=== PATIENT | male | born 1975 | race Caucasian/White ===

== ENCOUNTER 2017-05-06 10:45 | Inpatient (IN) | payer MEDICAID ==
[2017-05-06 10:46] VITALS: BMI 38.2
--- NOTE | 2017-05-06 11:30 | C.PDOC ---
History Of Present Illness 41-year-old male, PMHx includes Diabetes, presents to the emergency department with complaints of right first toe wound that has been presentand worsening over the past two weeks. Patient was prescribed two weeks of Augmentin and Doxycycline, and has had several debridements by his sequins spooler without improvement of wound. He denies trauma, fever. Time Seen by Provider: 05/06/17 11:09 Chief Complaint (Nursing): Abnormal Skin Integrity History Per: Patient History/Exam Limitations: no limitations Current Symptoms Are (Timing): Still Present Location Of Injury: Left: Foot Quality Of Symptoms: Painful Severity: Moderate Past Medical History Reviewed: Historical Data, Nursing Documentation, Vital Signs Vital Signs: Last Vital Signs Temp 98.0 F 05/09/17 08:50 Pulse 91 H 05/09/17 08:50 Resp 20 05/09/17 08:50 BP 127/82 05/09/17 08:50 Pulse Ox 96 05/09/17 08:50 - Medical History PMH: Asthma (last attack 8 years ago), Diabetes, HTN, Hypercholesterolemia Surgical History: Tonsillectomy (during childhood) - [facility] Procedures DRAINAGE OF LEFT FOOT SKIN, EXTERNAL APPROACH (11/25/16) Family History: States: No Known Family Hx - Social History Hx Tobacco Use: No Hx Alcohol Use: Yes (socially) Hx Substance Use: Yes - Immunization History Hx Tetanus Toxoid Vaccination: No Hx Influenza Vaccination: Yes Hx Pneumococcal Vaccination: Yes Review Of Systems Except As Marked, All Systems Reviewed And Found Negative. Constitutional: Negative for: Fever Cardiovascular: Negative for: Chest Pain Gastrointestinal: Negative for: Nausea, Vomiting Musculoskeletal: Positive for: Foot Pain Skin: Negative for: Rash Neurological: Negative for: Weakness, Numbness, Headache, Dizziness Physical Exam - Physical Exam Appears: Well, Non-toxic, No Acute Distress Skin: Warm, Dry, No Rash Head: Normacephalic Oral Mucosa: Moist Cardiovascular: Rhythm Regular Respiratory: Normal Breath Sounds, No Rales, No Rhonchi, No Wheezing Extremity: Tenderness, No Calf Tenderness, Capillary Refill (< 2 sec all digits ), No Deformity, Swelling, Other (right first toe: lateral aspect with 2cm healing wound. Medial aspect w/ 3cm necrotic appearing wound/eschar with surrounding erythema. no discharge. area swollen and tender to palpation) Pulses: Left Dorsalis Pedis: Normal, Right Dorsalis Pedis: Normal Neurological/Psych: Oriented x3, Normal Sensation (decreased sensation right foot (diabetic neuropathy)) ED Course And Treatment - Laboratory Results Result Diagrams: 05/06/17 11:51 05/06/17 11:51 O2 Sat by Pulse Oximetry: 98 (RA) Pulse Ox Interpretation: Normal - Other Rad foor xray X-Ray: Interpreted by Me, Viewed By Me (no fx/dislocation, no gas, no obvious periosteal elevation) Progress Note: Blood work, Xrays of foot ordered and reviewed. Patient given dose of IV Vancomycin + Cefepime. - Physician Consult Information Physician Contacted: Sherie Billings Outcome Of Conversation: Discussed patient with Dr. Mao Billings, who agrees with asdmission to his service. Podiatry consulted. Medical Decision Making Medical Decision Making: differential diagnoses considered: diabetic foot wound, osteomyelitis, gas gangrene, arterial insufficiency/PAD, fracture Disposition - Disposition Disposition: HOSPITALIZED Disposition Time: 14:08 Condition: STABLE - Clinical Impression Clinical Impression: Infected wound, Diabetic foot infection, Failure of outpatient treatment - Scribe Statement The provider has reviewed the documentation as recorded by the Scribe (Navin Carlisle) All medical record entries made by the Scribe were at my direction and personally dictated by me. I have reviewed the chart and agree that the record accurately reflects my personal performance of the history, physical exam, medical decision making, and the department course for this patient. I have also personally directed, reviewed, and agree with the discharge instructions and disposition. Decision To Admit - Pt Status Changed To: Hospital Disposition Of: Inpatient - Admit Certification Admit to Inpatient:: After my assessment, the patient will require hospitalization for at least two midnights. This is because of the severity of symptoms shown, intensity of services needed, and/or the medical risk in this patient being treated as an outpatient. - InPatient: Physician Admission Certification: I certify that this patient requires 2 or more midnights of care for the following reason:: see notes - . Bed Request Type: Regular Admitting Physician: Sherie Billings Patient Diagnosis: Infected wound, Diabetic foot infection, Failure of outpatient treatment
[2017-05-06] MEDS ORDERED: Cefepime 1 GM in Sodium Chloride 0.9% 50 ML IVPB STA (11:36)
[2017-05-06] MEDS ORDERED: Vancomycin 1 GM 1 GM/250 ML BAG IV STA (11:36)
[2017-05-06 11:55] LABS: BASO # 0.1 K/uL (0.0-0.2); EOS # 0.2 K/uL (0.0-0.7); EOS % 1.9 % (0.0-4.0); HEMOGLOBIN 15.2 g/dL (12.0-18.0); LYMPH % 30.5 % (20.0-40.0); MEAN CORPUSCULAR HEMOGLOBIN 27.5 pg (27.0-31.0); MEAN CORPUSCULAR HGB CONC 34.4 g/dL (33.0-37.0); MEAN PLATELET VOLUME 8.2 fL (7.2-11.7); MONO # 0.4 K/uL (0.0-0.8); MONO % 4.6 % (0.0-10.0); RBC 5.52 Mil/uL (4.40-5.90); RED CELL DISTRIBUTION WIDTH 13.6 % (11.5-14.5); WHITE BLOOD COUNT 9.7 K/uL (4.8-10.8)
[2017-05-06 12:02] LABS: ALBUMIN 3.4 g/dL (3.5-5.0)
[2017-05-06 12:05] LABS: ALB/GLOB RATIO 1.1 (1.0-2.1); AST/SGOT 19 U/L (17-59); BLOOD UREA NITROGEN 15 mg/dL (9-20); GFR AFRICAN-AMERICAN > 60; GFR NON-AFRICAN AMERICAN > 60
[2017-05-06 12:05] LABS: VENOUS BLOOD GAS BASE EXCESS 2.9 mmol/L (0.0-2.0); VENOUS BLOOD GAS PCO2 43 mmHg (40-60); VENOUS BLOOD GAS PO2 42 mm/Hg (30-55); VENOUS BLOOD PH 7.42 (7.32-7.43)
[2017-05-06 12:06] LABS: ALT/SGPT 32 U/L (21-72); CALCIUM 8.6 mg/dl (8.6-10.4)
--- NOTE | 2017-05-06 12:20 | RAD ---
PROCEDURE: Radiographs of the right great toe. TECHNIQUE:: AP radiograph of the right foot, with oblique and lateral view of the right great toe. COMPARISON: 11/25/2016. FINDINGS: BONES: Bone alignment is normal. No acute displaced fracture. JOINTS: Normal. SOFT TISSUES: Normal. OTHER FINDINGS: None. IMPRESSION: No acute fracture or dislocation.
[2017-05-06] MEDS: Cefepime 1 GM in Sodium Chloride 0.9% 100 ML IVPB STA ×2 (12:22→12:29)
[2017-05-06] MEDS ORDERED: Vancomycin 1 GM 1 GM/250 ML BAG IVPB ONE (12:23)
[2017-05-06] MEDS ORDERED: Oxycodone/Acetaminophen 5/325 mg Tab PO STA (14:17)
[2017-05-06] MEDS ORDERED: Oxycodone/Acetaminophen 5/325 mg Tab ONE (14:34)
--- NOTE | 2017-05-06 14:57 | CP.PCM.HP ---
Past Patient History - Past Medical History & Family History Past Medical History?: Yes - Past Social History Smoking Status: Former Smoker - CARDIAC Hx Hypercholesterolemia: Yes Hx Hypertension: Yes - PULMONARY Hx Asthma: Yes (last attack 8 years ago) - NEUROLOGICAL Hx Neurological Disorder: No - HEENT Hx HEENT Problems: No - RENAL Hx Chronic Kidney Disease: No - ENDOCRINE/METABOLIC Hx Diabetes Mellitus Type 2: Yes - HEMATOLOGICAL/ONCOLOGICAL Hx Blood Disorders: No - INTEGUMENTARY Hx Dermatological Problems: No - MUSCULOSKELETAL/RHEUMATOLOGICAL Hx Falls: No Hx Herniated Disk: Yes - GASTROINTESTINAL Other/Comment: colon problem - GENITOURINARY/GYNECOLOGICAL Hx Genitourinary Disorders: No - PSYCHIATRIC Hx Substance Use: Yes - SURGICAL HISTORY Hx Tonsillectomy: Yes (during childhood) - ANESTHESIA Hx Anesthesia: Yes Hx Anesthesia Reactions: No Meds Allergies/Adverse Reactions: Allergies Allergy/AdvReac Type Severity Reaction Status Date / Time Insulins Allergy Verified 11/22/16 12:29 sitagliptin Allergy Verified 11/22/16 12:29 Results - Vital Signs Recent Vital Signs: Last Vital Signs Temp 98.2 F 05/06/17 11:05 Pulse 92 H 05/06/17 11:05 Resp 18 05/06/17 11:05 BP 133/88 05/06/17 11:05 Pulse Ox 98 05/06/17 13:43 - Labs Result Diagrams: 05/06/17 11:51 05/06/17 11:51
--- NOTE | 2017-05-06 16:18 | CP.PCM.CON ---
History of Present Illness - History of Present Illness History of Present Illness: 41 year old with DM, was admitted with infected toe, sepsis, on antibiotics, f/ u cultures, had palpitation, echo Review of Systems - Constitutional Constitutional: Anorexia - EENT Eyes: absent: Discharge Ears: absent: Ear Discharge Nose/Mouth/Throat: absent: Epistaxis - Cardiovascular Cardiovascular: Palpitations. absent: Acrocyanosis, Chest Pain, Diaphoresis, Syncope - Respiratory Respiratory: absent: Cough, Dyspnea, Hemoptysis - Gastrointestinal Gastrointestinal: absent: Abdominal Pain, Diarrhea, Hematochezia, Vomiting - Genitourinary Genitourinary: absent: Change in Urinary Stream Past Patient History - Past Medical History & Family History Past Medical History?: Yes - Past Social History Smoking Status: Former Smoker - CARDIAC Hx Hypercholesterolemia: Yes Hx Hypertension: Yes - PULMONARY Hx Asthma: Yes (last attack 8 years ago) - NEUROLOGICAL Hx Neurological Disorder: No - HEENT Hx HEENT Problems: No - RENAL Hx Chronic Kidney Disease: No - ENDOCRINE/METABOLIC Hx Diabetes Mellitus Type 2: Yes - HEMATOLOGICAL/ONCOLOGICAL Hx Blood Disorders: No - INTEGUMENTARY Hx Dermatological Problems: No - MUSCULOSKELETAL/RHEUMATOLOGICAL Hx Falls: No Hx Herniated Disk: Yes - GASTROINTESTINAL Other/Comment: colon problem - GENITOURINARY/GYNECOLOGICAL Hx Genitourinary Disorders: No - PSYCHIATRIC Hx Substance Use: Yes - SURGICAL HISTORY Hx Tonsillectomy: Yes (during childhood) - ANESTHESIA Hx Anesthesia: Yes Hx Anesthesia Reactions: No Meds Allergies/Adverse Reactions: Allergies Allergy/AdvReac Type Severity Reaction Status Date / Time Insulins Allergy Verified 11/22/16 12:29 sitagliptin Allergy Verified 11/22/16 12:29 - Medications Medications: Current Medications Enoxaparin Sodium (Lovenox) 40 mg SC DAILY [facility] Piperacillin Sod/Tazobactam Sod (Zosyn 3.375 Gm Iv Premix) 3.375 gm in 50 mls @ 100 mls/hr IVPB Q6H [facility] Metformin HCl (Glucophage) 1,000 mg PO BIDCC [facility] Naproxen (Anaprox Ds) 550 mg PO BID [facility] Pantoprazole Sodium (Protonix Ec Tab) 40 mg PO DAILY [facility] Physical Exam - Constitutional Appears: Non-toxic - Head Exam Head Exam: ATRAUMATIC - Eye Exam Eye Exam: EOMI - ENT Exam ENT Exam: Mucous Membranes Moist - Neck Exam Neck exam: Negative for: Lymphadenopathy, Tenderness, Thyromegaly - Respiratory Exam Respiratory Exam: Clear to Auscultation Bilateral. absent: Rales - Cardiovascular Exam Cardiovascular Exam: REGULAR RHYTHM. absent: Gallop, Systolic Murmur - GI/Abdominal Exam GI & Abdominal Exam: Normal Bowel Sounds. absent: Organomegaly - Rectal Exam Rectal Exam: Deferred - Extremities Exam Extremities exam: Positive for: pedal pulses present. Negative for: calf tenderness - Expanded Lower Extremities Exam Left Foot/Toe exam: erythema, laceration, tenderness - Neurological Exam Neurological exam: Alert, Oriented x3 - Psychiatric Exam Psychiatric exam: Anxious - Skin Skin Exam: Dry Results - Vital Signs Recent Vital Signs: Last Vital Signs Temp 98.4 F 05/06/17 15:15 Pulse 82 05/06/17 15:15 Resp 17 05/06/17 15:15 BP 145/90 05/06/17 15:15 Pulse Ox 97 05/06/17 15:15 - Labs Result Diagrams: 05/06/17 11:51 05/06/17 11:51 Assessment & Plan (1) Cellulitis Status: Acute (2) Hyperglycemia due to type 2 diabetes mellitus Status: Chronic
[2017-05-06] MEDS: Piperacill/Tazo 3.375gm in Dex 3.375 GM/50 ML BAG IVPB SCH ×2 (16:52→21:25)
[2017-05-06] MEDS: Naproxen 550 mg Tab PO SCH (17:02)
[2017-05-06] MEDS: Pantoprazole 40 mg EC Tab PO SCH (17:02)
--- NOTE | 2017-05-06 17:12 | CP.PCM.CON ---
History of Present Illness - History of Present Illness History of Present Illness: 41-year-old male, PMHx includes Diabetes, presents to the emergency department with complaints of right first toe wound that has been present for greater than two weeks. 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 States he feels like symptoms have worsened. Has superfiacial area of necrosis left great toe and cellulitis left foot - Medical History PMH: Asthma (last attack 8 years ago), Diabetes, HTN, Hypercholesterolemia Denies: Chronic Kidney Disease Surgical History: Tonsillectomy (during childhood) - [facility] Procedures DRAINAGE OF LEFT FOOT SKIN, EXTERNAL APPROACH (11/25/16) Review of Systems - Review of Systems All systems: reviewed and no additional remarkable complaints except - Constitutional Constitutional: As Per HPI - EENT Eyes: absent: As Per HPI, Blind Spots, Blurred Vision, Change in Vision, Decreased Night Vision, Diplopia, Discharge, Dry Eye, Exophthalmos, Floaters, Irritation, Itchy Eyes, Loss of Peripheral Vision, Pain, Photophobia, Requires Corrective Lenses, Sees Flashes, Spots in Vision, Tunnel Vision, Other Visual Disturbances, Loss of Vision, Other Ears: absent: As Per HPI, Decreased Hearing, Ear Discharge, Ear Pain, Tinnitus, Abnormal Hearing, Disequilibrium, Dizziness, Other Nose/Mouth/Throat: absent: As Per HPI, Epistaxis, Nasal Congestion, Nasal Discharge, Nasal Obstruction, Nasal Trauma, Nose Pain, Post Nasal Drip, Sinus Pain, Sinus Pressure, Bleeding Gums, Change in Voice, Dental Pain, Dry Mouth, Dysphagia, Halitosis, Hoarsness, Lip Swelling, Mouth Lesions, Mouth Pain, Odynophagia, Sore Throat, Throat Swelling, Tongue Swelling, Facial Pain, Neck Pain, Neck Mass, Other - Cardiovascular Cardiovascular: absent: As Per HPI, Acrocyanosis, Chest Pain, Chest Pain at Rest , Chest Pain with Activity, Claudication, Diaphoresis, Dyspnea, Dyspnea on Exertion, Edema, Irregular Heart Rhythm, Pain Radiating to Arm/Neck/Jaw, Leg Edema, Leg Ulcers, Lightheadedness, Orthopnea, Palpitations, Paroxysmal Nocturnal Dyspnea, Pedal Edema, Radiating Pain, Rapid Heart Rate, Slow Heart Rate, Syncope, Other - Respiratory Respiratory: absent: As Per HPI, Cough, Dyspnea, Hemoptysis, Dyspnea on Exertion , Wheezing, Snoring, Stridor, Pain on Inspiration, Chest Congestion, Excessive Mucous Production, Change in Mucous Color, Pain with Coughing, Other - Gastrointestinal Gastrointestinal: absent: As Per HPI, Abdominal Pain, Belching, Bloating, Change in Bowel Habits, Change in Stool Character, Coffee Ground Emesis, Constipation, Cramping, Diarrhea, Dyspepsia, Dysphagia, Early Satiety, Excessive Flatus, Fecal Incontinence, Heartburn, Hematemesis, Hematochezia, Loose Stools, Melena, Nausea, Odynophagia, Temesmus, Vomiting, Other - Genitourinary Genitourinary: absent: As Per HPI, Change in Urinary Stream, Difficulty Urinating, Dysuria, Flank Pain, Hematuria, Pyuria, Nocturia, Urinary Incontinence, Urinary Frequency, Urinary Hesitance, Urinary Urgency, Voiding Freq/Small Amts, Freq UTI, Hx Renal/Bladder Calculi, Hx /Renal Surgery, Bladder Distension, Other - Musculoskeletal Musculoskeletal: As Per HPI - Integumentary Integumentary: As Per HPI, Skin Pain, Wounds - Neurological Neurological: absent: As Per HPI, Abnormal Gait, Abnormal Hearing, Abnormal Movements, Abnormal Speech, Behavioral Changes, Burning Sensations, Confusion, Convulsions, Disequilibrium, Dizziness, Numbness, Focal Weakness, Frequent Falls , Headaches, Lack of Coordination, Loss of Vision, Memory Loss, Paresthesias, Radicular Pain, Restless Legs, Sensory Deficit, Syncope, Tingling, Tremor, Vertigo, Weakness, Other Visual Disturbances, Other - Psychiatric Psychiatric: absent: As Per HPI, Abnormal Sleep Pattern, Anhedonia, Anxiety, Auditory Hallucinations, Behavioral Changes, Change in Appetite, Change in Libido, Confusion, Depression, Difficulty Concentrating, Hallucinations, Homicidal Ideation, Hopelessness, Irritability, Memory Loss, Mood Swings, Panic Attacks, Paranoia, Suicidal Ideation, Visual Hallucinations, Tactile Hallucinations, Other - Endocrine Endocrine: absent: As Per HPI, Change in Body Appearance, Change in Libido, Cold Intolorance, Deepening of Voice, Excessive Sweating, Fatigue, Flushing, Heat Intolorance, Increase in Ring/Shoe/Hat Size, Palpitations, Polydipsia, Polyphagia, Polyuria, Other Past Patient History - Past Medical History & Family History Past Medical History?: Yes - Past Social History Smoking Status: Former Smoker - CARDIAC Hx Hypercholesterolemia: Yes Hx Hypertension: Yes - PULMONARY Hx Asthma: Yes (last attack 8 years ago) - NEUROLOGICAL Hx Neurological Disorder: No - HEENT Hx HEENT Problems: No - RENAL Hx Chronic Kidney Disease: No - ENDOCRINE/METABOLIC Hx Diabetes Mellitus Type 2: Yes - HEMATOLOGICAL/ONCOLOGICAL Hx Blood Disorders: No - INTEGUMENTARY Hx Dermatological Problems: No - MUSCULOSKELETAL/RHEUMATOLOGICAL Hx Falls: No Hx Herniated Disk: Yes - GASTROINTESTINAL Other/Comment: colon problem - GENITOURINARY/GYNECOLOGICAL Hx Genitourinary Disorders: No - PSYCHIATRIC Hx Substance Use: Yes - SURGICAL HISTORY Hx Tonsillectomy: Yes (during childhood) - ANESTHESIA Hx Anesthesia: Yes Hx Anesthesia Reactions: No Meds Allergies/Adverse Reactions: Allergies Allergy/AdvReac Type Severity Reaction Status Date / Time Insulins Allergy Verified 11/22/16 12:29 sitagliptin Allergy Verified 11/22/16 12:29 - Medications Medications: Current Medications Enoxaparin Sodium (Lovenox) 40 mg SC DAILY [facility] Piperacillin Sod/Tazobactam Sod (Zosyn 3.375 Gm Iv Premix) 3.375 gm in 50 mls @ 100 mls/hr IVPB Q6H [facility] Last Admin: 05/06/17 16:52 Dose: 100 mls/hr [facility] Last Admin: 05/06/17 17:02 Dose: 1,000 mg Naproxen (Anaprox Ds) 550 mg PO BID [facility] Last Admin: 05/06/17 17:02 Dose: 550 mg Pantoprazole Sodium (Protonix Ec Tab) 40 mg PO DAILY [facility] Last Admin: 05/06/17 17:02 Dose: 40 mg Physical Exam - Constitutional Appears: Non-toxic, Chronically Ill - Head Exam Head Exam: NORMOCEPHALIC - Eye Exam Eye Exam: PERRL. absent: Scleral icterus - ENT Exam ENT Exam: Mucous Membranes Dry, Normal External Ear Exam - Neck Exam Neck exam: Negative for: Lymphadenopathy - Respiratory Exam Respiratory Exam: Decreased Breath Sounds - Cardiovascular Exam Cardiovascular Exam: REGULAR RHYTHM - GI/Abdominal Exam GI & Abdominal Exam: Diminished Bowel Sounds, Soft - Rectal Exam Rectal Exam: Deferred - Exam Exam: NORMAL INSPECTION - Extremities Exam Extremities exam: Positive for: pedal edema, tenderness, pedal pulses present. Negative for: calf tenderness - Back Exam Back exam: absent: CVA tenderness (L), CVA tenderness (R) - Neurological Exam Neurological exam: Alert, CN II-XII Intact, Oriented x3, Reflexes Normal - Psychiatric Exam Psychiatric exam: Normal Mood - Skin Skin Exam: Dry Results - Vital Signs Recent Vital Signs: Last Vital Signs Temp 98.4 F 05/06/17 15:15 Pulse 82 05/06/17 15:15 Resp 17 05/06/17 15:15 BP 145/90 05/06/17 15:15 Pulse Ox 97 05/06/17 15:15 - Labs Result Diagrams: 05/06/17 11:51 05/06/17 11:51 Labs: Laboratory Results - last 24 hr 05/06/17 16:34 POC Glucose (mg/dL) 266 H Assessment & Plan (1) Cellulitis Status: Acute (2) Elevated d-dimer Status: Acute (3) Pneumonia Status: Acute (4) Uncontrolled diabetes mellitus Status: Acute - Assessment and Plan (Free Text) Assessment: R/O OM CONSIDER OR CULTURES LEFT GREAT TOE RECC : ARTERIAL DOPPLERCS AND VASCULAR EVAL NEED WEIGHT LOSS/ DIABETIC MANAGEMENT CONSIDER MRI LEFT FOOT TO R/O OM CONT IV ANTIBIOTICS
[2017-05-07] MEDS: Piperacill/Tazo 3.375gm in Dex 3.375 GM/50 ML BAG IVPB SCH ×4 (02:49→20:54)
[2017-05-07] MEDS ORDERED: Oxycodone/Acetaminophen 5/325 mg Tab PO ONE (03:38)
[2017-05-07] MEDS: Enoxaparin 40 mg Syringe SC SCH (09:32)
[2017-05-07] MEDS: Pantoprazole 40 mg EC Tab PO SCH (09:32)
[2017-05-07] MEDS: Naproxen 550 mg Tab PO SCH ×2 (09:32→17:54)
--- NOTE | 2017-05-07 11:31 | CP.PCM.PN ---
Subjective - Date & Time of Evaluation Date of Evaluation: 05/07/17 Time of Evaluation: 07:00 - Subjective Subjective: MRI pending ulcer right great toe +/ cellulitis + cont iv rx Objective - Vital Signs/Intake and Output Vital Signs (last 24 hours): Temp Pulse Resp BP Pulse Ox 98.3 F 60 20 140/88 96 05/07/17 07:15 05/07/17 07:15 05/07/17 07:15 05/07/17 07:15 05/07/17 07:15 Intake and Output: 05/07/17 05/07/17 06:59 18:59 Intake Total 1200 Balance 1200 - Medications Medications: Current Medications Enoxaparin Sodium (Lovenox) 40 mg SC DAILY [facility] Last Admin: 05/07/17 09:32 Dose: 40 mg Piperacillin Sod/Tazobactam Sod (Zosyn 3.375 Gm Iv Premix) 3.375 gm in 50 mls @ 100 mls/hr IVPB Q6H [facility] Last Admin: 05/07/17 08:00 Dose: 100 mls/hr Vancomycin HCl 1,000 mg/ (Sodium Chloride) 250 mls @ 166.6 mls/hr IVPB Q12H [facility] Last Admin: 05/07/17 01:50 Dose: 166.6 mls/hr [facility] Last Admin: 05/07/17 07:57 Dose: 1,000 mg Naproxen (Anaprox Ds) 550 mg PO BID [facility] Last Admin: 05/07/17 09:32 Dose: 550 mg Pantoprazole Sodium (Protonix Ec Tab) 40 mg PO DAILY [facility] Last Admin: 05/07/17 09:32 Dose: 40 mg - Constitutional Appears: Non-toxic, Chronically Ill - Head Exam Head Exam: NORMOCEPHALIC - Eye Exam Eye Exam: PERRL. absent: Scleral icterus - ENT Exam ENT Exam: Mucous Membranes Dry - Neck Exam Neck Exam: absent: Lymphadenopathy - Respiratory Exam Respiratory Exam: Decreased Breath Sounds, Clear to Ausculation Bilateral - Cardiovascular Exam Cardiovascular Exam: REGULAR RHYTHM - GI/Abdominal Exam GI & Abdominal Exam: Distended Assessment and Plan (1) Cellulitis Status: Acute (2) Elevated d-dimer Status: Acute (3) Pneumonia Status: Acute (4) Uncontrolled diabetes mellitus Status: Acute
--- NOTE | 2017-05-07 12:26 | CP.PCM.PN ---
Subjective - Date & Time of Evaluation Date of Evaluation: 05/07/17 Time of Evaluation: 12:00 - Subjective Subjective: On treatment for sepsis and cellulitis as per infectious disease, no further palpitation, follow-up with echocardiogram Objective - Vital Signs/Intake and Output Vital Signs (last 24 hours): Temp Pulse Resp BP Pulse Ox 98.3 F 60 20 140/88 96 05/07/17 07:15 05/07/17 07:15 05/07/17 07:15 05/07/17 07:15 05/07/17 07:15 Intake and Output: 05/07/17 05/07/17 06:59 18:59 Intake Total 1200 Balance 1200 - Medications Medications: Current Medications Enoxaparin Sodium (Lovenox) 40 mg SC DAILY [facility] Last Admin: 05/07/17 09:32 Dose: 40 mg Piperacillin Sod/Tazobactam Sod (Zosyn 3.375 Gm Iv Premix) 3.375 gm in 50 mls @ 100 mls/hr IVPB Q6H [facility] Last Admin: 05/07/17 08:00 Dose: 100 mls/hr Vancomycin HCl 1,000 mg/ (Sodium Chloride) 250 mls @ 166.6 mls/hr IVPB Q12H [facility] Last Admin: 05/07/17 01:50 Dose: 166.6 mls/hr [facility] Last Admin: 05/07/17 07:57 Dose: 1,000 mg Naproxen (Anaprox Ds) 550 mg PO BID [facility] Last Admin: 05/07/17 09:32 Dose: 550 mg Pantoprazole Sodium (Protonix Ec Tab) 40 mg PO DAILY [facility] Last Admin: 05/07/17 09:32 Dose: 40 mg - Constitutional Appears: Non-toxic - Head Exam Head Exam: ATRAUMATIC - Eye Exam Eye Exam: EOMI - ENT Exam ENT Exam: Mucous Membranes Moist - Neck Exam Neck Exam: absent: Lymphadenopathy, Thyromegaly - Respiratory Exam Respiratory Exam: Clear to Ausculation Bilateral. absent: Rales - Cardiovascular Exam Cardiovascular Exam: REGULAR RHYTHM. absent: Murmur - GI/Abdominal Exam GI & Abdominal Exam: Normal Bowel Sounds. absent: Organomegaly - Rectal Exam Rectal Exam: Deferred - Extremities Exam Extremities Exam: Calf Tenderness, Normal Capillary Refill - Neurological Exam Neurological Exam: Alert, Oriented x3 - Psychiatric Exam Psychiatric exam: Anxious - Skin Skin Exam: Dry Assessment and Plan (1) Cellulitis Status: Acute (2) Hyperglycemia due to type 2 diabetes mellitus Status: Chronic
--- NOTE | 2017-05-07 17:03 | CP.PCM.CON ---
<Richard Foremana - Last Filed: 05/07/17 17:00> History of Present Illness - History of Present Illness History of Present Illness: 41-year-old male, PMHx includes Diabetes, seen at bedside for right foot nonhealing ulceration of hallux. Patient states that he has had the ulcer for over 2 weeks. He states that on the inside of his toe he noticed a blister that had popped but a few days ago noticed a wound changing a dark color and became concerned. Patient states that he developed pain and came to the ED. Patient states that he sees an outside envelope addresser that does not come to [facility]. He states that he has been treating the wound with local care. Patient denies any other pedal complaints at this time. He denies n/f/v/d/c/ sob. Review of Systems - Constitutional Constitutional: As Per HPI Past Patient History - Past Medical History & Family History Past Medical History?: Yes - Past Social History Smoking Status: Former Smoker - CARDIAC Hx Hypercholesterolemia: Yes Hx Hypertension: Yes - PULMONARY Hx Asthma: Yes (last attack 8 years ago) - NEUROLOGICAL Hx Neurological Disorder: No - HEENT Hx HEENT Problems: No - RENAL Hx Chronic Kidney Disease: No - ENDOCRINE/METABOLIC Hx Diabetes Mellitus Type 2: Yes - HEMATOLOGICAL/ONCOLOGICAL Hx Blood Disorders: No - INTEGUMENTARY Hx Dermatological Problems: No - MUSCULOSKELETAL/RHEUMATOLOGICAL Hx Falls: No Hx Herniated Disk: Yes - GASTROINTESTINAL Other/Comment: colon problem - GENITOURINARY/GYNECOLOGICAL Hx Genitourinary Disorders: No - PSYCHIATRIC Hx Substance Use: Yes - SURGICAL HISTORY Hx Tonsillectomy: Yes (during childhood) - ANESTHESIA Hx Anesthesia: Yes Hx Anesthesia Reactions: No Meds Allergies/Adverse Reactions: Allergies Allergy/AdvReac Type Severity Reaction Status Date / Time Insulins Allergy Verified 11/22/16 12:29 sitagliptin Allergy Verified 11/22/16 12:29 - Medications Medications: Current Medications Collagenase (Santyl) 0 gm TOP DAILY [facility] Enoxaparin Sodium (Lovenox) 40 mg SC DAILY [facility] Last Admin: 05/07/17 09:32 Dose: 40 mg Piperacillin Sod/Tazobactam Sod (Zosyn 3.375 Gm Iv Premix) 3.375 gm in 50 mls @ 100 mls/hr IVPB Q6H [facility] Last Admin: 05/07/17 15:59 Dose: 100 mls/hr Vancomycin HCl 1,000 mg/ (Sodium Chloride) 250 mls @ 166.6 mls/hr IVPB Q12H [facility] Last Admin: 05/07/17 13:18 Dose: 166.6 mls/hr Metformin HCl (Glucophage) 1,000 mg PO BIDCC [facility] Last Admin: 05/07/17 07:57 Dose: 1,000 mg Naproxen (Anaprox Ds) 550 mg PO BID [facility] Last Admin: 05/07/17 09:32 Dose: 550 mg Pantoprazole Sodium (Protonix Ec Tab) 40 mg PO DAILY [facility] Last Admin: 05/07/17 09:32 Dose: 40 mg Physical Exam - Constitutional Appears: Well, Non-toxic, No Acute Distress - Extremities Exam Additional comments: right foot focused: Vasc: lightly palpable DP and PT pulses, TG wnl, CFT < 3 sec to all digits neuro: grossly intact derm: localized edema and erythema to right hallux, superficial skin sloughing from previous blister noted to medial hallux, plantar hallux necrotic ulcer measuring 3cm x 2cm x 0.2cm with necrotic cap, fibrous base, 1cc purulent drainage, moderate malodor, no probe to bone, moderate fluctuance, no ascending celllulitis ortho: no pain on palpation to plantar right hallux - Neurological Exam Neurological exam: Alert, Oriented x3 - Psychiatric Exam Psychiatric exam: Normal Affect, Normal Mood Results - Vital Signs Recent Vital Signs: Last Vital Signs Temp 98.1 F 05/07/17 15:40 Pulse 82 05/07/17 15:40 Resp 18 05/07/17 15:40 BP 166/102 H 05/07/17 15:40 Pulse Ox 97 05/07/17 15:40 - Labs Result Diagrams: 05/06/17 11:51 05/06/17 11:51 Labs: Laboratory Results - last 24 hr 05/06/17 05/07/17 05/07/17 21:46 06:33 07:03 POC Glucose (mg/dL) 269 H 265 H Vancomycin Trough 8.2 05/07/17 11:16 POC Glucose (mg/dL) 355 H Vancomycin Trough Assessment & Plan - Assessment and Plan (Free Text) Assessment: 41 y/o male seen at bedside for right hallux ulceration secondary to DM Plan: patient evaluated and chart reviewed discussed in detail with attending Dr. Hooper labs and vitals reviewed; WBC 9.7 (05/06/17) aseptic trimming of necrotic tissue on right foot using #15 blade and pickups applied betadine, DSD to right hallux wound cx obtained x rays of right foot show no OM f/u MRI right foot continue IV abx as per ID Rx santyl podiatry will continue to follow while patient remains in house <Jovanny Hooper - Last Filed: 05/08/17 11:07> Meds - Medications Medications: Current Medications Collagenase (Santyl) 0 gm TOP DAILY [facility] Enoxaparin Sodium (Lovenox) 40 mg SC DAILY [facility] Last Admin: 05/08/17 09:27 Dose: 40 mg Piperacillin Sod/Tazobactam Sod (Zosyn 3.375 Gm Iv Premix) 3.375 gm in 50 mls @ 100 mls/hr IVPB Q6H [facility] Last Admin: 05/08/17 08:06 Dose: 100 mls/hr Vancomycin HCl 1,000 mg/ (Sodium Chloride) 250 mls @ 166.6 mls/hr IVPB Q12H [facility] Last Admin: 05/08/17 01:47 Dose: 166.6 mls/hr Metformin HCl (Glucophage) 1,000 mg PO BIDCC [facility] Last Admin: 05/08/17 08:06 Dose: 1,000 mg Naproxen (Anaprox Ds) 550 mg PO BID [facility] Last Admin: 05/08/17 09:29 Dose: 550 mg Pantoprazole Sodium (Protonix Ec Tab) 40 mg PO DAILY [facility] Last Admin: 05/08/17 09:27 Dose: 40 mg Results - Vital Signs Recent Vital Signs: Last Vital Signs Temp 98.3 F 05/08/17 09:15 Pulse 80 05/08/17 09:15 Resp 20 05/08/17 09:15 BP 151/86 H 05/08/17 09:15 Pulse Ox 97 05/08/17 09:15 - Labs Result Diagrams: 05/06/17 11:51 05/06/17 11:51 Labs: Laboratory Results - last 24 hr 05/07/17 05/07/17 05/07/17 11:16 16:20 20:52 POC Glucose (mg/dL) 355 H 264 H 252 H 05/08/17 06:55 POC Glucose (mg/dL) 263 H Attending/Attestation - Attestation I have fully participated in the care of the patient.: Yes I have reviewed all pertinent clinical information: Yes
--- NOTE | 2017-05-07 18:32 | CP.PCM.PN ---
Subjective - Date & Time of Evaluation Date of Evaluation: 05/07/17 Time of Evaluation: 13:20 - Subjective Subjective: clinically same Objective - Vital Signs/Intake and Output Vital Signs (last 24 hours): Temp Pulse Resp BP Pulse Ox 98.1 F 82 18 166/102 H 97 05/07/17 15:40 05/07/17 15:40 05/07/17 15:40 05/07/17 15:40 05/07/17 15:40 Intake and Output: 05/07/17 05/07/17 06:59 18:59 Intake Total 1200 1200 Balance 1200 1200 - Medications Medications: Current Medications Collagenase (Santyl) 0 gm TOP DAILY [facility] Enoxaparin Sodium (Lovenox) 40 mg SC DAILY [facility] Last Admin: 05/07/17 09:32 Dose: 40 mg Piperacillin Sod/Tazobactam Sod (Zosyn 3.375 Gm Iv Premix) 3.375 gm in 50 mls @ 100 mls/hr IVPB Q6H [facility] Last Admin: 05/07/17 15:59 Dose: 100 mls/hr Vancomycin HCl 1,000 mg/ (Sodium Chloride) 250 mls @ 166.6 mls/hr IVPB Q12H [facility] Last Admin: 05/07/17 13:18 Dose: 166.6 mls/hr [facility] Last Admin: 05/07/17 17:54 Dose: 1,000 mg Naproxen (Anaprox Ds) 550 mg PO BID [facility] Last Admin: 05/07/17 17:54 Dose: 550 mg Pantoprazole Sodium (Protonix Ec Tab) 40 mg PO DAILY [facility] Last Admin: 05/07/17 09:32 Dose: 40 mg - Constitutional Appears: Well - Head Exam Head Exam: ATRAUMATIC, NORMAL INSPECTION, NORMOCEPHALIC - Eye Exam Eye Exam: EOMI, Normal appearance, PERRL Pupil Exam: NORMAL ACCOMODATION, PERRL - ENT Exam ENT Exam: Mucous Membranes Moist, Normal Exam - Neck Exam Neck Exam: Full ROM, Normal Inspection. absent: Lymphadenopathy - Respiratory Exam Respiratory Exam: Decreased Breath Sounds - Cardiovascular Exam Cardiovascular Exam: REGULAR RHYTHM, +S1, +S2 - GI/Abdominal Exam GI & Abdominal Exam: Soft, Diminished Bowel Sounds - Rectal Exam Rectal Exam: Deferred
[2017-05-07] MEDS ORDERED: Oxycodone/Acetaminophen 5/325 mg Tab PO STA (23:51)
[2017-05-08] MEDS: Piperacill/Tazo 3.375gm in Dex 3.375 GM/50 ML BAG IVPB SCH ×4 (04:00→22:46)
[2017-05-08] MEDS: Enoxaparin 40 mg Syringe SC SCH (09:27)
[2017-05-08] MEDS: Pantoprazole 40 mg EC Tab PO SCH (09:27)
[2017-05-08] MEDS: Naproxen 550 mg Tab PO SCH ×2 (09:29→18:06)
[2017-05-08] MEDS: Collagenase 250 Units/gm Ointment(30 gm) TOP SCH (10:00)
--- NOTE | 2017-05-08 10:13 | CP.PCM.PN ---
Subjective - Date & Time of Evaluation Date of Evaluation: 05/08/17 Time of Evaluation: 09:00 - Subjective Subjective: 41 yo male with severe diabetic neuropathy seen for nonhealing ulcer right hallux/ cellulitits right foot Objective - Vital Signs/Intake and Output Vital Signs (last 24 hours): Temp Pulse Resp BP Pulse Ox 98.3 F 80 20 151/86 H 97 05/08/17 09:15 05/08/17 09:15 05/08/17 09:15 05/08/17 09:15 05/08/17 09:15 Intake and Output: 05/08/17 05/08/17 06:59 18:59 Intake Total 1390 Balance 1390 - Medications Medications: Current Medications Collagenase (Santyl) 0 gm TOP DAILY [facility] Enoxaparin Sodium (Lovenox) 40 mg SC DAILY [facility] Last Admin: 05/08/17 09:27 Dose: 40 mg Piperacillin Sod/Tazobactam Sod (Zosyn 3.375 Gm Iv Premix) 3.375 gm in 50 mls @ 100 mls/hr IVPB Q6H [facility] Last Admin: 05/08/17 08:06 Dose: 100 mls/hr Vancomycin HCl 1,000 mg/ (Sodium Chloride) 250 mls @ 166.6 mls/hr IVPB Q12H [facility] Last Admin: 05/08/17 01:47 Dose: 166.6 mls/hr Metformin HCl (Glucophage) 1,000 mg PO BIDCC [facility] Last Admin: 05/08/17 08:06 Dose: 1,000 mg Naproxen (Anaprox Ds) 550 mg PO BID [facility] [place] Last Admin: 05/08/17 09:29 Dose: 550 mg Pantoprazole Sodium (Protonix Ec Tab) 40 mg PO DAILY [facility] [place] Last Admin: 05/08/17 09:27 Dose: 40 mg - Constitutional Appears: Non-toxic, Chronically Ill - Head Exam Head Exam: NORMOCEPHALIC - Eye Exam Eye Exam: PERRL. absent: Scleral icterus - ENT Exam ENT Exam: Mucous Membranes Dry - Neck Exam Neck Exam: absent: Lymphadenopathy - Respiratory Exam Respiratory Exam: Decreased Breath Sounds, Clear to Ausculation Bilateral - Cardiovascular Exam Cardiovascular Exam: REGULAR RHYTHM - GI/Abdominal Exam GI & Abdominal Exam: Distended, Soft - Rectal Exam Rectal Exam: Deferred - Exam Exam: NORMAL INSPECTION - Extremities Exam Extremities Exam: Pedal Edema, Tenderness Additional comments: right foot focused: Vasc: lightly palpable DP and PT pulses, TG wnl, CFT < 3 sec to all digits neuro: grossly intact derm: localized edema and erythema to right hallux, superficial skin sloughing from previous blister noted to medial hallux, plantar hallux necrotic ulcer measuring 3cm x 2cm x 0.2cm with necrotic cap, fibrous base, 1cc purulent drainage, moderate malodor, no probe to bone, moderate fluctuance, no ascending celllulitis ortho: no pain on palpation to plantar right hallux - Back Exam Back Exam: absent: CVA tenderness (L), CVA tenderness (R) - Neurological Exam Neurological Exam: Alert, Awake, Oriented x3 - Psychiatric Exam Psychiatric exam: Normal Mood - Skin Skin Exam: Dry, Intact Assessment and Plan (1) Cellulitis Status: Acute (2) Elevated d-dimer Status: Acute (3) Pneumonia Status: Acute (4) Uncontrolled diabetes mellitus Status: Acute - Assessment and Plan (Free Text) Assessment: await MRI may need OR debridement may need termite treater IV rx
--- NOTE | 2017-05-08 11:12 | MRI ---
MRI right foot History: Osteomyelitis. Comparison: X-ray dated 05/06/2017 Technique: Multi-echo multiplanar sequences were performed through the right foot without the use of intravenous contrast. Findings: Soft tissue ulceration with adjacent prominent signal abnormality seen within the 1st distal phalanx with patchy decreased T1 signal and exuberant reactive edema and increased STIR signal consistent with acute osteomyelitis. Mild patchy reactive edema at the adjacent head of the 1st proximal phalanx without gross corresponding T1 signal abnormality, nonspecific. Hallux valgus deformity. Degenerative changes at the 1st metatarsus sesamoid joint space. Mild fraying with increased signal seen within the visualized Lisfranc ligament suggestive for moderate grade sprain and or mild partial tearing. Patchy nonspecific reactive bone marrow edema seen within the medial and middle cuneiform bones as well as the cuboid bone, nonspecific. Additional nonspecific patchy reactive edema seen within the navicular bone. Additional patchy nonspecific reactive edema seen within the metatarsal shaft and base of the 2nd metatarsal bone. Impression: 1. Soft tissue ulceration with adjacent prominent signal abnormality seen within the 1st distal phalanx with patchy decreased T1 signal and exuberant reactive edema and increased STIR signal consistent with acute osteomyelitis. 2. Mild patchy reactive edema at the adjacent head of the 1st proximal phalanx without gross corresponding T1 signal abnormality, nonspecific. 3. Hallux valgus deformity. Degenerative changes at the 1st metatarsus sesamoid joint space. 4. Mild fraying with increased signal seen within the visualized Lisfranc ligament suggestive for moderate grade sprain and or mild partial tearing. 5. Patchy nonspecific reactive bone marrow edema seen within the medial and middle cuneiform bones as well as the cuboid bone, nonspecific. 6. Additional nonspecific patchy reactive edema seen within the navicular bone. 7. Additional patchy nonspecific reactive edema seen within the metatarsal shaft and base of the 2nd metatarsal bone. These findings were preliminarily reported at 6:22 p.m. on 05/07/[address] Mariano Hinton from [facility].
--- NOTE | 2017-05-08 11:45 | CP.PCM.PN ---
Subjective - Date & Time of Evaluation Date of Evaluation: 05/08/17 Time of Evaluation: 12:00 - Subjective Subjective: Osteomyelitis on MRI, no palpitation, follow-up with echo. Objective - Vital Signs/Intake and Output Vital Signs (last 24 hours): Temp Pulse Resp BP Pulse Ox 98.3 F 80 20 151/86 H 97 05/08/17 09:15 05/08/17 09:15 05/08/17 09:15 05/08/17 09:15 05/08/17 09:15 Intake and Output: 05/08/17 05/08/17 06:59 18:59 Intake Total 1390 Balance 1390 - Medications Medications: Current Medications Collagenase (Santyl) 0 gm TOP DAILY [facility] Enoxaparin Sodium (Lovenox) 40 mg SC DAILY [facility] Last Admin: 05/08/17 09:27 Dose: 40 mg Piperacillin Sod/Tazobactam Sod (Zosyn 3.375 Gm Iv Premix) 3.375 gm in 50 mls @ 100 mls/hr IVPB Q6H [facility] Last Admin: 05/08/17 08:06 Dose: 100 mls/hr Vancomycin HCl 1,000 mg/ (Sodium Chloride) 250 mls @ 166.6 mls/hr IVPB Q12H [facility] Last Admin: 05/08/17 01:47 Dose: 166.6 mls/hr [facility] Last Admin: 05/08/17 08:06 Dose: 1,000 mg Naproxen (Anaprox Ds) 550 mg PO BID [facility] Last Admin: 05/08/17 09:29 Dose: 550 mg Pantoprazole Sodium (Protonix Ec Tab) 40 mg PO DAILY [facility] Last Admin: 05/08/17 09:27 Dose: 40 mg - Constitutional Appears: Non-toxic - Head Exam Head Exam: ATRAUMATIC - Eye Exam Eye Exam: EOMI - ENT Exam ENT Exam: Mucous Membranes Moist - Neck Exam Neck Exam: absent: Lymphadenopathy, Thyromegaly - Respiratory Exam Respiratory Exam: Clear to Ausculation Bilateral. absent: Rales - Cardiovascular Exam Cardiovascular Exam: REGULAR RHYTHM, Murmur - GI/Abdominal Exam GI & Abdominal Exam: Normal Bowel Sounds. absent: Organomegaly - Rectal Exam Rectal Exam: Deferred - Extremities Exam Extremities Exam: Normal Capillary Refill. absent: Calf Tenderness - Neurological Exam Neurological Exam: Alert, Oriented x3 - Psychiatric Exam Psychiatric exam: Anxious - Skin Skin Exam: Dry Assessment and Plan (1) Cellulitis Status: Acute (2) Hyperglycemia due to type 2 diabetes mellitus Status: Chronic
--- NOTE | 2017-05-08 13:15 | CP.PCM.CON ---
History of Present Illness - History of Present Illness History of Present Illness: General Surgery- Dr. Larson reason for consult- non-healing foot wound 41M, PMHx Diabetes, seen at bedside for right foot nonhealing ulceration of lateral hallux. Patient states that he has had the ulcer for over 2 weeks. The lateral aspect of the Right great toe had a cut that changed to a dark color and became concerned. wound now measures 3x2cm. He denies n/f/v/d/c/sob. PMH: Diabetes, Asthma, boarderline HTN PSH: inguinal hernia repair x4, shoulder U[facility] ALL: sitagliptin Review of Systems - Review of Systems All systems: reviewed and no additional remarkable complaints except Past Patient History - Past Medical History & Family History Past Medical History?: Yes - Past Social History Smoking Status: Former Smoker - CARDIAC Hx Hypercholesterolemia: Yes Hx Hypertension: Yes - PULMONARY Hx Asthma: Yes (last attack 8 years ago) - NEUROLOGICAL Hx Neurological Disorder: No - HEENT Hx HEENT Problems: No - RENAL Hx Chronic Kidney Disease: No - ENDOCRINE/METABOLIC Hx Diabetes Mellitus Type 2: Yes - HEMATOLOGICAL/ONCOLOGICAL Hx Blood Disorders: No - INTEGUMENTARY Hx Dermatological Problems: No - MUSCULOSKELETAL/RHEUMATOLOGICAL Hx Falls: No Hx Herniated Disk: Yes - GASTROINTESTINAL Other/Comment: colon problem - GENITOURINARY/GYNECOLOGICAL Hx Genitourinary Disorders: No - PSYCHIATRIC Hx Substance Use: Yes - SURGICAL HISTORY Hx Tonsillectomy: Yes (during childhood) - ANESTHESIA Hx Anesthesia: Yes Hx Anesthesia Reactions: No Meds Allergies/Adverse Reactions: Allergies Allergy/AdvReac Type Severity Reaction Status Date / Time Insulins Allergy Verified 11/22/16 12:29 sitagliptin Allergy Verified 11/22/16 12:29 - Medications Medications: Current Medications Collagenase (Santyl) 0 gm TOP DAILY [facility] Enoxaparin Sodium (Lovenox) 40 mg SC DAILY [facility] Last Admin: 05/08/17 09:27 Dose: 40 mg Piperacillin Sod/Tazobactam Sod (Zosyn 3.375 Gm Iv Premix) 3.375 gm in 50 mls @ 100 mls/hr IVPB Q6H [facility] Last Admin: 05/08/17 08:06 Dose: 100 mls/hr Vancomycin HCl 1,000 mg/ (Sodium Chloride) 250 mls @ 166.6 mls/hr IVPB Q12H [facility] Last Admin: 05/08/17 01:47 Dose: 166.6 mls/hr [facility] Last Admin: 05/08/17 08:06 Dose: 1,000 mg Naproxen (Anaprox Ds) 550 mg PO BID [facility] Last Admin: 05/08/17 09:29 Dose: 550 mg Pantoprazole Sodium (Protonix Ec Tab) 40 mg PO DAILY [facility] Last Admin: 05/08/17 09:27 Dose: 40 mg Physical Exam - Constitutional Appears: No Acute Distress - Head Exam Head Exam: ATRAUMATIC - Eye Exam Eye Exam: EOMI - ENT Exam ENT Exam: Mucous Membranes Moist - Respiratory Exam Respiratory Exam: Clear to Auscultation Bilateral, NORMAL BREATHING PATTERN. absent: Accessory Muscle Use, Chest Wall Tenderness - Cardiovascular Exam Cardiovascular Exam: REGULAR RHYTHM, RRR, +S1, +S2 - GI/Abdominal Exam GI & Abdominal Exam: Normal Bowel Sounds, Soft - Extremities Exam Additional comments: Right foot was wrapped on examination. Dressing c/d/i. +2 DP - Neurological Exam Neurological exam: Alert, Oriented x3 Results - Vital Signs Recent Vital Signs: Last Vital Signs Temp 98.3 F 05/08/17 09:15 Pulse 80 05/08/17 09:15 Resp 20 05/08/17 09:15 BP 151/86 H 05/08/17 09:15 Pulse Ox 97 05/08/17 09:15 - Labs Result Diagrams: 05/06/17 11:51 05/06/17 11:51 Labs: Laboratory Results - last 24 hr 05/07/17 05/07/17 05/08/17 16:20 20:52 06:55 POC Glucose (mg/dL) 264 H 252 H 263 H 05/08/17 10:56 POC Glucose (mg/dL) 264 H Assessment & Plan - Assessment and Plan (Free Text) Assessment: 41F hx of diabetes presents w/ non-healing right foot ulcer Plan: - podiatry recommendations appreciated * if debridement needed, will be performed by podiatry - c/w santyl dressing - IV abx - no acute surgical intervention at this time Will discuss with Dr. Marsha Damian PGY1
--- NOTE | 2017-05-08 14:02 | CP.PCM.PN ---
Subjective - Date & Time of Evaluation Date of Evaluation: 05/08/17 Time of Evaluation: 14:00 - Subjective Subjective: Pt seen at bedside for f/u right hallux ulcer. MRI is consistent with OM of right distal phalanx. Consult written for Dr. Larson to joselo for PVD. 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 Objective - Vital Signs/Intake and Output Vital Signs (last 24 hours): Temp Pulse Resp BP Pulse Ox 98.3 F 80 20 151/86 H 97 05/08/17 09:15 05/08/17 09:15 05/08/17 09:15 05/08/17 09:15 05/08/17 09:15 Intake and Output: 05/08/17 05/08/17 06:59 18:59 Intake Total 1390 Balance 1390 - Medications Medications: Current Medications Collagenase (Santyl) 0 gm TOP DAILY [facility] Last Admin: 05/08/17 10:00 Dose: 1 appl Enoxaparin Sodium (Lovenox) 40 mg SC DAILY [facility] Last Admin: 05/08/17 09:27 Dose: 40 mg Piperacillin Sod/Tazobactam Sod (Zosyn 3.375 Gm Iv Premix) 3.375 gm in 50 mls @ 100 mls/hr IVPB Q6H [facility] Last Admin: 05/08/17 14:00 Dose: 100 mls/hr Vancomycin HCl 1,000 mg/ (Sodium Chloride) 250 mls @ 166.6 mls/hr IVPB Q12H [facility] Last Admin: 05/08/17 13:49 Dose: 166.6 mls/hr [facility] Last Admin: 05/08/17 08:06 Dose: 1,000 mg Naproxen (Anaprox Ds) 550 mg PO BID [facility] Last Admin: 05/08/17 09:29 Dose: 550 mg Pantoprazole Sodium (Protonix Ec Tab) 40 mg PO DAILY [facility] Last Admin: 05/08/17 09:27 Dose: 40 mg
--- NOTE | 2017-05-08 14:07 | CP.PCM.PN ---
<Kallie Pulido - Last Filed: 05/08/17 14:05> Subjective - Date & Time of Evaluation Date of Evaluation: 05/08/17 Time of Evaluation: 11:00 - Subjective Subjective: 41-year-old male was seen at bedside for right foot non-healing ulceration of hallux. He denies any pain to his right foot. Patient is NAD, AAOx3. Patient denies any other pedal complaints at this time. He denies n/f/v/d/c/sob. Objective - Vital Signs/Intake and Output Vital Signs (last 24 hours): Temp Pulse Resp BP Pulse Ox 98.3 F 80 20 151/86 H 97 05/08/17 09:15 05/08/17 09:15 05/08/17 09:15 05/08/17 09:15 05/08/17 09:15 Intake and Output: 05/08/17 05/08/17 06:59 18:59 Intake Total 1390 Balance 1390 - Medications Medications: Current Medications Collagenase (Santyl) 0 gm TOP DAILY [facility] Last Admin: 05/08/17 10:00 Dose: 1 appl Enoxaparin Sodium (Lovenox) 40 mg SC DAILY [facility] Last Admin: 05/08/17 09:27 Dose: 40 mg Piperacillin Sod/Tazobactam Sod (Zosyn 3.375 Gm Iv Premix) 3.375 gm in 50 mls @ 100 mls/hr IVPB Q6H [facility] Last Admin: 05/08/17 14:00 Dose: 100 mls/hr Vancomycin HCl 1,000 mg/ (Sodium Chloride) 250 mls @ 166.6 mls/hr IVPB Q12H [facility] Last Admin: 05/08/17 13:49 Dose: 166.6 mls/hr Metformin HCl (Glucophage) 1,000 mg PO BIDCC [facility] Last Admin: 05/08/17 08:06 Dose: 1,000 mg Naproxen (Anaprox Ds) 550 mg PO BID [facility] Last Admin: 05/08/17 09:29 Dose: 550 mg Pantoprazole Sodium (Protonix Ec Tab) 40 mg PO DAILY [facility] Last Admin: 05/08/17 09:27 Dose: 40 mg - Constitutional Appears: Well, Non-toxic, No Acute Distress - Extremities Exam Additional comments: right lower extremity focused exam: Vasc: DP and PT pulses palpable 1/4 , TG wnl, CFT < 3 sec to all digits neuro: gross sensation diminished derm: localized edema and erythema to right hallux, superficial skin sloughing from previous blister noted to medial hallux, plantar hallux necrotic ulcer measuring 3cm x 2cm x 0.2cm with necrotic cap, fibrous base, no purulence noted , moderate malodor, no probe to bone, moderate fluctuance, no ascending celllulitis ortho: no pain on palpation to plantar right hallux - Neurological Exam Neurological Exam: Alert, Awake, Oriented x3 - Psychiatric Exam Psychiatric exam: Normal Affect, Normal Mood Assessment and Plan - Assessment and Plan (Free Text) Assessment: 41 y/o male with right hallux ulceration secondary to DM Plan: patient examined and evaluated discussed in detail with attending Dr. Hooper labs and vitals reviewed; WBC 9.7 (05/06/17) consult placed for Dr. Larson Will await recommendations from vascular to see if pt needs sx intervention or will treat with local wound care and shelter IV abx. santyl and DSD applied to R hallux wound cx-gram negative rods x rays of right foot show no OM MRI impressions: 1. Soft tissue ulceration with adjacent prominent signal abnormality seen within the 1st distal phalanx with patchy decreased T1 signal and exuberant reactive edema and increased STIR signal consistent with acute osteomyelitis. 2. Mild patchy reactive edema at the adjacent head of the 1st proximal phalanx without gross corresponding T1 signal abnormality, nonspecific. 3. Hallux valgus deformity. Degenerative changes at the 1st metatarsus sesamoid joint space. 4. Mild fraying with increased signal seen within the visualized Lisfranc ligament suggestive for moderate grade sprain and or mild partial tearing. 5. Patchy nonspecific reactive bone marrow edema seen within the medial and middle cuneiform bones as well as the cuboid bone, nonspecific. 6. Additional nonspecific patchy reactive edema seen within the navicular bone. 7. Additional patchy nonspecific reactive edema seen within the metatarsal shaft and base of the 2nd metatarsal bone. continue IV abx as per ID podiatry will continue to follow while patient remains in house <Jovanny Hooper - Last Filed: 05/08/17 14:53> Objective - Vital Signs/Intake and Output Vital Signs (last 24 hours): Temp Pulse Resp BP Pulse Ox 98.3 F 80 20 151/86 H 97 08/01/17 09:15 05/08/17 09:15 05/08/17 09:15 05/08/17 09:15 05/08/17 09:15 Intake and Output: 05/08/17 05/08/17 06:59 18:59 Intake Total 1390 Balance 1390 - Medications Medications: Current Medications Collagenase (Santyl) 0 gm TOP DAILY [facility] Last Admin: 05/08/17 10:00 Dose: 1 appl Enoxaparin Sodium (Lovenox) 40 mg SC DAILY [facility] Last Admin: 05/08/17 09:27 Dose: 40 mg Piperacillin Sod/Tazobactam Sod (Zosyn 3.375 Gm Iv Premix) 3.375 gm in 50 mls @ 100 mls/hr IVPB Q6H [facility] Last Admin: 05/08/17 14:00 Dose: 100 mls/hr Vancomycin HCl 1,000 mg/ (Sodium Chloride) 250 mls @ 166.6 mls/hr IVPB Q12H [facility] Last Admin: 05/08/17 13:49 Dose: 166.6 mls/hr [facility] Last Admin: 05/08/17 08:06 Dose: 1,000 mg Naproxen (Anaprox Ds) 550 mg PO BID [facility] Last Admin: 05/08/17 09:29 Dose: 550 mg Pantoprazole Sodium (Protonix Ec Tab) 40 mg PO DAILY [facility] Last Admin: 05/08/17 09:27 Dose: 40 mg Attending/Attestation - Attestation I have personally seen and examined this patient.: Yes I have fully participated in the care of the patient.: Yes I have reviewed all pertinent clinical information, including history, physical exam and plan: Yes
--- NOTE | 2017-05-08 17:12 | CP.PCM.PN ---
Subjective - Date & Time of Evaluation Date of Evaluation: 05/08/17 Time of Evaluation: 13:40 - Subjective Subjective: clinically same Objective - Vital Signs/Intake and Output Vital Signs (last 24 hours): Temp Pulse Resp BP Pulse Ox 98.3 F 92 H 18 141/89 96 05/08/17 15:35 05/08/17 17:03 05/08/17 15:35 05/08/17 17:03 05/08/17 15:35 Intake and Output: 05/08/17 05/08/17 06:59 18:59 Intake Total 1390 1000 Balance 1390 1000 - Medications Medications: Current Medications Collagenase (Santyl) 0 gm TOP DAILY [facility] Last Admin: 05/08/17 10:00 Dose: 1 appl Enoxaparin Sodium (Lovenox) 40 mg SC DAILY [facility] Last Admin: 05/08/17 09:27 Dose: 40 mg Piperacillin Sod/Tazobactam Sod (Zosyn 3.375 Gm Iv Premix) 3.375 gm in 50 mls @ 100 mls/hr IVPB Q6H [facility] Last Admin: 05/08/17 14:00 Dose: 100 mls/hr Vancomycin HCl 1,000 mg/ (Sodium Chloride) 250 mls @ 166.6 mls/hr IVPB Q12H [facility] Last Admin: 05/08/17 13:49 Dose: 166.6 mls/hr [facility] Last Admin: 05/08/17 08:06 Dose: 1,000 mg Naproxen (Anaprox Ds) 550 mg PO BID [facility] Last Admin: 05/08/17 09:29 Dose: 550 mg Oxycodone/Acetaminophen (Percocet 5/325 Mg Tab) 1 tab PO Q6H PRN PRN Reason: Pain, severe (8-10) Stop: 05/11/17 15:57 Pantoprazole Sodium (Protonix Ec Tab) 40 mg PO DAILY [facility] Last Admin: 05/08/17 09:27 Dose: 40 mg - Constitutional Appears: Well - Head Exam Head Exam: ATRAUMATIC, NORMAL INSPECTION, NORMOCEPHALIC - Eye Exam Eye Exam: EOMI, Normal appearance, PERRL Pupil Exam: NORMAL ACCOMODATION, PERRL - ENT Exam ENT Exam: Mucous Membranes Moist, Normal Exam - Neck Exam Neck Exam: Full ROM, Normal Inspection. 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
[2017-05-08] MEDS: Oxycodone/Acetaminophen 5/325 mg Tab PO PRN (22:50)
[2017-05-09] MEDS: Piperacill/Tazo 3.375gm in Dex 3.375 GM/50 ML BAG IVPB SCH ×4 (02:23→20:50)
[2017-05-09] MEDS: Pantoprazole 40 mg EC Tab PO SCH (09:37)
[2017-05-09] MEDS: Enoxaparin 40 mg Syringe SC SCH (09:37)
[2017-05-09] MEDS: Collagenase 250 Units/gm Ointment(30 gm) TOP SCH (09:38)
[2017-05-09] MEDS: Naproxen 550 mg Tab PO SCH ×2 (09:40→17:59)
--- NOTE | 2017-05-09 11:01 | CP.PCM.PN ---
Subjective - Date & Time of Evaluation Date of Evaluation: 05/09/17 Time of Evaluation: 11:00 - Subjective Subjective: Podiatry: Patient seen along with resident Dr Kallie Pulido. Patient was seen by Dr Larson already. The MRI shows changes consistent with osteomyelitis in the hallux. 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 He understands the risks of surgery but is willing to undergo the amputation. Dr Pulido will contact the vascular team and medicine in order to get patient ready for surgery. He is on an anticoagulant at present. Surgery will be scheduled when patient is medically able to undergo the procedure. To continue topical medication at this time. Area of necrosis remains on the plantar lateral aspect of the hallux. Objective - Vital Signs/Intake and Output Vital Signs (last 24 hours): Temp Pulse Resp BP Pulse Ox 98.0 F 91 H 20 127/82 98 05/09/17 08:50 05/09/17 08:50 05/09/17 08:50 05/09/17 08:50 05/09/17 09:18 Intake and Output: 05/09/17 05/09/17 06:59 18:59 Intake Total 360 Balance 360 - Medications Medications: Current Medications Collagenase (Santyl) 0 gm TOP DAILY [facility] Last Admin: 05/09/17 09:38 Dose: 1 appl Enoxaparin Sodium (Lovenox) 40 mg SC DAILY [facility] Last Admin: 05/09/17 09:37 Dose: 40 mg Piperacillin Sod/Tazobactam Sod (Zosyn 3.375 Gm Iv Premix) 3.375 gm in 50 mls @ 100 mls/hr IVPB Q6H [facility] Last Admin: 05/09/17 08:08 Dose: 100 mls/hr Vancomycin HCl 1,000 mg/ (Sodium Chloride) 250 mls @ 166.6 mls/hr IVPB Q12H [facility] Last Admin: 05/09/17 01:24 Dose: 166.6 mls/hr Metformin HCl (Glucophage) 1,000 mg PO BIDCC [facility] Last Admin: 05/09/17 08:08 Dose: 1,000 mg Naproxen (Anaprox Ds) 550 mg PO BID [facility] Last Admin: 05/09/17 09:40 Dose: 550 mg Oxycodone/Acetaminophen (Percocet 5/325 Mg Tab) 1 tab PO Q6H PRN PRN Reason: Pain, severe (8-10) Stop: 05/11/17 15:57 Last Admin: 05/08/17 22:50 Dose: 1 tab Pantoprazole Sodium (Protonix Ec Tab) 40 mg PO DAILY [facility] Last Admin: 05/09/17 09:37 Dose: 40 mg
--- NOTE | 2017-05-09 11:30 | CP.PCM.PN ---
Subjective - Date & Time of Evaluation Date of Evaluation: 05/09/17 Time of Evaluation: 12:20 - Subjective Subjective: clinically same Objective - Vital Signs/Intake and Output Vital Signs (last 24 hours): Temp Pulse Resp BP Pulse Ox 98.0 F 91 H 20 127/82 98 05/09/17 08:50 05/09/17 08:50 05/09/17 08:50 05/09/17 08:50 05/09/17 09:18 Intake and Output: 05/09/17 05/09/17 06:59 18:59 Intake Total 360 Balance 360 - Medications Medications: Current Medications Collagenase (Santyl) 0 gm TOP DAILY [facility] Last Admin: 05/09/17 09:38 Dose: 1 appl Enoxaparin Sodium (Lovenox) 40 mg SC DAILY [facility] Piperacillin Sod/Tazobactam Sod (Zosyn 3.375 Gm Iv Premix) 3.375 gm in 50 mls @ 100 mls/hr IVPB Q6H [facility] Last Admin: 05/09/17 08:08 Dose: 100 mls/hr Vancomycin HCl 1,000 mg/ (Sodium Chloride) 250 mls @ 166.6 mls/hr IVPB Q12H [facility] Last Admin: 05/09/17 01:24 Dose: 166.6 mls/hr [facility] ([facility]) [facility] Last Admin: 05/09/17 08:08 Dose: 1,000 mg Naproxen (Anaprox Ds) 550 mg PO BID [facility] Last Admin: 05/09/17 09:40 Dose: 550 mg Oxycodone/Acetaminophen (Percocet 5/325 Mg Tab) 1 tab PO Q6H PRN PRN Reason: Pain, severe (8-10) Stop: 05/11/17 15:57 Last Admin: 05/08/17 22:50 Dose: 1 tab Pantoprazole Sodium (Protonix Ec Tab) 40 mg PO DAILY [facility] Last Admin: 05/09/17 09:37 Dose: 40 mg - Constitutional Appears: Well - Head Exam Head Exam: ATRAUMATIC, NORMAL INSPECTION, NORMOCEPHALIC - Eye Exam Eye Exam: EOMI, Normal appearance, PERRL Pupil Exam: NORMAL ACCOMODATION, PERRL - ENT Exam ENT Exam: Mucous Membranes Moist, Normal Exam - Neck Exam Neck Exam: Full ROM, Normal Inspection. absent: Lymphadenopathy - Respiratory Exam Respiratory Exam: Decreased Breath Sounds - Cardiovascular Exam Cardiovascular Exam: REGULAR RHYTHM, +S1, +S2 - GI/Abdominal Exam GI & Abdominal Exam: Soft, Diminished Bowel Sounds - Rectal Exam Rectal Exam: Deferred Assessment and Plan (1) Diabetic foot infection Status: Acute (2) Failure of outpatient treatment Status: Acute (3) Infected wound Status: Acute (4) Cellulitis Status: Acute (5) Elevated d-dimer Status: Acute (6) Pneumonia Status: Acute (7) Prophylactic measure Status: Acute (8) Tinea pedis Status: Acute (9) Toe fracture Status: Acute (10) Uncontrolled diabetes mellitus Status: Acute (11) Hyperglycemia due to type 2 diabetes mellitus Status: Chronic - Assessment and Plan (Free Text) Plan: Case seen and discussed with the staff and the resident discussed with the pulmonary doctor for possible surgery will do the clearance patient is also seen by Dr. Ch was psych the gas will ask a manager sustainability to do the clearance continue next the EKG tomorrow next point follow-up with the consultations next IV antibiotic
--- NOTE | 2017-05-09 11:54 | CP.PCM.PN ---
Subjective - Date & Time of Evaluation Date of Evaluation: 05/09/17 Time of Evaluation: 11:52 - Subjective Subjective: PER PODIATRY RESIDENT, DR. BRENNAN, PT NEEDS MEDICAL CLEARANCE FOR OR ON SUNDAY FOR TOE AMPUTATION. ALSO, WILL NEED TO HOLD LOVENOX AFTER 8 AM DOSE TOMORROW MORNING. I DISCUSSED THIS WITH KRISH LEW WHO ROUNDS WITH DR. LEW. I ALSO LEFT MESSAGE FOR DR. Mao LEW FOR THE SAME. THEY WILL FOLLOW UP. NO FURTHERS ORDERS. Objective - Vital Signs/Intake and Output Vital Signs (last 24 hours): Temp Pulse Resp BP Pulse Ox 98.0 F 91 H 20 127/82 98 05/09/17 08:50 05/09/17 08:50 05/09/17 08:50 05/09/17 08:50 05/09/17 09:18 Intake and Output: 05/09/17 05/09/17 06:59 18:59 Intake Total 360 Balance 360 - Medications Medications: Current Medications Collagenase (Santyl) 0 gm TOP DAILY [facility] Last Admin: 05/09/17 09:38 Dose: 1 appl Enoxaparin Sodium (Lovenox) 40 mg SC DAILY [facility] Piperacillin Sod/Tazobactam Sod (Zosyn 3.375 Gm Iv Premix) 3.375 gm in 50 mls @ 100 mls/hr IVPB Q6H [facility] Last Admin: 05/09/17 08:08 Dose: 100 mls/hr Vancomycin HCl 1,000 mg/ (Sodium Chloride) 250 mls @ 166.6 mls/hr IVPB Q12H [facility] Last Admin: 05/09/17 01:24 Dose: 166.6 mls/hr [facility] Last Admin: 05/09/17 08:08 Dose: 1,000 mg Naproxen (Anaprox Ds) 550 mg PO BID [facility] Last Admin: 05/09/17 09:40 Dose: 550 mg Oxycodone/Acetaminophen (Percocet 5/325 Mg Tab) 1 tab PO Q6H PRN PRN Reason: Pain, severe (8-10) Stop: 05/11/17 15:57 Last Admin: 05/08/17 22:50 Dose: 1 tab Pantoprazole Sodium (Protonix Ec Tab) 40 mg PO DAILY [facility] Last Admin: 05/09/17 09:37 Dose: 40 mg
--- NOTE | 2017-05-09 12:02 | CP.PCM.PN ---
Subjective - Date & Time of Evaluation Date of Evaluation: 05/09/17 Time of Evaluation: 11:57 - Subjective Subjective: 41-year-old male was seen at bedside with attending, Dr. Kaur, for right foot non-healing ulceration of hallux. He denies any pain to his right foot. Patient is NAD, AAOx3. Patient denies any other pedal complaints at this time. He denies n/f/v/d/c/sob. He admits to cannabis use at home on a daily basis. He is aware that on Sunday he is going for a hallux amputation. Objective - Vital Signs/Intake and Output Vital Signs (last 24 hours): Temp Pulse Resp BP Pulse Ox 98.0 F 91 H 20 127/82 98 05/09/17 08:50 05/09/17 08:50 05/09/17 08:50 05/09/17 08:50 05/09/17 09:18 Intake and Output: 05/09/17 05/09/17 06:59 18:59 Intake Total 360 Balance 360 - Medications Medications: Current Medications Collagenase (Santyl) 0 gm TOP DAILY [facility] Last Admin: 05/09/17 09:38 Dose: 1 appl Enoxaparin Sodium (Lovenox) 40 mg SC DAILY [facility] Piperacillin Sod/Tazobactam Sod (Zosyn 3.375 Gm Iv Premix) 3.375 gm in 50 mls @ 100 mls/hr IVPB Q6H [facility] Last Admin: 05/09/17 08:08 Dose: 100 mls/hr Vancomycin HCl 1,000 mg/ (Sodium Chloride) 250 mls @ 166.6 mls/hr IVPB Q12H [facility] Last Admin: 05/09/17 01:24 Dose: 166.6 mls/hr Metformin HCl (Glucophage) 1,000 mg PO BIDCC [facility] Last Admin: 05/09/17 08:08 Dose: 1,000 mg Naproxen (Anaprox Ds) 550 mg PO BID [facility] Last Admin: 05/09/17 09:40 Dose: 550 mg Oxycodone/Acetaminophen (Percocet 5/325 Mg Tab) 1 tab PO Q6H PRN PRN Reason: Pain, severe (8-10) Stop: 05/11/17 15:57 Last Admin: 05/08/17 22:50 Dose: 1 tab Pantoprazole Sodium (Protonix Ec Tab) 40 mg PO DAILY [facility] Last Admin: 05/09/17 09:37 Dose: 40 mg - Constitutional Appears: Well, Non-toxic, No Acute Distress - Extremities Exam Additional comments: right lower extremity focused exam: Vasc: DP and PT pulses palpable 1/4 , TG wnl, CFT < 3 sec to all digits Neuro: gross sensation diminished Derm: localized edema and erythema to right hallux, superficial skin sloughing from previous blister noted to medial hallux, plantar hallux necrotic ulcer measuring approximately 3 cm x 2 cm x 0.2 cm with necrotic cap, fibrous base, no purulence noted, moderate malodor, no probe to bone, moderate fluctuance, no ascending celllulitis Ortho: no pain on palpation to plantar right hallux - Neurological Exam Neurological Exam: Alert, Awake, Oriented x3 - Psychiatric Exam Psychiatric exam: Normal Affect, Normal Mood Assessment and Plan - Assessment and Plan (Free Text) Assessment: 41 y/o male with right hallux ulceration secondary to DM Plan: patient examined and evaluated with attending Dr. Kaur labs and vitals reviewed; afebrile vascular consult appreciated santyl and DSD applied to R hallux wound cx-enterobacter aerogenes, beta hemolytic strep group B continue IV abx as per ID MRI impressions:1. Soft tissue ulceration with adjacent prominent signal abnormality seen within the 1st distal phalanx with patchy decreased T1 signal and exuberant reactive edema and increased STIR signal consistent with acute osteomyelitis. continue IV abx as per ID pt to OR Sunday05/11/17 at 1:00 pm for right hallux amputation pt to be NPO after05/10/17 medical optimization to be obtained lovenox to be held after dose tomorrow 8:00 am podiatry will continue to follow while patient remains in house
--- NOTE | 2017-05-09 15:35 | CP.PCM.PN ---
Subjective - Date & Time of Evaluation Date of Evaluation: 05/09/17 Time of Evaluation: 08:00 - Subjective Subjective: discussed with dr louis for or in am cont iv rx Objective - Vital Signs/Intake and Output Vital Signs (last 24 hours): Temp Pulse Resp BP Pulse Ox 98.3 F 87 20 131/72 97 05/09/17 12:30 05/09/17 12:30 05/09/17 12:30 05/09/17 12:30 05/09/17 12:30 Intake and Output: 05/09/17 05/09/17 06:59 18:59 Intake Total 360 Balance 360 - Medications Medications: Current Medications Collagenase (Santyl) 0 gm TOP DAILY [facility] Last Admin: 05/09/17 09:38 Dose: 1 appl Enoxaparin Sodium (Lovenox) 40 mg SC DAILY [facility] Piperacillin Sod/Tazobactam Sod (Zosyn 3.375 Gm Iv Premix) 3.375 gm in 50 mls @ 100 mls/hr IVPB Q6H [facility] Last Admin: 05/09/17 14:53 Dose: 100 mls/hr Vancomycin/Sodium Chloride (Vancocin) 1 gm in 200 mls @ 133.333 mls/hr IVPB Q12H [facility] Metformin HCl (Glucophage) 1,000 mg PO BIDCC [facility] Last Admin: 05/09/17 08:08 Dose: 1,000 mg Naproxen (Anaprox Ds) 550 mg PO BID [facility] Last Admin: 05/09/17 09:40 Dose: 550 mg Oxycodone/Acetaminophen (Percocet 5/325 Mg Tab) 1 tab PO Q6H PRN PRN Reason: Pain, severe (8-10) Stop: 05/11/17 15:57 Last Admin: 05/08/17 22:50 Dose: 1 tab Pantoprazole Sodium (Protonix Ec Tab) 40 mg PO DAILY [facility] Last Admin: 05/09/17 09:37 Dose: 40 mg - Constitutional Appears: Non-toxic, Chronically Ill - Head Exam Head Exam: NORMOCEPHALIC - Eye Exam Eye Exam: PERRL - ENT Exam ENT Exam: Mucous Membranes Dry - Neck Exam Neck Exam: absent: Lymphadenopathy - Respiratory Exam Respiratory Exam: Decreased Breath Sounds - Cardiovascular Exam Cardiovascular Exam: REGULAR RHYTHM - GI/Abdominal Exam GI & Abdominal Exam: Distended, Soft - Rectal Exam Rectal Exam: Deferred - Exam Exam: NORMAL INSPECTION - Extremities Exam Extremities Exam: absent: Pedal Edema - Back Exam Back Exam: absent: CVA tenderness (L), CVA tenderness (R) - Neurological Exam Neurological Exam: Alert, Awake Assessment and Plan (1) Cellulitis Status: Acute (2) Elevated d-dimer Status: Acute (3) Pneumonia Status: Acute (4) Uncontrolled diabetes mellitus Status: Acute
--- NOTE | 2017-05-09 21:18 | CP.PCM.PN ---
Subjective - Date & Time of Evaluation Date of Evaluation: 05/09/17 Time of Evaluation: 12:00 - Subjective Subjective: planned for toe amputation, no CP, palpitation, sob. no prior WI, or CHF. acceptable risk for cardiac complication from the proposed surgery. Objective - Vital Signs/Intake and Output Vital Signs (last 24 hours): Temp Pulse Resp BP Pulse Ox 98.2 F 84 18 158/93 H 95 05/09/17 15:35 05/09/17 15:35 05/09/17 15:35 05/09/17 15:35 05/09/17 15:35 Intake and Output: 05/09/17 05/10/17 18:59 06:59 Intake Total 850 Balance 850 - Medications Medications: Current Medications Collagenase (Santyl) 0 gm TOP DAILY [facility] Last Admin: 05/09/17 09:38 Dose: 1 appl Enoxaparin Sodium (Lovenox) 40 mg SC DAILY [facility] Piperacillin Sod/Tazobactam Sod (Zosyn 3.375 Gm Iv Premix) 3.375 gm in 50 mls @ 100 mls/hr IVPB Q6H [facility] Last Admin: 05/09/17 20:50 Dose: 100 mls/hr Vancomycin/Sodium Chloride (Vancocin) 1 gm in 200 mls @ 133.333 mls/hr IVPB Q12H [facility] Metformin HCl (Glucophage) 1,000 mg PO BIDCC [facility] Last Admin: 05/09/17 17:59 Dose: 1,000 mg Naproxen (Anaprox Ds) 550 mg PO BID [facility] Last Admin: 05/09/17 17:59 Dose: 550 mg Oxycodone/Acetaminophen (Percocet 5/325 Mg Tab) 1 tab PO Q6H PRN PRN Reason: Pain, severe (8-10) Stop: 05/11/17 15:57 Last Admin: 05/08/17 22:50 Dose: 1 tab Pantoprazole Sodium (Protonix Ec Tab) 40 mg PO DAILY [facility] Last Admin: 05/09/17 09:37 Dose: 40 mg - Constitutional Appears: Non-toxic - Head Exam Head Exam: ATRAUMATIC - Eye Exam Eye Exam: EOMI - ENT Exam ENT Exam: Mucous Membranes Moist - Neck Exam Neck Exam: absent: Lymphadenopathy, Thyromegaly - Respiratory Exam Respiratory Exam: Clear to Ausculation Bilateral. absent: Rales - GI/Abdominal Exam GI & Abdominal Exam: Normal Bowel Sounds. absent: Organomegaly - Rectal Exam Rectal Exam: Deferred - Extremities Exam Extremities Exam: Normal Capillary Refill. absent: Calf Tenderness - Neurological Exam Neurological Exam: Alert, Oriented x3 - Psychiatric Exam Psychiatric exam: Anxious - Skin Skin Exam: Dry Assessment and Plan (1) Cellulitis Status: Acute (2) Hyperglycemia due to type 2 diabetes mellitus Status: Chronic
[2017-05-09] MEDS: (Novolog) Insulin Aspart, Recombinant 100 u/ml 10 ml vial SC SCH (21:57)
[2017-05-09] MEDS ORDERED: (Novolog) Insulin Aspart, Recombinant 100 u/ml 10 ml vial SC SCH (22:00)
[2017-05-09] MEDS: Oxycodone/Acetaminophen 5/325 mg Tab PO PRN (22:17)
[2017-05-10] MEDS: Vancomycin 1 gm/NS 200 ml 1 GM/200 ML BAG IVPB SCH ×2 (01:04→13:17)
[2017-05-10] MEDS ORDERED: Oxycodone/Acetaminophen 5/325 mg Tab PO STA (01:17)
[2017-05-10] MEDS: Piperacill/Tazo 3.375gm in Dex 3.375 GM/50 ML BAG IVPB SCH ×4 (03:55→20:43)
[2017-05-10] MEDS ORDERED: Enoxaparin 40 mg Syringe SC SCH (08:00)
[2017-05-10] MEDS: (Novolog) Insulin Aspart, Recombinant 100 u/ml 10 ml vial SC SCH ×4 (08:15→21:39)
--- NOTE | 2017-05-10 09:56 | CP.PCM.PN ---
Subjective - Date & Time of Evaluation Date of Evaluation: 05/10/17 Time of Evaluation: 09:55 - Subjective Subjective: has palpable pulse cleared from vascular perspective for toe surgery Objective - Vital Signs/Intake and Output Vital Signs (last 24 hours): Temp Pulse Resp BP Pulse Ox 98.3 F 77 20 147/95 H 97 05/10/17 08:31 05/10/17 08:31 05/10/17 08:31 05/10/17 08:31 05/10/17 08:31 Intake and Output: 05/10/17 05/10/17 06:59 18:59 Intake Total 410 Balance 410 - Medications Medications: Current Medications Collagenase (Santyl) 0 gm TOP DAILY [facility] Last Admin: 05/09/17 09:38 Dose: 1 appl Enoxaparin Sodium (Lovenox) 40 mg SC DAILY [facility] Last Admin: 05/10/17 08:14 Dose: 40 mg Piperacillin Sod/Tazobactam Sod (Zosyn 3.375 Gm Iv Premix) 3.375 gm in 50 mls @ 100 mls/hr IVPB Q6H [facility] Last Admin: 05/10/17 08:14 Dose: 100 mls/hr Vancomycin/Sodium Chloride (Vancocin) 1 gm in 200 mls @ 133.333 mls/hr IVPB Q12H [facility] Last Admin: 05/10/17 01:04 Dose: 133.333 mls/hr Insulin Aspart (Novolog) 0 unit SC ACHS [facility] PRN Reason: Protocol Last Admin: 05/10/17 08:15 Dose: 3 unit Metformin HCl (Glucophage) 1,000 mg PO BIDCC [facility] Last Admin: 05/10/17 08:14 Dose: 1,000 mg Naproxen (Anaprox Ds) 550 mg PO BID [facility] Last Admin: 05/09/17 17:59 Dose: 550 mg Oxycodone/Acetaminophen (Percocet 5/325 Mg Tab) 1 tab PO Q6H PRN PRN Reason: Pain, severe (8-10) Stop: 05/11/17 15:57 Last Admin: 05/09/17 22:17 Dose: 1 tab Pantoprazole Sodium (Protonix Ec Tab) 40 mg PO DAILY [facility] Last Admin: 05/09/17 09:37 Dose: 40 mg
[2017-05-10] MEDS: Pantoprazole 40 mg EC Tab PO SCH (10:52)
[2017-05-10] MEDS: Naproxen 550 mg Tab PO SCH ×2 (10:52→18:18)
[2017-05-10] MEDS: Collagenase 250 Units/gm Ointment(30 gm) TOP SCH (11:02)
--- NOTE | 2017-05-10 11:24 | CARD ---
APPROVED REPORT EXAM: Two-dimensional and M-mode echocardiogram with Doppler and color Doppler. Other Information Quality : GoodRhythm : NSR RISK FACTORS Hyperlipidemia Diabetes M-Mode DIMENSIONS RVDd2.07 (2.1-3.2cm)Left Atrium (MM)3.98 (2.5-4.0cm) IVSd1.33 (0.7-1.1cm)Aortic Root3.67 (2.2-3.7cm) LVDd5.23 (4.0-5.6cm)Aortic Cusp Exc.2.19 (1.5-2.0cm) PWd1.33 (0.7-1.1cm)FS (%) 44 % LVDs2.93 (2.0-3.8cm)LVEF (%)75 (>50%) Aortic Valve AoV Peak Etcegkqz704.9cm/Karyn Peak GR.5mmHg Mitral Valve MV E Tbnuwpuz91.1cm/sMV A Qoivogza68.7cm/sE/A ratio1.2 TDI E/Lateral E'0.0E/Medial E'0.0 Tricuspid Valve TR Peak Mlxxydrl508tr/sTR Peak Gr.32fhPlJZBC95apGd LEFT VENTRICLE The left ventricle is normal size. There is normal left ventricular wall thickness. The left ventricular function is normal. The left ventricular ejection fraction is within the normal range. No regional wall motion abnormalities noted. The left ventricular diastolic function is normal. No left ventricle thrombus noted on this study. There is no ventricular septal defect visualized. There is no left ventricular aneurysm. There is no mass noted in the left ventricle. RIGHT VENTRICLE The right ventricle is normal size. There is normal right ventricular wall thickness. The right ventricular systolic function is normal. ATRIA The left atrium is mildly dilated. The right atrium size is normal. The interatrial septum is intact with no evidence for an atrial septal defect. AORTIC VALVE The aortic valve is normal in structure and function. No aortic regurgitation is present. There is no aortic valvular stenosis. There is no aortic valvular vegetation. MITRAL VALVE The mitral valve is normal in structure and function. There is no evidence of mitral valve prolapse. There is no mitral valve stenosis. There is no mitral valve regurgitation noted. TRICUSPID VALVE The tricuspid valve is normal in structure and function. There is mild tricuspid regurgitation. Right ventricular systolic pressure is estimated at less than 30 mmHg. There is no tricuspid valve prolapse or vegetation. There is no tricuspid valve stenosis. PULMONIC VALVE The pulmonary valve is normal in structure and function. There is no pulmonic valvular regurgitation. There is no pulmonic valvular stenosis. GREAT VESSELS The aortic root is normal in size. The ascending aorta is normal in size. The pulmonary artery is normal. The IVC is normal in size and collapses >50% with inspiration. PERICARDIAL EFFUSION The pericardium appears normal. There is no pleural effusion. <Conclusion> The left ventricular function is normal. The left ventricular ejection fraction is within the normal range. No regional wall motion abnormalities noted. The left atrium is mildly dilated.
--- NOTE | 2017-05-10 11:37 | CP.PCM.PN ---
<Kallie Pulido - Last Filed: 05/10/17 14:38> Subjective - Date & Time of Evaluation Date of Evaluation: 05/10/17 Time of Evaluation: 11:37 - Subjective Subjective: 41 year old male was seen at bedside with attending, Dr. Hooper, for right foot non-healing ulceration of hallux. He denies any pain to his right foot. Patient is NAD, AAOx3. Patient denies any other pedal complaints at this time. He denies n/f/v/d/c/sob. He is aware that tomorrow he is going for a hallux amputation. Objective - Vital Signs/Intake and Output Vital Signs (last 24 hours): Temp Pulse Resp BP Pulse Ox 98.3 F 77 20 147/95 H 97 05/10/17 08:31 05/10/17 08:31 05/10/17 08:31 05/10/17 08:31 05/10/17 08:31 Intake and Output: 05/10/17 05/10/17 06:59 18:59 Intake Total 410 Balance 410 - Medications Medications: Current Medications Collagenase (Santyl) 0 gm TOP DAILY [facility] Last Admin: 05/10/17 11:02 Dose: 1 appl Enoxaparin Sodium (Lovenox) 40 mg SC DAILY [facility] Last Admin: 05/10/17 08:14 Dose: 40 mg Piperacillin Sod/Tazobactam Sod (Zosyn 3.375 Gm Iv Premix) 3.375 gm in 50 mls @ 100 mls/hr IVPB Q6H [facility] Last Admin: 05/10/17 08:14 Dose: 100 mls/hr Vancomycin/Sodium Chloride (Vancocin) 1 gm in 200 mls @ 133.333 mls/hr IVPB Q12H [facility] Last Admin: 05/10/17 01:04 Dose: 133.333 mls/hr Insulin Aspart (Novolog) 0 unit SC ACHS [facility] PRN Reason: Protocol Last Admin: 05/10/17 08:15 Dose: 3 unit Metformin HCl (Glucophage) 1,000 mg PO BIDCC [facility] Last Admin: 05/10/17 08:14 Dose: 1,000 mg Naproxen (Anaprox Ds) 550 mg PO BID [facility] Last Admin: 05/10/17 10:52 Dose: 550 mg Oxycodone/Acetaminophen (Percocet 5/325 Mg Tab) 1 tab PO Q6H PRN PRN Reason: Pain, severe (8-10) Stop: 05/11/17 15:57 Last Admin: 05/09/17 22:17 Dose: 1 tab Pantoprazole Sodium (Protonix Ec Tab) 40 mg PO DAILY [facility] Last Admin: 05/10/17 10:52 Dose: 40 mg - Constitutional Appears: Well, Non-toxic, No Acute Distress - Extremities Exam Additional comments: right lower extremity focused exam: Vasc: DP and PT pulses palpable 1/4 , TG wnl, CFT < 3 sec to all digits Neuro: gross sensation diminished Derm: localized edema and erythema to right hallux, superficial skin sloughing from previous blister noted to medial hallux, plantar hallux necrotic ulcer measuring approximately 3 cm x 2 cm x 0.2 cm with necrotic cap, bullae overlying the distal aspect, fibrous base, no purulence noted, moderate malodor , no probe to bone, moderate fluctuance, no ascending celllulitis Ortho: no pain on palpation to plantar right hallux - Neurological Exam Neurological Exam: Alert, Awake, Oriented x3 - Psychiatric Exam Psychiatric exam: Normal Affect, Normal Mood Assessment and Plan - Assessment and Plan (Free Text) Assessment: 41 y/o male with right hallux ulceration with OM secondary to DM Plan: patient examined and evaluated with attending Dr. Hooper labs and vitals reviewed; afebrile santyl and DSD applied to R hallux wound cx-enterobacter aerogenes, beta hemolytic strep group B continue IV abx as per ID MRI impressions:1. Soft tissue ulceration with adjacent prominent signal abnormality seen within the 1st distal phalanx with patchy decreased T1 signal and exuberant reactive edema and increased STIR signal consistent with acute osteomyelitis. continue IV abx as per ID pt to OR Sunday05/11/17 at 12:30 pm for right hallux amputation, consent obtained and in chart pt to be NPO aftermidnight 05/10/17 cardiac and vascular optimization in chart lovenox to be held podiatry will continue to follow while patient remains in house <Jovanny Hooper - Last Filed: 05/11/17 08:07> Objective - Vital Signs/Intake and Output Vital Signs (last 24 hours): Temp Pulse Resp BP Pulse Ox 98.1 F 97 H 20 150/83 96 05/10/17 23:40 05/10/17 23:40 05/10/17 23:40 05/10/17 23:40 05/10/17 23:40 Intake and Output: 05/11/17 05/11/17 06:59 18:59 Intake Total 460 Balance 460 - Medications Medications: Current Medications Collagenase (Santyl) 0 gm TOP DAILY [facility] Last Admin: 05/10/17 11:02 Dose: 1 appl Enoxaparin Sodium (Lovenox) 40 mg SC DAILY [facility] Last Admin: 05/10/17 08:14 Dose: 40 mg Gabapentin (Neurontin) 300 mg PO HS [facility] Last Admin: 05/10/17 21:58 Dose: 300 mg Piperacillin Sod/Tazobactam Sod (Zosyn 3.375 Gm Iv Premix) 3.375 gm in 50 mls @ 100 mls/hr IVPB Q6H [facility] Last Admin: 05/11/17 02:52 Dose: 100 mls/hr Vancomycin/Sodium Chloride (Vancocin) 1 gm in 200 mls @ 133.333 mls/hr IVPB Q12H [facility] Last Admin: 05/11/17 01:28 Dose: 133.333 mls/hr Insulin Aspart (Novolog) 0 unit SC ACHS [facility] PRN Reason: Protocol Last Admin: 05/10/17 21:39 Dose: Not Given Metformin HCl (Glucophage) 1,000 mg PO BIDCC [facility] Last Admin: 05/10/17 18:19 Dose: 1,000 mg Naproxen (Anaprox Ds) 550 mg PO BID [facility] Last Admin: 05/10/17 18:18 Dose: 550 mg Oxycodone/Acetaminophen (Percocet 5/325 Mg Tab) 1 tab PO Q6H PRN PRN Reason: Pain, severe (8-10) Stop: 05/11/17 15:57 Last Admin: 05/11/17 00:11 Dose: 1 tab Pantoprazole Sodium (Protonix Ec Tab) 40 mg PO DAILY [facility] Last Admin: 05/10/17 10:52 Dose: 40 mg - Labs Labs: 05/11/17 06:44 05/11/17 06:44 PT 10.6 SECONDS (9.7-12.2) 05/11/17 06:44 INR 1.0 05/11/17 06:44 APTT 37 SECONDS (21-34) H 05/11/17 06:44 Attending/Attestation - Attestation I have personally seen and examined this patient.: Yes I have fully participated in the care of the patient.: Yes I have reviewed all pertinent clinical information, including history, physical exam and plan: Yes
--- NOTE | 2017-05-10 13:22 | CP.PCM.PN ---
Subjective - Date & Time of Evaluation Date of Evaluation: 05/10/17 Time of Evaluation: 13:20 - Subjective Subjective: Pt seen at bedside for f/u right hallux osteo. Pt is scheduled for right hallux amp tomorrow at 1 PM. Pt understands all risks and alternatives and understands that this is a limb salvage procedure and if healing is compromised future surgery and/or limbloss is possible. Pt consents to procedure. Pt has been cleared by cardiology and Vascular for proposed procedure. NPO orders written and Lovenox was held. Objective - Vital Signs/Intake and Output Vital Signs (last 24 hours): Temp Pulse Resp BP Pulse Ox 98.3 F 77 20 147/95 H 97 05/10/17 08:31 05/10/17 08:31 05/10/17 08:31 05/10/17 08:31 05/10/17 08:31 Intake and Output: 05/10/17 05/10/17 06:59 18:59 Intake Total 410 Balance 410 - Medications Medications: Current Medications Collagenase (Santyl) 0 gm TOP DAILY [facility] Last Admin: 05/10/17 11:02 Dose: 1 appl Enoxaparin Sodium (Lovenox) 40 mg SC DAILY [facility] Last Admin: 05/10/17 08:14 Dose: 40 mg Piperacillin Sod/Tazobactam Sod (Zosyn 3.375 Gm Iv Premix) 3.375 gm in 50 mls @ 100 mls/hr IVPB Q6H [facility] Last Admin: 05/10/17 08:14 Dose: 100 mls/hr Vancomycin/Sodium Chloride (Vancocin) 1 gm in 200 mls @ 133.333 mls/hr IVPB Q12H [facility] Last Admin: 05/10/17 13:17 Dose: 133.333 mls/hr Insulin Aspart (Novolog) 0 unit SC ACHS [facility] PRN Reason: Protocol Last Admin: 05/10/17 12:35 Dose: 6 unit Metformin HCl (Glucophage) 1,000 mg PO BIDCC [facility] Last Admin: 05/10/17 08:14 Dose: 1,000 mg Naproxen (Anaprox Ds) 550 mg PO BID [facility] Last Admin: 05/10/17 10:52 Dose: 550 mg Oxycodone/Acetaminophen (Percocet 5/325 Mg Tab) 1 tab PO Q6H PRN PRN Reason: Pain, severe (8-10) Stop: 05/11/17 15:57 Last Admin: 05/09/17 22:17 Dose: 1 tab Pantoprazole Sodium (Protonix Ec Tab) 40 mg PO DAILY [facility] Last Admin: 05/10/17 10:52 Dose: 40 mg
[2017-05-10 14:11] LABS: MEAN CELL VOLUME 79.8 fL (80.0-94.0); MEAN CORPUSCULAR HEMOGLOBIN 27.9 pg (27.0-31.0); MEAN PLATELET VOLUME 7.8 fL (7.2-11.7); RBC 5.74 Mil/uL (4.40-5.90); RED CELL DISTRIBUTION WIDTH 13.5 % (11.5-14.5); WHITE BLOOD COUNT 9.9 K/uL (4.8-10.8)
[2017-05-10 14:28] LABS: BLOOD UREA NITROGEN 12 mg/dL (9-20); GFR AFRICAN-AMERICAN > 60; GFR NON-AFRICAN AMERICAN > 60
--- NOTE | 2017-05-10 15:17 | VASCLAB ---
PROCEDURE: HISTORY: Assess circulation to right foot, toe wound COMPARISON: None available. TECHNIQUE: Grayscale and duplex Doppler evaluation of the right common femoral, femoral, profunda femoral, popliteal, posterior tibial, anterior tibial and dorsalis pedis arteries was performed. Report prepared by Mark Arias, BS, RVT FINDINGS: RIGHT LOWER EXTREMITY: * Common Femoral Artery: Peak Systolic Velocity - 128: Doppler Waveform: Triphasic.: Plaque description - * Profunda Femoral Artery: Peak Systolic Velocity - 66: Doppler Waveform: Triphasic.: Plaque description - * Femoral Artery o Proximal Segment: Peak Systolic Velocity - 101: Doppler Waveform: Triphasic.: Plaque description - o Middle Segment: Peak Systolic Velocity - 84: Doppler Waveform: Triphasic.: Plaque description - o Distal Segment: Peak Systolic Velocity - 104: Doppler Waveform: Triphasic.: Plaque description - * Popliteal Artery o Proximal Segment: Peak Systolic Velocity - 90: Doppler Waveform: Triphasic.: Plaque description - o Middle Segment: Peak Systolic Velocity - 43: Doppler Waveform: Biphasic: Plaque description - o Distal Segment: Peak Systolic Velocity - 58: Doppler Waveform: Biphasic: Plaque description - * Posterior Tibial Artery: Peak Systolic Velocity - 50: Doppler Waveform: Biphasic: Plaque description - * Anterior Tibial Artery: Peak Systolic Velocity - 0: Doppler Waveform: 0: Plaque description - Calcific * Dorsalis Pedis Artery: Peak Systolic Velocity - 23: Doppler Waveform: Biphasic: Plaque description - OTHER FINDINGS: None. IMPRESSION: RIGHT: Possible occlusion of the right mid anterior tibial artery. The remaining arteries in the right lower extremity were patent without any focal stenosis.
--- NOTE | 2017-05-10 15:33 | CP.PCM.PN ---
Subjective - Date & Time of Evaluation Date of Evaluation: 05/10/17 Time of Evaluation: 11:20 - Subjective Subjective: clinically same Objective - Vital Signs/Intake and Output Vital Signs (last 24 hours): Temp Pulse Resp BP Pulse Ox 98.3 F 77 20 147/95 H 97 05/10/17 08:31 05/10/17 08:31 05/10/17 08:31 05/10/17 08:31 05/10/17 08:31 Intake and Output: 05/10/17 05/10/17 06:59 18:59 Intake Total 410 Balance 410 - Medications Medications: Current Medications Collagenase (Santyl) 0 gm TOP DAILY [facility] Last Admin: 05/10/17 11:02 Dose: 1 appl Enoxaparin Sodium (Lovenox) 40 mg SC DAILY [facility] Last Admin: 05/10/17 08:14 Dose: 40 mg Gabapentin (Neurontin) 300 mg PO HS [facility] Piperacillin Sod/Tazobactam Sod (Zosyn 3.375 Gm Iv Premix) 3.375 gm in 50 mls @ 100 mls/hr IVPB Q6H [facility] Last Admin: 05/10/17 14:36 Dose: 100 mls/hr Vancomycin/Sodium Chloride (Vancocin) 1 gm in 200 mls @ 133.333 mls/hr IVPB Q12H [facility] Last Admin: 05/10/17 13:17 Dose: 133.333 mls/hr Insulin Aspart (Novolog) 0 unit SC ACHS [facility] PRN Reason: Protocol Last Admin: 05/10/17 12:35 Dose: 6 [facility] Last Admin: 05/10/17 08:14 Dose: 1,000 mg Naproxen (Anaprox Ds) 550 mg PO BID [facility] Last Admin: 05/10/17 10:52 Dose: 550 mg Oxycodone/Acetaminophen (Percocet 5/325 Mg Tab) 1 tab PO Q6H PRN PRN Reason: Pain, severe (8-10) Stop: 05/11/17 15:57 Last Admin: 05/09/17 22:17 Dose: 1 tab Pantoprazole Sodium (Protonix Ec Tab) 40 mg PO DAILY [facility] Last Admin: 05/10/17 10:52 Dose: 40 mg - Labs Labs: 05/10/17 14:05/10/17 14:03 - Constitutional Appears: Well - Head Exam Head Exam: ATRAUMATIC, NORMAL INSPECTION, NORMOCEPHALIC - Eye Exam Eye Exam: EOMI, Normal appearance, PERRL Pupil Exam: NORMAL ACCOMODATION, PERRL - ENT Exam ENT Exam: Mucous Membranes Moist, Normal Exam - Neck Exam Neck Exam: Full ROM, Normal Inspection. absent: Lymphadenopathy - Respiratory Exam Respiratory Exam: Decreased Breath Sounds - Cardiovascular Exam Cardiovascular Exam: REGULAR RHYTHM, +S1, +S2 - GI/Abdominal Exam GI & Abdominal Exam: Soft, Diminished Bowel Sounds - Rectal Exam Rectal Exam: Deferred Assessment and Plan (1) Diabetic foot infection Status: Acute (2) Failure of outpatient treatment Status: Acute (3) Infected wound Status: Acute (4) Cellulitis Status: Acute (5) Elevated d-dimer Status: Acute (6) Pneumonia Status: Acute (7) Prophylactic measure Status: Acute (8) Tinea pedis Status: Acute (9) Toe fracture Status: Acute (10) Uncontrolled diabetes mellitus Status: Acute (11) Hyperglycemia due to type 2 diabetes mellitus Status: Chronic
--- NOTE | 2017-05-10 18:28 | CP.PCM.PN ---
Subjective - Date & Time of Evaluation Date of Evaluation: 05/10/17 Time of Evaluation: 09:00 - Subjective Subjective: seen on rounds different options discussed including conservative rcx with iv rx alone for 6 weeks pt wishes to proceed with surgery Objective - Vital Signs/Intake and Output Vital Signs (last 24 hours): Temp Pulse Resp BP Pulse Ox 98.4 F 81 18 164/96 H 97 05/10/17 16:00 05/10/17 16:00 05/10/17 16:00 05/10/17 16:00 05/10/17 16:00 Intake and Output: 05/10/17 05/10/17 06:59 18:59 Intake Total 410 600 Balance 410 600 - Medications Medications: Current Medications Collagenase (Santyl) 0 gm TOP DAILY [facility] Last Admin: 05/10/17 11:02 Dose: 1 appl Enoxaparin Sodium (Lovenox) 40 mg SC DAILY [facility] Last Admin: 05/10/17 08:14 Dose: 40 mg Gabapentin (Neurontin) 300 mg PO HS [facility] Piperacillin Sod/Tazobactam Sod (Zosyn 3.375 Gm Iv Premix) 3.375 gm in 50 mls @ 100 mls/hr IVPB Q6H [facility] Last Admin: 05/10/17 14:36 Dose: 100 mls/hr Vancomycin/Sodium Chloride (Vancocin) 1 gm in 200 mls @ 133.333 mls/hr IVPB Q12H [facility] Last Admin: 05/10/17 13:17 Dose: 133.333 mls/hr Insulin Aspart (Novolog) 0 unit SC ACHS [facility] PRN Reason: Protocol Last Admin: 05/10/17 18:19 Dose: 3 [facility] Last Admin: 05/10/17 18:19 Dose: 1,000 mg Naproxen (Anaprox Ds) 550 mg PO BID [facility] Last Admin: 05/10/17 18:18 Dose: 550 mg Oxycodone/Acetaminophen (Percocet 5/325 Mg Tab) 1 tab PO Q6H PRN PRN Reason: Pain, severe (8-10) Stop: 05/11/17 15:57 Last Admin: 05/09/17 22:17 Dose: 1 tab Pantoprazole Sodium (Protonix Ec Tab) 40 mg PO DAILY [facility] Last Admin: 05/10/17 10:52 Dose: 40 mg - Labs Labs: 05/10/17 14:03 05/10/17 14:03 Assessment and Plan (1) Cellulitis Status: Acute (2) Elevated d-dimer Status: Acute (3) Pneumonia Status: Acute (4) Uncontrolled diabetes mellitus Status: Acute
--- NOTE | 2017-05-10 19:50 | CP.PCM.PN ---
Subjective - Date & Time of Evaluation Date of Evaluation: 05/10/17 Time of Evaluation: 12:00 - Subjective Subjective: echo, normal LV, no acceptable risk for cardiac complication from surgery Objective - Vital Signs/Intake and Output Vital Signs (last 24 hours): Temp Pulse Resp BP Pulse Ox 98.4 F 81 18 164/96 H 97 05/10/17 16:00 05/10/17 16:00 05/10/17 16:00 05/10/17 16:00 05/10/17 16:00 Intake and Output: 05/10/17 05/11/17 18:59 06:59 Intake Total 600 Balance 600 - Medications Medications: Current Medications Collagenase (Santyl) 0 gm TOP DAILY [facility] Last Admin: 05/10/17 11:02 Dose: 1 appl Enoxaparin Sodium (Lovenox) 40 mg SC DAILY [facility] Last Admin: 05/10/17 08:14 Dose: 40 mg Gabapentin (Neurontin) 300 mg PO [facility] Piperacillin Sod/Tazobactam Sod (Zosyn 3.375 Gm Iv Premix) 3.375 gm in 50 mls @ 100 mls/hr IVPB Q6H [facility] Last Admin: 05/10/17 14:36 Dose: 100 mls/hr Vancomycin/Sodium Chloride (Vancocin) 1 gm in 200 mls @ 133.333 mls/hr IVPB Q12H [facility] Last Admin: 05/10/17 13:17 Dose: 133.333 mls/hr Insulin Aspart (Novolog) 0 unit SC ACHS [facility] PRN Reason: Protocol Last Admin: 05/10/17 18:19 Dose: 3 unit [facility] Last Admin: 05/10/17 18:19 Dose: 1,000 mg Naproxen (Anaprox Ds) 550 mg PO BID [facility] Last Admin: 05/10/17 18:18 Dose: 550 mg Oxycodone/Acetaminophen (Percocet 5/325 Mg Tab) 1 tab PO Q6H PRN PRN Reason: Pain, severe (8-10) Stop: 05/11/17 15:57 Last Admin: 05/09/17 22:17 Dose: 1 tab Pantoprazole Sodium (Protonix Ec Tab) 40 mg PO DAILY [facility] Last Admin: 05/10/17 10:52 Dose: 40 mg - Labs Labs: 05/10/17 14:03 05/10/17 14:03 - Constitutional Appears: Non-toxic - Head Exam Head Exam: ATRAUMATIC - Eye Exam Eye Exam: EOMI - ENT Exam ENT Exam: Mucous Membranes Moist - Neck Exam Neck Exam: absent: Lymphadenopathy, Thyromegaly - Respiratory Exam Respiratory Exam: Clear to Ausculation Bilateral. absent: Rales - Cardiovascular Exam Cardiovascular Exam: REGULAR RHYTHM. absent: Gallop, Murmur - GI/Abdominal Exam GI & Abdominal Exam: Normal Bowel Sounds. absent: Organomegaly - Rectal Exam Rectal Exam: Deferred - Extremities Exam Extremities Exam: Normal Capillary Refill. absent: Calf Tenderness - Neurological Exam Neurological Exam: Alert, Oriented x3 - Psychiatric Exam Psychiatric exam: Normal Mood - Skin Skin Exam: Dry Assessment and Plan (1) Cellulitis Status: Acute (2) Hyperglycemia due to type 2 diabetes mellitus Status: Chronic
--- NOTE | 2017-05-10 20:15 | CP.PCM.PN ---
Subjective - Date & Time of Evaluation Date of Evaluation: 05/10/17 Time of Evaluation: 14:00 - Subjective Subjective: Medicine not for Dr. Billings's Service pt seen and examined at bedside. He reports only mild discomfort and states that his pain is tolerable. He denies any chest pain, fevers, chills, shortness of breath. As per nursing no acute events overnight. He will be undergoing echo and ekg today for surgical assessment. Objective - Vital Signs/Intake and Output Vital Signs (last 24 hours): Temp Pulse Resp BP Pulse Ox 98.4 F 81 18 164/96 H 97 05/10/17 16:00 05/10/17 16:00 05/10/17 16:00 05/10/17 16:00 05/10/17 16:00 Intake and Output: 05/10/17 05/11/17 18:59 06:59 Intake Total 600 Balance 600 - Medications Medications: Current Medications Collagenase (Santyl) 0 gm TOP DAILY [facility] Last Admin: 05/10/17 11:02 Dose: 1 appl Enoxaparin Sodium (Lovenox) 40 mg SC DAILY [facility] Last Admin: 05/10/17 08:14 Dose: 40 mg Gabapentin (Neurontin) 300 mg PO HS [facility] Piperacillin Sod/Tazobactam Sod (Zosyn 3.375 Gm Iv Premix) 3.375 gm in 50 mls @ 100 mls/hr IVPB Q6H [facility] Last Admin: 05/10/17 14:36 Dose: 100 mls/hr Vancomycin/Sodium Chloride (Vancocin) 1 gm in 200 mls @ 133.333 mls/hr IVPB Q12H [facility] Last Admin: 05/10/17 13:17 Dose: 133.333 mls/hr Insulin Aspart (Novolog) 0 unit SC ACHS [facility] PRN Reason: Protocol Last Admin: 05/10/17 18:19 Dose: 3 unit Metformin HCl (Glucophage) 1,000 mg PO BIDCC [facility] Last Admin: 05/10/17 18:19 Dose: 1,000 mg Naproxen (Anaprox Ds) 550 mg PO BID [facility] Last Admin: 05/10/17 18:18 Dose: 550 mg Oxycodone/Acetaminophen (Percocet 5/325 Mg Tab) 1 tab PO Q6H PRN PRN Reason: Pain, severe (8-10) Stop: 05/11/17 15:57 Last Admin: 05/09/17 22:17 Dose: 1 tab Pantoprazole Sodium (Protonix Ec Tab) 40 mg PO DAILY [facility] Last Admin: 05/10/17 10:52 Dose: 40 mg - Labs Labs: 05/10/17 14:03 05/10/17 14:03 - Head Exam Head Exam: ATRAUMATIC, NORMAL INSPECTION - Eye Exam Eye Exam: EOMI, Normal appearance - ENT Exam ENT Exam: Mucous Membranes Moist - Respiratory Exam Respiratory Exam: Clear to Ausculation Bilateral - Cardiovascular Exam Cardiovascular Exam: REGULAR RHYTHM - GI/Abdominal Exam GI & Abdominal Exam: Soft. absent: Tenderness - Extremities Exam Additional comments: RLE hallux wrapped in dressing- c/d/i - Neurological Exam Neurological Exam: Alert, Awake, Oriented x3 Assessment and Plan - Assessment and Plan (Free Text) Plan: right hallux ulceration with OM pt to OR Sunday05/11/17 at 12:30 pm for right hallux amputation, consent obtained and in chart. Dr. Hooper will be operating NPO after05/10/17 lovenox to be held Follow up am labs Pt has had pre surgical assessment: EKG- follow up official read; prelim read- nsr Echo- non-pertinent findings The risks of surgery were discussed with the patient and he has consented to move forward with surgery as per Dr. Hooper. wound cx-enterobacter aerogenes, beta hemolytic strep group B Continue: zosyn and vacomycin continue IV abx as per ID- Dr. Reich MRI impressions:1. Soft tissue ulceration with adjacent prominent signal abnormality seen within the 1st distal phalanx with patchy decreased T1 signal and exuberant reactive edema and increased STIR signal consistent with acute osteomyelitis. continue IV abx as per ID DM with neuropathy ISS metformin 1g bid gabapentin started 300mg tid naproxen prn pain prophylaxis protonix loveox Case discussed with Dr. Billings. All management as per Dr. Billings.
[2017-05-11] MEDS: Oxycodone/Acetaminophen 5/325 mg Tab PO PRN (00:11)
[2017-05-11] MEDS: Vancomycin 1 gm/NS 200 ml 1 GM/200 ML BAG IVPB SCH ×3 (01:28→14:32)
[2017-05-11] MEDS: Piperacill/Tazo 3.375gm in Dex 3.375 GM/50 ML BAG IVPB SCH ×4 (02:52→21:34)
[2017-05-11 07:03] LABS: BASO # 0.1 K/uL (0.0-0.2); BASO % 0.4 % (0.0-2.0); EOS # 0.2 K/uL (0.0-0.7); HEMOGLOBIN 16.1 g/dL (12.0-18.0); LYMPH # 4.1 K/uL (1.0-4.3); MEAN CORPUSCULAR HEMOGLOBIN 27.1 pg (27.0-31.0); MEAN PLATELET VOLUME 8.7 fL (7.2-11.7); MONO # 0.6 K/uL (0.0-0.8); MONO % 5.2 % (0.0-10.0); NEUT # 6.4 K/uL (1.8-7.0); NEUT % 56.4 % (50.0-75.0); NRBC % 0.1 % (0.0-2.0); RBC 5.95 Mil/uL (4.40-5.90); RED CELL DISTRIBUTION WIDTH 13.8 % (11.5-14.5); WHITE BLOOD COUNT 11.3 K/uL (4.8-10.8)
[2017-05-11 07:07] LABS: ALB/GLOB RATIO 1.3 (1.0-2.1); ALBUMIN 3.7 g/dL (3.5-5.0); ALT/SGPT 40 U/L (21-72); AST/SGOT 28 U/L (17-59); BLOOD UREA NITROGEN 13 mg/dL (9-20); GFR AFRICAN-AMERICAN > 60; GFR NON-AFRICAN AMERICAN > 60
[2017-05-11 07:33] LABS: PROTHROMBIN TIME 10.6 SECONDS (9.7-12.2)
[2017-05-11] MEDS: (Novolog) Insulin Aspart, Recombinant 100 u/ml 10 ml vial SC SCH ×4 (08:24→21:31)
[2017-05-11] MEDS: Pantoprazole 40 mg EC Tab PO SCH (10:00)
[2017-05-11] MEDS: Collagenase 250 Units/gm Ointment(30 gm) TOP SCH (10:00)
[2017-05-11] MEDS: Naproxen 550 mg Tab PO SCH ×2 (11:00→17:54)
--- NOTE | 2017-05-11 11:05 | CP.PCM.PN ---
Subjective - Date & Time of Evaluation Date of Evaluation: 05/11/17 Time of Evaluation: 11:05 - Subjective Subjective: 41 year old male was seen resting comfortably at bedside this morning regarding right hallux ulceration with OM. Patient is aware he is going for right hallux amputation today at 12:30. NPO status confirmed. Surgical consent in chart. Patient is aware and agreeable for procedure. He denies any n/v/f/c/sob/cp. Objective - Vital Signs/Intake and Output Vital Signs (last 24 hours): Temp Pulse Resp BP Pulse Ox 98.0 F 87 20 156/95 H 96 05/11/17 08:54 05/11/17 08:54 05/11/17 08:54 05/11/17 08:54 05/11/17 08:54 Intake and Output: 05/11/17 05/11/17 06:59 18:59 Intake Total 460 Balance 460 - Medications Medications: Current Medications Collagenase (Santyl) 0 gm TOP DAILY [facility] Last Admin: 05/10/17 11:02 Dose: 1 appl Enoxaparin Sodium (Lovenox) 40 mg SC DAILY [facility] Last Admin: 05/10/17 08:14 Dose: 40 mg Gabapentin (Neurontin) 300 mg PO HS [facility] Last Admin: 05/10/17 21:58 Dose: 300 mg Piperacillin Sod/Tazobactam Sod (Zosyn 3.375 Gm Iv Premix) 3.375 gm in 50 mls @ 100 mls/hr IVPB Q6H [facility] Last Admin: 05/11/17 09:47 Dose: 100 mls/hr Vancomycin/Sodium Chloride (Vancocin) 1 gm in 200 mls @ 133.333 mls/hr IVPB Q12H [facility] Last Admin: 05/11/17 01:28 Dose: 133.333 mls/hr Insulin Aspart (Novolog) 0 unit SC ACHS [facility] PRN Reason: Protocol Last Admin: 05/11/17 08:24 Dose: Not Given Metformin HCl (Glucophage) 1,000 mg PO BIDCC [facility] Last Admin: 05/11/17 08:24 Dose: Not Given Naproxen (Anaprox Ds) 550 mg PO BID [facility] Last Admin: 05/10/17 18:18 Dose: 550 mg Oxycodone/Acetaminophen (Percocet 5/325 Mg Tab) 1 tab PO Q6H PRN PRN Reason: Pain, severe (8-10) Stop: 05/11/17 15:57 Last Admin: 05/11/17 00:11 Dose: 1 tab Pantoprazole Sodium (Protonix Ec Tab) 40 mg PO DAILY [facility] Last Admin: 05/10/17 10:52 Dose: 40 mg - Labs Labs: 05/11/17 06:44 05/11/17 06:44 PT 10.6 SECONDS (9.7-12.2) 05/11/17 06:44 INR 1.0 05/11/17 06:44 APTT 37 SECONDS (21-34) H 05/11/17 06:44 - Constitutional Appears: Well, Non-toxic, No Acute Distress - Extremities Exam Additional comments: dressing c/d/i to RLE - Neurological Exam Neurological Exam: Alert, Awake, Oriented x3 - Psychiatric Exam Psychiatric exam: Normal Affect, Normal Mood Assessment and Plan - Assessment and Plan (Free Text) Assessment: 41 year old male with right hallux ulceration and OM secondary to DM Plan: Pt was seen and examined Pt NPO status was confirmed All Pre-op testing and clearance was in the chart Pt has exhausted all conservative treatment at this time and is opting for surgical intervention Pt was explained procedure and post-operative course All pt's questions were answered to satisfaction No guarantees were made Pt understands all risks, benefits and complications of procedure Pt will follow-up with Dr. Hooper Podiatry will continue to follow patient while in house
[2017-05-11] MEDS ORDERED: Lidocaine 1% Inj (20ml) ONE (12:13)
[2017-05-11] MEDS ORDERED: Bupivacaine 0.5% Inj(30mL) ONE (12:13)
[2017-05-11] MEDS ORDERED: Propofol 10 mg/ml Inj (20 ML) ONE ×5 (12:24→13:21)
[2017-05-11] MEDS ORDERED: Midazolam 2 MG/2 ML VIAL ONE (12:24)
[2017-05-11] MEDS ORDERED: Lactated Ringer's 500 ML IV ONE (12:25)
--- NOTE | 2017-05-11 12:59 | CARD ---
APPROVED REPORT EKG Measurement Heart [id number] <Conclusion> Normal sinus rhythm Normal ECG
[2017-05-11] MEDS ORDERED: HYDROmorphone 0.5 mg/0.5 ml ISec IVP PRN (13:17)
--- NOTE | 2017-05-11 13:48 | PCM.SURG1 ---
Surgeon's Initial Post Op Note - Surgeon's Notes Surgeon: Dr. Hooper Order Puller: Dr. Pulido PGY2, Dr. Mancini PGY1 Type of Anesthesia: IV Sedation, Local Anesthesia Administered By: Dr. Ridley Pre-Operative Diagnosis: Right hallux osteomyelitis and non-healing ulcer Operative Findings: See dictation. I- 14 ml 1:1 1% lidocaine plain 0.5% marcaine plain. M: 2-0 vicryl, 3-0 prolene, Post-Operative Diagnosis: same Operation Performed: Right hallux amputation Specimen/Specimens Removed: Right hallux Estimated Blood Loss: EBL {In ML}: 5 Blood Products Given: N/A Drains Used: [place] Post-Op Condition: Good Date of Surgery/Procedure: 05/11/17 Time of Surgery/Procedure: 13:49
--- NOTE | 2017-05-11 14:30 | RAD ---
PROCEDURE: Right Foot Radiographs. HISTORY: s/p right hallux amputation COMPARISON: Right foot radiographs performed 05/06/17 FINDINGS: BONES: Status post amputation of the 1st phalanx at the level of the tarsal metatarsal joint space. Overlying surgical drain. The remainder of the visualized osseous structures unremarkable. No acute displaced fracture. Small calcaneal enthesophyte. JOINTS: No dislocation. SOFT TISSUES: Mild soft tissue swelling. No evidence of radiopaque foreign body. OTHER FINDINGS: None. IMPRESSION: Status post amputation of the 1st phalanx at the level of the tarsal metatarsal joint space. Overlying surgical drain. Mild soft tissue swelling.
--- NOTE | 2017-05-11 14:52 | CP.PCM.PN ---
Subjective - Date & Time of Evaluation Date of Evaluation: 05/11/17 Time of Evaluation: 10:00 - Subjective Subjective: PGY-[address] Billings Patient seen and examined at bedside. No acute events overnight. Patient was made NPO overnight in preparation for OR today. Patient requested to shower and reports to ambulate without weakness. Denies headache, fever, chills, shortness of breath, chest pain, nausea or vomiting. Objective - Vital Signs/Intake and Output Vital Signs (last 24 hours): Temp Pulse Resp BP Pulse Ox 98.5 F 88 15 139/88 100 05/11/17 14:30 05/11/17 14:30 05/11/17 14:30 05/11/17 14:30 05/11/17 14:30 Intake and Output: 05/11/17 05/11/17 06:59 18:59 Intake Total 460 Balance 460 - Medications Medications: Current Medications Acetaminophen (Tylenol 325mg Tab) 650 mg PO Q6 PRN PRN Reason: Pain, Mild (1-3) Collagenase (Santyl) 0 gm TOP DAILY [facility] Last Admin: 05/11/17 10:00 Dose: Not Given Enoxaparin Sodium (Lovenox) 40 mg SC DAILY [facility] Last Admin: 05/10/17 08:14 Dose: 40 mg Gabapentin (Neurontin) 300 mg PO HS [facility] Last Admin: 05/10/17 21:58 Dose: 300 mg Hydromorphone HCl (Dilaudid) 0.5 mg IVP Q10M PRN PRN Reason: Pain, severe (8-10) Stop: 05/11/17 15:18 Piperacillin Sod/Tazobactam Sod (Zosyn 3.375 Gm Iv Premix) 3.375 gm in 50 mls @ 100 mls/hr IVPB Q6H [facility] Last Admin: 05/11/17 14:30 Dose: 100 mls/hr Vancomycin/Sodium Chloride (Vancocin) 1 gm in 200 mls @ 133.333 mls/hr IVPB Q12H [facility] Last Admin: 05/11/17 14:32 Dose: 133.333 mls/hr Insulin Aspart (Novolog) 0 unit SC ACHS [facility] PRN Reason: Protocol Last Admin: 05/11/17 11:00 Dose: Not Given Metformin HCl (Glucophage) 1,000 mg PO BIDCC [facility] Last Admin: 05/11/17 08:24 Dose: Not Given Naproxen (Anaprox Ds) 550 mg PO BID [facility] Last Admin: 05/11/17 11:00 Dose: Not Given Ondansetron HCl (Zofran Inj) 4 mg IVP ONCE PRN PRN Reason: Nausea/Vomiting Stop: 05/11/17 15:18 Oxycodone/Acetaminophen (Percocet 5/325 Mg Tab) 1 tab PO Q6H PRN PRN Reason: Pain, severe (8-10) Stop: 05/11/17 15:57 Last Admin: 05/11/17 00:11 Dose: 1 tab Pantoprazole Sodium (Protonix Ec Tab) 40 mg PO DAILY [facility] Last Admin: 05/11/17 10:00 Dose: Not Given - Labs Labs: 05/11/17 06:44 05/11/17 06:44 PT 10.6 SECONDS (9.7-12.2) 05/11/17 06:44 INR 1.0 05/11/17 06:44 APTT 37 SECONDS (21-34) H 05/11/17 06:44 - Constitutional Appears: Well, Non-toxic, No Acute Distress - Head Exam Head Exam: ATRAUMATIC, NORMAL INSPECTION - Eye Exam Eye Exam: EOMI, Normal appearance - ENT Exam ENT Exam: Mucous Membranes Moist - Respiratory Exam Respiratory Exam: Clear to Ausculation Bilateral, NORMAL BREATHING PATTERN. absent: Respiratory Distress - Cardiovascular Exam Cardiovascular Exam: REGULAR RHYTHM, +S1, +S2 - GI/Abdominal Exam GI & Abdominal Exam: Soft, Normal Bowel Sounds - Extremities Exam Additional comments: Left ankle dressing dry, clean, and intact. No active drainage appreciated. - Neurological Exam Neurological Exam: Alert, Awake, Oriented x3 - Psychiatric Exam Psychiatric exam: Normal Affect, Normal Mood - Skin Skin Exam: Normal Color, Warm Assessment and Plan - Assessment and Plan (Free Text) Assessment: right hallux ulceration with OM -OR today for right hallux amputation -Restart lovenox tomorrow per podiatry -Follow up am labs -EKG- NSR at 81bpm, no acute ST changes -Echo- non-pertinent findings -wound cx-enterobacter aerogenes, beta hemolytic strep group B -Continue: zosyn and vacomycin per ID -MRI impressions:1. Soft tissue ulceration with adjacent prominent signal abnormality seen within the 1st distal phalanx with patchy decreased T1 signal and exuberant reactive edema and increased STIR signal consistent with acute osteomyelitis. DM with neuropathy -ISS -metformin 1g bid -gabapentin started 300mg tid -naproxen prn pain prophylaxis -protonix Case discussed with Dr. Billings
--- NOTE | 2017-05-11 15:45 | CP.PCM.PN ---
Subjective - Date & Time of Evaluation Date of Evaluation: 05/11/17 Time of Evaluation: 12:00 - Subjective Subjective: stable hemodynamically, no CP, SOB, for surgery Objective - Vital Signs/Intake and Output Vital Signs (last 24 hours): Temp Pulse Resp BP Pulse Ox 98.5 F 88 15 139/88 100 05/11/17 14:30 05/11/17 14:30 05/11/17 14:30 05/11/17 14:30 05/11/17 14:30 Intake and Output: 05/11/17 05/11/17 06:59 18:59 Intake Total 460 Balance 460 - Medications Medications: Current Medications Acetaminophen (Tylenol 325mg Tab) 650 mg PO Q6 PRN PRN Reason: Pain, Mild (1-3) Collagenase (Santyl) 0 gm TOP DAILY [facility] Last Admin: 05/11/17 10:00 Dose: Not Given Enoxaparin Sodium (Lovenox) 40 mg SC DAILY [facility] Last Admin: 05/10/17 08:14 Dose: 40 mg Gabapentin (Neurontin) 300 mg PO HS [facility] Last Admin: 05/10/17 21:58 Dose: 300 mg Piperacillin Sod/Tazobactam Sod (Zosyn 3.375 Gm Iv Premix) 3.375 gm in 50 mls @ 100 mls/hr IVPB Q6H [facility] Last Admin: 05/11/17 14:30 Dose: 100 mls/hr Vancomycin/Sodium Chloride (Vancocin) 1 gm in 200 mls @ 133.333 mls/hr IVPB Q12H [facility] Last Admin: 05/11/17 14:32 Dose: 133.333 mls/hr Insulin Aspart (Novolog) 0 unit SC ACHS [facility] PRN Reason: Protocol Last Admin: 05/11/17 11:00 Dose: Not Given Metformin HCl (Glucophage) 1,000 mg PO BIDCC [facility] Last Admin: 05/11/17 08:24 Dose: Not Given Naproxen (Anaprox Ds) 550 mg PO BID [facility] Last Admin: 05/11/17 11:00 Dose: Not Given Oxycodone/Acetaminophen (Percocet 5/325 Mg Tab) 1 tab PO Q6H PRN PRN Reason: Pain, severe (8-10) Stop: 05/11/17 15:57 Last Admin: 05/11/17 00:11 Dose: 1 tab Pantoprazole Sodium (Protonix Ec Tab) 40 mg PO DAILY [facility] Last Admin: 05/11/17 10:00 Dose: Not Given - Labs Labs: 05/11/17 06:44 05/11/17 06:44 PT 10.6 SECONDS (9.7-12.2) 05/11/17 06:44 INR 1.0 05/11/17 06:44 APTT 37 SECONDS (21-34) H 05/11/17 06:44 - Constitutional Appears: Non-toxic - Head Exam Head Exam: ATRAUMATIC - Eye Exam Eye Exam: EOMI - ENT Exam ENT Exam: Mucous Membranes Moist - Neck Exam Neck Exam: absent: Lymphadenopathy, Thyromegaly - Respiratory Exam Respiratory Exam: Clear to Ausculation Bilateral. absent: Rales - Cardiovascular Exam Cardiovascular Exam: REGULAR RHYTHM, Murmur - GI/Abdominal Exam GI & Abdominal Exam: Normal Bowel Sounds. absent: Organomegaly - Rectal Exam Rectal Exam: Deferred - Extremities Exam Extremities Exam: Normal Capillary Refill. absent: Calf Tenderness - Neurological Exam Neurological Exam: Alert, Oriented x3 - Psychiatric Exam Psychiatric exam: Normal Mood - Skin Skin Exam: Dry Assessment and Plan (1) Cellulitis Status: Acute (2) Hyperglycemia due to type 2 diabetes mellitus Status: Chronic
[2017-05-11] MEDS ORDERED: Oxycodone/Acetaminophen 5/325 mg Tab PO ONE (16:36)
--- NOTE | 2017-05-11 16:38 | CP.PCM.PN ---
Subjective - Date & Time of Evaluation Date of Evaluation: 05/11/17 Time of Evaluation: 11:40 - Subjective Subjective: Clinical same Objective - Vital Signs/Intake and Output Vital Signs (last 24 hours): Temp Pulse Resp BP Pulse Ox 98.5 F 88 15 139/88 100 05/11/17 14:30 05/11/17 14:30 05/11/17 14:30 05/11/17 14:30 05/11/17 14:30 Intake and Output: 05/11/17 05/11/17 06:59 18:59 Intake Total 460 310 Balance 460 310 - Medications Medications: Current Medications Acetaminophen (Tylenol 325mg Tab) 650 mg PO Q6 PRN PRN Reason: Pain, Mild (1-3) Collagenase (Santyl) 0 gm TOP DAILY [facility] Last Admin: 05/11/17 10:00 Dose: Not Given Enoxaparin Sodium (Lovenox) 40 mg SC DAILY [facility] Last Admin: 05/10/17 08:14 Dose: 40 mg Gabapentin (Neurontin) 300 mg PO HS [facility] Last Admin: 05/10/17 21:58 Dose: 300 mg Piperacillin Sod/Tazobactam Sod (Zosyn 3.375 Gm Iv Premix) 3.375 gm in 50 mls @ 100 mls/hr IVPB Q6H [facility] Last Admin: 05/11/17 14:30 Dose: 100 mls/hr Vancomycin/Sodium Chloride (Vancocin) 1 gm in 200 mls @ 133.333 mls/hr IVPB Q12H [facility] Last Admin: 05/11/17 14:32 Dose: 133.333 mls/hr Insulin Aspart (Novolog) 0 unit SC ACHS [facility] PRN Reason: Protocol Last Admin: 05/11/17 11:00 Dose: Not Given Metformin HCl (Glucophage) 1,000 mg PO BIDCC [facility] Last Admin: 05/11/17 08:24 Dose: Not Given Naproxen (Anaprox Ds) 550 mg PO BID [facility] Last Admin: 05/11/17 11:00 Dose: Not Given Oxycodone/Acetaminophen (Percocet 5/325 Mg Tab) 1 tab PO ONCE ONE Stop: 05/11/17 16:37 Pantoprazole Sodium (Protonix Ec Tab) 40 mg PO DAILY [facility] Last Admin: 05/11/17 10:00 Dose: Not Given - Labs Labs: 05/11/17 06:44 05/11/17 06:44 PT 10.6 SECONDS (9.7-12.2) 05/11/17 06:44 INR 1.0 05/11/17 06:44 APTT 37 SECONDS (21-34) H 05/11/17 06:44 - Constitutional Appears: Well - Head Exam Head Exam: ATRAUMATIC, NORMAL INSPECTION, NORMOCEPHALIC - Eye Exam Eye Exam: EOMI, Normal appearance, PERRL Pupil Exam: NORMAL ACCOMODATION, PERRL - ENT Exam ENT Exam: Mucous Membranes Moist, Normal Exam - Neck Exam Neck Exam: Full ROM, Normal Inspection. absent: Lymphadenopathy - Respiratory Exam Respiratory Exam: Decreased Breath Sounds - Cardiovascular Exam Cardiovascular Exam: REGULAR RHYTHM, +S1, +S2 - GI/Abdominal Exam GI & Abdominal Exam: Soft, Diminished Bowel Sounds - Rectal Exam Rectal Exam: Deferred Assessment and Plan (1) Diabetic foot infection Status: Acute (2) Failure of outpatient treatment Status: Acute (3) Infected wound Status: Acute (4) Cellulitis Status: Acute (5) Elevated d-dimer Status: Acute (6) Pneumonia Status: Acute (7) Prophylactic measure Status: Acute (8) Tinea pedis Status: Acute (9) Toe fracture Status: Acute (10) Uncontrolled diabetes mellitus Status: Acute (11) Hyperglycemia due to type 2 diabetes mellitus Status: Chronic
--- NOTE | 2017-05-11 18:30 | CP.PCM.PN ---
Subjective - Date & Time of Evaluation Date of Evaluation: 05/11/17 Time of Evaluation: 09:00 - Subjective Subjective: events noted iv rx in progress Objective - Vital Signs/Intake and Output Vital Signs (last 24 hours): Temp Pulse Resp BP Pulse Ox 98.1 F 81 20 167/89 H 98 05/11/17 17:00 05/11/17 17:00 05/11/17 17:00 05/11/17 17:00 05/11/17 17:00 Intake and Output: 05/11/17 05/11/17 06:59 18:59 Intake Total 460 310 Balance 460 310 - Medications Medications: Current Medications Acetaminophen (Tylenol 325mg Tab) 650 mg PO Q6 PRN PRN Reason: Pain, Mild (1-3) Collagenase (Santyl) 0 gm TOP DAILY [facility] Last Admin: 05/11/17 10:00 Dose: Not Given Enoxaparin Sodium (Lovenox) 40 mg SC DAILY [facility] Last Admin: 05/10/17 08:14 Dose: 40 mg Gabapentin (Neurontin) 300 mg PO HS [facility] Last Admin: 05/10/17 21:58 Dose: 300 mg Piperacillin Sod/Tazobactam Sod (Zosyn 3.375 Gm Iv Premix) 3.375 gm in 50 mls @ 100 mls/hr IVPB Q6H [facility] Last Admin: 05/11/17 14:30 Dose: 100 mls/hr Vancomycin/Sodium Chloride (Vancocin) 1 gm in 200 mls @ 133.333 mls/hr IVPB Q12H [facility] Last Admin: 05/11/17 14:32 Dose: 133.333 mls/hr Insulin Aspart (Novolog) 0 unit SC ACHS [facility] PRN Reason: Protocol Last Admin: 05/11/17 17:55 Dose: 4 unit Metformin HCl (Glucophage) 1,000 mg PO BIDCC [facility] Last Admin: 05/11/17 17:55 Dose: 1,000 mg Naproxen (Anaprox Ds) 550 mg PO BID [facility] Last Admin: 05/11/17 17:54 Dose: 550 mg Pantoprazole Sodium (Protonix Ec Tab) 40 mg PO DAILY [facility] Last Admin: 05/11/17 10:00 Dose: Not Given - Labs Labs: 05/11/17 06:44 05/11/17 06:44 PT 10.6 SECONDS (9.7-12.2) 05/11/17 06:44 INR 1.0 05/11/17 06:44 APTT 37 SECONDS (21-34) H 05/11/17 06:44 - Constitutional Appears: Non-toxic - Head Exam Head Exam: NORMAL INSPECTION - Eye Exam Eye Exam: PERRL - ENT Exam ENT Exam: Mucous Membranes Dry - Neck Exam Neck Exam: absent: Lymphadenopathy - Respiratory Exam Respiratory Exam: Decreased Breath Sounds - Cardiovascular Exam Cardiovascular Exam: REGULAR RHYTHM Assessment and Plan (1) Cellulitis Status: Acute (2) Elevated d-dimer Status: Acute (3) Pneumonia Status: Acute (4) Uncontrolled diabetes mellitus Status: Acute
[2017-05-11] MEDS ORDERED: Oxycodone/Acetaminophen 5/325 mg Tab PO PRN (22:40)
[2017-05-12] MEDS: Vancomycin 1 gm/NS 200 ml 1 GM/200 ML BAG IVPB SCH ×2 (01:15→13:37)
[2017-05-12] MEDS: Piperacill/Tazo 3.375gm in Dex 3.375 GM/50 ML BAG IVPB SCH ×4 (03:34→22:00)
[2017-05-12] MEDS: Oxycodone/Acetaminophen 5/325 mg Tab PO PRN ×5 (05:27→22:45)
[2017-05-12 06:34] LABS: BASO % 0.4 % (0.0-2.0); EOS # 0.2 K/uL (0.0-0.7); EOS % 1.8 % (0.0-4.0); HEMOGLOBIN 15.5 g/dL (12.0-18.0); LYMPH % 26.7 % (20.0-40.0); MEAN CELL VOLUME 79.5 fL (80.0-94.0); MEAN CORPUSCULAR HEMOGLOBIN 27.1 pg (27.0-31.0); MEAN CORPUSCULAR HGB CONC 34.1 g/dL (33.0-37.0); MEAN PLATELET VOLUME 8.4 fL (7.2-11.7); MONO # 0.7 K/uL (0.0-0.8); MONO % 6.1 % (0.0-10.0); NEUT # 7.2 K/uL (1.8-7.0); NRBC % 0.1 % (0.0-2.0); RBC 5.71 Mil/uL (4.40-5.90); RED CELL DISTRIBUTION WIDTH 13.5 % (11.5-14.5); WHITE BLOOD COUNT 11.1 K/uL (4.8-10.8)
[2017-05-12 06:47] LABS: ALBUMIN 3.7 g/dL (3.5-5.0)
[2017-05-12 06:49] LABS: ALB/GLOB RATIO 1.1 (1.0-2.1); AST/SGOT 27 U/L (17-59); GFR AFRICAN-AMERICAN > 60; GFR NON-AFRICAN AMERICAN > 60
[2017-05-12 06:50] LABS: ALT/SGPT 45 U/L (21-72); BLOOD UREA NITROGEN 14 mg/dL (9-20); CALCIUM 8.6 mg/dl (8.6-10.4)
[2017-05-12] MEDS: (Novolog) Insulin Aspart, Recombinant 100 u/ml 10 ml vial SC SCH ×4 (08:30→22:07)
[2017-05-12] MEDS: Naproxen 550 mg Tab PO SCH ×2 (09:24→18:31)
[2017-05-12] MEDS: Pantoprazole 40 mg EC Tab PO SCH (09:24)
[2017-05-12] MEDS: Collagenase 250 Units/gm Ointment(30 gm) TOP SCH (10:29)
--- NOTE | 2017-05-12 12:16 | CP.PCM.PN ---
Subjective - Date & Time of Evaluation Date of Evaluation: 05/12/17 Time of Evaluation: 12:14 - Subjective Subjective: Pt seen at bedside for f/u right hallux amp. Pt in NAD. Wound is clean and dry. Sutures intact with no dehiscence. Bleeding noted at ry drain. Removal of ry drain and redressed sx site. Pt to cont to remain strict non wt bearing on right foot. Will write order for PT for crutch training and non wt bearing right foot. Objective - Vital Signs/Intake and Output Vital Signs (last 24 hours): Temp Pulse Resp BP Pulse Ox 98.4 F 86 20 161/94 H 97 05/12/17 04:20 05/12/17 04:20 05/12/17 04:20 05/12/17 04:20 05/11/17 23:50 Intake and Output: 05/12/17 05/12/17 06:59 18:59 Intake Total 260 Output Total 1200 Balance -940 - Medications Medications: Current Medications Acetaminophen (Tylenol 325mg Tab) 650 mg PO Q6 PRN PRN Reason: Pain, Mild (1-3) Collagenase (Santyl) 0 gm TOP DAILY [facility] Last Admin: 05/12/17 10:29 Dose: Not Given Enoxaparin Sodium (Lovenox) 40 mg SC DAILY [facility] Last Admin: 05/10/17 08:14 Dose: 40 mg Gabapentin (Neurontin) 300 mg PO HS [facility] Last Admin: 05/11/17 21:33 Dose: 300 mg Piperacillin Sod/Tazobactam Sod (Zosyn 3.375 Gm Iv Premix) 3.375 gm in 50 mls @ 100 mls/hr IVPB Q6H [facility] Last Admin: 05/12/17 08:36 Dose: 100 mls/hr Vancomycin/Sodium Chloride (Vancocin) 1 gm in 200 mls @ 133.333 mls/hr IVPB Q12H [facility] Last Admin: 05/12/17 01:15 Dose: 133.333 mls/hr Insulin Aspart (Novolog) 0 unit SC ACHS [facility] PRN Reason: Protocol Last Admin: 05/12/17 08:30 Dose: 3 unit Metformin HCl (Glucophage) 1,000 mg PO BIDCC [facility] Last Admin: 05/12/17 08:35 Dose: 1,000 mg Naproxen (Anaprox Ds) 550 mg PO BID [facility] Last Admin: 05/12/17 09:24 Dose: 550 mg Oxycodone/Acetaminophen (Percocet 5/325 Mg Tab) 1 tab PO Q4H PRN PRN Reason: Pain, moderate (4-7) Stop: 05/14/17 22:41 Last Admin: 05/12/17 09:39 Dose: 1 tab Pantoprazole Sodium (Protonix Ec Tab) 40 mg PO DAILY [facility] Last Admin: 05/12/17 09:24 Dose: 40 mg - Labs Labs: 05/12/17 06:24 05/12/17 06:24 PT 10.6 SECONDS (9.7-12.2) 05/11/17 06:44 INR 1.0 05/11/17 06:44 APTT 37 SECONDS (21-34) H 05/11/17 06:44
--- NOTE | 2017-05-12 12:56 | OP ---
PROCEDURE DATE: 05/11/2017 PREOPERATIVE DIAGNOSIS: Right hallux osteomyelitis with nonhealing ulcer. POSTOPERATIVE DIAGNOSIS: Right hallux osteomyelitis with nonhealing ulcer. NAME OF PROCEDURE: Right hallux amputation. DRAINS: A Chester drain was inserted to the surgical site and closed using 2-0 Vicryl. SURGEON: Jovanny Hooper DPM ASSISTANTS: 1. Kallie Pulido DPM, PGY2 2. Fausto Mancini DPM, PGY1 TYPE OF ANESTHESIA: IV sedation with local. ANESTHESIA ADMINISTERED BY: Ed Ridley MD INDICATIONS: The patient is a 41-year-old male with the above diagnosis. The patient has exhausted all conservative treatments and now requires surgical intervention at this time. The patient signed the consent after careful explanation of risks, benefits, complications, and alternatives for the surgical procedure. No guarantees were given or implied. Empiric confirmed prior to taking the patient to OR. PREPARATION: The patient was brought into the operating room and placed on the operating room table in a supine position. A time-out was performed for correct identification of the patient and procedure. After induction of IV sedation 14 mL of 1:1 mixture of 0.5% Marcaine plain and 1% Marcaine plain was given in a Zimmerman block fashion. The right foot was then prepped and draped in a normal sterile manner and the procedure began. No tourniquet was used during the procedure. DESCRIPTION OF PROCEDURE: Right hallux amputation. Attention was directed to the dorsal aspect of the right hallux, where a racquet-type incision was made circumferentially at the level of metatarsophalangeal joint using a #15-blade. The incision was then extended down to the subcutaneous layers to the level of . Utilizing a bronchus clamp the hallux was then disarticulated in the foot at the level metatarsophalangeal joint and passed off the field and sent for pathology. Using #15-blade tendons and nonviable tissues was excised and passed off the field. The surgical site was then irrigated with copious amounts of normal sterile saline. The surgical site was then closed using 2-0 Vicryl and skin was closed utilizing 3-0 Prolene. The foot was then dressed with Betadine soaked Adaptic, 4x4's, sterile gauze, Kerlix, and Sammy. POSTOPERATIVE CONDITION: The patient tolerated the anesthesia and procedure well and escorted to recovery room and vital signs stable and neurovascular status intact to the right foot. The patient will be nonweightbearing to the right lower extremity. Podiatry will continue to follow the patient while in-house. Kallie Pulido DPM
--- NOTE | 2017-05-12 13:52 | CP.PCM.PN ---
Subjective - Date & Time of Evaluation Date of Evaluation: 05/12/17 Time of Evaluation: 09:20 - Subjective Subjective: clinically same Objective - Vital Signs/Intake and Output Vital Signs (last 24 hours): Temp Pulse Resp BP Pulse Ox 98.4 F 86 20 161/94 H 97 05/12/17 04:20 05/12/17 04:20 05/12/17 04:20 05/12/17 04:20 05/11/17 23:50 Intake and Output: 05/12/17 05/12/17 06:59 18:59 Intake Total 260 Output Total 1200 Balance -940 - Medications Medications: Current Medications Acetaminophen (Tylenol 325mg Tab) 650 mg PO Q6 PRN PRN Reason: Pain, Mild (1-3) Collagenase (Santyl) 0 gm TOP DAILY [facility] Last Admin: 05/12/17 10:29 Dose: Not Given Enoxaparin Sodium (Lovenox) 40 mg SC DAILY [facility] Last Admin: 05/10/17 08:14 Dose: 40 mg Gabapentin (Neurontin) 300 mg PO HS [facility] Last Admin: 05/11/17 21:33 Dose: 300 mg Piperacillin Sod/Tazobactam Sod (Zosyn 3.375 Gm Iv Premix) 3.375 gm in 50 mls @ 100 mls/hr IVPB Q6H [facility] Last Admin: 05/12/17 08:36 Dose: 100 mls/hr Vancomycin/Sodium Chloride (Vancocin) 1 gm in 200 mls @ 133.333 mls/hr IVPB Q12H [facility] Last Admin: 05/12/17 13:37 Dose: 133.333 mls/hr Insulin Aspart (Novolog) 0 unit SC ACHS [facility] PRN Reason: Protocol Last Admin: 05/12/17 12:21 Dose: 3 unit Metformin HCl (Glucophage) 1,000 mg PO BIDCC [facility] Last Admin: 05/12/17 08:35 Dose: 1,000 mg Naproxen (Anaprox Ds) 550 mg PO BID [facility] Last Admin: 05/12/17 09:24 Dose: 550 mg Oxycodone/Acetaminophen (Percocet 5/325 Mg Tab) 1 tab PO Q4H PRN PRN Reason: Pain, moderate (4-7) Stop: 05/14/17 22:41 Last Admin: 05/12/17 13:39 Dose: 1 tab Pantoprazole Sodium (Protonix Ec Tab) 40 mg PO DAILY [facility] Last Admin: 05/12/17 09:24 Dose: 40 mg - Labs Labs: 05/12/17 06:24 05/12/17 06:24 PT 10.6 SECONDS (9.7-12.2) 05/11/17 06:44 INR 1.0 05/11/17 06:44 APTT 37 SECONDS (21-34) H 05/11/17 06:44 - Constitutional Appears: Well - Head Exam Head Exam: ATRAUMATIC, NORMAL INSPECTION, NORMOCEPHALIC - Eye Exam Eye Exam: EOMI, Normal appearance, PERRL Pupil Exam: NORMAL ACCOMODATION, PERRL - ENT Exam ENT Exam: Mucous Membranes Moist, Normal Exam - Neck Exam Neck Exam: Full ROM, Normal Inspection. absent: Lymphadenopathy - Respiratory Exam Respiratory Exam: Decreased Breath Sounds - Cardiovascular Exam Cardiovascular Exam: REGULAR RHYTHM, +S1, +S2 - GI/Abdominal Exam GI & Abdominal Exam: Soft, Diminished Bowel Sounds - Rectal Exam Rectal Exam: Deferred Assessment and Plan (1) Diabetic foot infection Status: Acute (2) Failure of outpatient treatment Status: Acute (3) Infected wound Status: Acute (4) Cellulitis Status: Acute (5) Elevated d-dimer Status: Acute (6) Pneumonia Status: Acute (7) Prophylactic measure Status: Acute (8) Tinea pedis Status: Acute (9) Toe fracture Status: Acute (10) Uncontrolled diabetes mellitus Status: Acute (11) Hyperglycemia due to type 2 diabetes mellitus Status: Chronic
--- NOTE | 2017-05-12 14:15 | CP.PCM.PN ---
Subjective - Date & Time of Evaluation Date of Evaluation: 05/12/17 Time of Evaluation: 12:12 - Subjective Subjective: 41 year old male seen at bedside 1 day s/p right hallux amputation with attending Dr. Hooper. Patient states that he is feeling well and admits to no acute events overnight. Patient denies any further pedal complaints at this time. Patient denies N/V/F/C/CP/SOB Objective - Vital Signs/Intake and Output Vital Signs (last 24 hours): Temp Pulse Resp BP Pulse Ox 98.4 F 86 20 161/94 H 97 05/12/17 04:20 05/12/17 04:20 05/12/17 04:20 05/12/17 04:20 05/11/17 23:50 Intake and Output: 05/12/17 05/12/17 06:59 18:59 Intake Total 260 Output Total 1200 Balance -940 - Medications Medications: Current Medications Acetaminophen (Tylenol 325mg Tab) 650 mg PO Q6 PRN PRN Reason: Pain, Mild (1-3) Collagenase (Santyl) 0 gm TOP DAILY [facility] Last Admin: 05/12/17 10:29 Dose: Not Given Enoxaparin Sodium (Lovenox) 40 mg SC DAILY [facility] Last Admin: 05/10/17 08:14 Dose: 40 mg Gabapentin (Neurontin) 300 mg PO HS [facility] Last Admin: 05/11/17 21:33 Dose: 300 mg Piperacillin Sod/Tazobactam Sod (Zosyn 3.375 Gm Iv Premix) 3.375 gm in 50 mls @ 100 mls/hr IVPB Q6H [facility] Last Admin: 05/12/17 14:09 Dose: 100 mls/hr Vancomycin/Sodium Chloride (Vancocin) 1 gm in 200 mls @ 133.333 mls/hr IVPB Q12H [facility] Last Admin: 05/12/17 13:37 Dose: 133.333 mls/hr Insulin Aspart (Novolog) 0 unit SC ACHS [facility] PRN Reason: Protocol Last Admin: 05/12/17 12:21 Dose: 3 unit Metformin HCl (Glucophage) 1,000 mg PO BIDCC [facility] Last Admin: 05/12/17 08:35 Dose: 1,000 mg Naproxen (Anaprox Ds) 550 mg PO BID [facility] Last Admin: 05/12/17 09:24 Dose: 550 mg Oxycodone/Acetaminophen (Percocet 5/325 Mg Tab) 1 tab PO Q4H PRN PRN Reason: Pain, moderate (4-7) Stop: 05/14/17 22:41 Last Admin: 05/12/17 13:39 Dose: 1 tab Pantoprazole Sodium (Protonix Ec Tab) 40 mg PO DAILY [facility] Last Admin: 05/12/17 09:24 Dose: 40 mg - Labs Labs: 05/12/17 06:24 05/12/17 06:24 PT 10.6 SECONDS (9.7-12.2) 05/11/17 06:44 INR 1.0 05/11/17 06:44 APTT 37 SECONDS (21-34) H 05/11/17 06:44 - Constitutional Appears: Well, Non-toxic, No Acute Distress - Neurological Exam Neurological Exam: Alert, Awake, Oriented x3 - Psychiatric Exam Psychiatric exam: Normal Affect, Normal Mood
[2017-05-13] MEDS: Vancomycin 1 gm/NS 200 ml 1 GM/200 ML BAG IVPB SCH ×2 (01:26→13:55)
[2017-05-13] MEDS: Oxycodone/Acetaminophen 5/325 mg Tab PO PRN ×5 (02:34→23:13)
[2017-05-13] MEDS: Piperacill/Tazo 3.375gm in Dex 3.375 GM/50 ML BAG IVPB SCH ×4 (03:21→21:52)
[2017-05-13] MEDS: (Novolog) Insulin Aspart, Recombinant 100 u/ml 10 ml vial SC SCH ×4 (08:29→22:01)
[2017-05-13] MEDS: Collagenase 250 Units/gm Ointment(30 gm) TOP SCH (10:00)
[2017-05-13] MEDS: Pantoprazole 40 mg EC Tab PO SCH (11:32)
[2017-05-13] MEDS: Naproxen 550 mg Tab PO SCH ×2 (11:32→17:58)
--- NOTE | 2017-05-13 14:45 | CP.PCM.PN ---
Subjective - Date & Time of Evaluation Date of Evaluation: 05/13/17 Time of Evaluation: 08:00 - Subjective Subjective: stable s/p amp great toe Objective - Vital Signs/Intake and Output Vital Signs (last 24 hours): Temp Pulse Resp BP Pulse Ox 98.3 F 89 20 153/89 H 97 05/13/17 08:18 05/13/17 12:01 05/13/17 08:18 05/13/17 08:18 05/13/17 12:01 Intake and Output: 05/13/17 05/13/17 06:59 18:59 Intake Total 1280 Output Total 1250 Balance 30 - Medications Medications: Current Medications Acetaminophen (Tylenol 325mg Tab) 650 mg PO Q6 PRN PRN Reason: Pain, Mild (1-3) Collagenase (Santyl) 0 gm TOP DAILY [facility] Last Admin: 05/13/17 10:00 Dose: Not Given Enoxaparin Sodium (Lovenox) 40 mg SC DAILY [facility] Last Admin: 05/10/17 08:14 Dose: 40 mg Gabapentin (Neurontin) 300 mg PO HS [facility] Last Admin: 05/12/17 22:06 Dose: 300 mg Piperacillin Sod/Tazobactam Sod (Zosyn 3.375 Gm Iv Premix) 3.375 gm in 50 mls @ 100 mls/hr IVPB Q6H [facility] Last Admin: 05/13/17 14:01 Dose: 100 mls/hr Vancomycin/Sodium Chloride (Vancocin) 1 gm in 200 mls @ 133.333 mls/hr IVPB Q12H [facility] Last Admin: 05/13/17 13:55 Dose: 133.333 mls/hr Insulin Aspart (Novolog) 0 unit SC ACHS [facility] PRN Reason: Protocol Last Admin: 05/13/17 12:30 Dose: 3 unit Metformin HCl (Glucophage) 1,000 mg PO BIDCC [facility] Last Admin: 05/13/17 08:29 Dose: 1,000 mg Naproxen (Anaprox Ds) 550 mg PO BID [facility] Last Admin: 05/13/17 11:32 Dose: 550 mg Oxycodone/Acetaminophen (Percocet 5/325 Mg Tab) 1 tab PO Q4H PRN PRN Reason: Pain, moderate (4-7) Stop: 05/14/17 22:41 Last Admin: 05/13/17 12:30 Dose: 1 tab Pantoprazole Sodium (Protonix Ec Tab) 40 mg PO DAILY [facility] Last Admin: 05/13/17 11:32 Dose: 40 mg - Labs Labs: 05/12/17 06:24 05/12/17 06:24 PT 10.6 SECONDS (9.7-12.2) 05/11/17 06:44 INR 1.0 05/11/17 06:44 APTT 37 SECONDS (21-34) H 05/11/17 06:44 - Constitutional Appears: Non-toxic, Chronically Ill - Head Exam Head Exam: NORMOCEPHALIC - Eye Exam Eye Exam: PERRL - ENT Exam ENT Exam: Mucous Membranes Dry, Normal External Ear Exam - Neck Exam Neck Exam: absent: Lymphadenopathy - Respiratory Exam Respiratory Exam: Decreased Breath Sounds - Cardiovascular Exam Cardiovascular Exam: REGULAR RHYTHM - GI/Abdominal Exam GI & Abdominal Exam: Distended, Soft - Rectal Exam Rectal Exam: Deferred - Exam Exam: NORMAL INSPECTION - Extremities Exam Extremities Exam: Pedal Edema, Tenderness. absent: Calf Tenderness - Back Exam Back Exam: absent: CVA tenderness (L), CVA tenderness (R) Assessment and Plan (1) Cellulitis Status: Acute (2) Elevated d-dimer Status: Acute (3) Pneumonia Status: Acute (4) Uncontrolled diabetes mellitus Status: Acute - Assessment and Plan (Free Text) Assessment: cont iv rx for 7 days post amp
--- NOTE | 2017-05-13 16:14 | CP.PCM.PN ---
Subjective - Date & Time of Evaluation Date of Evaluation: 05/13/17 Time of Evaluation: 12:09 - Subjective Subjective: Pt seen at bedside 2 days s/p right hallux amp. Pt in NAD. Wound is clean and dry. Sutures intact with no dehiscence. Patient denies any acute overnight event. Patient denies any further pedal complaints at this time. Patient denies N/V/F/C/CP/SOB Objective - Vital Signs/Intake and Output Vital Signs (last 24 hours): Temp Pulse Resp BP Pulse Ox 98.3 F 89 20 153/89 H 97 05/13/17 08:18 05/13/17 12:01 05/13/17 08:18 05/13/17 08:18 05/13/17 12:01 Intake and Output: 05/13/17 05/13/17 06:59 18:59 Intake Total 1280 Output Total 1250 Balance 30 - Medications Medications: Current Medications Acetaminophen (Tylenol 325mg Tab) 650 mg PO Q6 PRN PRN Reason: Pain, Mild (1-3) Collagenase (Santyl) 0 gm TOP DAILY [facility] Last Admin: 05/13/17 10:00 Dose: Not Given Enoxaparin Sodium (Lovenox) 40 mg SC DAILY [facility] Last Admin: 05/10/17 08:14 Dose: 40 mg Gabapentin (Neurontin) 300 mg PO HS [facility] Last Admin: 05/12/17 22:06 Dose: 300 mg Piperacillin Sod/Tazobactam Sod (Zosyn 3.375 Gm Iv Premix) 3.375 gm in 50 mls @ 100 mls/hr IVPB Q6H [facility] Last Admin: 05/13/17 14:01 Dose: 100 mls/hr Vancomycin/Sodium Chloride (Vancocin) 1 gm in 200 mls @ 133.333 mls/hr IVPB Q12H [facility] Last Admin: 05/13/17 13:55 Dose: 133.333 mls/hr Insulin Aspart (Novolog) 0 unit SC ACHS [facility] PRN Reason: Protocol Last Admin: 05/13/17 12:30 Dose: 3 unit Metformin HCl (Glucophage) 1,000 mg PO BIDCC [facility] Last Admin: 05/13/17 08:29 Dose: 1,000 mg Naproxen (Anaprox Ds) 550 mg PO BID [facility] Last Admin: 05/13/17 11:32 Dose: 550 mg Oxycodone/Acetaminophen (Percocet 5/325 Mg Tab) 2 tab PO Q6H PRN PRN Reason: Pain, severe (8-10) Stop: 05/15/17 04:35 Pantoprazole Sodium (Protonix Ec Tab) 40 mg PO DAILY [facility] Last Admin: 05/13/17 11:32 Dose: 40 mg - Labs Labs: 05/12/17 06:24 05/12/17 06:24 PT 10.6 SECONDS (9.7-12.2) 05/11/17 06:44 INR 1.0 05/11/17 06:44 APTT 37 SECONDS (21-34) H 05/11/17 06:44 - Constitutional Appears: Well, Non-toxic, No Acute Distress - Extremities Exam Additional comments: Lower extremity focused exam Vasc: DP/PT pulses grossly diminshed. CFT < 3 seconds. Skin temperature warm to warm from proximal to distal Neuro: Epicritic and protective sensation grossly diminished Derm: Surgical site noted to right foot secondary to hallux amp. No dehiscence, site well coapted. No malodor, purulent drainage, erythema, fluctuance or other clinical signs of infection noted to the area MSK: S/p right hallux amputation - Neurological Exam Neurological Exam: Alert, Awake, Oriented x3 - Psychiatric Exam Psychiatric exam: Normal Affect, Normal Mood Assessment and Plan - Assessment and Plan (Free Text) Assessment: 41 year old male 2 days s/p right hallux amputation secondary to OM Plan: Patient seen and evaluated at bedside Charts, labs and vitals reviewed Plan discussed with attending Dr. Hooper Site dressed with betadine soaked gauze, 4x4, kirlix, RONALD Patient to remain strict NWB to right foot [address] Reich Podiatry will continue to follow while in house
--- NOTE | 2017-05-13 22:04 | CP.PCM.PN ---
Subjective - Date & Time of Evaluation Date of Evaluation: 05/13/17 Time of Evaluation: 10:30 - Subjective Subjective: clinically same Objective - Vital Signs/Intake and Output Vital Signs (last 24 hours): Temp Pulse Resp BP Pulse Ox 98.3 F 89 18 158/86 H 98 05/13/17 15:45 05/13/17 15:45 05/13/17 15:45 05/13/17 15:45 05/13/17 15:45 Intake and Output: 05/13/17 05/14/17 18:59 06:59 Intake Total 100 Output Total 900 Balance -800 - Medications Medications: Current Medications Acetaminophen (Tylenol 325mg Tab) 650 mg PO Q6 PRN PRN Reason: Pain, Mild (1-3) Collagenase (Santyl) 0 gm TOP DAILY [facility] Last Admin: 05/13/17 10:00 Dose: Not Given Enoxaparin Sodium (Lovenox) 40 mg SC DAILY [facility] Last Admin: 05/10/17 08:14 Dose: 40 mg Gabapentin (Neurontin) 300 mg PO HS [facility] Last Admin: 05/13/17 21:52 Dose: 300 mg Piperacillin Sod/Tazobactam Sod (Zosyn 3.375 Gm Iv Premix) 3.375 gm in 50 mls @ 100 mls/hr IVPB Q6H [facility] Last Admin: 05/13/17 21:52 Dose: 100 mls/hr Vancomycin/Sodium Chloride (Vancocin) 1 gm in 200 mls @ 133.333 mls/hr IVPB Q12H [facility] Last Admin: 05/13/17 13:55 Dose: 133.333 mls/hr Insulin Aspart (Novolog) 0 unit SC ACHS [facility] PRN Reason: Protocol Last Admin: 05/13/17 22:01 Dose: Not Given Metformin HCl (Glucophage) 1,000 mg PO BIDCC [facility] Last Admin: 05/13/17 17:58 Dose: 1,000 mg Naproxen (Anaprox Ds) 550 mg PO BID [facility] Last Admin: 05/13/17 17:58 Dose: 550 mg Oxycodone/Acetaminophen (Percocet 5/325 Mg Tab) 2 tab PO Q6H PRN PRN Reason: Pain, severe (8-10) Stop: 05/15/17 04:35 Last Admin: 05/13/17 17:12 Dose: 2 tab Pantoprazole Sodium (Protonix Ec Tab) 40 mg PO DAILY [facility] Last Admin: 05/13/17 11:32 Dose: 40 mg - Labs Labs: 05/12/17 06:24 05/12/17 06:24 PT 10.6 SECONDS (9.7-12.2) 05/11/17 06:44 INR 1.0 05/11/17 06:44 APTT 37 SECONDS (21-34) H 05/11/17 06:44 - Constitutional Appears: Well - Head Exam Head Exam: ATRAUMATIC, NORMAL INSPECTION, NORMOCEPHALIC - Eye Exam Eye Exam: EOMI, Normal appearance, PERRL - ENT Exam ENT Exam: Mucous Membranes Moist, Normal Exam - Neck Exam Neck Exam: Full ROM, Normal Inspection. absent: Lymphadenopathy - Respiratory Exam Respiratory Exam: Decreased Breath Sounds - Cardiovascular Exam Cardiovascular Exam: REGULAR RHYTHM, +S1, +S2. absent: Murmur - GI/Abdominal Exam GI & Abdominal Exam: Soft, Diminished Bowel Sounds - Rectal Exam Rectal Exam: Deferred Assessment and Plan (1) Diabetic foot infection Status: Acute (2) Failure of outpatient treatment Status: Acute (3) Infected wound Status: Acute (4) Cellulitis Status: Acute (5) Elevated d-dimer Status: Acute (6) Pneumonia Status: Acute (7) Prophylactic measure Status: Acute (8) Tinea pedis Status: Acute (9) Toe fracture Status: Acute (10) Uncontrolled diabetes mellitus Status: Acute (11) Hyperglycemia due to type 2 diabetes mellitus Status: Chronic
[2017-05-14] MEDS: Vancomycin 1 gm/NS 200 ml 1 GM/200 ML BAG IVPB SCH ×2 (01:44→13:30)
[2017-05-14] MEDS: Piperacill/Tazo 3.375gm in Dex 3.375 GM/50 ML BAG IVPB SCH ×4 (03:29→21:44)
[2017-05-14] MEDS: Oxycodone/Acetaminophen 5/325 mg Tab PO PRN ×3 (05:12→19:24)
--- NOTE | 2017-05-14 07:22 | CP.PCM.PN ---
Subjective - Date & Time of Evaluation Date of Evaluation: 05/14/17 Time of Evaluation: 08:00 - Subjective Subjective: PGY2 note for Dr. Billings: Patient seen and examined at bedside. No acute events overnight. Patient stated he had minimal pain and that it was controlled with medications. Denies headache, fever, chills, shortness of breath, chest pain, nausea or vomiting. Objective - Vital Signs/Intake and Output Vital Signs (last 24 hours): Temp Pulse Resp BP Pulse Ox 98.6 F 91 H 20 152/89 H 95 05/13/17 23:45 05/13/17 23:45 05/13/17 23:45 05/13/17 23:45 05/13/17 23:45 Intake and Output: 05/14/17 05/14/17 06:59 18:59 Intake Total 1300 Output Total 900 Balance 400 - Medications Medications: Current Medications Acetaminophen (Tylenol 325mg Tab) 650 mg PO Q6 PRN PRN Reason: Pain, Mild (1-3) Collagenase (Santyl) 0 gm TOP DAILY [facility] Last Admin: 05/13/17 10:00 Dose: Not Given Enoxaparin Sodium (Lovenox) 40 mg SC DAILY [facility] Last Admin: 05/10/17 08:14 Dose: 40 mg Gabapentin (Neurontin) 300 mg PO HS [facility] Last Admin: 05/13/17 21:52 Dose: 300 mg Piperacillin Sod/Tazobactam Sod (Zosyn 3.375 Gm Iv Premix) 3.375 gm in 50 mls @ 100 mls/hr IVPB Q6H [facility] Last Admin: 05/14/17 03:29 Dose: 100 mls/hr Vancomycin/Sodium Chloride (Vancocin) 1 gm in 200 mls @ 133.333 mls/hr IVPB Q12H [facility] Last Admin: 05/14/17 01:44 Dose: 133.333 mls/hr Insulin Aspart (Novolog) 0 unit SC ACHS [facility] PRN Reason: Protocol Last Admin: 05/13/17 22:01 Dose: Not Given Metformin HCl (Glucophage) 1,000 mg PO BIDCC [facility] Last Admin: 05/13/17 17:58 Dose: 1,000 mg Naproxen (Anaprox Ds) 550 mg PO BID [facility] Last Admin: 05/13/17 17:58 Dose: 550 mg Oxycodone/Acetaminophen (Percocet 5/325 Mg Tab) 2 tab PO Q6H PRN PRN Reason: Pain, severe (8-10) Stop: 05/15/17 04:35 Last Admin: 05/14/17 05:12 Dose: 2 tab Pantoprazole Sodium (Protonix Ec Tab) 40 mg PO DAILY [facility] Last Admin: 05/13/17 11:32 Dose: 40 mg - Labs Labs: 05/12/17 06:24 05/12/17 06:24 PT 10.6 SECONDS (9.7-12.2) 05/11/17 06:44 INR 1.0 05/11/17 06:44 APTT 37 SECONDS (21-34) H 05/11/17 06:44 - Constitutional Appears: Non-toxic, No Acute Distress - Head Exam Head Exam: ATRAUMATIC, NORMAL INSPECTION - Eye Exam Eye Exam: EOMI, PERRL Pupil Exam: NORMAL ACCOMODATION - ENT Exam ENT Exam: Mucous Membranes Moist - Respiratory Exam Respiratory Exam: Clear to Ausculation Bilateral, NORMAL BREATHING PATTERN. absent: Rales, Rhonchi, Wheezes, Respiratory Distress - Cardiovascular Exam Cardiovascular Exam: REGULAR RHYTHM, +S1, +S2 - GI/Abdominal Exam GI & Abdominal Exam: Soft, Normal Bowel Sounds. absent: Distended, Firm, Guarding, Tenderness - Extremities Exam Extremities Exam: Normal Inspection Additional comments: Leg dressing in place. ORM Sensation in tact, patient is able to move ext. dressing c/d/i - Back Exam Back Exam: NORMAL INSPECTION. absent: CVA tenderness (L), CVA tenderness (R), paraspinal tenderness - Neurological Exam Neurological Exam: Alert, Awake, CN II-XII Intact, Oriented x3 - Psychiatric Exam Psychiatric exam: Normal Affect, Normal Mood - Skin Skin Exam: Dry, Intact, Normal Color, Warm Assessment and Plan - Assessment and Plan (Free Text) Assessment: right hallux ulceration with OM -OR today for right hallux amputation -Podiatry on board, Dr. Sandie astorga appreciated - Site dressed with betadine soaked gauze, 4x4, kirlix, RONALD - Patient to remain strict NWB to right foot - [address] Reich -Percocet prn pain -Follow up am labs -EKG- NSR at 81bpm, no acute ST changes -Echo- non-pertinent findings -wound cx-enterobacter aerogenes, beta hemolytic strep group B -Continue: zosyn 3.375 mg IVPB Q6 hours and vacomycin 1gram IVPB Q12 hours -MRI impressions:1. Soft tissue ulceration with adjacent prominent signal abnormality seen within the 1st distal phalanx with patchy decreased T1 signal and exuberant reactive edema and increased STIR signal consistent with acute osteomyelitis. DM with neuropathy -ISS -metformin 1000mg bid -gabapentin started 300mg tid -naproxen prn pain prophylaxis -protonix - Tyelnol prn - lovenox 40mg SC daily -Naproxen 550mg PO BID prn Dispo: pendinf rehab placement. Will need abx through 05/18 (7 days post op) Case discussed with Dr. Billings
[2017-05-14 07:41] LABS: BASO % 0.4 % (0.0-2.0); EOS # 0.2 K/uL (0.0-0.7); EOS % 2.1 % (0.0-4.0); HEMOGLOBIN 15.7 g/dL (12.0-18.0); LYMPH # 3.5 K/uL (1.0-4.3); LYMPH % 36.8 % (20.0-40.0); MEAN CELL VOLUME 80.1 fL (80.0-94.0); MEAN CORPUSCULAR HEMOGLOBIN 27.5 pg (27.0-31.0); MEAN CORPUSCULAR HGB CONC 34.4 g/dL (33.0-37.0); MEAN PLATELET VOLUME 8.6 fL (7.2-11.7); MONO # 0.6 K/uL (0.0-0.8); MONO % 6.1 % (0.0-10.0); NEUT # 5.2 K/uL (1.8-7.0); NEUT % 54.6 % (50.0-75.0); RBC 5.72 Mil/uL (4.40-5.90); RED CELL DISTRIBUTION WIDTH 13.5 % (11.5-14.5); WHITE BLOOD COUNT 9.5 K/uL (4.8-10.8)
[2017-05-14 08:05] LABS: ALBUMIN 3.4 g/dL (3.5-5.0)
[2017-05-14 08:08] LABS: ALB/GLOB RATIO 1.1 (1.0-2.1); ALT/SGPT 33 U/L (21-72); AST/SGOT 19 U/L (17-59); BLOOD UREA NITROGEN 15 mg/dL (9-20); GFR AFRICAN-AMERICAN > 60; GFR NON-AFRICAN AMERICAN > 60
[2017-05-14 08:09] LABS: CALCIUM 8.8 mg/dl (8.6-10.4)
[2017-05-14] MEDS: Pantoprazole 40 mg EC Tab PO SCH (10:36)
[2017-05-14] MEDS: Naproxen 550 mg Tab PO SCH ×2 (10:36→19:17)
[2017-05-14] MEDS: (Novolog) Insulin Aspart, Recombinant 100 u/ml 10 ml vial SC SCH ×4 (10:39→21:45)
--- NOTE | 2017-05-14 14:47 | CP.PCM.PN ---
<TessKallie - Last Filed: 05/14/17 14:44> Subjective - Date & Time of Evaluation Date of Evaluation: 05/14/17 Time of Evaluation: 14:44 - Subjective Subjective: 41 year old male seen at bedside with attending, Dr. Hooper 3 days s/p right hallux amp. Patient NAD, AAOx3. He admits to some pain overnight, but states that the pain is become less each day. Patient denies any acute overnight event. Patient denies any further pedal complaints at this time. Patient denies N/V/F/C/CP/SOB Objective - Vital Signs/Intake and Output Vital Signs (last 24 hours): Temp Pulse Resp BP Pulse Ox 98.1 F 78 20 157/90 H 97 05/14/17 08:41 05/14/17 08:41 05/14/17 08:41 05/14/17 08:41 05/14/17 08:41 Intake and Output: 05/14/17 05/14/17 06:59 18:59 Intake Total 1300 Output Total 900 Balance 400 - Medications Medications: Current Medications Acetaminophen (Tylenol 325mg Tab) 650 mg PO Q6 PRN PRN Reason: Pain, Mild (1-3) Enoxaparin Sodium (Lovenox) 40 mg SC DAILY [facility] Last Admin: 05/10/17 08:14 Dose: 40 mg Gabapentin (Neurontin) 300 mg PO HS [facility] Last Admin: 05/13/17 21:52 Dose: 300 mg Piperacillin Sod/Tazobactam Sod (Zosyn 3.375 Gm Iv Premix) 3.375 gm in 50 mls @ 100 mls/hr IVPB Q6H [facility] Last Admin: 05/14/17 09:00 Dose: 100 mls/hr Vancomycin/Sodium Chloride (Vancocin) 1 gm in 200 mls @ 133.333 mls/hr IVPB Q12H [facility] Last Admin: 05/14/17 13:30 Dose: 133.333 mls/hr Insulin Aspart (Novolog) 0 unit SC ACHS [facility] PRN Reason: Protocol Last Admin: 05/14/17 12:49 Dose: 4 unit Metformin HCl (Glucophage) 1,000 mg PO BIDCC [facility] Last Admin: 05/14/17 08:00 Dose: 1,000 mg Naproxen (Anaprox Ds) 550 mg PO BID [facility] Last Admin: 05/14/17 10:36 Dose: 550 mg Oxycodone/Acetaminophen (Percocet 5/325 Mg Tab) 2 tab PO Q6H PRN PRN Reason: Pain, severe (8-10) Stop: 05/15/17 04:35 Last Admin: 05/14/17 12:43 Dose: 2 tab Pantoprazole Sodium (Protonix Ec Tab) 40 mg PO DAILY [facility] Last Admin: 05/14/17 10:36 Dose: 40 mg - Labs Labs: 05/14/17 07:20 05/14/17 07:20 PT 10.6 SECONDS (9.7-12.2) 05/11/17 06:44 INR 1.0 05/11/17 06:44 APTT 37 SECONDS (21-34) H 05/11/17 06:44 - Constitutional Appears: Well, Non-toxic, No Acute Distress - Extremities Exam Additional comments: right lower extremity focused exam: Vasc: DP/PT pulses grossly diminshed. CFT < 3 seconds. Skin temperature warm to warm from proximal to distal Neuro: Epicritic and protective sensation grossly diminished Derm: Surgical site noted to right foot secondary to hallux amp. Mild amount of erythema noted to proximal lateral aspect of incision site with no calor noted. No dehiscence, site well coapted. No malodor, purulent drainage, fluctuance or other clinical signs of infection noted to the area Ortho: S/p right hallux amputation, tenderness on palpation to amputation site - Neurological Exam Neurological Exam: Alert, Awake, Oriented x3 - Psychiatric Exam Psychiatric exam: Normal Affect, Normal Mood Assessment and Plan - Assessment and Plan (Free Text) Assessment: 41 year old male 3 days s/p right hallux amputation secondary to OM Plan: Patient seen and evaluated at bedside with attending, Dr. Hooper Charts, labs and vitals reviewed Site dressed with betadine soaked gauze, 4x4, kerlix, RONALD Patient to remain strict NWB to right foot Cont 7 days IV abx per Dr. Reich Patient is stable per podiatry Patient to follow up with Dr. Hooper in office upon D/C Podiatry will continue to follow while in house <Jovanny Hooper - Last Filed: 05/15/17 08:35> Objective - Vital Signs/Intake and Output Vital Signs (last 24 hours): Temp Pulse Resp BP Pulse Ox 98.4 F 92 H 20 150/84 97 05/14/17 23:50 05/14/17 23:50 05/14/17 23:50 05/14/17 23:50 05/14/17 23:50 Intake and Output: 05/15/17 05/15/17 06:59 18:59 Intake Total 650 Output Total 900 Balance -250 - Medications Medications: Current Medications Acetaminophen (Tylenol 325mg Tab) 650 mg PO Q6 PRN PRN Reason: Pain, Mild (1-3) Enoxaparin Sodium (Lovenox) 40 mg SC DAILY [facility] Last Admin: 05/10/17 08:14 Dose: 40 mg Gabapentin (Neurontin) 300 mg PO HS [facility] Last Admin: 05/14/17 21:43 Dose: 300 mg Piperacillin Sod/Tazobactam Sod (Zosyn 3.375 Gm Iv Premix) 3.375 gm in 50 mls @ 100 mls/hr IVPB Q6H [facility] Last Admin: 05/15/17 03:47 Dose: 100 mls/hr Vancomycin/Sodium Chloride (Vancocin) 1 gm in 200 mls @ 133.333 mls/hr IVPB Q12H [facility] Last Admin: 05/15/17 02:22 Dose: 133.333 mls/hr Insulin Aspart (Novolog) 0 unit SC ACHS [facility] PRN Reason: Protocol Last Admin: 05/14/17 21:45 Dose: Not Given Metformin HCl (Glucophage) 1,000 mg PO BIDCC [facility] Last Admin: 05/14/17 17:47 Dose: 1,000 mg Naproxen (Anaprox Ds) 550 mg PO BID [facility] Last Admin: 05/14/17 19:17 Dose: 550 mg Pantoprazole Sodium (Protonix Ec Tab) 40 mg PO DAILY [facility] Last Admin: 05/14/17 10:36 Dose: 40 mg - Labs Labs: 05/15/17 07:58 05/14/17 07:20 PT 10.6 SECONDS (9.7-12.2) 05/11/17 06:44 INR 1.0 05/11/17 06:44 APTT 37 SECONDS (21-34) H 05/11/17 06:44 Attending/Attestation - Attestation I have personally seen and examined this patient.: Yes I have fully participated in the care of the patient.: Yes I have reviewed all pertinent clinical information, including history, physical exam and plan: Yes
--- NOTE | 2017-05-14 17:51 | CP.PCM.PN ---
Subjective - Date & Time of Evaluation Date of Evaluation: 05/14/17 Time of Evaluation: 10:00 - Subjective Subjective: clinically same Objective - Vital Signs/Intake and Output Vital Signs (last 24 hours): Temp Pulse Resp BP Pulse Ox 98.3 F 82 20 131/80 97 05/14/17 16:08 05/14/17 16:08 05/14/17 16:08 05/14/17 16:08 05/14/17 16:08 Intake and Output: 05/14/17 05/14/17 06:59 18:59 Intake Total 1300 Output Total 900 Balance 400 - Medications Medications: Current Medications Acetaminophen (Tylenol 325mg Tab) 650 mg PO Q6 PRN PRN Reason: Pain, Mild (1-3) Enoxaparin Sodium (Lovenox) 40 mg SC DAILY [facility] Last Admin: 05/10/17 08:14 Dose: 40 mg Gabapentin (Neurontin) 300 mg PO HS [facility] Last Admin: 05/13/17 21:52 Dose: 300 mg Piperacillin Sod/Tazobactam Sod (Zosyn 3.375 Gm Iv Premix) 3.375 gm in 50 mls @ 100 mls/hr IVPB Q6H [facility] Last Admin: 05/14/17 15:00 Dose: 100 mls/hr Vancomycin/Sodium Chloride (Vancocin) 1 gm in 200 mls @ 133.333 mls/hr IVPB Q12H [facility] Last Admin: 05/14/17 13:30 Dose: 133.333 mls/hr Insulin Aspart (Novolog) 0 unit SC ACHS [facility] PRN Reason: Protocol Last Admin: 05/14/17 17:30 Dose: 2 unit Metformin HCl (Glucophage) 1,000 mg PO BIDCC [facility] Last Admin: 05/14/17 17:47 Dose: 1,000 mg Naproxen (Anaprox Ds) 550 mg PO BID [facility] Last Admin: 05/14/17 10:36 Dose: 550 mg Oxycodone/Acetaminophen (Percocet 5/325 Mg Tab) 2 tab PO Q6H PRN PRN Reason: Pain, severe (8-10) Stop: 05/15/17 04:35 Last Admin: 05/14/17 12:43 Dose: 2 tab Pantoprazole Sodium (Protonix Ec Tab) 40 mg PO DAILY [facility] Last Admin: 08/07/17 10:36 Dose: 40 mg - Labs Labs: 05/14/17 07:20 05/14/17 07:20 PT 10.6 SECONDS (9.7-12.2) 05/11/17 06:44 INR 1.0 05/11/17 06:44 APTT 37 SECONDS (21-34) H 05/11/17 06:44 - Constitutional Appears: Well - Head Exam Head Exam: ATRAUMATIC, NORMAL INSPECTION, NORMOCEPHALIC - Eye Exam Eye Exam: EOMI, Normal appearance, PERRL Pupil Exam: NORMAL ACCOMODATION, PERRL - ENT Exam ENT Exam: Mucous Membranes Moist, Normal Exam - Neck Exam Neck Exam: Full ROM, Normal Inspection. absent: Lymphadenopathy - Respiratory Exam Respiratory Exam: Decreased Breath Sounds - Cardiovascular Exam Cardiovascular Exam: REGULAR RHYTHM, +S1, +S2 - GI/Abdominal Exam GI & Abdominal Exam: Soft, Diminished Bowel Sounds - Rectal Exam Rectal Exam: Deferred Assessment and Plan (1) Diabetic foot infection Status: Acute (2) Failure of outpatient treatment Status: Acute (3) Infected wound Status: Acute (4) Cellulitis Status: Acute (5) Elevated d-dimer Status: Acute (6) Pneumonia Status: Acute (7) Prophylactic measure Status: Acute (8) Tinea pedis Status: Acute (9) Toe fracture Status: Acute (10) Uncontrolled diabetes mellitus Status: Acute (11) Hyperglycemia due to type 2 diabetes mellitus Status: Chronic
[2017-05-15] MEDS: Vancomycin 1 gm/NS 200 ml 1 GM/200 ML BAG IVPB SCH ×2 (02:22→13:45)
[2017-05-15] MEDS: Piperacill/Tazo 3.375gm in Dex 3.375 GM/50 ML BAG IVPB SCH ×3 (03:47→15:30)
[2017-05-15 08:14] LABS: BASO % 0.5 % (0.0-2.0); EOS # 0.2 K/uL (0.0-0.7); EOS % 2.3 % (0.0-4.0); HEMOGLOBIN 15.7 g/dL (12.0-18.0); LYMPH # 2.8 K/uL (1.0-4.3); MEAN CORPUSCULAR HEMOGLOBIN 27.3 pg (27.0-31.0); MEAN CORPUSCULAR HGB CONC 34.1 g/dL (33.0-37.0); MEAN PLATELET VOLUME 8.7 fL (7.2-11.7); MONO # 0.5 K/uL (0.0-0.8); MONO % 6.1 % (0.0-10.0); NEUT # 4.6 K/uL (1.8-7.0); NEUT % 56.1 % (50.0-75.0); NRBC % 0.2 % (0.0-2.0); RBC 5.75 Mil/uL (4.40-5.90); RED CELL DISTRIBUTION WIDTH 13.6 % (11.5-14.5); WHITE BLOOD COUNT 8.1 K/uL (4.8-10.8)
[2017-05-15 08:42] LABS: ALBUMIN 3.5 g/dL (3.5-5.0)
[2017-05-15 08:45] LABS: ALB/GLOB RATIO 1.1 (1.0-2.1); ALT/SGPT 37 U/L (21-72); AST/SGOT 30 U/L (17-59); BLOOD UREA NITROGEN 13 mg/dL (9-20); GFR AFRICAN-AMERICAN > 60; GFR NON-AFRICAN AMERICAN > 60
[2017-05-15 08:46] LABS: CALCIUM 8.9 mg/dl (8.6-10.4); MAGNESIUM 1.6 mg/dL (1.6-2.3)
[2017-05-15] MEDS ORDERED: Oxycodone/Acetaminophen 5/325 mg Tab PO ONE (09:25)
--- NOTE | 2017-05-15 09:32 | CP.PCM.PN ---
<TessKallie - Last Filed: 05/15/17 12:56> Subjective - Date & Time of Evaluation Date of Evaluation: 05/15/17 Time of Evaluation: 09:31 - Subjective Subjective: 41 year old male seen at bedside 4 days s/p right hallux amp. Patient NAD, AAOx3. He admits to less pain to his foot. Patient denies any acute overnight event. Patient denies any further pedal complaints at this time. Patient denies N/V/F/C/CP/SOB Objective - Vital Signs/Intake and Output Vital Signs (last 24 hours): Temp Pulse Resp BP Pulse Ox 98.6 F 85 20 156/86 H 95 05/15/17 07:25 05/15/17 07:25 05/15/17 07:25 05/15/17 07:25 05/15/17 07:25 Intake and Output: 05/15/17 05/15/17 06:59 18:59 Intake Total 650 Output Total 900 Balance -250 - Medications Medications: Current Medications Acetaminophen (Tylenol 325mg Tab) 650 mg PO Q6 PRN PRN Reason: Pain, Mild (1-3) Enoxaparin Sodium (Lovenox) 40 mg SC DAILY [facility] Last Admin: 05/10/17 08:14 Dose: 40 mg Gabapentin (Neurontin) 300 mg PO HS [facility] Last Admin: 05/14/17 21:43 Dose: 300 mg Piperacillin Sod/Tazobactam Sod (Zosyn 3.375 Gm Iv Premix) 3.375 gm in 50 mls @ 100 mls/hr IVPB Q6H [facility] Last Admin: 05/15/17 03:47 Dose: 100 mls/hr Vancomycin/Sodium Chloride (Vancocin) 1 gm in 200 mls @ 133.333 mls/hr IVPB Q12H [facility] Last Admin: 05/15/17 02:22 Dose: 133.333 mls/hr Insulin Aspart (Novolog) 0 unit SC ACHS [facility] PRN Reason: Protocol Last Admin: 05/14/17 21:45 Dose: Not Given Metformin HCl (Glucophage) 1,000 mg PO BIDCC [facility] Last Admin: 05/14/17 17:47 Dose: 1,000 mg Naproxen (Anaprox Ds) 550 mg PO BID [facility] Last Admin: 05/14/17 19:17 Dose: 550 mg Oxycodone/Acetaminophen (Percocet 5/325 Mg Tab) 1 tab PO ONCE ONE Stop: 05/15/17 09:26 Pantoprazole Sodium (Protonix Ec Tab) 40 mg PO DAILY [facility] Last Admin: 05/14/17 10:36 Dose: 40 mg - Labs Labs: 05/15/17 07:58 05/15/17 07:58 PT 10.6 SECONDS (9.7-12.2) 05/11/17 06:44 INR 1.0 05/11/17 06:44 APTT 37 SECONDS (21-34) H 05/11/17 06:44 - Constitutional Appears: Well, Non-toxic, No Acute Distress - Extremities Exam Additional comments: right lower extremity focused exam: Vasc: DP and PT pulses grossly diminshed. CFT < 3 seconds. Skin temperature warm to warm from proximal to distal Neuro: Epicritic and protective sensation grossly diminished Derm: Surgical site noted to right foot secondary to hallux amp. Scant amount of erythema noted to proximal lateral aspect of incision site with no calor noted. No dehiscence, site well coapted. No malodor, purulent drainage, fluctuatance or other clinical signs of infection noted to the area Ortho: S/p right hallux amputation, tenderness on palpation to amputation site - Neurological Exam Neurological Exam: Alert, Awake, Oriented x3 - Psychiatric Exam Psychiatric exam: Normal Affect, Normal Mood Assessment and Plan - Assessment and Plan (Free Text) Assessment: 41 year old male 4 days s/p right hallux amputation secondary to OM Plan: Patient seen and evaluated at bedside with attending, Dr. Hooper Charts, labs and vitals reviewed Right foot dressed with betadine gauze, 4x4, kerlix, RONALD Patient to remain NWB to right foot with crutches Cont 7 days IV abx per ID Patient is stable per podiatry Patient to follow up with Dr. Hooper in office upon D/C Podiatry will continue to follow while in house <Jovanny Hooper - Last Filed: 05/15/17 15:27> Objective - Vital Signs/Intake and Output Vital Signs (last 24 hours): Temp Pulse Resp BP Pulse Ox 98.6 F 85 20 156/86 H 95 05/15/17 07:25 05/15/17 07:25 05/15/17 07:25 05/15/17 07:25 05/15/17 07:25 Intake and Output: 05/15/17 05/15/17 06:59 18:59 Intake Total 650 Output Total 900 Balance -250 - Medications Medications: Current Medications Acetaminophen (Tylenol 325mg Tab) 650 mg PO Q6 PRN PRN Reason: Pain, Mild (1-3) Enoxaparin Sodium (Lovenox) 40 mg SC DAILY [facility] Last Admin: 05/10/17 08:14 Dose: 40 mg Gabapentin (Neurontin) 300 mg PO HS [facility] Last Admin: 05/14/17 21:43 Dose: 300 mg Piperacillin Sod/Tazobactam Sod (Zosyn 3.375 Gm Iv Premix) 3.375 gm in 50 mls @ 100 mls/hr IVPB Q6H [facility] Last Admin: 05/15/17 09:00 Dose: 100 mls/hr Vancomycin/Sodium Chloride (Vancocin) 1 gm in 200 mls @ 133.333 mls/hr IVPB Q12H [facility] Last Admin: 05/15/17 13:45 Dose: 133.333 mls/hr Insulin Aspart (Novolog) 0 unit SC ACHS [facility] PRN Reason: Protocol Last Admin: 05/15/17 13:20 Dose: 4 unit Metformin HCl (Glucophage) 1,000 mg PO BIDCC [facility] Last Admin: 05/15/17 09:50 Dose: 1,000 mg Naproxen (Anaprox Ds) 550 mg PO BID [facility] Last Admin: 05/15/17 09:51 Dose: 550 mg Pantoprazole Sodium (Protonix Ec Tab) 40 mg PO DAILY [facility] Last Admin: 05/15/17 09:50 Dose: 40 mg - Labs Labs: 05/15/17 07:58 05/15/17 07:58 PT 10.6 SECONDS (9.7-12.2) 05/11/17 06:44 INR 1.0 05/11/17 06:44 APTT 37 SECONDS (21-34) H 05/11/17 06:44 Attending/Attestation - Attestation I have personally seen and examined this patient.: Yes I have fully participated in the care of the patient.: Yes I have reviewed all pertinent clinical information, including history, physical exam and plan: Yes
[2017-05-15] MEDS: Pantoprazole 40 mg EC Tab PO SCH (09:50)
[2017-05-15] MEDS: Naproxen 550 mg Tab PO SCH ×2 (09:51→18:05)
[2017-05-15] MEDS: (Novolog) Insulin Aspart, Recombinant 100 u/ml 10 ml vial SC SCH ×3 (10:08→18:06)
--- NOTE | 2017-05-15 11:59 | CP.PCM.PN ---
Subjective - Date & Time of Evaluation Date of Evaluation: 05/15/17 Time of Evaluation: 11:56 - Subjective Subjective: Pt seen at bedside for f/u right hallux amp. Pt in NAD. Pt is using crutches and is staying off the foot. Pt is still getting IV abx. Redressed wound. Sutures intact with no dehiscence. Wound is dry and stable. Will f/u as outpatient when pt d/c to home or rehab. Objective - Vital Signs/Intake and Output Vital Signs (last 24 hours): Temp Pulse Resp BP Pulse Ox 98.6 F 85 20 156/86 H 95 05/15/17 07:25 05/15/17 07:25 05/15/17 07:25 05/15/17 07:25 05/15/17 07:25 Intake and Output: 05/15/17 05/15/17 06:59 18:59 Intake Total 650 Output Total 900 Balance -250 - Medications Medications: Current Medications Acetaminophen (Tylenol 325mg Tab) 650 mg PO Q6 PRN PRN Reason: Pain, Mild (1-3) Enoxaparin Sodium (Lovenox) 40 mg SC DAILY [facility] Last Admin: 05/10/17 08:14 Dose: 40 mg Gabapentin (Neurontin) 300 mg PO HS [facility] Last Admin: 05/14/17 21:43 Dose: 300 mg Piperacillin Sod/Tazobactam Sod (Zosyn 3.375 Gm Iv Premix) 3.375 gm in 50 mls @ 100 mls/hr IVPB Q6H [facility] Last Admin: 05/15/17 09:00 Dose: 100 mls/hr Vancomycin/Sodium Chloride (Vancocin) 1 gm in 200 mls @ 133.333 mls/hr IVPB Q12H [facility] Last Admin: 05/15/17 02:22 Dose: 133.333 mls/hr Insulin Aspart (Novolog) 0 unit SC ACHS [facility] PRN Reason: Protocol Last Admin: 05/15/17 10:08 Dose: 4 unit Metformin HCl (Glucophage) 1,000 mg PO BIDCC [facility] Last Admin: 05/15/17 09:50 Dose: 1,000 mg Naproxen (Anaprox Ds) 550 mg PO BID [facility] Last Admin: 05/15/17 09:51 Dose: 550 mg Pantoprazole Sodium (Protonix Ec Tab) 40 mg PO DAILY [facility] Last Admin: 05/15/17 09:50 Dose: 40 mg - Labs Labs: 05/15/17 07:58 05/15/17 07:58 PT 10.6 SECONDS (9.7-12.2) 05/11/17 06:44 INR 1.0 05/11/17 06:44 APTT 37 SECONDS (21-34) H 05/11/17 06:44
--- NOTE | 2017-05-15 12:38 | CP.PCM.PN ---
Subjective - Date & Time of Evaluation Date of Evaluation: 05/15/17 Time of Evaluation: 09:40 - Subjective Subjective: PGY-2 Resident Progress Note for Dr. Billings Patient seen and examined at bedside. No acute events overnight. Patient complaints of discomfort at surgical site. Patient is aware of pending [facility] transfer. Patient denies having headache, fever, chills, shortness of breath, nausea, vomiting, or diarrhea. Objective - Vital Signs/Intake and Output Vital Signs (last 24 hours): Temp Pulse Resp BP Pulse Ox 98.6 F 85 20 156/86 H 95 05/15/17 07:25 05/15/17 07:25 05/15/17 07:25 05/15/17 07:25 05/15/17 07:25 Intake and Output: 05/15/17 05/15/17 06:59 18:59 Intake Total 650 Output Total 900 Balance -250 - Medications Medications: Current Medications Acetaminophen (Tylenol 325mg Tab) 650 mg PO Q6 PRN PRN Reason: Pain, Mild (1-3) Enoxaparin Sodium (Lovenox) 40 mg SC DAILY [facility] Last Admin: 05/10/17 08:14 Dose: 40 mg Gabapentin (Neurontin) 300 mg PO HS [facility] Last Admin: 05/14/17 21:43 Dose: 300 mg Piperacillin Sod/Tazobactam Sod (Zosyn 3.375 Gm Iv Premix) 3.375 gm in 50 mls @ 100 mls/hr IVPB Q6H [facility] Last Admin: 05/15/17 09:00 Dose: 100 mls/hr Vancomycin/Sodium Chloride (Vancocin) 1 gm in 200 mls @ 133.333 mls/hr IVPB Q12H [facility] Last Admin: 05/15/17 02:22 Dose: 133.333 mls/hr Insulin Aspart (Novolog) 0 unit SC ACHS [facility] PRN Reason: Protocol Last Admin: 05/15/17 10:08 Dose: 4 unit Metformin HCl (Glucophage) 1,000 mg PO BIDCC [facility] Last Admin: 05/15/17 09:50 Dose: 1,000 mg Naproxen (Anaprox Ds) 550 mg PO BID [facility] Last Admin: 05/15/17 09:51 Dose: 550 mg Pantoprazole Sodium (Protonix Ec Tab) 40 mg PO DAILY [facility] Last Admin: 05/15/17 09:50 Dose: 40 mg - Labs Labs: 05/15/17 07:58 05/15/17 07:58 PT 10.6 SECONDS (9.7-12.2) 05/11/17 06:44 INR 1.0 05/11/17 06:44 APTT 37 SECONDS (21-34) H 05/11/17 06:44 - Constitutional Appears: Non-toxic, No Acute Distress - Head Exam Head Exam: ATRAUMATIC, NORMAL INSPECTION - Eye Exam Eye Exam: EOMI, Normal appearance - ENT Exam ENT Exam: Mucous Membranes Moist - Neck Exam Neck Exam: Normal Inspection - Respiratory Exam Respiratory Exam: Clear to Ausculation Bilateral, NORMAL BREATHING PATTERN. absent: Respiratory Distress - Cardiovascular Exam Cardiovascular Exam: REGULAR RHYTHM, +S1, +S2. absent: Murmur - GI/Abdominal Exam GI & Abdominal Exam: Soft, Normal Bowel Sounds - Extremities Exam Additional comments: right foot dressing in place: dry, clean, intact. No active drainage present. Sensory function intact. - Neurological Exam Neurological Exam: Alert, Awake, Oriented x3 - Psychiatric Exam Psychiatric exam: Normal Affect, Normal Mood - Skin Skin Exam: Normal Color, Warm Assessment and Plan - Assessment and Plan (Free Text) Assessment: Right hallux ulceration with OM -Podiatry on board, Dr. Hooper help appreciated -Site dressed with betadine soaked gauze, 4x4, kirlix, RONALD -Patient to remain strict NWB to right foot -3 more days abx at [facility] -Percocet prn pain -Follow up am labs -EKG- NSR at 81bpm, no acute ST changes -Echo- non-pertinent findings -wound cx-enterobacter aerogenes, beta hemolytic strep group B -Continue: zosyn 3.375 mg IVPB Q6 hours and vacomycin 1gram IVPB Q12 hours -MRI impressions:1. Soft tissue ulceration with adjacent prominent signal abnormality seen within the 1st distal phalanx with patchy decreased T1 signal and exuberant reactive edema and increased STIR signal consistent with acute osteomyelitis. DM with neuropathy -ISS -metformin 1000mg bid -gabapentin started 300mg tid -naproxen prn pain prophylaxis -protonix - Tyelnol prn - lovenox 40mg SC daily -Naproxen 550mg PO BID prn Dispo: [facility] [place]. Will need abx through 05/18 (7 days post op) Case discussed with Dr. Billings. All management per Dr. Billings.
[2017-05-15 15:45] VITALS: BP 167/97; PULSE 90; RESP 18; TEMP 98.5; O2SAT 98
--- NOTE | 2017-05-15 16:28 | CP.PCM.PN ---
Subjective - Date & Time of Evaluation Date of Evaluation: 05/15/17 Time of Evaluation: 12:00 - Subjective Subjective: doing well, on pt, antibiotics, post hallus amputation Objective - Vital Signs/Intake and Output Vital Signs (last 24 hours): Temp Pulse Resp BP Pulse Ox 98.5 F 90 18 167/97 H 98 05/15/17 15:40 05/15/17 15:40 05/15/17 15:40 05/15/17 15:40 05/15/17 15:40 Intake and Output: 05/15/17 05/15/17 06:59 18:59 Intake Total 650 Output Total 900 Balance -250 - Medications Medications: Current Medications Acetaminophen (Tylenol 325mg Tab) 650 mg PO Q6 PRN PRN Reason: Pain, Mild (1-3) Enoxaparin Sodium (Lovenox) 40 mg SC DAILY [facility] Last Admin: 05/10/17 08:14 Dose: 40 mg Gabapentin (Neurontin) 300 mg PO HS [facility] Last Admin: 05/14/17 21:43 Dose: 300 mg Piperacillin Sod/Tazobactam Sod (Zosyn 3.375 Gm Iv Premix) 3.375 gm in 50 mls @ 100 mls/hr IVPB Q6H [facility] Last Admin: 05/15/17 09:00 Dose: 100 mls/hr Vancomycin/Sodium Chloride (Vancocin) 1 gm in 200 mls @ 133.333 mls/hr IVPB Q12H [facility] Last Admin: 05/15/17 13:45 Dose: 133.333 mls/hr Insulin Aspart (Novolog) 0 unit SC ACHS [facility] PRN Reason: Protocol Last Admin: 05/15/17 13:20 Dose: 4 unit Metformin HCl (Glucophage) 1,000 mg PO BIDCC [facility] Last Admin: 05/15/17 09:50 Dose: 1,000 mg Naproxen (Anaprox Ds) 550 mg PO BID [facility] Last Admin: 05/15/17 09:51 Dose: 550 mg Pantoprazole Sodium (Protonix Ec Tab) 40 mg PO DAILY [facility] Last Admin: 05/15/17 09:50 Dose: 40 mg - Labs Labs: 05/15/17 07:58 05/15/17 07:58 PT 10.6 SECONDS (9.7-12.2) 05/11/17 06:44 INR 1.0 05/11/17 06:44 APTT 37 SECONDS (21-34) H 05/11/17 06:44 - Constitutional Appears: Non-toxic - Head Exam Head Exam: ATRAUMATIC - Eye Exam Eye Exam: EOMI - ENT Exam ENT Exam: Mucous Membranes Moist - Neck Exam Neck Exam: absent: Lymphadenopathy, Thyromegaly - Respiratory Exam Respiratory Exam: Clear to Ausculation Bilateral. absent: Rales - Cardiovascular Exam Cardiovascular Exam: REGULAR RHYTHM, Murmur - GI/Abdominal Exam GI & Abdominal Exam: Normal Bowel Sounds. absent: Organomegaly - Rectal Exam Rectal Exam: Deferred - Extremities Exam Extremities Exam: Normal Capillary Refill. absent: Calf Tenderness - Neurological Exam Neurological Exam: Alert - Psychiatric Exam Psychiatric exam: Anxious - Skin Skin Exam: Dry Assessment and Plan (1) Cellulitis Status: Acute (2) Hyperglycemia due to type 2 diabetes mellitus Status: Chronic
--- NOTE | 2017-05-15 18:07 | CP.PCM.PN ---
Subjective - Date & Time of Evaluation Date of Evaluation: 05/15/17 Time of Evaluation: 10:20 - Subjective Subjective: clinically same Objective - Vital Signs/Intake and Output Vital Signs (last 24 hours): Temp Pulse Resp BP Pulse Ox 98.5 F 90 18 167/97 H 98 05/15/17 15:40 05/15/17 15:40 05/15/17 15:40 05/15/17 15:40 05/15/17 15:40 Intake and Output: 05/15/17 05/15/17 06:59 18:59 Intake Total 650 Output Total 900 Balance -250 - Medications Medications: Current Medications Acetaminophen (Tylenol 325mg Tab) 650 mg PO Q6 PRN PRN Reason: Pain, Mild (1-3) Enoxaparin Sodium (Lovenox) 40 mg SC DAILY [facility] Last Admin: 05/10/17 08:14 Dose: 40 mg Gabapentin (Neurontin) 300 mg PO HS [facility] Last Admin: 05/14/17 21:43 Dose: 300 mg Piperacillin Sod/Tazobactam Sod (Zosyn 3.375 Gm Iv Premix) 3.375 gm in 50 mls @ 100 mls/hr IVPB Q6H [facility] Last Admin: 05/15/17 15:30 Dose: 100 mls/hr Vancomycin/Sodium Chloride (Vancocin) 1 gm in 200 mls @ 133.333 mls/hr IVPB Q12H [facility] Last Admin: 05/15/17 13:45 Dose: 133.333 mls/hr Insulin Aspart (Novolog) 0 unit SC ACHS [facility] PRN Reason: Protocol Last Admin: 05/15/17 13:20 Dose: 4 unit Metformin HCl (Glucophage) 1,000 mg PO BIDCC [facility] Last Admin: 05/15/17 09:50 Dose: 1,000 mg Naproxen (Anaprox Ds) 550 mg PO BID [facility] Last Admin: 05/15/17 09:51 Dose: 550 mg Pantoprazole Sodium (Protonix Ec Tab) 40 mg PO DAILY [facility] Last Admin: 05/15/17 09:50 Dose: 40 mg - Labs Labs: 05/15/17 07:58 05/15/17 07:58 PT 10.6 SECONDS (9.7-12.2) 05/11/17 06:44 INR 1.0 05/11/17 06:44 APTT 37 SECONDS (21-34) H 05/11/17 06:44 - Constitutional Appears: Well - Head Exam Head Exam: ATRAUMATIC, NORMAL INSPECTION, NORMOCEPHALIC - Eye Exam Eye Exam: EOMI, Normal appearance, PERRL Pupil Exam: NORMAL ACCOMODATION, PERRL - ENT Exam ENT Exam: Mucous Membranes Moist, Normal Exam - Neck Exam Neck Exam: Full ROM, Normal Inspection. absent: Lymphadenopathy - Respiratory Exam Respiratory Exam: Decreased Breath Sounds - Cardiovascular Exam Cardiovascular Exam: REGULAR RHYTHM, +S1, +S2 - GI/Abdominal Exam GI & Abdominal Exam: Soft, Diminished Bowel Sounds - Rectal Exam Rectal Exam: Deferred Assessment and Plan (1) Diabetic foot infection Status: Acute (2) Failure of outpatient treatment Status: Acute (3) Infected wound Status: Acute (4) Cellulitis Status: Acute (5) Elevated d-dimer Status: Acute (6) Pneumonia Status: Acute (7) Prophylactic measure Status: Acute (8) Tinea pedis Status: Acute (9) Toe fracture Status: Acute (10) Uncontrolled diabetes mellitus Status: Acute (11) Hyperglycemia due to type 2 diabetes mellitus Status: Chronic
== END 2017-05-15 19:23 ==
LOC: C.ER 10:45 → C.9E 14:08 → C.6T 14:51
PROVIDERS: ADMIT Internal Medicine Nephrology; ATTEND Internal Medicine Nephrology
PROC: 0Y6P0Z0 Detachment at Right 1st Toe, Complete, Open Approach (ICD-10-PCS; principal; 2017-05-11 12:30)
DX: E11.69 Type 2 diabetes mellitus with other specified complication (principal); R65.20 Severe sepsis without septic shock; J18.9 Pneumonia, unspecified organism; I70.261 Atherosclerosis of native arteries of extremities with gangrene, right leg; M86.171 Other acute osteomyelitis, right ankle and foot; A41.9 Sepsis, unspecified organism; L97.519 Non-pressure chronic ulcer of other part of right foot with unspecified severity; L03.116 Cellulitis of left lower limb; E11.40 Type 2 diabetes mellitus with diabetic neuropathy, unspecified; I10 Essential (primary) hypertension; E78.00 Pure hypercholesterolemia, unspecified; Z87.891 Personal history of nicotine dependence; E11.628 Type 2 diabetes mellitus with other skin complications; E11.65 Type 2 diabetes mellitus with hyperglycemia; M20.11 Hallux valgus (acquired), right foot; B35.3 Tinea pedis

== ENCOUNTER 2017-05-15 21:37 | Observation (INO) | payer MEDICAID ==
[2017-05-15 21:38] VITALS: BMI 38.2
--- NOTE | 2017-05-15 22:33 | C.PDOC ---
History Of Present Illness Patient presents to the ER after he eloped from his rehab facility because he did not like the conditions. Patient was discharged from the hospital today after having a right great toe amputation. Patient is now complaining of right foot pain and is in need of IV antibiotics. Denies fever, chills, weakness, or numbness. Time Seen by Provider: 05/15/17 22:33 Chief Complaint (Nursing): Abnormal Skin Integrity History Per: Patient History/Exam Limitations: no limitations Onset/Duration Of Symptoms: Hrs Current Symptoms Are (Timing): Still Present Location Of Injury: Right: Foot Quality Of Symptoms: Painful Severity: Moderate Pain Scale Rating Of: 4 Recent travel outside of the [place]: No Past Medical History Reviewed: Historical Data, Nursing Documentation, Vital Signs Vital Signs: Last Vital Signs Temp 98 F 05/15/17 22:22 Pulse 130 H 05/15/17 22:22 Resp 18 05/15/17 22:22 BP 166/92 H 05/15/17 22:22 Pulse Ox 98 05/15/17 23:48 - Medical History PMH: Asthma (last attack 8 years ago), Diabetes, HTN, Hypercholesterolemia Surgical History: Tonsillectomy (during childhood) - [facility] DRAINAGE OF LEFT FOOT SKIN, EXTERNAL APPROACH (11/25/16) Family History: States: Unknown Family Hx - Social History Hx Tobacco Use: No Hx Alcohol Use: Yes (socially) Hx Substance Use: Yes - Immunization History Hx Tetanus Toxoid Vaccination: No Hx Influenza Vaccination: Yes Hx Pneumococcal Vaccination: Yes Review Of Systems Constitutional: Negative for: Fever, Chills Gastrointestinal: Negative for: Nausea, Vomiting Musculoskeletal: Positive for: Foot Pain Neurological: Negative for: Weakness, Numbness Physical Exam - Physical Exam Appears: Non-toxic Skin: Warm, Dry Head: Normacephalic Eye(s): bilateral: Normal Inspection Oral Mucosa: Moist Neck: Supple Chest: Symmetrical, No Tenderness Cardiovascular: Rhythm Regular, No Murmur Respiratory: No Rales, No Rhonchi, No Wheezing Gastrointestinal/Abdominal: Soft, No Tenderness Back: No CVA Tenderness Extremity: Other (Amputation of the right great toe) Extremity: Right: Other (great toe amputation) Neurological/Psych: Oriented x3, Normal Speech, Normal Cognition Gait: Unable To Assess ED Course And Treatment O2 Sat by Pulse Oximetry: 98 (Room air) Pulse Ox Interpretation: Normal Progress Note: Blood work ordered. Pipercillin and vancomycin administered. Disposition Discussed With Dr.: Sherie Billings Comment: accepted the pt on his service and took over the care at 11:34 PM Doctor Will See Patient In The: Hospital Counseled Patient/Family Regarding: Studies Performed, Diagnosis - Disposition Disposition: HOSPITALIZED Disposition Time: 22:33 Condition: FAIR Forms: [facility] (Pakistani) - POA Present On Arrival: Poor Glycemic Control - Clinical Impression Clinical Impression: Hyperglycemia due to type 2 diabetes mellitus, Foot pain, right, Status post amputation of toe of right foot - Scribe Statement The provider has reviewed the documentation as recorded by the Scribbishnu Atkinson All medical record entries made by the Scribe were at my direction and personally dictated by me. I have reviewed the chart and agree that the record accurately reflects my personal performance of the history, physical exam, medical decision making, and the department course for this patient. I have also personally directed, reviewed, and agree with the discharge instructions and disposition. Decision To Admit - Pt Status Changed To: Hospital Disposition Of: Observation - . Bed Request Type: Regular Admitting Physician: Sherie Billings Patient Diagnosis: Hyperglycemia due to type 2 diabetes mellitus, Foot pain, right, Status post amputation of toe of right foot
[2017-05-15] MEDS ORDERED: Piperacillin/Tazobact 3.375 gm 100 ML IVPB STA (23:20)
[2017-05-15] MEDS ORDERED: Vancomycin 1 GM 1 GM/250 ML BAG IVPB ONE ×2 (23:29→23:30)
[2017-05-15] MEDS ORDERED: Piperacillin/Tazobact 3.375 gm 100 ML IVPB ONE (23:30)
[2017-05-15 23:51] LABS: BASO # 0.1 K/uL (0.0-0.2); BASO % 0.6 % (0.0-2.0); EOS # 0.1 K/uL (0.0-0.7); EOS % 0.7 % (0.0-4.0); HEMATOCRIT 46.8 % (35.0-51.0); LYMPH # 2.3 K/uL (1.0-4.3); LYMPH % 18.6 % (20.0-40.0); MEAN CELL VOLUME 79.9 fL (80.0-94.0); MEAN CORPUSCULAR HEMOGLOBIN 26.9 pg (27.0-31.0); MEAN CORPUSCULAR HGB CONC 33.7 g/dL (33.0-37.0); MEAN PLATELET VOLUME 8.5 fL (7.2-11.7); MONO # 0.7 K/uL (0.0-0.8); MONO % 5.4 % (0.0-10.0); NRBC % 0.1 % (0.0-2.0); RED CELL DISTRIBUTION WIDTH 13.5 % (11.5-14.5); WHITE BLOOD COUNT 12.4 K/uL (4.8-10.8)
[2017-05-15 23:59] LABS: CHLORIDE 93 mmol/L (98-107); POTASSIUM 4.4 mmol/L (3.6-5.2); SODIUM 135 mmol/L (132-148)
[2017-05-16 00:01] LABS: GFR AFRICAN-AMERICAN > 60
[2017-05-16 00:02] LABS: BLOOD UREA NITROGEN 21 mg/dL (9-20); CALCIUM 9.4 mg/dl (8.6-10.4); CARBON DIOXIDE 27 mmol/L (22-30); GLUCOSE,RANDOM 301 mg/dL (75-110)
--- NOTE | 2017-05-16 00:08 | CP.PCM.CON ---
History of Present Illness - History of Present Illness History of Present Illness: Patient is a 41 year old male who presents to ED on same day that he was discharged to [facility] facility 4 days s/p right hallux amputation for OM. Patient states that the facility that he was brought to was completely disgusting and he felt that he was being neglected and mistreated while he was there so he checked himself out and took a cab back to [facility] ED. Patient states that he lost his balance two times while using his crutches during the process and is afraid that he broke open his sutures. Patient says that he is very upset and would like to spend the night in the hospital if possible. Patient denies any further pedal complaints at this time. Patient denies N/V/F/C/CP/ SOB. Review of Systems - Review of Systems Review of Systems: ROS unremarkable outside of HPI Past Patient History - Past Medical History & Family History Past Medical History?: Yes - Past Social History Smoking Status: Former Smoker - CARDIAC Hx Hypercholesterolemia: Yes Hx Hypertension: Yes - PULMONARY Hx Asthma: Yes (last attack 8 years ago) - NEUROLOGICAL Hx Neurological Disorder: No - HEENT Hx HEENT Problems: No - RENAL Hx Chronic Kidney Disease: No - ENDOCRINE/METABOLIC Hx Diabetes Mellitus Type 2: Yes - HEMATOLOGICAL/ONCOLOGICAL Hx Blood Disorders: No - INTEGUMENTARY Hx Dermatological Problems: No - MUSCULOSKELETAL/RHEUMATOLOGICAL Hx Falls: No Hx Herniated Disk: Yes - GASTROINTESTINAL Other/Comment: colon problem - GENITOURINARY/GYNECOLOGICAL Hx Genitourinary Disorders: No - PSYCHIATRIC Hx Substance Use: Yes - SURGICAL HISTORY Hx Tonsillectomy: Yes (during childhood) - ANESTHESIA Hx Anesthesia: Yes Hx Anesthesia Reactions: No Meds Allergies/Adverse Reactions: Allergies Allergy/AdvReac Type Severity Reaction Status Date / Time insulin glargine Allergy Mild RASH Verified 05/15/17 23:49 [From Lantus] - Medications Medications: Current Medications Vancomycin HCl (Vancomycin 1gm In Normal Saline Addvantage) 1 gm in 250 mls @ 166.667 mls/hr IVPB STAT ONE Stop: 05/16/17 00:59 Physical Exam - Constitutional Appears: Non-toxic, In Acute Distress, Agitated - Extremities Exam Additional comments: LE focused exam Vasc: DP/PT pulses diminished b/l. CFT<3 seconds to digits 1-5 b/l. Skin temperature warm to warm from proximal to distal. Mild edema noted to surgical site of right foot Neuro: Epicritic and protective sensation grossly diminished Derm: Surgical site noted to distal right first ray. Suture are intact with no signs of dehiscence and skin edges well coapted. 0.5 cm x 0.4 cm necrotic superificial skin noted to distal end of incision site with no signs of dehiscence noted to the area. Mild erythematous border noted to lateral side of surgical site. Otherwise no malodor, purulent drainage, fluctuance or other signs of infection noted at this time. MSK: Right hallux amputation appreciated. Minimal POP noted to area - Neurological Exam Neurological exam: Alert, Oriented x3 - Psychiatric Exam Psychiatric exam: Agitated Results - Vital Signs Recent Vital Signs: Last Vital Signs Temp 98 F 05/15/17 22:22 Pulse 130 H 05/15/17 22:22 Resp 18 05/15/17 22:22 BP 166/92 H 05/15/17 22:22 Pulse Ox 98 05/15/17 23:53 - Labs Result Diagrams: 05/15/17 23:48 05/15/17 23:48 Labs: Laboratory Results - last 24 hr 05/15/17 23:48 WBC 12.4 H D RBC 5.86 Hgb 15.8 Hct 46.8 MCV 79.9 L MCH 26.9 L MCHC 33.7 RDW 13.5 Plt Count 254 MPV 8.5 Neut % (Auto) 74.7 Lymph % (Auto) 18.6 L [place] % (Auto) 5.4 Eos % (Auto) 0.7 Baso % (Auto) 0.6 Neut # 9.3 H Lymph # 2.3 [place] # 0.7 Eos # 0.1 Baso # 0.1 Assessment & Plan - Assessment and Plan (Free Text) Assessment: 41 year old male seen in ED 4 days s/p right hallux amputation secondary to DM Plan: Patient seen and evaluated Charts, labs and vitals reviewed; patient afebrile, WBC 12.[address] Hooper Patients surgical site dressed with 4x4, kerlix, RONALD Patient to remain overnight at hospital Arrangements to be made for patient to be DC home with abx (Vanc/Zosyn) in AM Podiatry to continue to follow - Date & Time Date: 05/16/17 Time: 23:21
[2017-05-16] MEDS ORDERED: Naproxen 550 mg Tab PO ONE ×2 (01:32→01:34)
[2017-05-16 01:38] VITALS: RESP 20
[2017-05-16] MEDS ORDERED: PIPERACILL IVPB SCH (06:00)
[2017-05-16] MEDS ORDERED: Piperacill/Tazo 3.375gm in Dex 3.375 GM/50 ML BAG IVPB SCH (06:00)
[2017-05-16] MEDS ORDERED: TAZO IVPB SCH (06:00)
[2017-05-16] MEDS ORDERED: DEX IVPB SCH (06:00)
[2017-05-16] MEDS: (Novolog) Insulin Aspart, Recombinant 100 u/ml 10 ml vial SC SCH ×4 (08:33→21:27)
--- NOTE | 2017-05-16 08:48 | CP.PCM.PN ---
Subjective - Date & Time of Evaluation Date of Evaluation: 05/16/17 Time of Evaluation: 08:47 - Subjective Subjective: 41 year old male seen at bedside with attending, Dr. Kaur, 5 days s/p right hallux amp. Patient NAD, AAOx3. He was discharged yesterday but did not like the condition of his rehab so he returned back to the hospital. He admits to less pain to his foot. Patient denies N/V/F/C/CP/SOB Objective - Vital Signs/Intake and Output Vital Signs (last 24 hours): Temp Pulse Resp BP Pulse Ox 98.3 F 66 20 153/87 H 96 05/16/17 08:00 05/16/17 08:00 05/16/17 08:00 05/16/17 08:00 05/16/17 08:00 Intake and Output: 05/16/17 05/16/17 06:59 18:59 Intake Total 660 Balance 660 - Medications Medications: Current Medications Acetaminophen (Tylenol 325mg Tab) 650 mg PO Q6 PRN PRN Reason: Pain, Mild (1-3) Enoxaparin Sodium (Lovenox) 40 mg SC DAILY [facility] Gabapentin (Neurontin) 300 mg PO HS [facility] Home Med (Vancomycin 1 Gm [Vancomycin 1gm In Normal Saline Addvantage]) 1 gm IVPB Q12 [facility] Piperacillin Sod/Tazobactam Sod (Zosyn 3.375 Gm Iv Premix) 3.375 gm in 50 mls @ 0 mls/hr IVPB Q6H [facility] PRN Reason: UD Last Admin: 05/16/17 05:30 Dose: 100 mls/hr Insulin Aspart (Novolog) 0 unit SC ACHS [facility] PRN Reason: Protocol Last Admin: 05/16/17 08:33 Dose: 2 unit Metformin HCl (Glucophage) 1,000 mg PO BIDCC [facility] Last Admin: 05/16/17 08:33 Dose: 1,000 mg Naproxen (Anaprox Ds) 550 mg PO BID [facility] Pantoprazole Sodium (Protonix Ec Tab) 40 mg PO DAILY [facility] - Constitutional Appears: Well, Non-toxic, No Acute Distress - Extremities Exam Additional comments: Right lower extremity focused exam: Vasc: DP and PT pulses grossly diminshed. CFT < 3 seconds. Skin temperature warm to warm from proximal to distal Neuro: Epicritic and protective sensation grossly diminished Derm: Surgical site noted to right foot secondary to hallux amp. Scant amount of erythema noted to proximal lateral aspect of incision site with no calor noted. No dehiscence, site well coapted. No malodor, purulent drainage, fluctuatance or other clinical signs of infection noted to the area Ortho: S/p right hallux amputation, tenderness on palpation to amputation site - Neurological Exam Neurological Exam: Alert, Awake, Oriented x3 - Psychiatric Exam Psychiatric exam: Normal Affect, Normal Mood Assessment and Plan - Assessment and Plan (Free Text) Assessment: 41 year old male 5 days s/p right hallux amputation secondary to OM Plan: Patient seen and evaluated at bedside with attending, Dr. Kaur Charts, labs and vitals reviewed Right foot dressed with betadine gauze, 4x4, kerlix, RONALD PT ordered, patient WBAT to the heel in a surgical shoe Cont 7 days IV abx per ID Patient is stable per podiatry Patient to follow up with Dr. Hooper in office upon D/C Podiatry will continue to follow while in house
--- NOTE | 2017-05-16 09:56 | CP.PCM.PN ---
Subjective - Date & Time of Evaluation Date of Evaluation: 05/16/17 Time of Evaluation: 08:30 - Subjective Subjective: Podiatry: Patient returned to the ER because he could not stand the rehab facility that he was sent to. I saw him with Dr Kallie Pulido. Patient is post amputation of the right hallux due to osteomyelitis. The foot was redressed and the wound looks clean and dry. We ordered more physical therapy to aid with his ambulation. The IV antibiotic was also started. We will follow patient while he is hospitalized. Objective - Vital Signs/Intake and Output Vital Signs (last 24 hours): Temp Pulse Resp BP Pulse Ox 98.3 F 66 20 153/87 H 96 05/16/17 08:00 05/16/17 08:00 05/16/17 08:00 05/16/17 08:00 05/16/17 08:00 Intake and Output: 05/16/17 05/16/17 06:59 18:59 Intake Total 660 Balance 660 - Medications Medications: Current Medications Acetaminophen (Tylenol 325mg Tab) 650 mg PO Q6 PRN PRN Reason: Pain, Mild (1-3) Enoxaparin Sodium (Lovenox) 40 mg SC DAILY [facility] Gabapentin (Neurontin) 300 mg PO HS [facility] Vancomycin/Sodium Chloride (Vancocin) 1 gm in 200 mls @ 133.333 mls/hr IVPB Q12H [facility] Stop: 05/21/17 10:01 Piperacillin Sod/Tazobactam Sod (Zosyn 3.375 Gm Iv Premix) 3.375 gm in 50 mls @ 100 mls/hr IVPB Q6H [facility] Insulin Aspart (Novolog) 0 unit SC ACHS [facility] PRN Reason: Protocol Last Admin: 05/16/17 08:33 Dose: 2 unit Metformin HCl (Glucophage) 1,000 mg PO BIDCC [facility] Last Admin: 05/16/17 08:33 Dose: 1,000 mg Naproxen (Anaprox Ds) 550 mg PO BID [facility] Pantoprazole Sodium (Protonix Ec Tab) 40 mg PO DAILY [facility]
[2017-05-16] MEDS ORDERED: Naproxen 550 mg Tab PO SCH (10:00)
[2017-05-16] MEDS ORDERED: Home Med 1 UNIT (Vancomycin 1 Gm [Vancomycin 1gm In Normal Saline Addvantage] 1 GM) IVPB SCH (10:00)
[2017-05-16] MEDS: Pantoprazole 40 mg EC Tab PO SCH (10:07)
[2017-05-16] MEDS: Enoxaparin 40 mg Syringe SC SCH (10:07)
[2017-05-16] MEDS: Vancomycin 1 gm/NS 200 ml 1 GM/200 ML BAG IVPB SCH ×2 (10:07→21:28)
[2017-05-16] MEDS: Piperacill/Tazo 3.375gm in Dex 3.375 GM/50 ML BAG IVPB SCH ×2 (12:11→17:20)
--- NOTE | 2017-05-16 18:58 | CP.PCM.HP ---
History of Present Illness - History of Present Illness History of Present Illness: 41 yo M with PMH of HTN, HLD, DM, Asthma presents to ED after leaving [facility] facility which pt was placed in s/p right hallux amputation 2/2 OM. As per pt, conditions in [facility] were not satisfactory conditions and so was prompted to leave and cab it to ED. Pt c/o right toe pain on presentation. Pt reports loss of balance twice while using crutches for ambulatory support. Denies fever, chills , chest pain, sob, n/v/d, abdominal pain . Present on Admission - Present on Admission Any Indicators Present on Admission: No Review of Systems - Musculoskeletal Musculoskeletal: As Per HPI Past Patient History - Past Medical History & Family History Past Medical History?: Yes - Past Social History Smoking Status: Former Smoker - CARDIAC Hx Cardiac Disorders: Yes Hx Hypercholesterolemia: Yes Hx Hypertension: Yes - PULMONARY Hx Respiratory Disorders: Yes Hx Asthma: Yes (last attack 8 years ago) Hx Bronchitis: No Hx Chronic Obstructive Pulmonary Disease (COPD): No Hx Emphysema: No Hx Lung Cancer: No Hx Pneumonia: Yes Hx Pulmonary Edema: No Hx Pulmonary Embolism: No Hx Respiratory Aspiration: No Hx Respiratory Tract Infection: No Hx Sleep Apnea: No Hx Tuberculosis: No - NEUROLOGICAL Hx Neurological Disorder: No - HEENT Hx HEENT Problems: No - RENAL Hx Chronic Kidney Disease: No - ENDOCRINE/METABOLIC Hx Diabetes Mellitus Type 2: Yes - HEMATOLOGICAL/ONCOLOGICAL Hx Blood Disorders: No - INTEGUMENTARY Hx Dermatological Problems: No - MUSCULOSKELETAL/RHEUMATOLOGICAL Hx Musculoskeletal Disorders: Yes Hx Arthritis: No Hx Back Pain: No Hx Degenerative Joint Disease: No Hx Falls: No Hx Fractures: No Hx Gout: No Hx Herniated Disk: Yes Hx Myasthenia Gravis: No Hx Osteoarthritis: No Hx Osteomyelitis: Yes (R foot) Hx Osteoporosis: No Hx Rhabdomyolysis: No Hx Rheumatoid Arthritis: No Hx Spinal Stenosis: No Hx Unsteady Gait: No - GASTROINTESTINAL Hx Gastrointestinal Disorders: Yes Other/Comment: colon problem - GENITOURINARY/GYNECOLOGICAL Hx Genitourinary Disorders: No - PSYCHIATRIC Hx Psychophysiologic Disorder: Yes Hx Anxiety: No Hx Bipolar Disorder: No Hx Depression: No Hx Emotional Abuse: No Hx Hallucinations: No Hx Panic Symptoms: No Hx Paranoia: No Hx Post Traumatic Stress Disorder: No Hx Psychosis: No Hx Physical Abuse: No Hx Schizophrenia: No Hx Sexual Abuse: No Hx Substance Use: Yes (former, denies usage now) - SURGICAL HISTORY Hx Surgeries: Yes Hx Abdominal Aortic Aneurysm Repair: No Hx Amputation: Yes (S/P R GREAT TOE) Hx Angiogram: No Hx Angioplasty: No Hx Appendectomy: No Hx Arteriovenous Shunt: No Hx Arthroscopy: No Hx Bile Duct Stent: No Hx Breast Biopsy: No Hx Cataract Extraction: No Hx Cardiac Catheterization: No Hx Carotid Endarterectomy: No Hx Section: No Hx Cholecystectomy: No Hx Coronary Artery Bypass Graft: No Hx Coronary Stent: No Hx Dilation and Curettage: No Hx Eye Surgery: No Hx Femoral-Popliteal Bypass Graft: No Hx Gastric Bypass Surgery: No Hx Herniorrhaphy: No Hx Hysterectomy: No Hx Joint Replacement: No Hx Kidney Transplant: No Hx Liver Transplant: No Hx Mastectomy: No Hx Musculoskeletal Surgery: No Hx Open Heart Surgery: No Hx Open Reduction Internal Fixation: No Hx Orthopedic Surgery: No Hx Parathyroidectomy: No Hx Penile Implant: No Hx Pulmonary Surgery: No Hx Splenectomy: No Hx Thyroidectomy: No Hx Tonsillectomy: Yes (during childhood) Hx Tubal Ligation: No Hx Valve Replacement: No Hx Vascular Surgery: No Hx Vascular Access Device: No - ANESTHESIA Hx Anesthesia: Yes Hx Anesthesia Reactions: No Hx Malignant Hyperthermia: No Has any member of the family had a problem w/ anesthesia?: No Meds Home Medications: Home Medication List Medication Instructions Recorded Confirmed Type Gabapentin [Neurontin] 300 mg PO HS #30 cap 05/18/17 Rx Ibuprofen [Motrin Tab] 600 mg PO Q6H PRN tab 05/18/17 Rx Lisinopril [Zestril] 10 mg PO DAILY #30 tab 05/18/17 Rx Naproxen [Naprosyn] 500 mg PO Q12H #28 tablet 05/18/17 Rx Allergies/Adverse Reactions: Allergies Allergy/AdvReac Type Severity Reaction Status Date / Time insulin glargine Allergy Mild RASH Verified 05/15/17 23:49 [From Lantus] Physical Exam - Constitutional Appears: Well - Head Exam Head Exam: ATRAUMATIC, NORMAL INSPECTION, NORMOCEPHALIC - Eye Exam Eye Exam: EOMI, Normal appearance, PERRL Pupil Exam: NORMAL ACCOMODATION, PERRL - ENT Exam ENT Exam: Mucous Membranes Moist, Normal Exam - Neck Exam Neck exam: Positive for: Normal Inspection - Respiratory Exam Respiratory Exam: Decreased Breath Sounds - Cardiovascular Exam Cardiovascular Exam: REGULAR RHYTHM, +S1, +S2 - GI/Abdominal Exam GI & Abdominal Exam: Diminished Bowel Sounds, Soft - Rectal Exam Rectal Exam: Deferred - Extremities Exam Additional comments: s/p right hallux amputation - Neurological Exam Neurological exam: Alert, Oriented x3 Results - Vital Signs Recent Vital Signs: Last Vital Signs Temp 98.3 F 05/16/17 15:11 Pulse 92 H 05/16/17 15:45 Resp 20 05/16/17 15:11 BP 167/93 H 05/16/17 15:45 Pulse Ox 96 05/16/17 15:45 - Labs Result Diagrams: 05/18/17 07:09 05/17/17 07:14 Labs: Laboratory Results - last 24 hr 05/16/17 05/16/17 05/16/17 07:18 11:13 16:52 POC Glucose (mg/dL) 224 H 264 H 265 H Assessment & Plan (1) Cellulitis Status: Acute (2) Diabetic foot infection Status: Acute (3) Elevated d-dimer Status: Acute (4) Failure of outpatient treatment Status: Acute (5) Foot pain, right Status: Acute (6) Infected wound Status: Acute (7) Pneumonia Status: Acute (8) Prophylactic measure Status: Acute (9) Status post amputation of toe of right foot Status: Acute (10) Tinea pedis Status: Acute (11) Toe fracture Status: Acute (12) Uncontrolled diabetes mellitus Status: Acute (13) Hyperglycemia due to type 2 diabetes mellitus Status: Chronic - Assessment and Plan (Free Text) Plan: iv abx podiatry consult pain management f/u labs ene other meds as ordered
[2017-05-17] MEDS: Piperacill/Tazo 3.375gm in Dex 3.375 GM/50 ML BAG IVPB SCH ×5 (00:30→23:40)
[2017-05-17 07:29] LABS: BASO # 0.1 K/uL (0.0-0.2); BASO % 0.6 % (0.0-2.0); EOS # 0.2 K/uL (0.0-0.7); EOS % 2.5 % (0.0-4.0); HEMATOCRIT 44.8 % (35.0-51.0); LYMPH # 2.8 K/uL (1.0-4.3); LYMPH % 33.6 % (20.0-40.0); MEAN CELL VOLUME 79.4 fL (80.0-94.0); MEAN CORPUSCULAR HEMOGLOBIN 27.2 pg (27.0-31.0); MEAN CORPUSCULAR HGB CONC 34.2 g/dL (33.0-37.0); MEAN PLATELET VOLUME 8.4 fL (7.2-11.7); MONO # 0.5 K/uL (0.0-0.8); MONO % 6.2 % (0.0-10.0); NRBC % 0.1 % (0.0-2.0); RED CELL DISTRIBUTION WIDTH 13.9 % (11.5-14.5); WHITE BLOOD COUNT 8.5 K/uL (4.8-10.8)
[2017-05-17] MEDS: (Novolog) Insulin Aspart, Recombinant 100 u/ml 10 ml vial SC SCH ×4 (07:30→21:40)
--- NOTE | 2017-05-17 07:43 | CP.PCM.PN ---
Subjective - Date & Time of Evaluation Date of Evaluation: 05/17/17 Time of Evaluation: 07:43 - Subjective Subjective: Medicine Progress Note for Dr. Billings's Service Pt seen and examined at bedside. No acute events overnight as per nursing. Pt states that he has returned to [place] because of poor sanitary conditions and poor patient care that he experience at [facility]. He states that he was unable to ambulate with PT yesterday but later in the day he was able to walk using the walker on his own. His pain is controlled with motrin. Objective - Vital Signs/Intake and Output Vital Signs (last 24 hours): Temp Pulse Resp BP Pulse Ox 98.3 F 92 H 20 167/93 H 96 05/16/17 15:11 05/16/17 15:45 05/16/17 15:11 05/16/17 15:45 05/16/17 15:45 Intake and Output: 05/17/17 05/17/17 06:59 18:59 Intake Total 340 Output Total 600 Balance -260 - Medications Medications: Current Medications Acetaminophen (Tylenol 325mg Tab) 650 mg PO Q6 PRN PRN Reason: Pain, Mild (1-3) Enoxaparin Sodium (Lovenox) 40 mg SC DAILY [facility] Last Admin: 05/16/17 10:07 Dose: 40 mg Gabapentin (Neurontin) 300 mg PO HS [facility] Last Admin: 05/16/17 21:25 Dose: 300 mg Vancomycin/Sodium Chloride (Vancocin) 1 gm in 200 mls @ 133.333 mls/hr IVPB Q12H [facility] Last Admin: 05/16/17 21:28 Dose: 133.333 mls/hr Piperacillin Sod/Tazobactam Sod (Zosyn 3.375 Gm Iv Premix) 3.375 gm in 50 mls @ 100 mls/hr IVPB Q6H [facility] Last Admin: 05/17/17 06:06 Dose: 100 mls/hr Ibuprofen (Motrin Tab) 600 mg PO Q6H PRN PRN Reason: Pain, moderate (4-7) Last Admin: 05/17/17 06:14 Dose: 600 mg Insulin Aspart (Novolog) 0 unit SC ACHS [facility] PRN Reason: Protocol Last Admin: 05/16/17 21:27 Dose: Not Given Metformin HCl (Glucophage) 1,000 mg PO BIDCC [facility] Last Admin: 05/16/17 17:19 Dose: 1,000 mg Pantoprazole Sodium (Protonix Ec Tab) 40 mg PO DAILY [facility] Last Admin: 05/16/17 10:07 Dose: 40 mg - Labs Labs: 05/17/17 07:14 Assessment and Plan - Assessment and Plan (Free Text) Plan: Right hallux amputation secondary to OM Pre-surgical assessment: EKG- NSR at 81bpm, no acute ST changes Echo- non-pertinent findings Wound cx-enterobacter aerogenes, beta hemolytic strep group B Podiatry consulted- recs appreciated Patient is stable per podiatry Patient to follow up with Dr. Hooper in office upon D/C Podiatry will continue to follow while in house ID consulted- recs appreciated Cont 7 days IV abx per ID Zosyn 3.375g IV q6hrs (day 6) Vanc 1g IV q12hrs (day 6) PT consulted- recs appreciated WBAT to the heel in a surgical shoe DM with neuropathy ISS metformin 1000mg bid gabapentin started 300mg tid prophylaxis protonix 40mg PO daily Tyelnol 650mg PO prn lovenox 40mg SC daily Discharge planning for tomorrow with completion of IV abx. Pt is stating that he would like to return home- PT evaluation for home discharge. Case discussed with Dr. Billings. All management per Dr. Billings.
[2017-05-17 08:25] LABS: ALB/GLOB RATIO 1.1 (1.0-2.1); ALKALINE PHOSPHATASE 78 U/L (38-126); ALT/SGPT 36 U/L (21-72); AST/SGOT 29 U/L (17-59); BILIRUBIN,TOTAL 0.8 mg/dL (0.2-1.3); BLOOD UREA NITROGEN 12 mg/dL (9-20); CALCIUM 9.2 mg/dl (8.6-10.4); CARBON DIOXIDE 32 mmol/L (22-30); CHLORIDE 96 mmol/L (98-107); GFR AFRICAN-AMERICAN > 60; GLUCOSE,RANDOM 240 mg/dL (75-110); POTASSIUM 4.9 mmol/L (3.6-5.2); SODIUM 140 mmol/L (132-148)
[2017-05-17] MEDS: Vancomycin 1 gm/NS 200 ml 1 GM/200 ML BAG IVPB SCH ×2 (10:00→21:10)
[2017-05-17] MEDS: Pantoprazole 40 mg EC Tab PO SCH (10:12)
[2017-05-17] MEDS: Enoxaparin 40 mg Syringe SC SCH (10:12)
--- NOTE | 2017-05-17 11:22 | CP.PCM.PN ---
Subjective - Date & Time of Evaluation Date of Evaluation: 05/17/17 Time of Evaluation: 10:00 - Subjective Subjective: 41 year old male seen at bedside 6 days s/p right hallux amp. Patient is in NAD and is AAOx3. Patient denies of any acute overnight events. He admits that he has pain in his foot but he is managing it well. Patient states that he was seen by physical therapy yesterday and he walked with a walker yesterday evening. Patient denies any F/N/V/C/SOB/CP today. Objective - Vital Signs/Intake and Output Vital Signs (last 24 hours): Temp Pulse Resp BP Pulse Ox 98.4 F 100 H 20 155/94 H 96 05/17/17 08:52 05/17/17 08:52 05/17/17 08:52 05/17/17 08:52 05/17/17 08:52 Intake and Output: 05/17/17 05/17/17 06:59 18:59 Intake Total 340 Output Total 600 Balance -260 - Medications Medications: Current Medications Acetaminophen (Tylenol 325mg Tab) 650 mg PO Q6 PRN PRN Reason: Pain, Mild (1-3) Enoxaparin Sodium (Lovenox) 40 mg SC DAILY [facility] Last Admin: 05/17/17 10:12 Dose: 40 mg Gabapentin (Neurontin) 300 mg PO HS [facility] Last Admin: 05/16/17 21:25 Dose: 300 mg Vancomycin/Sodium Chloride (Vancocin) 1 gm in 200 mls @ 133.333 mls/hr IVPB Q12H [facility] Last Admin: 05/17/17 10:00 Dose: 133.333 mls/hr Piperacillin Sod/Tazobactam Sod (Zosyn 3.375 Gm Iv Premix) 3.375 gm in 50 mls @ 100 mls/hr IVPB Q6H [facility] Last Admin: 05/17/17 06:06 Dose: 100 mls/hr Ibuprofen (Motrin Tab) 600 mg PO Q6H PRN PRN Reason: Pain, moderate (4-7) Last Admin: 05/17/17 06:14 Dose: 600 mg Insulin Aspart (Novolog) 0 unit SC ACHS [facility] PRN Reason: Protocol Last Admin: 05/17/17 07:30 Dose: 1 unit Metformin HCl (Glucophage) 1,000 mg PO BIDCC [facility] Last Admin: 05/17/17 08:00 Dose: 1,000 mg Pantoprazole Sodium (Protonix Ec Tab) 40 mg PO DAILY [facility] Last Admin: 05/17/17 10:12 Dose: 40 mg - Labs Labs: 05/17/17 07:14 05/17/17 07:14 - Constitutional Appears: Well, Non-toxic, No Acute Distress - Extremities Exam Additional comments: Right lower extremity focused exam: VASC: DP and PT pulses grossly diminshed. CFT < 3 seconds to all 4 digits. Skin temperature warm to warm from proximal to distal DERM: Surgical site noted to right foot secondary to hallux amp. Scant amount of erythema noted to proximal lateral aspect of incision site with no calor noted. very minimal hyperpigmentation noted at the distal lateral aspect of the surgical site. No dehiscence and surgical sutures are intact, site well coapted. No malodor, purulent drainage, fluctuatance or other clinical signs of infection noted to the area at this time NEURO: Epicritic and protective sensation grossly diminished ORTHO: Right hallux amputation, tenderness on palpation to amputation site - Neurological Exam Neurological Exam: Alert, Awake, Oriented x3 - Psychiatric Exam Psychiatric exam: Normal Affect, Normal Mood Assessment and Plan - Assessment and Plan (Free Text) Assessment: 41 year old male 6 days s/p right hallux amputation secondary to OM Plan: Patient seen and evaluated at bedside Patient discussed in details with attending Dr. Hooper Charts, labs and vitals reviewed (afebrile, WBC @ 8.5) Right foot dressed with betadine gauze, 4x4, kerlix, RONALD Patient seen by physical therapy Patient to continue 7 days IV abx per ID Patient is stable per podiatry Patient to follow up with Dr. Hooper in office upon D/C Podiatry will continue to follow while in house
--- NOTE | 2017-05-17 16:10 | CP.PCM.PN ---
Subjective - Date & Time of Evaluation Date of Evaluation: 05/17/17 Time of Evaluation: 08:20 - Subjective Subjective: clinically same s/p eval by Dr Cristy Hooper as pt is 6 days s/p right hallux amputation secondary to OM on iv abx ongoing pt Objective - Vital Signs/Intake and Output Vital Signs (last 24 hours): Temp Pulse Resp BP Pulse Ox 98.4 F 100 H 20 155/94 H 96 05/17/17 08:52 05/17/17 08:52 05/17/17 08:52 05/17/17 08:52 05/17/17 08:52 Intake and Output: 05/17/17 05/17/17 06:59 18:59 Intake Total 340 Output Total 600 Balance -260 - Medications Medications: Current Medications Acetaminophen (Tylenol 325mg Tab) 650 mg PO Q6 PRN PRN Reason: Pain, Mild (1-3) Enoxaparin Sodium (Lovenox) 40 mg SC DAILY [facility] Last Admin: 05/17/17 10:12 Dose: 40 mg Gabapentin (Neurontin) 300 mg PO HS [facility] Last Admin: 05/16/17 21:25 Dose: 300 mg Vancomycin/Sodium Chloride (Vancocin) 1 gm in 200 mls @ 133.333 mls/hr IVPB Q12H [facility] Last Admin: 05/17/17 10:00 Dose: 133.333 mls/hr Piperacillin Sod/Tazobactam Sod (Zosyn 3.375 Gm Iv Premix) 3.375 gm in 50 mls @ 100 mls/hr IVPB Q6H [facility] Last Admin: 05/17/17 12:17 Dose: 100 mls/hr Ibuprofen (Motrin Tab) 600 mg PO Q6H PRN PRN Reason: Pain, moderate (4-7) Last Admin: 05/17/17 06:14 Dose: 600 mg Insulin Aspart (Novolog) 0 unit SC ACHS [facility] PRN Reason: Protocol Last Admin: 05/17/17 12:18 Dose: 3 unit Metformin HCl (Glucophage) 1,000 mg PO BIDCC [facility] Last Admin: 05/17/17 08:00 Dose: 1,000 mg Pantoprazole Sodium (Protonix Ec Tab) 40 mg PO DAILY [facility] Last Admin: 05/17/17 10:12 Dose: 40 mg - Labs Labs: 05/17/17 07:14 05/17/17 07:14 - Constitutional Appears: Well - Head Exam Head Exam: ATRAUMATIC, NORMAL INSPECTION, NORMOCEPHALIC - Eye Exam Eye Exam: EOMI, Normal appearance, PERRL Pupil Exam: NORMAL ACCOMODATION, PERRL - ENT Exam ENT Exam: Mucous Membranes Moist, Normal Exam - Neck Exam Neck Exam: Full ROM, Normal Inspection. absent: Lymphadenopathy - Respiratory Exam Respiratory Exam: Decreased Breath Sounds - Cardiovascular Exam Cardiovascular Exam: REGULAR RHYTHM, +S1, +S2 - GI/Abdominal Exam GI & Abdominal Exam: Soft, Diminished Bowel Sounds - Rectal Exam Rectal Exam: Deferred - Neurological Exam Neurological Exam: Alert, Oriented x3 Assessment and Plan (1) Cellulitis Status: Acute (2) Diabetic foot infection Status: Acute (3) Elevated d-dimer Status: Acute (4) Failure of outpatient treatment Status: Acute (5) Foot pain, right Status: Acute (6) Infected wound Status: Acute (7) Pneumonia Status: Acute (8) Prophylactic measure Status: Acute (9) Status post amputation of toe of right foot Status: Acute (10) Tinea pedis Status: Acute (11) Toe fracture Status: Acute (12) Uncontrolled diabetes mellitus Status: Acute (13) Hyperglycemia due to type 2 diabetes mellitus Status: Chronic - Assessment and Plan (Free Text) Plan: iv abx pain management with motrin ene meds as ordered pod dr cristy luque pt f/u labs
[2017-05-18] MEDS: Piperacill/Tazo 3.375gm in Dex 3.375 GM/50 ML BAG IVPB SCH ×3 (05:58→17:02)
[2017-05-18 07:32] LABS: BASO # 0.1 K/uL (0.0-0.2); BASO % 0.6 % (0.0-2.0); EOS # 0.2 K/uL (0.0-0.7); EOS % 2.1 % (0.0-4.0); HEMATOCRIT 44.6 % (35.0-51.0); LYMPH # 3.2 K/uL (1.0-4.3); LYMPH % 32.4 % (20.0-40.0); MEAN CELL VOLUME 79.7 fL (80.0-94.0); MEAN CORPUSCULAR HEMOGLOBIN 27.2 pg (27.0-31.0); MEAN CORPUSCULAR HGB CONC 34.1 g/dL (33.0-37.0); MEAN PLATELET VOLUME 8.8 fL (7.2-11.7); MONO # 0.6 K/uL (0.0-0.8); MONO % 6.2 % (0.0-10.0); NRBC % 0.2 % (0.0-2.0); RED CELL DISTRIBUTION WIDTH 13.2 % (11.5-14.5); WHITE BLOOD COUNT 9.8 K/uL (4.8-10.8)
[2017-05-18] MEDS: (Novolog) Insulin Aspart, Recombinant 100 u/ml 10 ml vial SC SCH ×3 (08:09→16:55)
[2017-05-18] MEDS: Enoxaparin 40 mg Syringe SC SCH (09:21)
[2017-05-18] MEDS: Vancomycin 1 gm/NS 200 ml 1 GM/200 ML BAG IVPB SCH (09:21)
[2017-05-18] MEDS: Pantoprazole 40 mg EC Tab PO SCH (09:21)
--- NOTE | 2017-05-18 09:58 | CP.PCM.PN ---
Subjective - Date & Time of Evaluation Date of Evaluation: 05/18/17 Time of Evaluation: 08:20 - Subjective Subjective: clinically same discharge planning Objective - Vital Signs/Intake and Output Vital Signs (last 24 hours): Temp Pulse Resp BP Pulse Ox 98.4 F 85 20 169/92 H 98 05/18/17 08:00 05/18/17 08:00 05/18/17 08:00 05/18/17 08:00 05/18/17 08:00 Intake and Output: 05/18/17 05/18/17 06:59 18:59 Intake Total 640 Output Total 600 Balance 40 - Medications Medications: Current Medications Acetaminophen (Tylenol 325mg Tab) 650 mg PO Q6 PRN PRN Reason: Pain, Mild (1-3) Enoxaparin Sodium (Lovenox) 40 mg SC DAILY [facility] Last Admin: 05/18/17 09:21 Dose: 40 mg Gabapentin (Neurontin) 300 mg PO HS [facility] Last Admin: 05/17/17 21:10 Dose: 300 mg Vancomycin/Sodium Chloride (Vancocin) 1 gm in 200 mls @ 133.333 mls/hr IVPB Q12H [facility] Last Admin: 05/18/17 09:21 Dose: 133.333 mls/hr Piperacillin Sod/Tazobactam Sod (Zosyn 3.375 Gm Iv Premix) 3.375 gm in 50 mls @ 100 mls/hr IVPB Q6H [facility] Last Admin: 05/18/17 05:58 Dose: 100 mls/hr Ibuprofen (Motrin Tab) 600 mg PO Q6H PRN PRN Reason: Pain, moderate (4-7) Last Admin: 05/17/17 23:35 Dose: 600 mg Insulin Aspart (Novolog) 0 unit SC ACHS [facility] PRN Reason: Protocol Last Admin: 05/18/17 08:09 Dose: 3 unit Lisinopril (Zestril) 10 mg PO DAILY [facility] Last Admin: 05/18/17 09:21 Dose: 10 mg Metformin HCl (Glucophage) 1,000 mg PO BIDCC [facility] Last Admin: 05/18/17 08:08 Dose: 1,000 mg Pantoprazole Sodium (Protonix Ec Tab) 40 mg PO DAILY [facility] Last Admin: 05/18/17 09:21 Dose: 40 mg - Labs Labs: 05/18/17 07:09 05/17/17 07:14 - Constitutional Appears: Well - Head Exam Head Exam: ATRAUMATIC, NORMAL INSPECTION, NORMOCEPHALIC - Eye Exam Eye Exam: EOMI, Normal appearance, PERRL Pupil Exam: NORMAL ACCOMODATION, PERRL - ENT Exam ENT Exam: Mucous Membranes Moist, Normal Exam - Neck Exam Neck Exam: Full ROM, Normal Inspection. absent: Lymphadenopathy - Respiratory Exam Respiratory Exam: Decreased Breath Sounds - Cardiovascular Exam Cardiovascular Exam: REGULAR RHYTHM, +S1, +S2 - GI/Abdominal Exam GI & Abdominal Exam: Soft, Diminished Bowel Sounds - Rectal Exam Rectal Exam: Deferred - Extremities Exam Additional comments: right hallux amputation - Neurological Exam Neurological Exam: Alert, Oriented x3 Assessment and Plan (1) Cellulitis Status: Acute (2) Diabetic foot infection Status: Acute (3) Elevated d-dimer Status: Acute (4) Failure of outpatient treatment Status: Acute (5) Foot pain, right Status: Acute (6) Infected wound Status: Acute (7) Pneumonia Status: Acute (8) Prophylactic measure Status: Acute (9) Status post amputation of toe of right foot Status: Acute (10) Tinea pedis Status: Acute (11) Toe fracture Status: Acute (12) Uncontrolled diabetes mellitus Status: Acute (13) Hyperglycemia due to type 2 diabetes mellitus Status: Chronic - Assessment and Plan (Free Text) Plan: discharge planning to home f/u with dr cristy guevara reviewed ene management as ordered f/u outpt as instructed
--- NOTE | 2017-05-18 10:51 | CP.PCM.PN ---
Subjective - Date & Time of Evaluation Date of Evaluation: 05/18/17 Time of Evaluation: 07:30 - Subjective Subjective: Medicine Note- Dr. Billings's service Patient was seen and examined at bedside. Patient reports no acute complaints at this time. Patient understands he will be discharged home later today. No events overnight, per nursing. Objective - Vital Signs/Intake and Output Vital Signs (last 24 hours): Temp Pulse Resp BP Pulse Ox 98.4 F 85 20 169/92 H 98 05/18/17 08:00 05/18/17 08:00 05/18/17 08:00 05/18/17 08:00 05/18/17 08:00 Intake and Output: 05/18/17 05/18/17 06:59 18:59 Intake Total 640 Output Total 600 Balance 40 - Medications Medications: Current Medications Acetaminophen (Tylenol 325mg Tab) 650 mg PO Q6 PRN PRN Reason: Pain, Mild (1-3) Enoxaparin Sodium (Lovenox) 40 mg SC DAILY [facility] Last Admin: 05/18/17 09:21 Dose: 40 mg Gabapentin (Neurontin) 300 mg PO HS [facility] Last Admin: 05/17/17 21:10 Dose: 300 mg Vancomycin/Sodium Chloride (Vancocin) 1 gm in 200 mls @ 133.333 mls/hr IVPB Q12H [facility] Last Admin: 05/18/17 09:21 Dose: 133.333 mls/hr Piperacillin Sod/Tazobactam Sod (Zosyn 3.375 Gm Iv Premix) 3.375 gm in 50 mls @ 100 mls/hr IVPB Q6H [facility] Last Admin: 05/18/17 05:58 Dose: 100 mls/hr Ibuprofen (Motrin Tab) 600 mg PO Q6H PRN PRN Reason: Pain, moderate (4-7) Last Admin: 05/17/17 23:35 Dose: 600 mg Insulin Aspart (Novolog) 0 unit SC ACHS [facility] PRN Reason: Protocol Last Admin: 05/18/17 08:09 Dose: 3 unit Lisinopril (Zestril) 10 mg PO DAILY [facility] Last Admin: 05/18/17 09:21 Dose: 10 mg Metformin HCl (Glucophage) 1,000 mg PO BIDCC [facility] Last Admin: 05/18/17 08:08 Dose: 1,000 mg Pantoprazole Sodium (Protonix Ec Tab) 40 mg PO DAILY [facility] Last Admin: 05/18/17 09:21 Dose: 40 mg - Labs Labs: 05/18/17 07:09 05/17/17 07:14 - Constitutional Appears: Non-toxic, No Acute Distress - Head Exam Head Exam: ATRAUMATIC, NORMAL INSPECTION, NORMOCEPHALIC - Eye Exam Pupil Exam: NORMAL ACCOMODATION - ENT Exam ENT Exam: Mucous Membranes Moist - Respiratory Exam Respiratory Exam: Clear to Ausculation Bilateral, NORMAL BREATHING PATTERN. absent: Prolonged Expiratory Phase, Rales, Rhonchi, Wheezes - Cardiovascular Exam Cardiovascular Exam: REGULAR RHYTHM, +S1, +S2 - Extremities Exam Extremities Exam: Normal Capillary Refill Additional comments: site of amputation of right hallux wrapped, clean dressings, no drainage. 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 Hooper in office upon D/C Podiatry will continue to follow while in house ID consulted- recs appreciated Cont 7 days IV abx per ID Zosyn 3.375g IV q6hrs (day 7) Vanc 1g IV q12hrs (day 7) PT consulted- recs appreciated WBAT to the heel in a surgical shoe DM with neuropathy ISS metformin 1000mg bid gabapentin started 300mg tid prophylaxis protonix 40mg PO daily Tyelnol 650mg PO prn lovenox 40mg SC daily Patient will be discharged today after completion of antibiotics. Patient is to be discharged home, and followup with Dr. Hooper.
[2017-05-18 17:05] VITALS: BP 142/95; PULSE 103; TEMP 97.9; O2SAT 97
--- NOTE | 2017-05-18 18:59 | CP.PCM.PN ---
Subjective - Date & Time of Evaluation Date of Evaluation: 05/18/17 Time of Evaluation: 11:30 - Subjective Subjective: 41 year old male seen and evaluated at bedside 7 days s/p right hallux amputation. Patient states that he is feeling well today with minimal pain to the surgical site. Patient denies any acute overnight events. Patient denies N/V /F/C/CP/SOB. Patient denies any further pedal complaints at this time Objective - Vital Signs/Intake and Output Vital Signs (last 24 hours): Temp Pulse Resp BP Pulse Ox 97.9 F 103 H 20 142/95 H 97 05/18/17 15:04 05/18/17 15:04 05/18/17 15:04 05/18/17 15:04 05/18/17 15:04 Intake and Output: 05/18/17 05/18/17 06:59 18:59 Intake Total 640 1100 Output Total 600 Balance 40 1100 - Labs Labs: 05/18/17 07:09 05/17/17 07:14 - Constitutional Appears: Well, Non-toxic, No Acute Distress - Extremities Exam Additional comments: RLE focused exam Vasc: DP and PT pulses grossly diminshed. CFT < 3 seconds. Skin temperature warm to warm from proximal to distal Neuro: Epicritic and protective sensation grossly diminished Derm: Surgical site noted to right foot secondary to hallux amp. No periwound erythema noted at this time. No dehiscence, site well coapted. No malodor, purulent drainage, fluctuance or other clinical signs of infection noted to the area. Approximately 0.5 x 0.4 cm superficial necrotic tissue noted to distal suture site. Ortho: S/p right hallux amputation, tenderness on palpation to amputation site - Neurological Exam Neurological Exam: Alert, Awake, Oriented x3 - Psychiatric Exam Psychiatric exam: Normal Affect, Normal Mood Assessment and Plan - Assessment and Plan (Free Text) Assessment: 41 year old male 7 days s/p right hallux amputation secondary to OM Plan: Patient seen and evaluated at bedside Labs, charts and vitals reviewed; patient afebrile Dressing changed with betadine soaked gauze and DSD Patient to complete antibiotics today and be discharged home Patient aware that he is to follow up with Dr. Hooper in his clinic once DC'd
== END 2017-05-18 17:45 | disposition home or self-care (01) ==
LOC: C.ER 21:37 → C.3T 05-16 00:42
PROVIDERS: ADMIT Internal Medicine Nephrology; ATTEND Internal Medicine Nephrology
DX: M86.8X7 Other osteomyelitis, ankle and foot (principal); E11.65 Type 2 diabetes mellitus with hyperglycemia; Z89.411 Acquired absence of right great toe; J45.909 Unspecified asthma, uncomplicated; I10 Essential (primary) hypertension; E78.00 Pure hypercholesterolemia, unspecified; Z87.891 Personal history of nicotine dependence

== ENCOUNTER 2017-07-20 10:58 | Inpatient (IN) | payer MEDICAID ==
[2017-07-20 10:59] VITALS: BMI 38.2
[2017-07-20 11:42] LABS: BASO # 0.1 K/uL (0.0-0.2); BASO % 0.5 % (0.0-2.0); EOS # 0.2 K/uL (0.0-0.7); EOS % 1.9 % (0.0-4.0); LYMPH # 2.7 K/uL (1.0-4.3); LYMPH % 26.2 % (20.0-40.0); MEAN CELL VOLUME 80.4 fL (80.0-94.0); MEAN CORPUSCULAR HEMOGLOBIN 27.5 pg (27.0-31.0); MEAN CORPUSCULAR HGB CONC 34.2 g/dL (33.0-37.0); MEAN PLATELET VOLUME 8.9 fL (7.2-11.7); MONO # 0.6 K/uL (0.0-0.8); MONO % 5.5 % (0.0-10.0); NRBC % 0.1 % (0.0-2.0); RED CELL DISTRIBUTION WIDTH 15.2 % (11.5-14.5); WHITE BLOOD COUNT 10.4 K/uL (4.8-10.8)
[2017-07-20 11:53] LABS: CHLORIDE 96 mmol/L (98-107); POTASSIUM 4.6 mmol/L (3.6-5.2); SODIUM 134 mmol/L (132-148)
[2017-07-20 11:55] LABS: GFR AFRICAN-AMERICAN > 60
[2017-07-20 11:56] LABS: ALB/GLOB RATIO 1.2 (1.0-2.1); ALKALINE PHOSPHATASE 75 U/L (38-126); ALT/SGPT 49 U/L (21-72); AST/SGOT 31 U/L (17-59); BILIRUBIN,TOTAL 0.5 mg/dL (0.2-1.3); BLOOD UREA NITROGEN 16 mg/dL (9-20); CARBON DIOXIDE 29 mmol/L (22-30); GLUCOSE,RANDOM 292 mg/dL (75-110); TOTAL PROTEIN 8.3 g/dL (6.3-8.3)
--- NOTE | 2017-07-20 12:21 | CP.PCM.CON ---
<Emerita Uribe - Last Filed: 07/20/17 18:35> History of Present Illness - History of Present Illness History of Present Illness: 41 year old male presents to the ER by his dog walker Dr. Hooper, concerning right foot non-healing post-surgical wound following right great toe amputation. Patient denies fever, chills, chest pain, SOB, nausea, vomiting, leg pain, weakness or numbness. Past Patient History - Past Medical History & Family History Past Medical History?: Yes - Past Social History Smoking Status: Former Smoker - CARDIAC Hx Cardiac Disorders: Yes Hx Hypercholesterolemia: Yes Hx Hypertension: Yes - PULMONARY Hx Respiratory Disorders: Yes Hx Asthma: Yes (last attack 8 years ago) Hx Pneumonia: Yes - NEUROLOGICAL Hx Neurological Disorder: No - HEENT Hx HEENT Problems: No - RENAL Hx Chronic Kidney Disease: No - ENDOCRINE/METABOLIC Hx Endocrine Disorders: Yes Hx Diabetes Mellitus Type 1: Yes - HEMATOLOGICAL/ONCOLOGICAL Hx Blood Disorders: No - INTEGUMENTARY Hx Dermatological Problems: No - MUSCULOSKELETAL/RHEUMATOLOGICAL Hx Musculoskeletal Disorders: Yes Hx Herniated Disk: Yes Hx Osteomyelitis: Yes (R foot) - GASTROINTESTINAL Hx Gastrointestinal Disorders: Yes Other/Comment: colon problem - GENITOURINARY/GYNECOLOGICAL Hx Genitourinary Disorders: No - PSYCHIATRIC Hx Substance Use: Yes (former, denies usage now) - SURGICAL HISTORY Hx Surgeries: Yes Hx Amputation: Yes (S/P R GREAT TOE) Hx Tonsillectomy: Yes (during childhood) - ANESTHESIA Hx Anesthesia: Yes Hx Anesthesia Reactions: No Hx Malignant Hyperthermia: No Meds Allergies/Adverse Reactions: Allergies Allergy/AdvReac Type Severity Reaction Status Date / Time insulin glargine Allergy Mild RASH Verified 07/20/17 11:07 [From Lantus] - Medications Medications: Current Medications Sodium Chloride (Sodium Chloride 0.9%) 1,000 mls @ 125 mls/hr IV .Q8H [facility] Physical Exam - Constitutional Appears: Well, Non-toxic, No Acute Distress - Extremities Exam Additional comments: Right lower extremity focused. VASC: DP and PT pulses fully palpable graded 2/4. No pitting edema noted. DERM: Full thickness ulceration noted at great toe amputation site measuring 2 x 0.5cm Wound base is fibro-granular, absent and purulent drainage. No scott- wound erythema noted. No malodor noted. NEURO: Protective sensation grossly diminished. MUSK: Silverskoid test reveals gastroc-equinus . No other gross deformities noted - Neurological Exam Neurological exam: Alert, Oriented x3 - Psychiatric Exam Psychiatric exam: Normal Affect, Normal Mood Results - Vital Signs Recent Vital Signs: Last Vital Signs Temp 98 F 07/20/17 11:03 Pulse 91 H 07/20/17 11:03 Resp 18 07/20/17 11:03 BP 144/89 07/20/17 11:03 Pulse Ox 97 07/20/17 11:03 - Labs Result Diagrams: 07/20/17 11:32 07/20/17 11:32 Labs: Laboratory Results - last 24 hr 07/20/17 07/20/17 07/20/17 11:32 11:32 11:32 WBC 10.4 RBC 5.60 Hgb 15.4 Hct 45.0 MCV 80.4 MCH 27.5 MCHC 34.2 RDW 15.2 H Plt Count 209 MPV 8.9 Neut % (Auto) 65.9 Lymph % (Auto) 26.2 [place] % (Auto) 5.5 Eos % (Auto) 1.9 Baso % (Auto) 0.5 Neut # 6.8 Lymph # 2.7 [place] # 0.6 Eos # 0.2 Baso # 0.1 PT 11.1 INR 1.0 APTT 35 H Sodium 134 Potassium 4.6 Chloride 96 L Carbon Dioxide 29 Anion Gap 14 BUN 16 Creatinine 0.6 L Est GFR ( Amer) > 60 Est GFR (Non-Af Amer) > 60 Random Glucose 292 H Calcium 10.0 Total Bilirubin 0.5 AST 31 ALT 49 Alkaline Phosphatase 75 Total Protein 8.3 Albumin 4.4 Globulin 3.8 Albumin/Globulin Ratio 1.2 Blood Type 07/20/17 11:32 WBC RBC Hgb Hct MCV MCH MCHC RDW Plt Count MPV Neut % (Auto) Lymph % (Auto) [place] % (Auto) Eos % (Auto) Baso % (Auto) Neut # Lymph # [place] # Eos # Baso # PT INR APTT Sodium Potassium Chloride Carbon Dioxide Anion Gap BUN Creatinine Est GFR ( Amer) Est GFR (Non-Af Amer) Random Glucose Calcium Total Bilirubin AST ALT Alkaline Phosphatase Total Protein Albumin Globulin Albumin/Globulin Ratio Blood Type O POSITIVE Assessment & Plan - Assessment and Plan (Free Text) Assessment: 41 year old male with right foot non-healing amputation site. Plan: Pt seen and evaluated in ED with attending. Dr. Hooper. Chart, labs, and vitals reviewed. Discussed with pt need for admission for revisional 1st metatarsal head resection to allow curtain cleaner margin and wound site to close absent tension. Pt admitted. right foot x-rays ordered. Pt to go to OR Sunday midday. Medical clearance requested, by primary physician. Podiatry will continue to follow patients while inhouse. - Date & Time Date: 07/20/17 Time: 12:00 <Jovanny Hooper - Last Filed: 07/20/17 21:09> Meds - Medications Medications: Current Medications Escitalopram Oxalate (Lexapro) 10 mg PO HS [facility] Gabapentin (Neurontin) 300 mg PO HS [facility] Heparin Sodium (Porcine) (Heparin) 5,000 units SC Q12 [facility] Stop: 07/22/17 10:00 Sodium Chloride (Sodium Chloride 0.9%) 1,000 mls @ 125 mls/hr IV .Q8H [facility] Last Admin: 07/20/17 17:14 Dose: 125 mls/hr Ceftriaxone Sodium (Rocephin 2 Gm Ivpb) 2 gm in 100 mls @ 100 mls/hr IVPB Q24H [facility] Last Admin: 07/20/17 20:15 Dose: 100 mls/hr Insulin Aspart (Novolog Mix 70/30 (70/30 Units/Ml)) 30 units SC Q12 [facility] Lisinopril (Zestril) 10 mg PO DAILY [facility] Metformin HCl (Glucophage) 1,000 mg PO BIDCC [facility] Last Admin: 07/20/17 17:17 Dose: 1,000 mg Naproxen (Anaprox Ds) 500 mg PO Q12H PRN PRN Reason: Pain, moderate (4-7) Pantoprazole Sodium (Protonix Ec Tab) 40 mg PO DAILY [facility] Rosuvastatin Calcium (Crestor) 5 mg PO HS [facility] Results - Vital Signs Recent Vital Signs: Last Vital Signs Temp 98.3 F 07/20/17 17:03 Pulse 99 H 07/20/17 17:03 Resp 20 07/20/17 17:03 BP 128/82 07/20/17 17:03 Pulse Ox 97 07/20/17 18:39 - Labs Result Diagrams: 07/20/17 11:32 07/20/17 11:32 Labs: Laboratory Results - last 24 hr 07/20/17 07/20/17 07/20/17 11:32 11:32 11:32 WBC 10.4 RBC 5.60 Hgb 15.4 Hct 45.0 MCV 80.4 MCH 27.5 MCHC 34.2 RDW 15.2 H Plt Count 209 MPV 8.9 Neut % (Auto) 65.9 Lymph % (Auto) 26.2 [place] % (Auto) 5.5 Eos % (Auto) 1.9 Baso % (Auto) 0.5 Neut # 6.8 Lymph # 2.7 [place] # 0.6 Eos # 0.2 Baso # 0.1 PT 11.1 INR 1.0 APTT 35 H Sodium 134 Potassium 4.6 Chloride 96 L Carbon Dioxide 29 Anion Gap 14 BUN 16 Creatinine 0.6 L Est GFR ( Amer) > 60 Est GFR (Non-Af Amer) > 60 POC Glucose (mg/dL) Random Glucose 292 H Calcium 10.0 Total Bilirubin 0.5 AST 31 ALT 49 Alkaline Phosphatase 75 Total Protein 8.3 Albumin 4.4 Globulin 3.8 Albumin/Globulin Ratio 1.2 Blood Type Antibody Screen 07/20/17 07/20/17 11:32 16:47 WBC RBC Hgb Hct MCV MCH MCHC RDW Plt Count MPV Neut % (Auto) Lymph % (Auto) [place] % (Auto) Eos % (Auto) Baso % (Auto) Neut # Lymph # [place] # Eos # Baso # PT INR APTT Sodium Potassium Chloride Carbon Dioxide Anion Gap BUN Creatinine Est GFR ( Amer) Est GFR (Non-Af Amer) POC Glucose (mg/dL) 189 H Random Glucose Calcium Total Bilirubin AST ALT Alkaline Phosphatase Total Protein Albumin Globulin Albumin/Globulin Ratio Blood Type O POSITIVE Antibody Screen Negative Attending/Attestation - Attestation I have personally seen and examined this patient.: Yes I have fully participated in the care of the patient.: Yes I have reviewed all pertinent clinical information: Yes Notes (Text): 07/20/17 21:07 Pt seen for right amp ulcer with dehiscence. Pt will need a resection of right 1st met head with primary closure of wound. Pt scheduled for Sunday at 12:30 PM. Will follow closely with team.
--- NOTE | 2017-07-20 12:40 | RAD ---
PROCEDURE: CHEST RADIOGRAPH, 1 VIEW HISTORY: r/o infiltrate COMPARISON: 01/04/2015 FINDINGS: LUNGS: Clear. PLEURA: No pneumothorax or pleural fluid seen. CARDIOVASCULAR: Normal. OSSEOUS STRUCTURES: No significant abnormalities. VISUALIZED UPPER ABDOMEN: Normal. OTHER FINDINGS: None. IMPRESSION: No active disease.
[2017-07-20] MEDS ORDERED: Sodium Chloride 0.9% 1,000 ML ONE (12:43)
[2017-07-20] MEDS: Sodium Chloride 0.9% 1,000 ML IV SCH ×3 (12:53→20:00)
--- NOTE | 2017-07-20 13:57 | C.PDOC ---
History Of Present Illness 41 yr old male presents to the ER sent to the ER for admission for right great toe surgery by his podiatry Dr. Hooper. Patient states he was seen by Dr. Hooper 3 days ago who requested to come in for a surgery today. Patient denies fever, chills, chest pain, SOB, nausea, vomiting, leg pain, weakness or numbness. Time Seen by Provider: 07/20/17 11:20 Chief Complaint (Nursing): Medical Clearance History Per: Patient History/Exam Limitations: no limitations Onset/Duration Of Symptoms: Days Past Medical History Reviewed: Historical Data, Nursing Documentation, Vital Signs Vital Signs: Last Vital Signs Temp 98.3 F 07/20/17 17:03 Pulse 99 H 07/20/17 17:03 Resp 20 07/20/17 17:03 BP 128/82 07/20/17 17:03 Pulse Ox 97 07/20/17 17:03 - Medical History PMH: Asthma (last attack 8 years ago), Diabetes, HTN, Hypercholesterolemia, Pneumonia Surgical History: Tonsillectomy (during childhood) - [facility] Procedures DETACHMENT AT RIGHT 1ST TOE, COMPLETE, OPEN APPROACH (05/06/17) DRAINAGE OF LEFT FOOT SKIN, EXTERNAL APPROACH (11/25/16) Family History: States: No Known Family Hx - Social History Hx Tobacco Use: No Hx Alcohol Use: Yes (socially) Hx Substance Use: Yes (former, denies usage now) - Immunization History Hx Tetanus Toxoid Vaccination: No Hx Influenza Vaccination: No Hx Pneumococcal Vaccination: Yes (2014) Review Of Systems Except As Marked, All Systems Reviewed And Found Negative. Constitutional: Negative for: Fever, Chills Cardiovascular: Negative for: Chest Pain Respiratory: Negative for: Shortness of Breath Gastrointestinal: Negative for: Nausea, Vomiting Musculoskeletal: Negative for: Leg Pain Neurological: Negative for: Weakness, Numbness Physical Exam - Physical Exam Appears: Non-toxic, No Acute Distress Skin: Warm, No Rash Head: Atraumatic, Normacephalic Chest: Symmetrical, No Tenderness Cardiovascular: Rhythm Regular, No Murmur Respiratory: Normal Breath Sounds, No Rales, No Rhonchi, No Stridor, No Wheezing Extremity: Other (Right Great Toe - Bandaged with right amputation.) Neurological/Psych: Oriented x3, Normal Speech, Normal Motor, Normal Sensation Gait: Steady ED Course And Treatment - Laboratory Results Result Diagrams: 07/20/17 11:32 07/20/17 11:32 O2 Sat by Pulse Oximetry: 97 (RA) Pulse Ox Interpretation: Normal Medical Decision Making Medical Decision Making: PLAN: * CXR * EKG * CBC * CMP Disposition - Disposition Disposition: HOSPITALIZED Disposition Time: 11:20 Condition: STABLE - Clinical Impression Clinical Impression: Diabetic foot infection, Hyperglycemia due to type 2 diabetes mellitus - Scribe Statement The provider has reviewed the documentation as recorded by the Kenneth Wright Provider Attestation: All medical record entries made by the Kenneth were at my direction and personally dictated by me. I have reviewed the chart and agree that the record accurately reflects my personal performance of the history, physical exam, medical decision making, and the department course for this patient. I have also personally directed, reviewed, and agree with the discharge instructions and disposition.
--- NOTE | 2017-07-20 16:40 | CP.PCM.CON ---
History of Present Illness - History of Present Illness History of Present Illness: Surgery: Dr. Marcelo covering for Dr. Larson CC: Non-healing R foot wound HPI: 41M w. pmh of HTN, hypercholesterolemia, DM, and osteomyelitis presents w. chronic non-healing R foot wound. Pt states that he first noticed a wound to his R big toes on March 27. He failed conservative management and underwent an amputations of the R big toes on 05/11/[address] Hooper. Since the operation, the wound has failed to heal. He most recently saw Dr. Hooper this past Sunday where the wound was further debrided and it was recommended that pt come to hospital for further management. Pt denies any pain to the affected area 2/2 diabetic neuropathy. He denies F/C. He does report having frequent night sweats which he attributes to his metformin use. He denies any changes in appetite, no N/V. 12 Pt ROS negative unless specified. PMH: See above PSH: R great toe amputation, tonsils Meds: MAR reviewed ALL: insulin glargine Social: social ETOH, former tobacco, no drugs Fhx: non-contributory Review of Systems - Review of Systems All systems: reviewed and no additional remarkable complaints except (HPI) Past Patient History - Past Medical History & Family History Past Medical History?: Yes - Past Social History Smoking Status: Former Smoker - CARDIAC Hx Hypercholesterolemia: Yes Hx Hypertension: Yes - PULMONARY Hx Asthma: Yes (last attack 8 years ago) Hx Pneumonia: Yes - NEUROLOGICAL Hx Neurological Disorder: No - HEENT Hx HEENT Problems: No - RENAL Hx Chronic Kidney Disease: No - ENDOCRINE/METABOLIC Hx Hyperthyroidism: No Hx Hypothyroidism: No - HEMATOLOGICAL/ONCOLOGICAL Hx Blood Disorders: No - INTEGUMENTARY Hx Dermatological Problems: No - MUSCULOSKELETAL/RHEUMATOLOGICAL Hx Arthritis: No Hx Fractures: No Hx Osteoporosis: No Hx Rheumatoid Arthritis: No - GASTROINTESTINAL Hx Gastrointestinal Disorders: Yes Other/Comment: colon problem - GENITOURINARY/GYNECOLOGICAL Hx Genitourinary Disorders: No - PSYCHIATRIC Hx Substance Use: Yes (former, denies usage now) - SURGICAL HISTORY Hx Tonsillectomy: Yes (during childhood) - ANESTHESIA Hx Anesthesia: Yes Hx Anesthesia Reactions: No Hx Malignant Hyperthermia: No Meds Allergies/Adverse Reactions: Allergies Allergy/AdvReac Type Severity Reaction Status Date / Time insulin glargine Allergy Mild RASH Verified 07/20/17 11:07 [From Lantus] - Medications Medications: Current Medications Gabapentin (Neurontin) 300 mg PO HS [facility] Heparin Sodium (Porcine) (Heparin) 5,000 units SC Q12 [facility] Stop: 07/22/17 10:00 Sodium Chloride (Sodium Chloride 0.9%) 1,000 mls @ 125 mls/hr IV .Q8H [facility] Last Admin: 07/20/17 12:53 Dose: 125 mls/hr Lisinopril (Zestril) 10 mg PO DAILY [facility] Metformin HCl (Glucophage) 1,000 mg PO BIDCC [facility] Physical Exam - Constitutional Appears: Non-toxic, No Acute Distress - Head Exam Head Exam: ATRAUMATIC, NORMOCEPHALIC - Eye Exam Eye Exam: EOMI. absent: Scleral icterus - ENT Exam ENT Exam: Mucous Membranes Moist, Normal External Ear Exam - Neck Exam Neck exam: Positive for: Full Rom - Respiratory Exam Respiratory Exam: NORMAL BREATHING PATTERN. absent: Accessory Muscle Use, Respiratory Distress - GI/Abdominal Exam GI & Abdominal Exam: Soft. absent: Tenderness - Extremities Exam Extremities exam: Negative for: calf tenderness, pedal edema Additional comments: dressing in place, C/D/I - Neurological Exam Neurological exam: Alert, Oriented x3 - Psychiatric Exam Psychiatric exam: Normal Affect, Normal Mood - Skin Skin Exam: Dry, Normal Color, Warm Results - Vital Signs Recent Vital Signs: Last Vital Signs Temp 98.4 F 07/20/17 15:01 Pulse 95 H 07/20/17 15:01 Resp 18 07/20/17 15:01 BP 171/96 H 07/20/17 15:01 Pulse Ox 96 07/20/17 15:01 - Labs Result Diagrams: 07/20/17 11:32 07/20/17 11:32 Labs: Laboratory Results - last 24 hr 07/20/17 07/20/17 07/20/17 11:32 11:32 11:32 WBC 10.4 RBC 5.60 Hgb 15.4 Hct 45.0 MCV 80.4 MCH 27.5 MCHC 34.2 RDW 15.2 H Plt Count 209 MPV 8.9 Neut % (Auto) 65.9 Lymph % (Auto) 26.2 [place] % (Auto) 5.5 Eos % (Auto) 1.9 Baso % (Auto) 0.5 Neut # 6.8 Lymph # 2.7 [place] # 0.6 Eos # 0.2 Baso # 0.1 PT 11.1 INR 1.0 APTT 35 H Sodium 134 Potassium 4.6 Chloride 96 L Carbon Dioxide 29 Anion Gap 14 BUN 16 Creatinine 0.6 L Est GFR ( Amer) > 60 Est GFR (Non-Af Amer) > 60 Random Glucose 292 H Calcium 10.0 Total Bilirubin 0.5 AST 31 ALT 49 Alkaline Phosphatase 75 Total Protein 8.3 Albumin 4.4 Globulin 3.8 Albumin/Globulin Ratio 1.2 Blood Type Antibody Screen 07/20/17 11:32 WBC RBC Hgb Hct MCV MCH MCHC RDW Plt Count MPV Neut % (Auto) Lymph % (Auto) [place] % (Auto) Eos % (Auto) Baso % (Auto) Neut # Lymph # [place] # Eos # Baso # PT INR APTT Sodium Potassium Chloride Carbon Dioxide Anion Gap BUN Creatinine Est GFR ( Amer) Est GFR (Non-Af Amer) Random Glucose Calcium Total Bilirubin AST ALT Alkaline Phosphatase Total Protein Albumin Globulin Albumin/Globulin Ratio Blood Type O POSITIVE Antibody Screen Negative Assessment & Plan - Assessment and Plan (Free Text) Assessment: 41M w. non-healing R foot wound -Arterial duplex ordered, f/u results -local wound care -will d/w attending Logan PGY3
--- NOTE | 2017-07-20 17:21 | CP.PCM.CON ---
History of Present Illness - History of Present Illness History of Present Illness: 41 yr old male presents to the ER sent to the ER for admission for right great toe surgery by his podiatry Dr. Hooper. Patient states he was seen by Dr. Hooper 3 days ago who requested to come in for a surgery today. Patient denies fever, chills, chest pain, SOB, nausea, vomiting, leg pain, weakness or numbness. patient signed out ama several wks back later had amputation great toe now with nonhealing ulcer at amputation site - Medical History PMH: Asthma (last attack 8 years ago), Diabetes, HTN, Hypercholesterolemia, Pneumonia Surgical History: Tonsillectomy (during childhood) - [facility] Procedures DETACHMENT AT RIGHT 1ST TOE, COMPLETE, OPEN APPROACH (05/06/17) DRAINAGE OF LEFT FOOT SKIN, EXTERNAL APPROACH (11/25/16) Review of Systems - Review of Systems All systems: reviewed and no additional remarkable complaints except - Constitutional Constitutional: As Per HPI - EENT Eyes: absent: As Per HPI, Blind Spots, Blurred Vision, Change in Vision, Decreased Night Vision, Diplopia, Discharge, Dry Eye, Exophthalmos, Floaters, Irritation, Itchy Eyes, Loss of Peripheral Vision, Pain, Photophobia, Requires Corrective Lenses, Sees Flashes, Spots in Vision, Tunnel Vision, Other Visual Disturbances, Loss of Vision, Other Ears: absent: As Per HPI, Decreased Hearing, Ear Discharge, Ear Pain, Tinnitus, Abnormal Hearing, Disequilibrium, Dizziness, Other Nose/Mouth/Throat: absent: As Per HPI, Epistaxis, Nasal Congestion, Nasal Discharge, Nasal Obstruction, Nasal Trauma, Nose Pain, Post Nasal Drip, Sinus Pain, Sinus Pressure, Bleeding Gums, Change in Voice, Dental Pain, Dry Mouth, Dysphagia, Halitosis, Hoarsness, Lip Swelling, Mouth Lesions, Mouth Pain, Odynophagia, Sore Throat, Throat Swelling, Tongue Swelling, Facial Pain, Neck Pain, Neck Mass, Other - Cardiovascular Cardiovascular: absent: As Per HPI, Acrocyanosis, Chest Pain, Chest Pain at Rest , Chest Pain with Activity, Claudication, Diaphoresis, Dyspnea, Dyspnea on Exertion, Edema, Irregular Heart Rhythm, Pain Radiating to Arm/Neck/Jaw, Leg Edema, Leg Ulcers, Lightheadedness, Orthopnea, Palpitations, Paroxysmal Nocturnal Dyspnea, Pedal Edema, Radiating Pain, Rapid Heart Rate, Slow Heart Rate, Syncope, Other - Respiratory Respiratory: absent: As Per HPI, Cough, Dyspnea, Hemoptysis, Dyspnea on Exertion , Wheezing, Snoring, Stridor, Pain on Inspiration, Chest Congestion, Excessive Mucous Production, Change in Mucous Color, Pain with Coughing, Other - Gastrointestinal Gastrointestinal: absent: As Per HPI, Abdominal Pain, Belching, Bloating, Change in Bowel Habits, Change in Stool Character, Coffee Ground Emesis, Constipation, Cramping, Diarrhea, Dyspepsia, Dysphagia, Early Satiety, Excessive Flatus, Fecal Incontinence, Heartburn, Hematemesis, Hematochezia, Loose Stools, Melena, Nausea, Odynophagia, Temesmus, Vomiting, Other - Genitourinary Genitourinary: absent: As Per HPI, Change in Urinary Stream, Difficulty Urinating, Dysuria, Flank Pain, Hematuria, Pyuria, Nocturia, Urinary Incontinence, Urinary Frequency, Urinary Hesitance, Urinary Urgency, Voiding Freq/Small Amts, Freq UTI, Hx Renal/Bladder Calculi, Hx /Renal Surgery, Bladder Distension, Other - Musculoskeletal Musculoskeletal: As Per HPI - Integumentary Integumentary: As Per HPI, Skin Pain, Wounds - Neurological Neurological: absent: As Per HPI, Abnormal Gait, Abnormal Hearing, Abnormal Movements, Abnormal Speech, Behavioral Changes, Burning Sensations, Confusion, Convulsions, Disequilibrium, Dizziness, Numbness, Focal Weakness, Frequent Falls , Headaches, Lack of Coordination, Loss of Vision, Memory Loss, Paresthesias, Radicular Pain, Restless Legs, Sensory Deficit, Syncope, Tingling, Tremor, Vertigo, Weakness, Other Visual Disturbances, Other - Psychiatric Psychiatric: absent: As Per HPI, Abnormal Sleep Pattern, Anhedonia, Anxiety, Auditory Hallucinations, Behavioral Changes, Change in Appetite, Change in Libido, Confusion, Depression, Difficulty Concentrating, Hallucinations, Homicidal Ideation, Hopelessness, Irritability, Memory Loss, Mood Swings, Panic Attacks, Paranoia, Suicidal Ideation, Visual Hallucinations, Tactile Hallucinations, Other - Endocrine Endocrine: absent: As Per HPI, Change in Body Appearance, Change in Libido, Cold Intolorance, Deepening of Voice, Excessive Sweating, Fatigue, Flushing, Heat Intolorance, Increase in Ring/Shoe/Hat Size, Palpitations, Polydipsia, Polyphagia, Polyuria, Other - Hematologic/Lymphatic Hematologic: absent: As Per HPI, Easy Bleeding, Easy Bruising, Lymphadenopathy, Other Past Patient History - Past Medical History & Family History Past Medical History?: Yes - Past Social History Smoking Status: Former Smoker - CARDIAC Hx Hypercholesterolemia: Yes Hx Hypertension: Yes - PULMONARY Hx Asthma: Yes (last attack 8 years ago) Hx Pneumonia: Yes - NEUROLOGICAL Hx Neurological Disorder: No - HEENT Hx HEENT Problems: No - RENAL Hx Chronic Kidney Disease: No - ENDOCRINE/METABOLIC Hx Hyperthyroidism: No Hx Hypothyroidism: No - HEMATOLOGICAL/ONCOLOGICAL Hx Blood Disorders: No - INTEGUMENTARY Hx Dermatological Problems: No - MUSCULOSKELETAL/RHEUMATOLOGICAL Hx Arthritis: No Hx Fractures: No Hx Osteoporosis: No Hx Rheumatoid Arthritis: No - GASTROINTESTINAL Hx Gastrointestinal Disorders: Yes Other/Comment: colon problem - GENITOURINARY/GYNECOLOGICAL Hx Genitourinary Disorders: No - PSYCHIATRIC Hx Substance Use: Yes (former, denies usage now) - SURGICAL HISTORY Hx Tonsillectomy: Yes (during childhood) - ANESTHESIA Hx Anesthesia: Yes Hx Anesthesia Reactions: No Hx Malignant Hyperthermia: No Meds Allergies/Adverse Reactions: Allergies Allergy/AdvReac Type Severity Reaction Status Date / Time insulin glargine Allergy Mild RASH Verified 07/20/17 11:07 [From Lantus] - Medications Medications: Current Medications Gabapentin (Neurontin) 300 mg PO HS [facility] Heparin Sodium (Porcine) (Heparin) 5,000 units SC Q12 [facility] Stop: 07/22/17 10:00 Sodium Chloride (Sodium Chloride 0.9%) 1,000 mls @ 125 mls/hr IV .Q8H [facility] Last Admin: 07/20/17 17:14 Dose: 125 mls/hr Lisinopril (Zestril) 10 mg PO DAILY [facility] Metformin HCl (Glucophage) 1,000 mg PO BIDCC [facility] Last Admin: 07/20/17 17:17 Dose: 1,000 mg Physical Exam - Constitutional Appears: Non-toxic, Chronically Ill - Head Exam Head Exam: NORMOCEPHALIC - Eye Exam Eye Exam: PERRL. absent: Scleral icterus - ENT Exam ENT Exam: Mucous Membranes Dry, Normal External Ear Exam - Neck Exam Neck exam: Negative for: Lymphadenopathy - Respiratory Exam Respiratory Exam: Decreased Breath Sounds - Cardiovascular Exam Cardiovascular Exam: REGULAR RHYTHM - GI/Abdominal Exam GI & Abdominal Exam: Diminished Bowel Sounds - Rectal Exam Rectal Exam: Deferred - Exam Exam: NORMAL INSPECTION - Extremities Exam Extremities exam: Positive for: pedal edema, tenderness, pedal pulses present. Negative for: calf tenderness Additional comments: ulcer at amp site right foot graeat toe met head exposed ? - Back Exam Back exam: absent: CVA tenderness (L), CVA tenderness (R) - Neurological Exam Neurological exam: Alert, CN II-XII Intact, Oriented x3, Reflexes Normal - Psychiatric Exam Psychiatric exam: Depressed - Skin Skin Exam: Dry Results - Vital Signs Recent Vital Signs: Last Vital Signs Temp 98.3 F 07/20/17 17:03 Pulse 99 H 07/20/17 17:03 Resp 20 07/20/17 17:03 BP 128/82 07/20/17 17:03 Pulse Ox 97 07/20/17 17:03 - Labs Result Diagrams: 07/20/17 11:32 07/20/17 11:32 Labs: Laboratory Results - last 24 hr 07/20/17 07/20/17 07/20/17 11:32 11:32 11:32 WBC 10.4 RBC 5.60 Hgb 15.4 Hct 45.0 MCV 80.4 MCH 27.5 MCHC 34.2 RDW 15.2 H Plt Count 209 MPV 8.9 Neut % (Auto) 65.9 Lymph % (Auto) 26.2 [place] % (Auto) 5.5 Eos % (Auto) 1.9 Baso % (Auto) 0.5 Neut # 6.8 Lymph # 2.7 [place] # 0.6 Eos # 0.2 Baso # 0.1 PT 11.1 INR 1.0 APTT 35 H Sodium 134 Potassium 4.6 Chloride 96 L Carbon Dioxide 29 Anion Gap 14 BUN 16 Creatinine 0.6 L Est GFR ( Amer) > 60 Est GFR (Non-Af Amer) > 60 POC Glucose (mg/dL) Random Glucose 292 H Calcium 10.0 Total Bilirubin 0.5 AST 31 ALT 49 Alkaline Phosphatase 75 Total Protein 8.3 Albumin 4.4 Globulin 3.8 Albumin/Globulin Ratio 1.2 Blood Type Antibody Screen 07/20/17 07/20/17 11:32 16:47 WBC RBC Hgb Hct MCV MCH MCHC RDW Plt Count MPV Neut % (Auto) Lymph % (Auto) [place] % (Auto) Eos % (Auto) Baso % (Auto) Neut # Lymph # [place] # Eos # Baso # PT INR APTT Sodium Potassium Chloride Carbon Dioxide Anion Gap BUN Creatinine Est GFR ( Amer) Est GFR (Non-Af Amer) POC Glucose (mg/dL) 189 H Random Glucose Calcium Total Bilirubin AST ALT Alkaline Phosphatase Total Protein Albumin Globulin Albumin/Globulin Ratio Blood Type O POSITIVE Antibody Screen Negative Assessment & Plan (1) Cellulitis Status: Acute (2) Diabetic foot infection Status: Acute (3) Foot pain, right Status: Acute (4) Infected wound Status: Acute (5) Pneumonia Status: Acute - Assessment and Plan (Free Text) Assessment: for revision of amp site culture bone please IV antibiotics post op min 7 days
[2017-07-20] MEDS ORDERED: Naproxen 550 mg Tab PO SCH (19:00)
--- NOTE | 2017-07-20 19:04 | CP.PCM.HP ---
Past Patient History - Past Medical History & Family History Past Medical History?: Yes - Past Social History Smoking Status: Former Smoker - CARDIAC Hx Cardiac Disorders: Yes Hx Hypercholesterolemia: Yes Hx Hypertension: Yes - PULMONARY Hx Respiratory Disorders: Yes Hx Asthma: Yes (last attack 8 years ago) Hx Pneumonia: Yes - NEUROLOGICAL Hx Neurological Disorder: No - HEENT Hx HEENT Problems: No - RENAL Hx Chronic Kidney Disease: No - ENDOCRINE/METABOLIC Hx Endocrine Disorders: Yes Hx Diabetes Mellitus Type 1: Yes - HEMATOLOGICAL/ONCOLOGICAL Hx Blood Disorders: No - INTEGUMENTARY Hx Dermatological Problems: No - MUSCULOSKELETAL/RHEUMATOLOGICAL Hx Musculoskeletal Disorders: Yes Hx Herniated Disk: Yes Hx Osteomyelitis: Yes (R foot) - GASTROINTESTINAL Hx Gastrointestinal Disorders: Yes Other/Comment: colon problem - GENITOURINARY/GYNECOLOGICAL Hx Genitourinary Disorders: No - PSYCHIATRIC Hx Substance Use: Yes (former, denies usage now) - SURGICAL HISTORY Hx Surgeries: Yes Hx Amputation: Yes (S/P R GREAT TOE) Hx Tonsillectomy: Yes (during childhood) - ANESTHESIA Hx Anesthesia: Yes Hx Anesthesia Reactions: No Hx Malignant Hyperthermia: No Meds Allergies/Adverse Reactions: Allergies Allergy/AdvReac Type Severity Reaction Status Date / Time insulin glargine Allergy Mild RASH Verified 07/20/17 11:07 [From Lantus] Physical Exam - Constitutional Appears: Well - Head Exam Head Exam: ATRAUMATIC, NORMAL INSPECTION, NORMOCEPHALIC - Eye Exam Eye Exam: EOMI, Normal appearance, PERRL Pupil Exam: NORMAL ACCOMODATION, PERRL - ENT Exam ENT Exam: Mucous Membranes Moist, Normal Exam - Neck Exam Neck exam: Positive for: Normal Inspection - Respiratory Exam Respiratory Exam: Decreased Breath Sounds - Cardiovascular Exam Cardiovascular Exam: REGULAR RHYTHM, +S1, +S2 - GI/Abdominal Exam GI & Abdominal Exam: Diminished Bowel Sounds, Soft - Rectal Exam Rectal Exam: Deferred Results - Vital Signs Recent Vital Signs: Last Vital Signs Temp 98.3 F 07/20/17 17:03 Pulse 99 H 07/20/17 17:03 Resp 20 07/20/17 17:03 BP 128/82 07/20/17 17:03 Pulse Ox 97 07/20/17 18:39 - Labs Result Diagrams: 07/20/17 11:32 07/20/17 11:32 Labs: Laboratory Results - last 24 hr 07/20/17 07/20/1707/20/17 11:32 11:32 11:32 WBC 10.4 RBC 5.60 Hgb 15.4 Hct 45.0 MCV 80.4 MCH 27.5 MCHC 34.2 RDW 15.2 H Plt Count 209 MPV 8.9 Neut % (Auto) 65.9 Lymph % (Auto) 26.2 [place] % (Auto) 5.5 Eos % (Auto) 1.9 Baso % (Auto) 0.5 Neut # 6.8 Lymph # 2.7 [place] # 0.6 Eos # 0.2 Baso # 0.1 PT 11.1 INR 1.0 APTT 35 H Sodium 134 Potassium 4.6 Chloride 96 L Carbon Dioxide 29 Anion Gap 14 BUN 16 Creatinine 0.6 L Est GFR ( Amer) > 60 Est GFR (Non-Af Amer) > 60 POC Glucose (mg/dL) Random Glucose 292 H Calcium 10.0 Total Bilirubin 0.5 AST 31 ALT 49 Alkaline Phosphatase 75 Total Protein 8.3 Albumin 4.4 Globulin 3.8 Albumin/Globulin Ratio 1.2 Blood Type Antibody Screen 07/20/17 07/20/17 11:32 16:47 WBC RBC Hgb Hct MCV MCH MCHC RDW Plt Count MPV Neut % (Auto) Lymph % (Auto) [place] % (Auto) Eos % (Auto) Baso % (Auto) Neut # Lymph # [place] # Eos # Baso # PT INR APTT Sodium Potassium Chloride Carbon Dioxide Anion Gap BUN Creatinine Est GFR ( Amer) Est GFR (Non-Af Amer) POC Glucose (mg/dL) 189 H Random Glucose Calcium Total Bilirubin AST ALT Alkaline Phosphatase Total Protein Albumin Globulin Albumin/Globulin Ratio Blood Type O POSITIVE Antibody Screen Negative Assessment & Plan - Assessment and Plan (Free Text) Plan: Follow-up with ID follow-up with a assistant manager pt Follow-up with the vascular surgeon Continue Rocephin as ordered by the ID Septic workup Possible surgery by assistant manager pt GI and DVT prophylaxis IV fluids As ordered
[2017-07-20] MEDS ORDERED: Naproxen 550 mg Tab PO PRN (19:09)
[2017-07-20] MEDS: cefTRIAXone 2 GM IN NS 2 GM/100 ML BAG IVPB SCH (20:15)
[2017-07-20] MEDS: (Novolog Mix 70/30) Insulin Aspart/Insulin Aspar 100 units/ml SC SCH (21:52)
[2017-07-20] MEDS: (Novolog) Insulin Aspart, Recombinant 100 u/ml 10 ml vial SC SCH (21:58)
[2017-07-21] MEDS: Sodium Chloride 0.9% 1,000 ML IV SCH ×3 (04:00→20:08)
[2017-07-21 07:04] LABS: BASO % 0.5 % (0.0-2.0); EOS # 0.2 K/uL (0.0-0.7); EOS % 2.4 % (0.0-4.0); HEMATOCRIT 39.8 % (35.0-51.0); LYMPH # 3.5 K/uL (1.0-4.3); LYMPH % 33.7 % (20.0-40.0); MEAN CELL VOLUME 80.1 fL (80.0-94.0); MEAN CORPUSCULAR HEMOGLOBIN 27.5 pg (27.0-31.0); MEAN CORPUSCULAR HGB CONC 34.3 g/dL (33.0-37.0); MEAN PLATELET VOLUME 8.8 fL (7.2-11.7); MONO # 0.7 K/uL (0.0-0.8); MONO % 6.5 % (0.0-10.0); RED CELL DISTRIBUTION WIDTH 15.2 % (11.5-14.5); WHITE BLOOD COUNT 10.2 K/uL (4.8-10.8)
[2017-07-21 07:11] LABS: CHLORIDE 101 mmol/L (98-107); SODIUM 138 mmol/L (132-148)
[2017-07-21 07:12] LABS: POTASSIUM 4.6 mmol/L (3.6-5.2)
[2017-07-21 07:14] LABS: ALB/GLOB RATIO 1.1 (1.0-2.1); ALKALINE PHOSPHATASE 53 U/L (38-126); ALT/SGPT 46 U/L (21-72); AST/SGOT 26 U/L (17-59); BILIRUBIN,TOTAL 0.4 mg/dL (0.2-1.3); BLOOD UREA NITROGEN 15 mg/dL (9-20); CALCIUM 8.9 mg/dl (8.6-10.4); CARBON DIOXIDE 26 mmol/L (22-30); GFR AFRICAN-AMERICAN > 60; GLUCOSE,RANDOM 127 mg/dL (75-110); TOTAL PROTEIN 6.7 g/dL (6.3-8.3)
[2017-07-21] MEDS: (Novolog) Insulin Aspart, Recombinant 100 u/ml 10 ml vial SC SCH ×4 (08:15→21:46)
--- NOTE | 2017-07-21 08:27 | CP.PCM.PN ---
Subjective - Date & Time of Evaluation Date of Evaluation: 07/21/17 Time of Evaluation: 07:00 - Subjective Subjective: Vascular Surgery Dr. Larson Pt S&E @bedside. NAEO. pt reports having outpatient arterial duplex done in March, which revealed good blood supply to RLE. pt denies pain, F/C, N/V. tolerating diet. Objective - Vital Signs/Intake and Output Vital Signs (last 24 hours): Temp Pulse Resp BP Pulse Ox 97.9 F 81 20 154/90 H 98 07/21/17 07:52 07/21/17 07:52 07/21/17 07:52 07/21/17 07:52 07/21/17 07:52 Intake and Output: 07/21/17 07/21/17 06:59 18:59 Intake Total 1225 Balance 1225 - Medications Medications: Current Medications Escitalopram Oxalate (Lexapro) 10 mg PO HS [facility] Last Admin: 07/20/17 21:50 Dose: 10 mg Gabapentin (Neurontin) 300 mg PO [facility] Last Admin: 07/20/17 21:50 Dose: 300 mg Heparin Sodium (Porcine) (Heparin) 5,000 units SC Q12 [facility] Stop: 07/22/17 10:00 Last Admin: 07/20/17 21:54 Dose: 5,000 units Sodium Chloride (Sodium Chloride 0.9%) 1,000 mls @ 125 mls/hr IV .Q8H [facility] Last Admin: 07/21/17 04:00 Dose: 125 mls/hr Ceftriaxone Sodium (Rocephin 2 Gm Ivpb) 2 gm in 100 mls @ 100 mls/hr IVPB Q24H [facility] Last Admin: 07/20/17 20:15 Dose: 100 mls/hr Insulin Aspart (Novolog Mix 70/30 (70/30 Units/Ml)) 30 units SC Q12 [facility] Last Admin: 07/20/17 21:52 Dose: 30 units Insulin Aspart (Novolog) 0 unit SC ACHS [facility] PRN Reason: Protocol Last Admin: 07/20/17 21:58 Dose: Not Given Lisinopril (Zestril) 10 mg PO DAILY [facility] Metformin HCl (Glucophage) 1,000 mg PO BIDCC [facility] Last Admin: 07/20/17 17:17 Dose: 1,000 mg Mupirocin (Bactroban Ointment) 1 gm TOP BID [facility] Naproxen (Anaprox Ds) 500 mg PO Q12H PRN PRN Reason: Pain, moderate (4-7) Pantoprazole Sodium (Protonix Ec Tab) 40 mg PO DAILY [facility] Rosuvastatin Calcium (Crestor) 5 mg PO HS [facility] Last Admin: 07/20/17 21:50 Dose: 5 mg - Labs Labs: 07/21/17 06:55 07/21/17 06:55 PT 11.1 SECONDS (9.7-12.2) 07/20/17 11:32 INR 1.0 07/20/17 11:32 APTT 35 SECONDS (21-34) H 07/20/17 11:32 - Constitutional Appears: Non-toxic, No Acute Distress - Head Exam Head Exam: NORMAL INSPECTION - Eye Exam Eye Exam: Normal appearance - ENT Exam ENT Exam: Mucous Membranes Moist - Respiratory Exam Respiratory Exam: NORMAL BREATHING PATTERN. absent: Accessory Muscle Use, Respiratory Distress - GI/Abdominal Exam GI & Abdominal Exam: Soft. absent: Distended, Tenderness - Extremities Exam Extremities Exam: absent: Pedal Edema Additional comments: R foot dressing c/d/i - Neurological Exam Neurological Exam: Alert, Awake, Oriented x3 - Psychiatric Exam Psychiatric exam: Normal Affect, Normal Mood - Skin Skin Exam: Dry, Normal Color, Warm Assessment and Plan - Assessment and Plan (Free Text) Assessment: 41 y/o M w/ non-healing R foot wound - cont Abx per ID - f/u arterial duplex - cont wound care per Podiatry Will discuss w/ Dr. Marcelo (covering Dr. Larson) Georgia Walker DO PGY2
[2017-07-21] MEDS: Pantoprazole 40 mg EC Tab PO SCH (09:41)
[2017-07-21] MEDS: (Novolog Mix 70/30) Insulin Aspart/Insulin Aspar 100 units/ml SC SCH ×2 (09:42→21:47)
--- NOTE | 2017-07-21 18:14 | CP.PCM.PN ---
<Hina Nguyen - Last Filed: 07/21/17 18:05> Subjective - Date & Time of Evaluation Date of Evaluation: 07/21/17 Time of Evaluation: 12:00 - Subjective Subjective: Podiatry Consult Note - Dr. Hooper 41 year old male patient seen at bedside concerning right foot non-healing post- surgical wound following right great toe amputation (DOS 05/11/17). Patient seen resting comfortably at time of visit. Patient denies any pain to his wound. Patient aware he is scheduled for surgery on Sunday for revision of amputation. Patient aware he will be NPO at midnight on Sunday. Patient denies N/V/F/D/C/SOB /calf pain. Offers no other pedal complaints at this time. Objective - Vital Signs/Intake and Output Vital Signs (last 24 hours): Temp Pulse Resp BP Pulse Ox 98.1 F 88 20 148/81 97 07/21/17 16:00 07/21/17 16:00 07/21/17 16:00 07/21/17 16:00 07/21/17 16:00 Intake and Output: 07/21/17 07/21/17 06:59 18:59 Intake Total 1225 1350 Balance 1225 1350 - Medications Medications: Current Medications Escitalopram Oxalate (Lexapro) 10 mg PO HS [facility] Last Admin: 07/20/17 21:50 Dose: 10 mg Gabapentin (Neurontin) 300 mg PO HS [facility] Last Admin: 07/20/17 21:50 Dose: 300 mg Heparin Sodium (Porcine) (Heparin) 5,000 units SC Q12 [facility] Stop: 07/22/17 10:00 Last Admin: 07/21/17 09:42 Dose: 5,000 units Sodium Chloride (Sodium Chloride 0.9%) 1,000 mls @ 125 mls/hr IV .Q8H [facility] Last Admin: 07/21/17 11:00 Dose: 125 mls/hr Ceftriaxone Sodium (Rocephin 2 Gm Ivpb) 2 gm in 100 mls @ 100 mls/hr IVPB Q24H [facility] Last Admin: 07/20/17 20:15 Dose: 100 mls/hr Insulin Aspart (Novolog Mix 70/30 (70/30 Units/Ml)) 30 units SC Q12 [facility] Last Admin: 07/21/17 09:42 Dose: 30 units Insulin Aspart (Novolog) 0 unit SC ACHS [facility] PRN Reason: Protocol Last Admin: 07/21/17 17:27 Dose: 1 unit Lisinopril (Zestril) 10 mg PO DAILY [facility] Last Admin: 07/21/17 09:41 Dose: 10 mg Metformin HCl (Glucophage) 1,000 mg PO BIDCC [facility] Last Admin: 07/21/17 17:44 Dose: 1,000 mg Mupirocin (Bactroban Ointment) 1 gm TOP BID [facility] Last Admin: 07/21/17 17:54 Dose: Not Given Naproxen (Anaprox Ds) 500 mg PO Q12H PRN PRN Reason: Pain, moderate (4-7) Pantoprazole Sodium (Protonix Ec Tab) 40 mg PO DAILY [facility] Last Admin: 07/21/17 09:41 Dose: 40 mg Rosuvastatin Calcium (Crestor) 5 mg PO HS [facility] Last Admin: 07/20/17 21:50 Dose: 5 mg - Labs Labs: 07/21/17 06:55 07/21/17 06:55 PT 11.1 SECONDS (9.7-12.2) 07/20/17 11:32 INR 1.0 07/20/17 11:32 APTT 35 SECONDS (21-34) H 07/20/17 11:32 - Constitutional Appears: Well, Non-toxic, No Acute Distress - Extremities Exam Additional comments: Right lower extremity focused. VASC: DP and PT pulses fully palpable graded 2/4. No pitting edema noted. DERM: Full thickness ulceration noted at great toe amputation site measuring 2 x 0.5cm Wound base is fibro-granular, absent and purulent drainage. No scott- wound erythema noted. No malodor noted. NEURO: Protective sensation grossly diminished. MUSK: Silverskoid test reveals gastroc-equinus . No other gross deformities noted - Neurological Exam Neurological Exam: Alert, Awake, Oriented x3 - Psychiatric Exam Psychiatric exam: Normal Affect, Normal Mood Assessment and Plan - Assessment and Plan (Free Text) Assessment: 41 year old male with right foot non-healing amputation site. Plan: Patient seen and evaluated with attending, Dr. Hooper Labs and vitals reviewed = afebrile, WBC 10.2 Bactroban applied to wound and dressed with DSD To OR on Sunday, 07/23 for revisional 1st metatarsal head resection - Dr. Reich requesting bone biopsy Continue abx per ID - Ceftriaxone; patient will need minimum 7 days post op Follow up medical clearance - Spoke with KEVAN [place] - will obtain clearance this weekend, also plan to hold heparin Patient will be NPO past midnight on Sunday. Podiatry will continue to follow patient while in house <Jovanny Hooper - Last Filed: 07/22/17 20:03> Objective - Vital Signs/Intake and Output Vital Signs (last 24 hours): Temp Pulse Resp BP Pulse Ox 98 F 84 20 145/88 97 07/22/17 15:00 07/22/17 15:00 07/22/17 15:00 07/22/17 15:00 07/22/17 15:00 Intake and Output: 07/22/17 07/23/17 18:59 06:59 Intake Total 1450 Balance 1450 - Medications Medications: Current Medications Escitalopram Oxalate (Lexapro) 10 mg PO HS [facility] Last Admin: 07/21/17 21:46 Dose: 10 mg Gabapentin (Neurontin) 300 mg PO HS [facility] Last Admin: 07/21/17 21:46 Dose: 300 mg Sodium Chloride (Sodium Chloride 0.9%) 1,000 mls @ 125 mls/hr IV .Q8H [facility] Last Admin: 07/22/17 17:26 Dose: 125 mls/hr Ceftriaxone Sodium 2 gm/ (Sodium Chloride) 100 mls @ 100 mls/hr IVPB Q24H [facility] Insulin Aspart (Novolog Mix 70/30 (70/30 Units/Ml)) 30 units SC Q12 [facility] Last Admin: 07/22/17 09:56 Dose: 30 units Insulin Aspart (Novolog) 0 unit SC ACHS [facility] PRN Reason: Protocol Last Admin: 07/22/17 17:25 Dose: Not Given Lisinopril (Zestril) 10 mg PO DAILY [facility] Last Admin: 07/22/17 09:56 Dose: 10 mg Metformin HCl (Glucophage) 1,000 mg PO BIDCC [facility] Last Admin: 07/22/17 17:24 Dose: 1,000 mg Mupirocin (Bactroban Ointment) 1 gm TOP BID [facility] Last Admin: 07/22/17 09:57 Dose: 1 applic Naproxen (Anaprox Ds) 500 mg PO Q12H PRN PRN Reason: Pain, moderate (4-7) Pantoprazole Sodium (Protonix Ec Tab) 40 mg PO DAILY [facility] Last Admin: 07/22/17 09:56 Dose: 40 mg Rosuvastatin Calcium (Crestor) 5 mg PO HS [facility] Last Admin: 07/21/17 21:46 Dose: 5 mg - Labs Labs: 07/21/17 06:55 07/21/17 06:55 PT 11.1 SECONDS (9.7-12.2) 07/20/17 11:32 INR 1.0 07/20/17 11:32 APTT 35 SECONDS (21-34) H 07/20/17 11:32 Attending/Attestation - Attestation I have personally seen and examined this patient.: Yes I have fully participated in the care of the patient.: Yes I have reviewed all pertinent clinical information, including history, physical exam and plan: Yes Notes (Text): 07/22/17 20:00 Pt seen at bedside for f/u right amp ulcer. Pt educated on revision of amp site with met head resection and sesamoid removal. Pt understands all risks and alternatives and understands that this is a limb salvage operation and if healing is compromised future surgery and/or limbloss is possible. Pt consents to procedure and is scheduled for Sunday at 12:30 PM.
--- NOTE | 2017-07-21 18:53 | CP.PCM.PN ---
Subjective - Date & Time of Evaluation Date of Evaluation: 07/21/17 Time of Evaluation: 07:40 - Subjective Subjective: clinically same Objective - Vital Signs/Intake and Output Vital Signs (last 24 hours): Temp Pulse Resp BP Pulse Ox 98.1 F 88 20 148/81 97 07/21/17 16:00 07/21/17 16:00 07/21/17 16:00 07/21/17 16:00 07/21/17 16:00 Intake and Output: 07/21/17 07/21/17 06:59 18:59 Intake Total 1225 1350 Balance 1225 1350 - Medications Medications: Current Medications Escitalopram Oxalate (Lexapro) 10 mg PO HS [facility] Last Admin: 07/20/17 21:50 Dose: 10 mg Gabapentin (Neurontin) 300 mg PO HS [facility] Last Admin: 07/20/17 21:50 Dose: 300 mg Heparin Sodium (Porcine) (Heparin) 5,000 units SC Q12 [facility] Stop: 07/22/17 10:00 Last Admin: 07/21/17 09:42 Dose: 5,000 units Sodium Chloride (Sodium Chloride 0.9%) 1,000 mls @ 125 mls/hr IV .Q8H [facility] Last Admin: 07/21/17 11:00 Dose: 125 mls/hr Ceftriaxone Sodium (Rocephin 2 Gm Ivpb) 2 gm in 100 mls @ 100 mls/hr IVPB Q24H [facility] Last Admin: 07/20/17 20:15 Dose: 100 mls/hr Insulin Aspart (Novolog Mix 70/30 (70/30 Units/Ml)) 30 units SC Q12 [facility] Last Admin: 07/21/17 09:42 Dose: 30 units Insulin Aspart (Novolog) 0 unit SC ACHS [facility] PRN Reason: Protocol Last Admin: 07/21/17 17:27 Dose: 1 unit Lisinopril (Zestril) 10 mg PO DAILY [facility] Last Admin: 07/21/17 09:41 Dose: 10 mg Metformin HCl (Glucophage) 1,000 mg PO BIDCC [facility] Last Admin: 07/21/17 17:44 Dose: 1,000 mg Mupirocin (Bactroban Ointment) 1 gm TOP BID [facility] Last Admin: 07/21/17 17:54 Dose: Not Given Naproxen (Anaprox Ds) 500 mg PO Q12H PRN PRN Reason: Pain, moderate (4-7) Pantoprazole Sodium (Protonix Ec Tab) 40 mg PO DAILY [facility] Last Admin: 07/21/17 09:41 Dose: 40 mg Rosuvastatin Calcium (Crestor) 5 mg PO HS [facility] Last Admin: 07/20/17 21:50 Dose: 5 mg - Labs Labs: 07/21/17 06:55 07/21/17 06:55 PT 11.1 SECONDS (9.7-12.2) 07/20/17 11:32 INR 1.0 07/20/17 11:32 APTT 35 SECONDS (21-34) H 07/20/17 11:32
--- NOTE | 2017-07-21 19:15 | RAD ---
PROCEDURE: Right Foot Radiographs. HISTORY: r/o soft tissue emphysema COMPARISON: Comparison is made to 05/11/2017 FINDINGS: BONES: Status post amputation of the 1st toe. JOINTS: Mild arthritic changes. SOFT TISSUES: No radiographic evidence of soft tissue pneumatosis. OTHER FINDINGS: None. IMPRESSION: No evidence of acute pathology.
[2017-07-21] MEDS: cefTRIAXone 2 GM IN NS 2 GM/100 ML BAG IVPB SCH (20:15)
[2017-07-22] MEDS: Sodium Chloride 0.9% 1,000 ML IV SCH ×3 (03:52→17:26)
--- NOTE | 2017-07-22 05:42 | CP.PCM.PN ---
Subjective - Date & Time of Evaluation Date of Evaluation: 07/22/17 Time of Evaluation: 05:10 - Subjective Subjective: Patient seen and examined this AM. JASEEO. Patient reports back pain but no pain in feet, denies fevers, chills, SOB. Objective - Vital Signs/Intake and Output Vital Signs (last 24 hours): Temp Pulse Resp BP Pulse Ox 98.2 F 93 H 20 156/80 H 98 07/22/17 00:00 07/22/17 00:00 07/22/17 00:00 07/22/17 00:00 07/22/17 00:00 Intake and Output: 07/21/17 07/22/17 18:59 06:59 Intake Total 1350 1450 Balance 1350 1450 - Medications Medications: Current Medications Escitalopram Oxalate (Lexapro) 10 mg PO HS [facility] Last Admin: 07/21/17 21:46 Dose: 10 mg Gabapentin (Neurontin) 300 mg PO HS [facility] Last Admin: 07/21/17 21:46 Dose: 300 mg Heparin Sodium (Porcine) (Heparin) 5,000 units SC Q12 [facility] Stop: 07/22/17 10:00 Last Admin: 07/21/17 21:46 Dose: 5,000 units Sodium Chloride (Sodium Chloride 0.9%) 1,000 mls @ 125 mls/hr IV .Q8H [facility] Last Admin: 07/22/17 03:52 Dose: Not Given Ceftriaxone Sodium (Rocephin 2 Gm Ivpb) 2 gm in 100 mls @ 100 mls/hr IVPB Q24H [facility] Last Admin: 07/21/17 20:15 Dose: 100 mls/hr Insulin Aspart (Novolog Mix 70/30 (70/30 Units/Ml)) 30 units SC Q12 [facility] Last Admin: 07/21/17 21:47 Dose: 30 units Insulin Aspart (Novolog) 0 unit SC ACHS [facility] PRN Reason: Protocol Last Admin: 07/21/17 21:46 Dose: Not Given Lisinopril (Zestril) 10 mg PO DAILY [facility] Last Admin: 07/21/17 09:41 Dose: 10 mg Metformin HCl (Glucophage) 1,000 mg PO BIDCC [facility] Last Admin: 07/21/17 17:44 Dose: 1,000 mg Mupirocin (Bactroban Ointment) 1 gm TOP BID [facility] Last Admin: 07/21/17 17:54 Dose: Not Given Naproxen (Anaprox Ds) 500 mg PO Q12H PRN PRN Reason: Pain, moderate (4-7) Pantoprazole Sodium (Protonix Ec Tab) 40 mg PO DAILY [facility] Last Admin: 07/21/17 09:41 Dose: 40 mg Rosuvastatin Calcium (Crestor) 5 mg PO HS [facility] Last Admin: 07/21/17 21:46 Dose: 5 mg - Labs Labs: 07/21/17 06:55 07/21/17 06:55 PT 11.1 SECONDS (9.7-12.2) 07/20/17 11:32 INR 1.0 07/20/17 11:32 APTT 35 SECONDS (21-34) H 07/20/17 11:32 - Constitutional Appears: Non-toxic, No Acute Distress - Head Exam Head Exam: ATRAUMATIC, NORMOCEPHALIC - Eye Exam Eye Exam: Normal appearance. absent: Conjunctival injection, Scleral icterus - ENT Exam ENT Exam: Mucous Membranes Moist, Normal Oropharynx - Respiratory Exam Respiratory Exam: NORMAL BREATHING PATTERN. absent: Accessory Muscle Use, Respiratory Distress - Cardiovascular Exam Cardiovascular Exam: RRR - GI/Abdominal Exam GI & Abdominal Exam: Soft. absent: Distended, Tenderness - Extremities Exam Extremities Exam: absent: Calf Tenderness, Pedal Edema, Tenderness Additional comments: right foot with chronic ulcer over the great toe amputation site. No drainage, bleeding, or foul odor. Faint TP, non-palpable DP. left foot normal color, no wounds, palpable DP and PT. - Neurological Exam Neurological Exam: Alert, Awake, Oriented x3 - Psychiatric Exam Psychiatric exam: Normal Affect, Normal Mood - Skin Skin Exam: Dry, Normal Color, Warm Assessment and Plan - Assessment and Plan (Free Text) Assessment: 41 y/o M w/ non-healing R foot wound Plan: - cont Abx per ID - f/u arterial duplex and MICKIE/PVR - cont wound care per Podiatry - PT - Further surgical planning pending results of vascular studies Will discuss w/ Dr. Marcelo (covering Dr. Larson) Beata De La Cruz, PGY2
[2017-07-22] MEDS: (Novolog) Insulin Aspart, Recombinant 100 u/ml 10 ml vial SC SCH ×4 (08:18→21:35)
[2017-07-22] MEDS: Pantoprazole 40 mg EC Tab PO SCH (09:56)
[2017-07-22] MEDS: (Novolog Mix 70/30) Insulin Aspart/Insulin Aspar 100 units/ml SC SCH ×2 (09:56→21:34)
[2017-07-22] MEDS ORDERED: Influenza Vaccine 60 mcg/0.5 mL SYR (4YR UP) IM ONE (10:00)
--- NOTE | 2017-07-22 12:27 | CP.PCM.PN ---
Subjective - Date & Time of Evaluation Date of Evaluation: 07/22/17 Time of Evaluation: 12:26 - Subjective Subjective: Podiatry Consult Note - Dr. Hooper 41 year old male patient seen at bedside concerning right foot non-healing post- surgical wound following right great toe amputation (DOS 05/11/17). Patient seen resting comfortably at time of visit. Patient offers no pedal complaints at this visit. Patient aware he is scheduled for surgery tomorrow afternoon with Dr. Hooper. Patient aware he will be NPO past midnight tonight. Patient denies N/V /F/D/C/SOB/calf pain. Objective - Vital Signs/Intake and Output Vital Signs (last 24 hours): Temp Pulse Resp BP Pulse Ox 98.2 F 93 H 20 156/80 H 98 07/22/17 00:00 07/22/17 00:00 07/22/17 00:00 07/22/17 00:00 07/22/17 00:00 Intake and Output: 07/22/17 07/22/17 06:59 18:59 Intake Total 2750 Balance 2750 - Medications Medications: Current Medications Escitalopram Oxalate (Lexapro) 10 mg PO HS [facility] Last Admin: 07/21/17 21:46 Dose: 10 mg Gabapentin (Neurontin) 300 mg PO HS [facility] Last Admin: 07/21/17 21:46 Dose: 300 mg Sodium Chloride (Sodium Chloride 0.9%) 1,000 mls @ 125 mls/hr IV .Q8H [facility] Last Admin: 07/22/17 03:52 Dose: Not Given Ceftriaxone Sodium 2 gm/ (Sodium Chloride) 100 mls @ 100 mls/hr IVPB Q24H [facility] Insulin Aspart (Novolog Mix 70/30 (70/30 Units/Ml)) 30 units SC Q12 [facility] Last Admin: 07/22/17 09:56 Dose: 30 units Insulin Aspart (Novolog) 0 unit SC ACHS [facility] PRN Reason: Protocol Last Admin: 07/22/17 08:18 Dose: 1 unit Lisinopril (Zestril) 10 mg PO DAILY [facility] Last Admin: 07/22/17 09:56 Dose: 10 mg Metformin HCl (Glucophage) 1,000 mg PO BIDCC [facility] Last Admin: 07/22/17 08:18 Dose: 1,000 mg Mupirocin (Bactroban Ointment) 1 gm TOP BID [facility] Last Admin: 07/22/17 09:57 Dose: 1 applic Naproxen (Anaprox Ds) 500 mg PO Q12H PRN PRN Reason: Pain, moderate (4-7) Pantoprazole Sodium (Protonix Ec Tab) 40 mg PO DAILY [facility] Last Admin: 07/22/17 09:56 Dose: 40 mg Rosuvastatin Calcium (Crestor) 5 mg PO HS [facility] Last Admin: 07/21/17 21:46 Dose: 5 mg - Labs Labs: 07/21/17 06:55 07/21/17 06:55 PT 11.1 SECONDS (9.7-12.2) 07/20/17 11:32 INR 1.0 07/20/17 11:32 APTT 35 SECONDS (21-34) H 07/20/17 11:32 - Constitutional Appears: Well, Non-toxic, No Acute Distress - Extremities Exam Additional comments: Right lower extremity focused. VASC: DP and PT pulses fully palpable graded 2/4. No pitting edema noted. DERM: Full thickness ulceration noted at great toe amputation site measuring 2 x 0.5cm Wound base is fibro-granular, absent and purulent drainage. No scott- wound erythema noted. No malodor noted. NEURO: Protective sensation grossly diminished. MUSK: Silverskoid test reveals gastroc-equinus . No other gross deformities noted - Neurological Exam Neurological Exam: Alert, Awake, Oriented x3 - Psychiatric Exam Psychiatric exam: Normal Affect, Normal Mood Assessment and Plan - Assessment and Plan (Free Text) Assessment: 41 year old male with right foot non-healing amputation site. Plan: Patient seen and evaluated Discussed with attending, Dr. Hooper Labs and vitals reviewed = afebrile Bactroban applied to wound and dressed with DSD To OR on tomorrow, 07/23 for revisional 1st metatarsal head resection - Dr. Reich requesting bone biopsy Continue abx per ID - Ceftriaxone; patient will need minimum 7 days post op Follow up medical clearance - Spoke with KEVAN [place] on Saturday 07/21- will obtain clearance this weekend , also plan to hold heparin Patient will be NPO past midnight on Sunday. Podiatry will continue to follow patient while in house
--- NOTE | 2017-07-22 15:35 | CP.PCM.PN ---
Subjective - Date & Time of Evaluation Date of Evaluation: 07/22/17 Time of Evaluation: 09:00 - Subjective Subjective: feels well awaiting or no new positive cultures Objective - Vital Signs/Intake and Output Vital Signs (last 24 hours): Temp Pulse Resp BP Pulse Ox 98.2 F 91 H 19 121/78 97 07/22/17 08:00 07/22/17 08:00 07/22/17 08:00 07/22/17 08:00 07/22/17 08:00 Intake and Output: 07/22/17 07/22/17 06:59 18:59 Intake Total 2750 1450 Balance 2750 1450 - Medications Medications: Current Medications Escitalopram Oxalate (Lexapro) 10 mg PO HS [facility] Last Admin: 07/21/17 21:46 Dose: 10 mg Gabapentin (Neurontin) 300 mg PO HS [facility] Last Admin: 07/21/17 21:46 Dose: 300 mg Sodium Chloride (Sodium Chloride 0.9%) 1,000 mls @ 125 mls/hr IV .Q8H [facility] Last Admin: 07/22/17 13:30 Dose: Not Given Ceftriaxone Sodium 2 gm/ (Sodium Chloride) 100 mls @ 100 mls/hr IVPB Q24H [facility] Insulin Aspart (Novolog Mix 70/30 (70/30 Units/Ml)) 30 units SC Q12 [facility] Last Admin: 07/22/17 09:56 Dose: 30 units Insulin Aspart (Novolog) 0 unit SC ACHS [facility] PRN Reason: Protocol Last Admin: 07/22/17 12:30 Dose: 1 unit Lisinopril (Zestril) 10 mg PO DAILY [facility] Last Admin: 07/22/17 09:56 Dose: 10 mg Metformin HCl (Glucophage) 1,000 mg PO BIDCC [facility] Last Admin: 07/22/17 08:18 Dose: 1,000 mg Mupirocin (Bactroban Ointment) 1 gm TOP BID [facility] Last Admin: 07/22/17 09:57 Dose: 1 applic Naproxen (Anaprox Ds) 500 mg PO Q12H PRN PRN Reason: Pain, moderate (4-7) Pantoprazole Sodium (Protonix Ec Tab) 40 mg PO DAILY [facility] Last Admin: 07/22/17 09:56 Dose: 40 mg Rosuvastatin Calcium (Crestor) 5 mg PO [facility] Last Admin: 07/21/17 21:46 Dose: 5 mg - Labs Labs: 07/21/17 06:55 07/21/17 06:55 PT 11.1 SECONDS (9.7-12.2) 07/20/17 11:32 INR 1.0 07/20/17 11:32 APTT 35 SECONDS (21-34) H 07/20/17 11:32 - Constitutional Appears: Non-toxic, Chronically Ill - Head Exam Head Exam: NORMOCEPHALIC - Eye Exam Eye Exam: PERRL - ENT Exam ENT Exam: Mucous Membranes Dry - Neck Exam Neck Exam: absent: Lymphadenopathy - Respiratory Exam Respiratory Exam: Decreased Breath Sounds - Cardiovascular Exam Cardiovascular Exam: REGULAR RHYTHM - GI/Abdominal Exam GI & Abdominal Exam: Distended, Soft - Rectal Exam Rectal Exam: Deferred - Exam Exam: NORMAL INSPECTION - Back Exam Back Exam: absent: CVA tenderness (L), CVA tenderness (R) - Neurological Exam Neurological Exam: Alert, Awake, Oriented x3 - Psychiatric Exam Psychiatric exam: Normal Mood Assessment and Plan (1) Cellulitis Status: Acute (2) Diabetic foot infection Status: Acute (3) Foot pain, right Status: Acute (4) Infected wound Status: Acute (5) Pneumonia Status: Acute
--- NOTE | 2017-07-22 19:33 | CP.PCM.PN ---
Subjective - Date & Time of Evaluation Date of Evaluation: 07/22/17 Time of Evaluation: 07:40 - Subjective Subjective: clinically same Objective - Vital Signs/Intake and Output Vital Signs (last 24 hours): Temp Pulse Resp BP Pulse Ox 98 F 84 20 145/88 97 07/22/17 15:00 07/22/17 15:00 07/22/17 15:00 07/22/17 15:00 07/22/17 15:00 Intake and Output: 07/22/17 07/23/17 18:59 06:59 Intake Total 1450 Balance 1450 - Medications Medications: Current Medications Escitalopram Oxalate (Lexapro) 10 mg PO HS [facility] Last Admin: 07/21/17 21:46 Dose: 10 mg Gabapentin (Neurontin) 300 mg PO HS [facility] Last Admin: 07/21/17 21:46 Dose: 300 mg Sodium Chloride (Sodium Chloride 0.9%) 1,000 mls @ 125 mls/hr IV .Q8H [facility] Last Admin: 07/22/17 17:26 Dose: 125 mls/hr Ceftriaxone Sodium 2 gm/ (Sodium Chloride) 100 mls @ 100 mls/hr IVPB Q24H [facility] Insulin Aspart (Novolog Mix 70/30 (70/30 Units/Ml)) 30 units SC Q12 [facility] Last Admin: 07/22/17 09:56 Dose: 30 units Insulin Aspart (Novolog) 0 unit SC ACHS [facility] PRN Reason: Protocol Last Admin: 07/22/17 17:25 Dose: Not Given Lisinopril (Zestril) 10 mg PO DAILY [facility] Last Admin: 07/22/17 09:56 Dose: 10 mg Metformin HCl (Glucophage) 1,000 mg PO BIDCC [facility] Last Admin: 07/22/17 17:24 Dose: 1,000 mg Mupirocin (Bactroban Ointment) 1 gm TOP BID [facility] Last Admin: 07/22/17 09:57 Dose: 1 applic Naproxen (Anaprox Ds) 500 mg PO Q12H PRN PRN Reason: Pain, moderate (4-7) Pantoprazole Sodium (Protonix Ec Tab) 40 mg PO DAILY [facility] Last Admin: 07/22/17 09:56 Dose: 40 mg Rosuvastatin Calcium (Crestor) 5 mg PO HS [facility] Last Admin: 07/21/17 21:46 Dose: 5 mg - Labs Labs: 07/21/17 06:55 07/21/17 06:55 PT 11.1 SECONDS (9.7-12.2) 07/20/17 11:32 INR 1.0 07/20/17 11:32 APTT 35 SECONDS (21-34) H 07/20/17 11:32 - Constitutional Appears: Well - Head Exam Head Exam: ATRAUMATIC, NORMAL INSPECTION, NORMOCEPHALIC - Eye Exam Eye Exam: EOMI, Normal appearance, PERRL Pupil Exam: NORMAL ACCOMODATION, PERRL - ENT Exam ENT Exam: Mucous Membranes Moist, Normal Exam - Neck Exam Neck Exam: Full ROM, Normal Inspection. absent: Lymphadenopathy - Respiratory Exam Respiratory Exam: Decreased Breath Sounds - Cardiovascular Exam Cardiovascular Exam: REGULAR RHYTHM, +S1, +S2 - GI/Abdominal Exam GI & Abdominal Exam: Soft, Diminished Bowel Sounds - Rectal Exam Rectal Exam: Deferred
[2017-07-23] MEDS: Sodium Chloride 0.9% 1,000 ML IV SCH (01:04)
[2017-07-23] MEDS ORDERED: Dextrose 5%/0.9% NS 1,000 ML IV SCH (02:45)
[2017-07-23] MEDS: (Novolog) Insulin Aspart, Recombinant 100 u/ml 10 ml vial SC SCH ×4 (07:54→22:49)
--- NOTE | 2017-07-23 08:30 | CP.PCM.PN ---
Subjective - Date & Time of Evaluation Date of Evaluation: 07/23/17 Time of Evaluation: 08:28 - Subjective Subjective: Surgery: Dr. Larson Pt seen and examined. Resting comfortably in bed. For OR today w. podiatry. Objective - Vital Signs/Intake and Output Vital Signs (last 24 hours): Temp Pulse Resp BP Pulse Ox 98.1 F 82 20 125/79 98 07/23/17 08:16 07/23/17 08:16 07/23/17 08:16 07/23/17 08:16 07/23/17 08:16 Intake and Output: 07/23/17 07/23/17 06:59 18:59 Intake Total 2150 Balance 2150 - Medications Medications: Current Medications Escitalopram Oxalate (Lexapro) 10 mg PO HS [facility] Last Admin: 07/22/17 21:31 Dose: 10 mg Gabapentin (Neurontin) 300 mg PO HS [facility] Last Admin: 07/22/17 21:30 Dose: 300 mg Ceftriaxone Sodium 2 gm/ (Sodium Chloride) 100 mls @ 100 mls/hr IVPB Q24H [facility] Last Admin: 07/22/17 21:30 Dose: 100 mls/hr Dextrose/Sodium Chloride (Dextrose 5%/0.9% Ns 1000 Ml) 1,000 mls @ 75 mls/hr IV .[id number] [facility] Stop: 07/23/17 16:04 Last Admin: 07/23/17 02:47 Dose: 75 mls/hr Insulin Aspart (Novolog Mix 70/30 (70/30 Units/Ml)) 30 units SC Q12 [facility] Last Admin: 07/22/17 21:34 Dose: 30 units Insulin Aspart (Novolog) 0 unit SC ACHS [facility] PRN Reason: Protocol Last Admin: 07/23/17 07:54 Dose: Not Given Lisinopril (Zestril) 10 mg PO DAILY [facility] Last Admin: 07/22/17 09:56 Dose: 10 mg Metformin HCl (Glucophage) 1,000 mg PO BIDCC [facility] Last Admin: 07/23/17 08:15 Dose: Not Given Mupirocin (Bactroban Ointment) 1 gm TOP BID [facility] Last Admin: 07/22/17 09:57 Dose: 1 applic Naproxen (Anaprox Ds) 500 mg PO Q12H PRN PRN Reason: Pain, moderate (4-7) Pantoprazole Sodium (Protonix Ec Tab) 40 mg PO DAILY [facility] Last Admin: 07/22/17 09:56 Dose: 40 mg Rosuvastatin Calcium (Crestor) 5 mg PO HS [facility] Last Admin: 07/22/17 21:30 Dose: 5 mg - Labs Labs: 07/21/17 06:55 07/21/17 06:55 PT 11.1 SECONDS (9.7-12.2) 07/20/17 11:32 INR 1.0 07/20/17 11:32 APTT 35 SECONDS (21-34) H 07/20/17 11:32 - Constitutional Appears: Non-toxic, No Acute Distress - Head Exam Head Exam: ATRAUMATIC, NORMOCEPHALIC - Eye Exam Eye Exam: EOMI - ENT Exam ENT Exam: Mucous Membranes Moist - Neck Exam Neck Exam: Full ROM - Respiratory Exam Respiratory Exam: NORMAL BREATHING PATTERN. absent: Accessory Muscle Use, Respiratory Distress - Extremities Exam Additional comments: RLE: Dressing in place, C/D/I - Neurological Exam Neurological Exam: Alert, Awake, Oriented x3 Assessment and Plan - Assessment and Plan (Free Text) Assessment: 41M w/ non-healing R foot wound -OR today w. podiatry -continue w. abx and local wound care -MICKIE/PVR pending -will d/w attending [place] PGY3
--- NOTE | 2017-07-23 09:08 | CP.PCM.PN ---
Subjective - Date & Time of Evaluation Date of Evaluation: 07/23/17 Time of Evaluation: 09:08 - Subjective Subjective: PGY-[address] Billings's Service: Pt seen and examined at bedside. Nursing reports no acute events overnight. Pt is NPO for OR today with podiatry. He denies fever, chills, chest pain, headache , abdominal pain, N/V. Patient is 41M, with PMHx of HTN, hypercholesterolemia, DM, and osteomyelitis admitted on 07/20 for non-healing right foot wound. He first noticed the wound on March 27. He failed conservative management and underwent an amputations of the R big toes on 05/11/[address] Hooper, but the wound has failed to heal. Dr. Hooper recommended that pt come to hospital for further management. He denies fever, chills, numbness/tingling, or pain near the wound. Objective - Vital Signs/Intake and Output Vital Signs (last 24 hours): Temp Pulse Resp BP Pulse Ox 98.1 F 82 20 125/79 98 07/23/17 08:16 07/23/17 08:16 07/23/17 08:16 07/23/17 08:16 07/23/17 08:16 Intake and Output: 07/23/17 07/23/17 06:59 18:59 Intake Total 2150 Balance 2150 - Medications Medications: Current Medications Escitalopram Oxalate (Lexapro) 10 mg PO HS [facility] Last Admin: 07/22/17 21:31 Dose: 10 mg Gabapentin (Neurontin) 300 mg PO [facility] Last Admin: 07/22/17 21:30 Dose: 300 mg Ceftriaxone Sodium 2 gm/ (Sodium Chloride) 100 mls @ 100 mls/hr IVPB Q24H [facility] Last Admin: 07/22/17 21:30 Dose: 100 mls/hr Dextrose/Sodium Chloride (Dextrose 5%/0.9% Ns 1000 Ml) 1,000 mls @ 75 mls/hr IV .[id number] [facility] Stop: 07/23/17 16:04 Last Admin: 07/23/17 02:47 Dose: 75 mls/hr Insulin Aspart (Novolog Mix 70/30 (70/30 Units/Ml)) 30 units SC Q12 [facility] Last Admin: 07/22/17 21:34 Dose: 30 units Insulin Aspart (Novolog) 0 unit SC ACHS [facility] PRN Reason: Protocol Last Admin: 07/23/17 07:54 Dose: Not Given Lisinopril (Zestril) 10 mg PO DAILY [facility] Last Admin: 07/22/17 09:56 Dose: 10 mg Metformin HCl (Glucophage) 1,000 mg PO BIDCC [facility] Last Admin: 07/23/17 08:15 Dose: Not Given Mupirocin (Bactroban Ointment) 1 gm TOP BID [facility] Last Admin: 07/22/17 09:57 Dose: 1 applic Naproxen (Anaprox Ds) 500 mg PO Q12H PRN PRN Reason: Pain, moderate (4-7) Pantoprazole Sodium (Protonix Ec Tab) 40 mg PO DAILY [facility] Last Admin: 07/22/17 09:56 Dose: 40 mg Rosuvastatin Calcium (Crestor) 5 mg PO HS [facility] Last Admin: 07/22/17 21:30 Dose: 5 mg - Labs Labs: 07/21/17 06:55 07/21/17 06:55 PT 11.1 SECONDS (9.7-12.2) 07/20/17 11:32 INR 1.0 07/20/17 11:32 APTT 35 SECONDS (21-34) H 07/20/17 11:32 - Constitutional Appears: Non-toxic, No Acute Distress - Head Exam Head Exam: ATRAUMATIC, NORMOCEPHALIC - Eye Exam Eye Exam: EOMI - ENT Exam ENT Exam: Mucous Membranes Moist - Neck Exam Neck Exam: Full ROM - Respiratory Exam Respiratory Exam: Clear to Ausculation Bilateral, NORMAL BREATHING PATTERN - GI/Abdominal Exam GI & Abdominal Exam: Soft, Normal Bowel Sounds. absent: Tenderness - Extremities Exam Extremities Exam: absent: Normal Inspection Additional comments: Right lower extremity: Protective boot in place, c/d/i dressing - Neurological Exam Neurological Exam: Alert, Awake, Oriented x3 - Psychiatric Exam Psychiatric exam: Normal Affect, Normal Mood - Skin Skin Exam: Normal Color, Warm Assessment and Plan - Assessment and Plan (Free Text) Plan: Non-healing R foot wound - Dr. Gonzalez, Podiatry attending -OR today w. podiatry for revisional 1st metatarsal resection - NPO -continue w. abx and local wound care Lucho Cardiac risk score: 0, Class I 6% complications - Patient medically cleared for surgery per Dr. Billings - Patient low-risk for low-risk procedure Marsha, Gen surg disaster recovery consultant: help appreciated - MICKIE/PVR ordered Dr. Reich, ID disaster recovery consultant: help appreciated - Ceftriaxone 2gm Q24H IV (minimum of 7 days post-op) Type two DM Metformin 1000mg PO BID [facility] Aspart 30 Q12H Zestril 10mg PO DAily Crestor 5mg PO DAily HTN Elevated on admission, down-trending Zestril 10mg PO DAily Hyperlipidemia Crestor 5mg PO DAily Prophylaxis Protonix 40mg PO Daily Heparin held for OR, will restart per podiatry recommendation SCDs C/I Dallin Lechuga PGY-2 All medical management per Dr. Billings
[2017-07-23 09:48] LABS: BASO % 0.4 % (0.0-2.0); EOS # 0.2 K/uL (0.0-0.7); EOS % 1.8 % (0.0-4.0); HEMATOCRIT 43.3 % (35.0-51.0); LYMPH # 3.1 K/uL (1.0-4.3); LYMPH % 29.1 % (20.0-40.0); MEAN CELL VOLUME 80.2 fL (80.0-94.0); MEAN CORPUSCULAR HEMOGLOBIN 27.5 pg (27.0-31.0); MEAN CORPUSCULAR HGB CONC 34.3 g/dL (33.0-37.0); MEAN PLATELET VOLUME 8.6 fL (7.2-11.7); MONO # 0.6 K/uL (0.0-0.8); MONO % 5.9 % (0.0-10.0); NRBC % 0.1 % (0.0-2.0); RED CELL DISTRIBUTION WIDTH 15.3 % (11.5-14.5); WHITE BLOOD COUNT 10.6 K/uL (4.8-10.8)
[2017-07-23 10:03] LABS: CHLORIDE 99 mmol/L (98-107)
[2017-07-23 10:04] LABS: SODIUM 136 mmol/L (132-148)
[2017-07-23 10:05] LABS: POTASSIUM 4.7 mmol/L (3.6-5.2)
[2017-07-23 10:07] LABS: ALB/GLOB RATIO 1.3 (1.0-2.1); ALKALINE PHOSPHATASE 66 U/L (38-126); ALT/SGPT 45 U/L (21-72); AST/SGOT 40 U/L (17-59); BILIRUBIN,TOTAL 0.6 mg/dL (0.2-1.3); BLOOD UREA NITROGEN 14 mg/dL (9-20); CARBON DIOXIDE 28 mmol/L (22-30); GFR AFRICAN-AMERICAN > 60; GLUCOSE,RANDOM 169 mg/dL (75-110); TOTAL PROTEIN 7.4 g/dL (6.3-8.3)
[2017-07-23 10:08] LABS: CALCIUM 9.2 mg/dl (8.6-10.4)
--- NOTE | 2017-07-23 11:00 | CP.PCM.PN ---
Subjective - Date & Time of Evaluation Date of Evaluation: 07/23/17 Time of Evaluation: 10:30 - Subjective Subjective: Podiatry Consult Note - Dr. Hooper 41 year old male patient seen at bedside concerning right foot non-healing post- surgical wound following right great toe amputation (DOS 05/11/17). Patient seen resting comfortably at time of visit. Patient offers no pedal complaints at this visit. Patient aware of the surgery today with Dr. Hooper for right 1st met partial amputation. Patient NPO. Patient denies N/V/F/D/C/SOB/calf pain. Objective - Vital Signs/Intake and Output Vital Signs (last 24 hours): Temp Pulse Resp BP Pulse Ox 98.1 F 82 20 125/79 98 07/23/17 08:16 07/23/17 08:16 07/23/17 08:16 07/23/17 08:16 07/23/17 08:16 Intake and Output: 07/23/17 07/23/17 06:59 18:59 Intake Total 2150 Balance 2150 - Medications Medications: Current Medications Escitalopram Oxalate (Lexapro) 10 mg PO HS [facility] Last Admin: 07/22/17 21:31 Dose: 10 mg Gabapentin (Neurontin) 300 mg PO HS [facility] Last Admin: 07/22/17 21:30 Dose: 300 mg Ceftriaxone Sodium 2 gm/ (Sodium Chloride) 100 mls @ 100 mls/hr IVPB Q24H [facility] Last Admin: 07/22/17 21:30 Dose: 100 mls/hr Dextrose/Sodium Chloride (Dextrose 5%/0.9% Ns 1000 Ml) 1,000 mls @ 75 mls/hr IV .[id number] [facility] Stop: 07/23/17 16:04 Last Admin: 07/23/17 02:47 Dose: 75 mls/hr Insulin Aspart (Novolog Mix 70/30 (70/30 Units/Ml)) 30 units SC Q12 [facility] Last Admin: 07/22/17 21:34 Dose: 30 units Insulin Aspart (Novolog) 0 unit SC ACHS [facility] PRN Reason: Protocol Last Admin: 07/23/17 07:54 Dose: Not Given Lisinopril (Zestril) 10 mg PO DAILY [facility] Last Admin: 07/22/17 09:56 Dose: 10 mg Metformin HCl (Glucophage) 1,000 mg PO BIDCC [facility] Last Admin: 07/23/17 08:15 Dose: Not Given Mupirocin (Bactroban Ointment) 1 gm TOP BID [facility] Last Admin: 07/22/17 09:57 Dose: 1 applic Naproxen (Anaprox Ds) 500 mg PO Q12H PRN PRN Reason: Pain, moderate (4-7) Pantoprazole Sodium (Protonix Ec Tab) 40 mg PO DAILY [facility] Last Admin: 07/22/17 09:56 Dose: 40 mg Rosuvastatin Calcium (Crestor) 5 mg PO HS [facility] Last Admin: 07/22/17 21:30 Dose: 5 mg - Labs Labs: 07/23/17 09:45 07/23/17 09:45 PT 11.1 SECONDS (9.7-12.2) 07/20/17 11:32 INR 1.0 07/20/17 11:32 APTT 35 SECONDS (21-34) H 07/20/17 11:32 - Constitutional Appears: Well, Non-toxic, No Acute Distress - Head Exam Head Exam: ATRAUMATIC - Extremities Exam Additional comments: Right lower extremity focused. VASC: DP and PT pulses fully palpable graded 2/4. No pitting edema noted. DERM: Full thickness ulceration noted at great toe amputation site measuring 2 x 0.5cm Wound base is fibro-granular, absent and purulent drainage. No scott- wound erythema noted. No malodor noted. NEURO: Protective sensation grossly diminished. MUSK: Silverskoid test reveals gastroc-equinus . No other gross deformities noted - Neurological Exam Neurological Exam: Alert, Awake, Oriented x3 - Psychiatric Exam Psychiatric exam: Normal Affect, Normal Mood - Skin Skin Exam: Normal Color, Warm Assessment and Plan - Assessment and Plan (Free Text) Assessment: 41 year old male with right foot non-healing amputation site. to OR today Plan: Patient seen and evaluated Discussed with attending, Dr. Hooper Labs and vitals reviewed = afebrile Bactroban applied to wound and dressed with DSD To OR on today, 07/23 for revisional RIGHT 1st metatarsal head resection - Dr. Reich requesting bone biopsy Continue abx per ID - Ceftriaxone; patient will need minimum 7 days post op No guarantees were given nor implied regarding the outcome of surgery. Patient NPO Medical clearance in documentation - medicine note appreciated
[2017-07-23] MEDS: (Novolog Mix 70/30) Insulin Aspart/Insulin Aspar 100 units/ml SC SCH ×2 (11:04→21:44)
[2017-07-23] MEDS: Pantoprazole 40 mg EC Tab PO SCH (11:04)
--- NOTE | 2017-07-23 11:09 | CP.PCM.PN ---
Subjective - Date & Time of Evaluation Date of Evaluation: 07/23/17 Time of Evaluation: 11:05 - Subjective Subjective: PT SEEN AND EXAMINED, DENIES ANY PAIN, SOB, RESP EASY AND UNLABORED. NAD Objective - Vital Signs/Intake and Output Vital Signs (last 24 hours): Temp Pulse Resp BP Pulse Ox 98.1 F 82 20 125/79 98 07/23/17 08:16 07/23/17 08:16 07/23/17 08:16 07/23/17 08:16 07/23/17 08:16 Intake and Output: 07/23/17 07/23/17 06:59 18:59 Intake Total 2150 Balance 2150 - Medications Medications: Current Medications Escitalopram Oxalate (Lexapro) 10 mg PO [facility] Last Admin: 07/22/17 21:31 Dose: 10 mg Gabapentin (Neurontin) 300 mg PO [facility] Last Admin: 07/22/17 21:30 Dose: 300 mg Ceftriaxone Sodium 2 gm/ (Sodium Chloride) 100 mls @ 100 mls/hr IVPB Q24H [facility] Last Admin: 07/22/17 21:30 Dose: 100 mls/hr Dextrose/Sodium Chloride (Dextrose 5%/0.9% Ns 1000 Ml) 1,000 mls @ 75 mls/hr IV .[id number] [facility] Stop: 07/23/17 16:04 Last Admin: 07/23/17 02:47 Dose: 75 mls/hr Insulin Aspart (Novolog Mix 70/30 (70/30 Units/Ml)) 30 units SC Q12 [facility] Last Admin: 07/22/17 21:34 Dose: 30 units Insulin Aspart (Novolog) 0 unit SC ACHS [facility] PRN Reason: Protocol Last Admin: 07/23/17 07:54 Dose: Not Given Lisinopril (Zestril) 10 mg PO DAILY [facility] Last Admin: 07/22/17 09:56 Dose: 10 mg Metformin [facility] ([facility]ophage) [facility] Last Admin: 07/23/17 08:15 Dose: Not Given Mupirocin (Bactroban Ointment) 1 gm TOP BID [facility] Last Admin: 07/22/17 09:57 Dose: 1 applic Naproxen (Anaprox Ds) 500 mg PO Q12H PRN PRN Reason: Pain, moderate (4-7) Pantoprazole Sodium (Protonix Ec Tab) 40 mg PO DAILY [facility] Last Admin: 07/22/17 09:56 Dose: 40 mg Rosuvastatin Calcium (Crestor) 5 mg PO HS [facility] Last Admin: 07/22/17 21:30 Dose: 5 mg - Labs Labs: 07/23/17 09:45 07/23/17 09:45 PT 11.1 SECONDS (9.7-12.2) 07/20/17 11:32 INR 1.0 07/20/17 11:32 APTT 35 SECONDS (21-34) H 07/20/17 11:32 Assessment and Plan - Assessment and Plan (Free Text) Plan: 41 Y/O MALE WITH PMHX DM II, ADMITTED FOR NON-HEALING RIGHT FOOT WOUND OR TODAY WITH PODIATRY FOR METATRSAL RESECTION NPO, VSS, CBC, CMP PT IS LOW RISK - FOR LOW RISK PROCEDURE PT MEDICALLY CLEARED FOR SURGERY TODAY DISCUSSED WITH ATTENDING DR. LEW, AGREE W/POC
[2017-07-23] MEDS ORDERED: Lidocaine 1% Inj (20ml) ONE (11:42)
[2017-07-23] MEDS ORDERED: Bupivacaine HCl 0.5% PF (10 ml) Inj ONE (11:42)
[2017-07-23] MEDS ORDERED: Midazolam 2 MG/2 ML VIAL ONE ×2 (12:00→12:10)
[2017-07-23] MEDS ORDERED: Propofol 10 mg/ml Inj (20 ML) ONE (12:01)
[2017-07-23] MEDS ORDERED: Sodium Chloride 0.9% 1,000 ML IV ONE (12:02)
--- NOTE | 2017-07-23 12:08 | CP.PCM.PN ---
Subjective - Date & Time of Evaluation Date of Evaluation: 07/23/17 Time of Evaluation: 10:00 - Subjective Subjective: feels ok awaiting or Objective - Vital Signs/Intake and Output Vital Signs (last 24 hours): Temp Pulse Resp BP Pulse Ox 98.1 F 82 20 125/79 98 07/23/17 08:16 07/23/17 08:16 07/23/17 08:16 07/23/17 08:16 07/23/17 08:16 Intake and Output: 07/23/17 07/23/17 06:59 18:59 Intake Total 2150 Balance 2150 - Medications Medications: Current Medications Escitalopram Oxalate (Lexapro) 10 mg PO HS [facility] Last Admin: 07/22/17 21:31 Dose: 10 mg Gabapentin (Neurontin) 300 mg PO HS [facility] Last Admin: 07/22/17 21:30 Dose: 300 mg Ceftriaxone Sodium 2 gm/ (Sodium Chloride) 100 mls @ 100 mls/hr IVPB Q24H [facility] Last Admin: 07/22/17 21:30 Dose: 100 mls/hr Dextrose/Sodium Chloride (Dextrose 5%/0.9% Ns 1000 Ml) 1,000 mls @ 75 mls/hr IV .[id number] [facility] Stop: 07/23/17 16:04 Last Admin: 07/23/17 02:47 Dose: 75 mls/hr Insulin Aspart (Novolog Mix 70/30 (70/30 Units/Ml)) 30 units SC Q12 [facility] Last Admin: 07/23/17 11:04 Dose: Not Given Insulin Aspart (Novolog) 0 unit SC ACHS [facility] PRN Reason: Protocol Last Admin: 07/23/17 11:07 Dose: Not Given Lisinopril (Zestril) 10 mg PO DAILY [facility] Last Admin: 07/23/17 11:04 Dose: Not Given Metformin HCl (Glucophage) 1,000 mg PO BIDCC [facility] Last Admin: 07/23/17 08:15 Dose: Not Given Mupirocin (Bactroban Ointment) 1 gm TOP BID [facility] Last Admin: 07/23/17 11:04 Dose: Not Given Naproxen (Anaprox Ds) 500 mg PO Q12H PRN PRN Reason: Pain, moderate (4-7) Pantoprazole Sodium (Protonix Ec Tab) 40 mg PO DAILY [facility] Last Admin: 07/23/17 11:04 Dose: Not Given Rosuvastatin Calcium (Crestor) 5 mg PO HS [facility] Last Admin: 07/22/17 21:30 Dose: 5 mg - Labs Labs: 07/23/17 09:45 07/23/17 09:45 PT 11.1 SECONDS (9.7-12.2) 07/20/17 11:32 INR 1.0 07/20/17 11:32 APTT 35 SECONDS (21-34) H 07/20/17 11:32 - Constitutional Appears: Non-toxic, Chronically Ill - Head Exam Head Exam: NORMOCEPHALIC - Eye Exam Eye Exam: PERRL - ENT Exam ENT Exam: Mucous Membranes Dry - Neck Exam Neck Exam: Normal Inspection - Respiratory Exam Respiratory Exam: Clear to Ausculation Bilateral - Cardiovascular Exam Cardiovascular Exam: REGULAR RHYTHM - GI/Abdominal Exam GI & Abdominal Exam: Distended - Rectal Exam Rectal Exam: Deferred Assessment and Plan (1) Cellulitis Status: Acute (2) Diabetic foot infection Status: Acute (3) Foot pain, right Status: Acute (4) Infected wound Status: Acute (5) Pneumonia Status: Acute
--- NOTE | 2017-07-23 12:47 | CARD ---
APPROVED REPORT EKG Measurement Heart [id number] <Conclusion> Normal sinus rhythm Normal ECG
[2017-07-23] MEDS ORDERED: HYDROmorphone 0.5 mg/0.5 ml ISec IVP PRN (13:17)
--- NOTE | 2017-07-23 13:17 | PCM.SURG1 ---
<Gaby Johnson - Last Filed: 07/23/17 13:15> Surgeon's Initial Post Op Note - Surgeon's Notes Surgeon: Dr. Hooper 4Th Grade Teacher: Dr. Jennifer Johnson, Dr. Fausto Mancini Type of Anesthesia: IV Sedation, Local Anesthesia Administered By: Dr. 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
--- NOTE | 2017-07-23 13:45 | RAD ---
PROCEDURE: Right Foot Radiographs. HISTORY: right foot surgery COMPARISON: Comparison made with prior study dated 07/21/2017 FINDINGS: BONES: Status post resection distal aspect 1st metatarsal. In situ drainage catheter. Note again made of small posterior calcaneal enthesophyte JOINTS: Normal. SOFT TISSUES: Minor vascular calcifications are present. OTHER FINDINGS: None. IMPRESSION: Status post resection distal aspect 1st metatarsal.
[2017-07-23 16:30] VITALS: RESP 20
[2017-07-23] MEDS: Naproxen 550 mg Tab PO PRN (20:27)
--- NOTE | 2017-07-23 22:01 | CP.PCM.PN ---
Subjective - Date & Time of Evaluation Date of Evaluation: 07/23/17 Objective - Vital Signs/Intake and Output Vital Signs (last 24 hours): Temp Pulse Resp BP Pulse Ox 98 F 91 H 20 145/79 97 07/23/17 15:00 07/23/17 15:00 07/23/17 15:00 07/23/17 15:00 07/23/17 15:00 Intake and Output: 07/23/17 07/24/17 18:59 06:59 Intake Total 540 Balance 540 - Medications Medications: Current Medications Escitalopram Oxalate (Lexapro) 10 mg PO HS [facility] Last Admin: 07/23/17 21:44 Dose: 10 mg Gabapentin (Neurontin) 300 mg PO HS [facility] Last Admin: 07/23/17 21:44 Dose: 300 mg Ceftriaxone Sodium 2 gm/ (Sodium Chloride) 100 mls @ 100 mls/hr IVPB Q24H [facility] Last Admin: 07/23/17 20:37 Dose: 100 mls/hr Insulin Aspart (Novolog Mix 70/30 (70/30 Units/Ml)) 30 units SC Q12 [facility] Last Admin: 07/23/17 21:44 Dose: 30 units Insulin Aspart (Novolog) 0 unit SC ACHS [facility] PRN Reason: Protocol Last Admin: 07/23/17 16:28 Dose: 2 unit Lisinopril (Zestril) 10 mg PO DAILY [facility] Last Admin: 07/23/17 11:04 Dose: Not Given Metformin HCl (Glucophage) 1,000 mg PO BIDCC [facility] Last Admin: 07/23/17 16:28 Dose: 1,000 mg Mupirocin (Bactroban Ointment) 1 gm TOP BID [facility] Last Admin: 07/23/17 17:24 Dose: Not Given Naproxen (Anaprox Ds) 550 mg PO Q12H PRN PRN Reason: Pain, moderate (4-7) Last Admin: 07/23/17 20:27 Dose: 550 mg Pantoprazole Sodium (Protonix Ec Tab) 40 mg PO DAILY [facility] Last Admin: 07/23/17 11:04 Dose: Not Given Rosuvastatin Calcium (Crestor) 5 mg PO HS [facility] Last Admin: 07/23/17 21:44 Dose: 5 mg - Labs Labs: 07/23/17 09:45 07/23/17 09:45 PT 11.1 SECONDS (9.7-12.2) 07/20/17 11:32 INR 1.0 07/20/17 11:32 APTT 35 SECONDS (21-34) H 07/20/17 11:32
[2017-07-24 06:19] LABS: BASO % 0.3 % (0.0-2.0); EOS # 0.2 K/uL (0.0-0.7); EOS % 1.7 % (0.0-4.0); HEMATOCRIT 38.9 % (35.0-51.0); LYMPH # 2.6 K/uL (1.0-4.3); LYMPH % 20.4 % (20.0-40.0); MEAN CELL VOLUME 79.7 fL (80.0-94.0); MEAN CORPUSCULAR HEMOGLOBIN 27.5 pg (27.0-31.0); MEAN CORPUSCULAR HGB CONC 34.5 g/dL (33.0-37.0); MEAN PLATELET VOLUME 8.8 fL (7.2-11.7); MONO % 7.8 % (0.0-10.0); RED CELL DISTRIBUTION WIDTH 14.9 % (11.5-14.5); WHITE BLOOD COUNT 12.6 K/uL (4.8-10.8)
[2017-07-24 07:20] LABS: CHLORIDE 97 mmol/L (98-107); SODIUM 134 mmol/L (132-148)
[2017-07-24 07:21] LABS: POTASSIUM 4.6 mmol/L (3.6-5.2)
--- NOTE | 2017-07-24 07:21 | CP.PCM.PN ---
Subjective - Date & Time of Evaluation Date of Evaluation: 07/24/17 Time of Evaluation: 07:13 - Subjective Subjective: PGY-[address] Billings's Service: Pt seen and examined at bedside. Nursing reports no acute events overnight. Pt is POD#1 metarasal resection by podiatry. He reports that the pain is controlled , save for occasions when he has "electrical sensation" in his foot. He rates these spasms as 6-8/10 pain. He denies chest pain, palpitations, abdominal pain , N/V. Objective - Vital Signs/Intake and Output Vital Signs (last 24 hours): Temp Pulse Resp BP Pulse Ox 99.1 F 91 H 20 137/75 96 07/24/17 00:00 07/24/17 00:00 07/24/17 00:00 07/24/17 00:00 07/24/17 00:00 Intake and Output: 07/24/17 07/24/17 06:59 18:59 Intake Total 750 Output Total 3500 Balance -2750 - Medications Medications: Current Medications Escitalopram Oxalate (Lexapro) 10 mg PO HS [facility] Last Admin: 07/23/17 21:44 Dose: 10 mg Gabapentin (Neurontin) 300 mg PO HS [facility] Last Admin: 07/23/17 21:44 Dose: 300 mg Ceftriaxone Sodium 2 gm/ (Sodium Chloride) 100 mls @ 100 mls/hr IVPB Q24H [facility] Last Admin: 07/23/17 20:37 Dose: 100 mls/hr Insulin Aspart (Novolog Mix 70/30 (70/30 Units/Ml)) 30 units SC Q12 [facility] Last Admin: 07/23/17 21:44 Dose: 30 units Insulin Aspart (Novolog) 0 unit SC ACHS [facility] PRN Reason: Protocol Last Admin: 07/23/17 22:49 Dose: Not Given Lisinopril (Zestril) 10 mg PO DAILY [facility] Last Admin: 07/23/17 11:04 Dose: Not Given Metformin HCl (Glucophage) 1,000 mg PO BIDCC [facility] Last Admin: 07/23/17 16:28 Dose: 1,000 mg Mupirocin (Bactroban Ointment) 1 gm TOP BID [facility] Last Admin: 07/23/17 17:24 Dose: Not Given Naproxen (Anaprox Ds) 550 mg PO Q12H PRN PRN Reason: Pain, moderate (4-7) Last Admin: 07/23/17 20:27 Dose: 550 mg Pantoprazole Sodium (Protonix Ec Tab) 40 mg PO DAILY [facility] Last Admin: 07/23/17 11:04 Dose: Not Given Rosuvastatin Calcium (Crestor) 5 mg PO HS [facility] Last Admin: 07/23/17 21:44 Dose: 5 mg - Labs Labs: 07/24/17 06:07 07/23/17 09:45 PT 11.1 SECONDS (9.7-12.2) 07/20/17 11:32 INR 1.0 07/20/17 11:32 APTT 35 SECONDS (21-34) H 07/20/17 11:32 - Additional Findings Additional findings: - Constitutional Appears: Non-toxic, No Acute Distress - Head Exam Head Exam: ATRAUMATIC, NORMOCEPHALIC - Eye Exam Eye Exam: EOMI - ENT Exam ENT Exam: Mucous Membranes Moist - Neck Exam Neck Exam: Full ROM - Respiratory Exam Respiratory Exam: Clear to Ausculation Bilateral, NORMAL BREATHING PATTERN - GI/Abdominal Exam GI & Abdominal Exam: Soft, Normal Bowel Sounds. absent: Tenderness - Extremities Exam Extremities Exam: absent: Normal Inspection Additional comments: Right lower extremity: Protective boot in place, c/d/i dressing - Neurological Exam Neurological Exam: Alert, Awake, Oriented x3 - Psychiatric Exam Psychiatric exam: Normal Affect, Normal Mood - Skin Skin Exam: Normal Color, Warm Assessment and Plan - Assessment and Plan (Free Text) Plan: Non-healing R foot wound - Dr. Gonzalez, Podiatry attending - POD #1 revisional 1st metatarsal resection -continue w. abx and local wound care Marsha, Gen surg solar consultant: help appreciated - MICKIE/PVR ordered Dr. Reich, ID solar consultant: help appreciated - Ceftriaxone 2gm Q24H IV (minimum of 7 days post-op) Naproxen 550mg PO Q12H (moderate pain) Type two DM Sugars elevated Metformin 1000mg PO BID [facility] Aspart increased to 35 Q12H Zestril 10mg PO Daily Crestor 5mg PO Daily Neurontin 300mg PO HS for neuropathy HTN Elevated on admission, down-trending Zestril 10mg PO DAily Hyperlipidemia Crestor 5mg PO DAily Prophylaxis Protonix 40mg PO Daily Heparin held for OR, will restart per podiatry recommendation SCDs C/I Dallin Lechuga PGY-2 All medical management per Dr. Billings
[2017-07-24 07:22] LABS: GFR AFRICAN-AMERICAN > 60
[2017-07-24 07:23] LABS: ALB/GLOB RATIO 1.2 (1.0-2.1); ALKALINE PHOSPHATASE 72 U/L (38-126); ALT/SGPT 50 U/L (21-72); AST/SGOT 31 U/L (17-59); BILIRUBIN,TOTAL 0.5 mg/dL (0.2-1.3); BLOOD UREA NITROGEN 15 mg/dL (9-20); CARBON DIOXIDE 29 mmol/L (22-30); GLUCOSE,RANDOM 170 mg/dL (75-110); PHOSPHOROUS 4.4 mg/dL (2.5-4.5); TOTAL PROTEIN 6.7 g/dL (6.3-8.3)
[2017-07-24 07:24] LABS: CALCIUM 8.9 mg/dl (8.6-10.4); MAGNESIUM 1.6 mg/dL (1.6-2.3)
[2017-07-24] MEDS: (Novolog) Insulin Aspart, Recombinant 100 u/ml 10 ml vial SC SCH ×4 (08:26→21:31)
--- NOTE | 2017-07-24 08:57 | CP.PCM.PN ---
Subjective - Date & Time of Evaluation Date of Evaluation: 07/24/17 Time of Evaluation: 07:00 - Subjective Subjective: General Surgery Note for Dr. Larson Patient seen and examined at bedside and in no acute distress. Patient POD1 s/p partial right first ray amputation by podiatry. Patient says he is having pain and spasms in his right leg. Patient denies n/v, c/d. Objective - Vital Signs/Intake and Output Vital Signs (last 24 hours): Temp Pulse Resp BP Pulse Ox 98.1 F 93 H 20 144/83 97 07/24/17 07:34 07/24/17 07:34 07/24/17 07:34 07/24/17 07:34 07/24/17 07:34 Intake and Output: 07/24/17 07/24/17 06:59 18:59 Intake Total 750 Output Total 3500 Balance -2750 - Medications Medications: Current Medications Escitalopram Oxalate (Lexapro) 10 mg PO HS [facility] Last Admin: 07/23/17 21:44 Dose: 10 mg Gabapentin (Neurontin) 300 mg PO HS [facility] Last Admin: 07/23/17 21:44 Dose: 300 mg Ceftriaxone Sodium 2 gm/ (Sodium Chloride) 100 mls @ 100 mls/hr IVPB Q24H [facility] Last Admin: 07/23/17 20:37 Dose: 100 mls/hr Insulin Aspart (Novolog Mix 70/30 (70/30 Units/Ml)) 30 units SC Q12 [facility] Last Admin: 07/23/17 21:44 Dose: 30 units Insulin Aspart (Novolog) 0 unit SC ACHS [facility] PRN Reason: Protocol Last Admin: 07/24/17 08:26 Dose: 1 unit Lisinopril (Zestril) 10 mg PO DAILY [facility] Last Admin: 07/23/17 11:04 Dose: Not Given Metformin HCl (Glucophage) 1,000 mg PO BIDCC [facility] Last Admin: 07/24/17 08:22 Dose: 1,000 mg Mupirocin (Bactroban Ointment) 1 gm TOP BID [facility] Last Admin: 07/23/17 17:24 Dose: Not Given Naproxen (Anaprox Ds) 550 mg PO Q12H PRN PRN Reason: Pain, moderate (4-7) Last Admin: 07/23/17 20:27 Dose: 550 mg Pantoprazole Sodium (Protonix Ec Tab) 40 mg PO DAILY [facility] Last Admin: 07/23/17 11:04 Dose: Not Given Rosuvastatin Calcium (Crestor) 5 mg PO HS [facility] Last Admin: 07/23/17 21:44 Dose: 5 mg - Labs Labs: 07/24/17 06:07 07/24/17 06:07 PT 11.1 SECONDS (9.7-12.2) 07/20/17 11:32 INR 1.0 07/20/17 11:32 APTT 35 SECONDS (21-34) H 07/20/17 11:32 - Constitutional Appears: Non-toxic, No Acute Distress - Head Exam Head Exam: ATRAUMATIC, NORMAL INSPECTION, NORMOCEPHALIC - Eye Exam Eye Exam: EOMI, Normal appearance - ENT Exam ENT Exam: Mucous Membranes Moist - Respiratory Exam Respiratory Exam: NORMAL BREATHING PATTERN. absent: Accessory Muscle Use, Respiratory Distress - Cardiovascular Exam Cardiovascular Exam: +S1, +S2 - GI/Abdominal Exam GI & Abdominal Exam: Soft. absent: Tenderness - Extremities Exam Additional comments: RLE: Dressing in place, C/D/I - Neurological Exam Neurological Exam: Alert, Awake, Oriented x3 - Psychiatric Exam Psychiatric exam: Normal Affect, Normal Mood - Skin Skin Exam: Normal Color, Warm Assessment and Plan - Assessment and Plan (Free Text) Assessment: 41M POD #1 s/p right partial 1st ray amputation -continue w. abx and local wound care -MICKIE/PVR pending -will d/w Dr. Larson
[2017-07-24] MEDS: (Novolog Mix 70/30) Insulin Aspart/Insulin Aspar 100 units/ml SC SCH ×2 (10:05→21:30)
[2017-07-24] MEDS: Pantoprazole 40 mg EC Tab PO SCH (10:05)
[2017-07-24] MEDS: Naproxen 550 mg Tab PO PRN ×2 (10:06→19:24)
--- NOTE | 2017-07-24 10:42 | CP.PCM.PN ---
Subjective - Date & Time of Evaluation Date of Evaluation: 07/24/17 Time of Evaluation: 10:00 - Subjective Subjective: s/p amp met head c/s sent Dr Hooper IV rx in progress Objective - Vital Signs/Intake and Output Vital Signs (last 24 hours): Temp Pulse Resp BP Pulse Ox 98.1 F 93 H 20 144/83 97 07/24/17 07:34 07/24/17 07:34 07/24/17 07:34 07/24/17 07:34 07/24/17 07:34 Intake and Output: 07/24/17 07/24/17 06:59 18:59 Intake Total 750 Output Total 3500 Balance -2750 - Medications Medications: Current Medications Escitalopram Oxalate (Lexapro) 10 mg PO HS [facility] Last Admin: 07/23/17 21:44 Dose: 10 mg Gabapentin (Neurontin) 300 mg PO HS [facility] Last Admin: 07/23/17 21:44 Dose: 300 mg Ceftriaxone Sodium 2 gm/ (Sodium Chloride) 100 mls @ 100 mls/hr IVPB Q24H [facility] Last Admin: 07/23/17 20:37 Dose: 100 mls/hr Insulin Aspart (Novolog) 0 unit SC ACHS [facility] PRN Reason: Protocol Last Admin: 07/24/17 08:26 Dose: 1 unit Insulin Aspart (Novolog Mix 70/30 (70/30 Units/Ml)) 35 units SC Q12 [facility] Last Admin: 07/24/17 10:05 Dose: 35 units Lisinopril (Zestril) 10 mg PO DAILY [facility] Last Admin: 07/24/17 10:05 Dose: 10 mg Metformin HCl (Glucophage) 1,000 mg PO BIDCC [facility] Last Admin: 07/24/17 08:22 Dose: 1,000 mg Mupirocin (Bactroban Ointment) 1 gm TOP BID [facility] Last Admin: 07/24/17 10:10 Dose: Not Given Naproxen (Anaprox Ds) 550 mg PO Q12H PRN PRN Reason: Pain, moderate (4-7) Last Admin: 07/24/17 10:06 Dose: 550 mg Pantoprazole Sodium (Protonix Ec Tab) 40 mg PO DAILY [facility] Last Admin: 07/24/17 10:05 Dose: 40 mg Rosuvastatin Calcium (Crestor) 5 mg PO HS [facility] Last Admin: 07/23/17 21:44 Dose: 5 mg - Labs Labs: 07/24/17 06:07 07/24/17 06:07 PT 11.1 SECONDS (9.7-12.2) 07/20/17 11:32 INR 1.0 07/20/17 11:32 APTT 35 SECONDS (21-34) H 07/20/17 11:32 - Constitutional Appears: Non-toxic, Chronically Ill - Head Exam Head Exam: NORMOCEPHALIC - Eye Exam Eye Exam: PERRL - ENT Exam ENT Exam: Mucous Membranes Dry, Normal External Ear Exam - Neck Exam Neck Exam: absent: Lymphadenopathy - Respiratory Exam Respiratory Exam: Decreased Breath Sounds - Cardiovascular Exam Cardiovascular Exam: REGULAR RHYTHM - GI/Abdominal Exam GI & Abdominal Exam: Distended, Soft - Rectal Exam Rectal Exam: Deferred - Exam Exam: NORMAL INSPECTION - Extremities Exam Extremities Exam: absent: Pedal Edema - Back Exam Back Exam: absent: CVA tenderness (L), CVA tenderness (R) Assessment and Plan (1) Cellulitis Status: Acute (2) Diabetic foot infection Status: Acute (3) Foot pain, right Status: Acute (4) Infected wound Status: Acute (5) Pneumonia Status: Acute
[2017-07-24] MEDS: Piperacillin/Tazobact 3.375 GM in Sodium Chloride 100 ML IVPB SCH ×2 (11:11→19:18)
--- NOTE | 2017-07-24 12:28 | CP.PCM.PN ---
<Gaby Johnson - Last Filed: 07/24/17 12:26> Subjective - Date & Time of Evaluation Date of Evaluation: 07/24/17 Time of Evaluation: 10:35 - Subjective Subjective: Podiatry Consult Note - Dr. Hooper 41 year old male patient 1 day s/p right foot 1st metatarsal resection. He was seen at bedside this AM with attending Dr. Hooper. Patient seen resting comfortably at time of visit. Patient denies of any pain tot he surgical area today. Patient offers no pedal complaints at this visit. Patient denies N/V/F/D/ C/SOB/calf pain. Objective - Vital Signs/Intake and Output Vital Signs (last 24 hours): Temp Pulse Resp BP Pulse Ox 98.1 F 93 H 20 144/83 97 07/24/17 07:34 07/24/17 07:34 07/24/17 07:34 07/24/17 07:34 07/24/17 07:34 Intake and Output: 07/24/17 07/24/17 06:59 18:59 Intake Total 750 Output Total 3500 Balance -2750 - Medications Medications: Current Medications Escitalopram Oxalate (Lexapro) 10 mg PO HS [facility] Last Admin: 07/23/17 21:44 Dose: 10 mg Gabapentin (Neurontin) 300 mg PO HS [facility] Last Admin: 07/23/17 21:44 Dose: 300 mg Piperacillin Sod/Tazobactam (Sod 3.375 gm/ Sodium Chloride) 100 mls @ 200 mls/ hr IVPB Q8H [facility] Last Admin: 07/24/17 11:11 Dose: 200 mls/hr Insulin Aspart (Novolog) 0 unit SC ACHS [facility] PRN Reason: Protocol Last Admin: 07/24/17 08:26 Dose: 1 unit Insulin Aspart (Novolog Mix 70/30 (70/30 Units/Ml)) 35 units SC Q12 [facility] Last Admin: 07/24/17 10:05 Dose: 35 units Lisinopril (Zestril) 10 mg PO DAILY [facility] Last Admin: 07/24/17 10:05 Dose: 10 mg Metformin HCl (Glucophage) 1,000 mg PO BIDCC [facility] Last Admin: 07/24/17 08:22 Dose: 1,000 mg Mupirocin (Bactroban Ointment) 1 gm TOP BID [facility] Last Admin: 07/24/17 10:10 Dose: Not Given Naproxen (Anaprox Ds) 550 mg PO Q12H PRN PRN Reason: Pain, moderate (4-7) Last Admin: 07/24/17 10:06 Dose: 550 mg Pantoprazole Sodium (Protonix Ec Tab) 40 mg PO DAILY [facility] Last Admin: 07/24/17 10:05 Dose: 40 mg Rosuvastatin Calcium (Crestor) 5 mg PO HS [facility] Last Admin: 07/23/17 21:44 Dose: 5 mg - Labs Labs: 07/24/17 06:07 07/24/17 06:07 PT 11.1 SECONDS (9.7-12.2) 07/20/17 11:32 INR 1.0 07/20/17 11:32 APTT 35 SECONDS (21-34) H 07/20/17 11:32 - Constitutional Appears: Well, Non-toxic, No Acute Distress - Extremities Exam Additional comments: Right lower extremity focused. VASC: DP and PT pulses fully palpable graded 2/4. No pitting edema noted. DERM: Surgical site to right foot well coapted with a sutures intact. No dehiscence is noted. No purulent drainage. No scott-wound erythema noted. No malodor noted. NEURO: Protective sensation grossly diminished. MUSK: Silverskoid test reveals gastroc-equinus . No other gross deformities noted - Neurological Exam Neurological Exam: Alert, Awake, Oriented x3 - Psychiatric Exam Psychiatric exam: Normal Affect, Normal Mood - Skin Skin Exam: Normal Color, Warm Assessment and Plan - Assessment and Plan (Free Text) Assessment: 41 year old male patient 1 day s/p right foot 1st metatarsal resection Plan: Patient seen and evaluated Discussed with attending, Dr. Hooper Labs and vitals reviewed = afebrile, 12.6 WBC Betadone soaked adaptic applied to wound and dressed with DSD Awaiting result for bone biopsy Patient to be non-weight bearing Podiatry will continue to follow in house <Jovanny Hooper - Last Filed: 07/24/17 13:07> Objective - Vital Signs/Intake and Output Vital Signs (last 24 hours): Temp Pulse Resp BP Pulse Ox 98.1 F 93 H 20 144/83 97 07/24/17 07:34 07/24/17 07:34 07/24/17 07:34 07/24/17 07:34 07/24/17 07:34 Intake and Output: 07/24/17 07/24/17 06:59 18:59 Intake Total 750 Output Total 3500 Balance -2750 - Medications Medications: Current Medications Escitalopram Oxalate (Lexapro) 10 mg PO HS [facility] Last Admin: 07/23/17 21:44 Dose: 10 mg Gabapentin (Neurontin) 300 mg PO HS [facility] Last Admin: 07/23/17 21:44 Dose: 300 mg Piperacillin Sod/Tazobactam (Sod 3.375 gm/ Sodium Chloride) 100 mls @ 200 mls/ hr IVPB Q8H [facility] Last Admin: 07/24/17 11:11 Dose: 200 mls/hr Insulin Aspart (Novolog) 0 unit SC ACHS [facility] PRN Reason: Protocol Last Admin: 07/24/17 12:30 Dose: 3 unit Insulin Aspart (Novolog Mix 70/30 (70/30 Units/Ml)) 35 units SC Q12 [facility] Last Admin: 07/24/17 10:05 Dose: 35 units Lisinopril (Zestril) 10 mg PO DAILY [facility] Last Admin: 07/24/17 10:05 Dose: 10 mg Metformin HCl (Glucophage) 1,000 mg PO BIDCC [facility] Last Admin: 07/24/17 08:22 Dose: 1,000 mg Mupirocin (Bactroban Ointment) 1 gm TOP BID [facility] Last Admin: 07/24/17 10:10 Dose: Not Given Naproxen (Anaprox Ds) 550 mg PO Q12H PRN PRN Reason: Pain, moderate (4-7) Last Admin: 07/24/17 10:06 Dose: 550 mg Pantoprazole Sodium (Protonix Ec Tab) 40 mg PO DAILY [facility] Last Admin: 07/24/17 10:05 Dose: 40 mg Rosuvastatin Calcium (Crestor) 5 mg PO HS [facility] Last Admin: 07/23/17 21:44 Dose: 5 mg - Labs Labs: 07/24/17 06:07 07/24/17 06:07 PT 11.1 SECONDS (9.7-12.2) 07/20/17 11:32 INR 1.0 07/20/17 11:32 APTT 35 SECONDS (21-34) H 07/20/17 11:32 Attending/Attestation - Attestation I have personally seen and examined this patient.: Yes I have fully participated in the care of the patient.: Yes I have reviewed all pertinent clinical information, including history, physical exam and plan: Yes Notes (Text): 07/24/17 13:06 Pt is s/p right partial 1st ray amp. Wound is clean and dry. [place] drain was removed. Redressed wound. Pt to remain strict non wt bearing on right foot. IV abx as per ID. Deep C+S and path was taken of bone.
[2017-07-24] MEDS ORDERED: Oxycodone/Acetaminophen 5/325 mg Tab PO ONE ×2 (12:45→22:28)
--- NOTE | 2017-07-24 15:35 | PCM.OP ---
Addendum entered and electronically signed by Cullen Johnson DPM 07/25/17 11:51 : Additional information to "Procedure/Operation Description" After [place] drain was applied, #3-0 Vicryl was used to reapproximate the subcutaneous tissues. Then, #4-0 Prolene was used to reapproximate the skin. The [place] drain was moved to confirm that the suture was not going through the [place] drain. Original Note: Operative Report - Operative Report Date of Surgery/Procedure: 07/23/17 Time of Surgery/Procedure: 12:30 Surgeon: Dr. Hooper Window Shade Installer: Cullen Serrato PGY-2, Fausto Mancini PGY-1 Anesthesia/Sedation: IV sedation and local Pre-Operative Diagnosis: Right foot infection with osteomyelitis to 1st Metatarsal Post-Operative Diagnosis: Right foot infection with osteomyelitis to 1st Metatarsal Indication for Surgery: The patient is a 41 year-old male with the above diagnoses. The patient has exhausted all conservative treatment at this time and now requires surgical intervention. The patient signed the consent after careful explanation of risks, benefits, complication and alternatives for surgical procedure. No guarantees were given nor implied. Operative Findings: The patient was brought into the operating room and placed on the operating room table in a supine position. Timeout was performed for identification of the correct patient and procedure. After induction of IV sedation, the patient received a total of 18 CC of 1:1 mixture of 1% lidocaine plain and 0.5% marcaine plain in a local block type fashion to the RIGHT foot around 1st MPJ. Once local anesthesia was achieved, the RIGHT foot and ankle was then prepped and draped in normal sterile manner and the procedure began. Procedure/Operation Description: Attention was directed to dorsal aspect of the RIGHT 1st metatarsal head where a circumferential open ulceration was noted measuring 2cm x 1cm x 0.3cm. Then, approximately 5 cm longitudinal incision was made to dorsal aspect of Right foot from the circumferential wound extending proximally. The incisions were then extended down through the subcutaneous layers down to the level of bone. The cartilage of 1st metatarsal head was unhealthy and all the ligamentous attachments were freed from the metatarsal head. Utilizing sagittal bone saw, the distal one third of the right 1st metatarsal bone was resected. This specimen was then passed from the operative field and sent to pathology and micro culture. Using a fresh #15 blade, all necrotic and non-viable tissue was then excisionally debrided from surgical site. The surgical site was then copiously flushed with normal sterile saline. At this time the wound was packed [place] drain and the right foot was dressed with 4x4 gauze, kerlix and RONALD bandage. Immediate capillary refill time was noted to the surgical site and all remaining digits. Estimated Blood Loss: 5cc Complications: None Specimen: Right foot 1st metatarsal bone Discharge & Condition: The patient tolerated the anesthesia and procedure well and was escorted to the recovery room with vital signs stable and neurovascular status intact to the right foot. Patient is back to floor for IV antibiotic treatment
[2017-07-24] MEDS ORDERED: Iodixanol 320 mg/ml 150 ml Bottle IV ONE (16:55)
[2017-07-24] MEDS ORDERED: Iodixanol 320 MG/ML 100 ML BOTTLE IV ONE (17:48)
--- NOTE | 2017-07-24 18:59 | CP.PCM.PN ---
Subjective - Date & Time of Evaluation Date of Evaluation: 07/24/17 Time of Evaluation: 07:00 - Subjective Subjective: clinically same Objective - Vital Signs/Intake and Output Vital Signs (last 24 hours): Temp Pulse Resp BP Pulse Ox 98.2 F 86 20 128/76 97 07/24/17 15:00 07/24/17 15:00 07/24/17 15:00 07/24/17 15:00 07/24/17 15:00 Intake and Output: 07/24/17 07/24/17 06:59 18:59 Intake Total 750 530 Output Total 3500 Balance -2750 530 - Medications Medications: Current Medications Escitalopram Oxalate (Lexapro) 10 mg PO HS [facility] Last Admin: 07/23/17 21:44 Dose: 10 mg Gabapentin (Neurontin) 300 mg PO HS [facility] Last Admin: 07/23/17 21:44 Dose: 300 mg Heparin Sodium (Porcine) (Heparin) 5,000 units SC Q8 [facility] Piperacillin Sod/Tazobactam (Sod 3.375 gm/ Sodium Chloride) 100 mls @ 200 mls/ hr IVPB Q8H [facility] Last Admin: 07/24/17 11:11 Dose: 200 mls/hr Insulin Aspart (Novolog) 0 unit SC ACHS [facility] PRN Reason: Protocol Last Admin: 07/24/17 17:25 Dose: Not Given Insulin Aspart (Novolog Mix 70/30 (70/30 Units/Ml)) 35 units SC Q12 [facility] Last Admin: 07/24/17 10:05 Dose: 35 units Lisinopril (Zestril) 10 mg PO DAILY [facility] Last Admin: 07/24/17 10:05 Dose: 10 mg Metformin HCl (Glucophage) 1,000 mg PO BIDCC [facility] Last Admin: 07/24/17 17:31 Dose: 1,000 mg Mupirocin (Bactroban Ointment) 1 gm TOP BID [facility] Last Admin: 07/24/17 17:32 Dose: Not Given Naproxen (Anaprox Ds) 550 mg PO Q12H PRN PRN Reason: Pain, moderate (4-7) Last Admin: 07/24/17 10:06 Dose: 550 mg Pantoprazole Sodium (Protonix Ec Tab) 40 mg PO DAILY [facility] Last Admin: 07/24/17 10:05 Dose: 40 mg Rosuvastatin Calcium (Crestor) 5 mg PO HS [facility] Last Admin: 07/23/17 21:44 Dose: 5 mg - Labs Labs: 07/24/17 06:07 07/24/17 06:07 PT 11.1 SECONDS (9.7-12.2) 07/20/17 11:32 INR 1.0 07/20/17 11:32 APTT 35 SECONDS (21-34) H 07/20/17 11:32 - Constitutional Appears: Well - Head Exam Head Exam: ATRAUMATIC, NORMAL INSPECTION, NORMOCEPHALIC - Eye Exam Eye Exam: EOMI, Normal appearance, PERRL Pupil Exam: NORMAL ACCOMODATION, PERRL - ENT Exam ENT Exam: Mucous Membranes Moist, Normal Exam - Neck Exam Neck Exam: Full ROM, Normal Inspection. absent: Lymphadenopathy - Respiratory Exam Respiratory Exam: Decreased Breath Sounds - Cardiovascular Exam Cardiovascular Exam: REGULAR RHYTHM, +S1, +S2 - GI/Abdominal Exam GI & Abdominal Exam: Soft, Diminished Bowel Sounds - Rectal Exam Rectal Exam: Deferred
--- NOTE | 2017-07-24 19:25 | CARD ---
APPROVED REPORT EKG Measurement Heart [id number] <Conclusion> Suspect arm lead reversal Normal sinus rhythm PLEASE REPEAT
[2017-07-25] MEDS: Piperacillin/Tazobact 3.375 GM in Sodium Chloride 100 ML IVPB SCH ×3 (02:29→17:46)
--- NOTE | 2017-07-25 07:09 | CP.PCM.PN ---
Subjective - Date & Time of Evaluation Date of Evaluation: 07/25/17 Time of Evaluation: 10:00 - Subjective Subjective: PGY3 on medicine Dr. Billings service: Pt seen and examined this morning at bedside. POD#2 metatarsal resection. No acute events overnight. Pt reports severe shooting pain as well as muscle spasms secondary to electric shock sensation. Denied chest pain, SOB, abdominal pain, n/v. 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 NPO past midnight for angio tomorrow. Objective - Vital Signs/Intake and Output Vital Signs (last 24 hours): Temp Pulse Resp BP Pulse Ox 99.2 F 105 H 20 114/68 96 07/25/17 00:00 07/25/17 00:00 07/25/17 00:00 07/25/17 00:00 07/25/17 00:00 Intake and Output: 07/25/17 07/25/17 06:59 18:59 Intake Total 740 Output Total 2300 Balance -1560 - Medications Medications: Current Medications Escitalopram Oxalate (Lexapro) 10 mg PO HS [facility] Last Admin: 07/24/17 21:30 Dose: 10 mg Gabapentin (Neurontin) 300 mg PO HS [facility] Last Admin: 07/24/17 21:30 Dose: 300 mg Heparin Sodium (Porcine) (Heparin) 5,000 units SC Q8 [facility] Last Admin: 07/25/17 06:15 Dose: 5,000 units Piperacillin Sod/Tazobactam (Sod 3.375 gm/ Sodium Chloride) 100 mls @ 200 mls/ hr IVPB Q8H [facility] Last Admin: 07/25/17 02:29 Dose: 200 mls/hr Insulin Aspart (Novolog) 0 unit SC ACHS [facility] PRN Reason: Protocol Last Admin: 07/24/17 21:31 Dose: Not Given Insulin Aspart (Novolog Mix 70/30 (70/30 Units/Ml)) 35 units SC Q12 [facility] Last Admin: 07/24/17 21:30 Dose: 35 units Lisinopril (Zestril) 10 mg PO DAILY [facility] Last Admin: 07/24/17 10:05 Dose: 10 mg Metformin HCl (Glucophage) 1,000 mg PO BIDCC [facility] Last Admin: 07/24/17 17:31 Dose: 1,000 mg Mupirocin (Bactroban Ointment) 1 gm TOP BID [facility] Last Admin: 07/24/17 17:32 Dose: Not Given Naproxen (Anaprox Ds) 550 mg PO Q12H PRN PRN Reason: Pain, moderate (4-7) Last Admin: 07/24/17 19:24 Dose: 550 mg Pantoprazole Sodium (Protonix Ec Tab) 40 mg PO DAILY [facility] Last Admin: 07/24/17 10:05 Dose: 40 mg Rosuvastatin Calcium (Crestor) 5 mg PO HS [facility] Last Admin: 07/24/17 21:29 Dose: 5 mg - Labs Labs: 07/24/17 06:07 07/24/17 06:07 PT 11.1 SECONDS (9.7-12.2) 07/20/17 11:32 INR 1.0 07/20/17 11:32 APTT 35 SECONDS (21-34) H 07/20/17 11:32 - Constitutional Appears: Non-toxic, No Acute Distress - Head Exam Head Exam: NORMOCEPHALIC - Eye Exam Eye Exam: Normal appearance Pupil Exam: NORMAL ACCOMODATION - ENT Exam ENT Exam: Mucous Membranes Moist - Respiratory Exam Respiratory Exam: Clear to Ausculation Bilateral, NORMAL BREATHING PATTERN. absent: Rales, Rhonchi, Wheezes - Cardiovascular Exam Cardiovascular Exam: REGULAR RHYTHM, +S1, +S2. absent: Gallop, Rubs - GI/Abdominal Exam GI & Abdominal Exam: Soft, Normal Bowel Sounds. absent: Tenderness - Extremities Exam Additional comments: right foot dressing c/d/i - Neurological Exam Neurological Exam: Alert, Awake, Oriented x3 - Psychiatric Exam Psychiatric exam: Normal Mood - Skin Skin Exam: Intact Assessment and Plan - Assessment and Plan (Free Text) Assessment: Non-healing R foot wound - Dr. Gonzalez, Podiatry attending - POD #2 revisional 1st metatarsal resection -continue w. abx and local wound care Marsha, Gen surg transformation consultant: help appreciated - severe stenosis in anterior tibial artery bilaterally - NPO for angio tomorrow Dr. Reich, ID transformation consultant: help appreciated - Ceftriaxone 2gm Q24H IV (minimum of 7 days post-op, started on 07/24) Naproxen 550mg PO Q12H (moderate pain) Type two DM Sugars elevated Metformin 1000mg PO BID [facility] Novolog 70/30 increased to 35 Q12H Zestril 10mg PO Daily Crestor 5mg PO Daily Neurontin 300mg PO increased to q8H for neuropathy HTN Elevated on admission, down-trending Zestril 10mg PO DAily Hyperlipidemia Crestor 5mg PO DAily Prophylaxis Protonix 40mg PO Daily Heparin held for OR, will restart per podiatry recommendation SCDs C/I All medical management per Dr. Billings
--- NOTE | 2017-07-25 07:38 | CP.PCM.PN ---
Subjective - Date & Time of Evaluation Date of Evaluation: 07/25/17 Time of Evaluation: 07:00 - Subjective Subjective: General Surgery Note for Dr. Larson Patient seen and examined at bedside and in no acute distress. Patient POD #2 s/ p right foot 1st metatarsal resection by podiatry. Patient says he had a very bad night of sleep due to "electric jolts" in his foot and muscle spasms that kept waking him up. Patient denies n/v, c/d. Objective - Vital Signs/Intake and Output Vital Signs (last 24 hours): Temp Pulse Resp BP Pulse Ox 99.2 F 105 H 20 114/68 96 07/25/17 00:00 07/25/17 00:00 07/25/17 00:00 07/25/17 00:00 07/25/17 00:00 Intake and Output: 07/25/17 07/25/17 06:59 18:59 Intake Total 740 Output Total 2300 Balance -1560 - Medications Medications: Current Medications Escitalopram Oxalate (Lexapro) 10 mg PO HS [facility] Last Admin: 07/24/17 21:30 Dose: 10 mg Gabapentin (Neurontin) 300 mg PO Q8H [facility] Heparin Sodium (Porcine) (Heparin) 5,000 units SC Q8 [facility] Last Admin: 07/25/17 06:15 Dose: 5,000 units Piperacillin Sod/Tazobactam (Sod 3.375 gm/ Sodium Chloride) 100 mls @ 200 mls/ hr IVPB Q8H [facility] Last Admin: 07/25/17 02:29 Dose: 200 mls/hr Insulin Aspart (Novolog) 0 unit SC ACHS [facility] PRN Reason: Protocol Last Admin: 07/24/17 21:31 Dose: Not Given Insulin Aspart (Novolog Mix 70/30 (70/30 Units/Ml)) 35 units SC Q12 [facility] Last Admin: 07/24/17 21:30 Dose: 35 units Lisinopril (Zestril) 10 mg PO DAILY [facility] Last Admin: 07/24/17 10:05 Dose: 10 mg Metformin HCl (Glucophage) 1,000 mg PO BIDCC [facility] Last Admin: 07/24/17 17:31 Dose: 1,000 mg Mupirocin (Bactroban Ointment) 1 gm TOP BID [facility] Last Admin: 07/24/17 17:32 Dose: Not Given Naproxen (Anaprox Ds) 550 mg PO Q12H PRN PRN Reason: Pain, moderate (4-7) Last Admin: 07/24/17 19:24 Dose: 550 mg Pantoprazole Sodium (Protonix Ec Tab) 40 mg PO DAILY [facility] Last Admin: 07/24/17 10:05 Dose: 40 mg Rosuvastatin Calcium (Crestor) 5 mg PO HS [facility] Last Admin: 07/24/17 21:29 Dose: 5 mg - Labs Labs: 07/24/17 06:07 07/24/17 06:07 PT 11.1 SECONDS (9.7-12.2) 07/20/17 11:32 INR 1.0 07/20/17 11:32 APTT 35 SECONDS (21-34) H 07/20/17 11:32 - Constitutional Appears: Non-toxic, No Acute Distress - Head Exam Head Exam: ATRAUMATIC, NORMAL INSPECTION, NORMOCEPHALIC - Eye Exam Eye Exam: EOMI, Normal appearance - ENT Exam ENT Exam: Mucous Membranes Moist - Respiratory Exam Respiratory Exam: NORMAL BREATHING PATTERN. absent: Accessory Muscle Use, Respiratory Distress - Cardiovascular Exam Cardiovascular Exam: +S1, +S2 - GI/Abdominal Exam GI & Abdominal Exam: Soft. absent: Tenderness - Extremities Exam Additional comments: Right lower extremity dressing D/C/I - Neurological Exam Neurological Exam: Alert, Awake, Oriented x3 - Psychiatric Exam Psychiatric exam: Normal Affect, Normal Mood - Skin Skin Exam: Normal Color, Warm Assessment and Plan - Assessment and Plan (Free Text) Assessment: Patient POD #2 s/p right foot 1st metatarsal resection -continue w. abx and local wound care -CTA: severe disease in b/l YUSEF, please see report for details -Angio tomorrow -NPO after midnight -d/w Dr. Larson
[2017-07-25] MEDS: (Novolog) Insulin Aspart, Recombinant 100 u/ml 10 ml vial SC SCH ×4 (08:41→21:46)
--- NOTE | 2017-07-25 08:47 | CT ---
PROCEDURE: CT Angiography Abdomen, Pelvis and Lower Extremity with Contrast HISTORY: pvd COMPARISON: Right lower extremity arterial ultrasound examination 05/08/2017. TECHNIQUE: Technique: CT angiography of the abdomen, pelvis and bilateral lower extremities performed in the arterial phase of enhancement. Coronal and sagittal reformats, and well as rotating MIP images of the vessels generated at the workstation. Intravenous contrast dose: Visipaque 320, 150 cc. Radiation dose: Total exam DLP = 5751.04 mGy-cm. This CT exam was performed using one or more of the following dose reduction techniques: Automated exposure control, adjustment of the mA and/or kV according to patient size, and/or use of iterative reconstruction technique. FINDINGS: CT ANGIOGRAPHY: ABDOMINAL AORTA:: Widely patent without stenosis or aneurysm development. No dissection appreciated either. MAJOR AORTIC BRANCHES: Celiac Uvalda: Unremarkable. Superior mesenteric artery: Unremarkable. Inferior mesenteric artery: Unremarkable. Renal arteries: Unremarkable. PELVIC ARTERIES: Right Common Iliac: Unremarkable. Right External Iliac: Unremarkable. Right Internal Iliac: Unremarkable. Left Common Iliac: Unremarkable. Left External Iliac: Unremarkable. Left Internal Iliac: Patent but with [id number] atherosclerosis noted. RIGHT LOWER EXTREMITY ARTERIES: Right Common Femoral: Patent widely by with minimal atherosclerotic plaque posteriorly. Right Superficial Femoral: Minimal occasional segmental plaques are identified with the right SFA widely patent nevertheless. Right Profunda Femoris: Unremarkable. Right Popliteal:Mild proximal stenosis though the artery remains widely patent throughout. Right Anterior Tibial: There is extensive atherosclerosis at the mid and distal right YUSEF likely including several segmental occlusion to the at the mid to distal portion the reconstitution is noted distally proximal to the ankle. Right Tibioperoneal Trunk: Patent without significant stenosis appreciated. Right Posterior Tibial: A few high-grade stenoses are identified proximally with the mid and distal segments widely patent to the ankle. Right Peroneal: No significant stenosis identified to the ankle. Right dorsalis pedis : Patent. LEFT LOWER EXTREMITY ARTERIES: Left Common Femoral: Patent widely by with minimal atherosclerotic plaque posteriorly. Left Superficial Femoral: Patent widely with minimal atherosclerotic plaque occasionally encountered. Left Profunda Femoris: Patent. Left Popliteal: Patent. Left Anterior Tibial: Extensive atherosclerotic plaque is seen throughout the vast majority of the left YUSEF with numerous high-grade stenoses or occlusions identified throughout its course beginning several cm distal to its origin though the distal segment appears well reconstituted immediately proximal to the ankle. Left Tibioperoneal Trunk: Generally widely patent both moderate stenosis at its distal most segment. Left Posterior Tibial: Patent to the ankle. Left Peroneal: Patent to the ankle. Left Dorsalis pedis: Patent. NON-ANGIOGRAPHIC ASPECT OF THE EXAM: LOWER THORAX: Small hiatal hernia is identified. No infiltrates or pleural effusions are noted bilaterally. LIVER: Diffuse steatosis is identified without focal mass evident. No prominent intrahepatic biliary duct dilatation. GALLBLADDER AND BILE DUCTS: Unremarkable. PANCREAS: Unremarkable. No gross lesion or ductal dilatation. SPLEEN: Mild splenomegaly to 14.3 cm without focal mass identified. ADRENALS: Unremarkable. No mass. KIDNEYS AND URETERS: Unremarkable. No hydronephrosis. No solid mass. STOMACH AND BOWEL: Stomach is distended with retained food and otherwise appears unremarkable. No bowel obstruction. No gross mural thickening. Moderate retained fecal material seen throughout the large bowel. APPENDIX: Normal appendix. PERITONEUM: Unremarkable. No free fluid. No free air. A tiny umbilical hernia is identified containing only mesenteric fat. LYMPH NODES: Unremarkable. No enlarged lymph nodes. BLADDER: Unremarkable. REPRODUCTIVE: Unremarkable. BONES: No acute fracture. OTHER FINDINGS: Amputation of right great toe and mid to distal 1st metatarsal bone evident without suspicious periosteal reaction or bony erosion at the amputation site. IMPRESSION: 1. Severely disease bilateral anterior tibial arteries are identified including proximal and distal bilateral high-grade stenoses or even occlusions with reconstitution identified proximal to the ankles bilaterally. Severe disease also identified proximal left YUSEF. Findings may represent interval progression of disease at the right lower extremity compared to prior right lower extremity arterial Dopplers noted above. 2. Severe disease noted proximal right posterior artery with remainder patent to the ankle. Left COSMETOLOGY PROFESSOR widely patent from origin to the ankle as well as bilateral peroneal arteries. 3. No significant common or superficial femoral artery disease or throughout the bilateral popliteal arteries. 4. Prior amputation of the right great toe and mid to distal 1st metatarsal bone evident. 5. Hepatic steatosis incidentally noted as well as mild splenomegaly. Findings may communicate to Dr. Luis Felipe Billings by cell phone text 07/25/2017 8:39 a.m..
[2017-07-25 08:54] LABS: BASO % 0.4 % (0.0-2.0); EOS # 0.2 K/uL (0.0-0.7); EOS % 1.5 % (0.0-4.0); LYMPH # 2.4 K/uL (1.0-4.3); LYMPH % 22.6 % (20.0-40.0); MEAN CELL VOLUME 79.3 fL (80.0-94.0); MEAN CORPUSCULAR HEMOGLOBIN 27.7 pg (27.0-31.0); MEAN PLATELET VOLUME 8.7 fL (7.2-11.7); MONO # 0.8 K/uL (0.0-0.8); MONO % 7.4 % (0.0-10.0); NRBC % 0.1 % (0.0-2.0); RED CELL DISTRIBUTION WIDTH 15.2 % (11.5-14.5); WHITE BLOOD COUNT 10.6 K/uL (4.8-10.8)
[2017-07-25 09:02] LABS: CHLORIDE 96 mmol/L (98-107)
[2017-07-25 09:03] LABS: POTASSIUM 4.5 mmol/L (3.6-5.2); SODIUM 133 mmol/L (132-148)
[2017-07-25 09:05] LABS: BILIRUBIN,TOTAL 0.6 mg/dL (0.2-1.3); GFR AFRICAN-AMERICAN > 60
[2017-07-25 09:06] LABS: ALB/GLOB RATIO 1.2 (1.0-2.1); ALKALINE PHOSPHATASE 66 U/L (38-126); ALT/SGPT 40 U/L (21-72); AST/SGOT 20 U/L (17-59); BLOOD UREA NITROGEN 16 mg/dL (9-20); CALCIUM 8.5 mg/dl (8.6-10.4); CARBON DIOXIDE 29 mmol/L (22-30); GLUCOSE,RANDOM 228 mg/dL (75-110); TOTAL PROTEIN 6.6 g/dL (6.3-8.3)
--- NOTE | 2017-07-25 10:11 | CP.PCM.PN ---
Subjective - Date & Time of Evaluation Date of Evaluation: 07/25/17 Time of Evaluation: 11:56 - Subjective Subjective: Podiatry Consult Note - Dr. Hooper 41 year old male patient 2 days s/p right foot 1st metatarsal resection. He was seen at bedside this AM with attending Dr. Kaur. Patient was seen resting comfortably at time of visit. Patient denies of any pain tot he surgical area today. Patient denies of any other pedal complaints. Patient denies N/V/F/D/C/ SOB/calf pain. Objective - Vital Signs/Intake and Output Vital Signs (last 24 hours): Temp Pulse Resp BP Pulse Ox 98.4 F 90 20 110/68 97 07/25/17 07:30 07/25/17 07:30 07/25/17 07:30 07/25/17 07:30 07/25/17 07:30 Intake and Output: 07/25/17 07/25/17 06:59 18:59 Intake Total 740 Output Total 2300 Balance -1560 - Medications Medications: Current Medications Escitalopram Oxalate (Lexapro) 10 mg PO HS [facility] Last Admin: 07/24/17 21:30 Dose: 10 mg Gabapentin (Neurontin) 300 mg PO Q8H [facility] Last Admin: 07/25/17 08:41 Dose: 300 mg Heparin Sodium (Porcine) (Heparin) 5,000 units SC Q8 [facility] Last Admin: 07/25/17 06:15 Dose: 5,000 units Piperacillin Sod/Tazobactam (Sod 3.375 gm/ Sodium Chloride) 100 mls @ 200 mls/ hr IVPB Q8H [facility] Last Admin: 07/25/17 02:29 Dose: 200 mls/hr Insulin Aspart (Novolog) 0 unit SC ACHS [facility] PRN Reason: Protocol Last Admin: 07/25/17 08:41 Dose: 1 unit Insulin Aspart (Novolog Mix 70/30 (70/30 Units/Ml)) 35 units SC Q12 [facility] Last Admin: 07/24/17 21:30 Dose: 35 units Lisinopril (Zestril) 10 mg PO DAILY [facility] Last Admin: 07/24/17 10:05 Dose: 10 mg Metformin HCl (Glucophage) 1,000 mg PO BIDCC [facility] Last Admin: 07/25/17 08:41 Dose: 1,000 mg Mupirocin (Bactroban Ointment) 1 gm TOP BID [facility] Last Admin: 07/24/17 17:32 Dose: Not Given Naproxen (Anaprox Ds) 550 mg PO Q12H PRN PRN Reason: Pain, moderate (4-7) Last Admin: 07/24/17 19:24 Dose: 550 mg Pantoprazole Sodium (Protonix Ec Tab) 40 mg PO DAILY [facility] Last Admin: 07/24/17 10:05 Dose: 40 mg Rosuvastatin Calcium (Crestor) 5 mg PO HS [facility] Last Admin: 07/24/17 21:29 Dose: 5 mg - Labs Labs: 07/25/17 08:36 07/25/17 08:36 PT 11.1 SECONDS (9.7-12.2) 07/20/17 11:32 INR 1.0 07/20/17 11:32 APTT 35 SECONDS (21-34) H 07/20/17 11:32 - Constitutional Appears: Well, Non-toxic, No Acute Distress - Head Exam Head Exam: ATRAUMATIC - Extremities Exam Additional comments: Right lower extremity focused. VASC: DP and PT pulses fully palpable graded 2/4. No pitting edema noted. DERM: Surgical site to right foot well coapted with a sutures intact. No dehiscence is noted. No purulent drainage. No scott-wound erythema noted. No malodor noted. NEURO: Protective sensation grossly diminished. MUSK: Silverskoid test reveals gastroc-equinus . No other gross deformities noted - Neurological Exam Neurological Exam: Alert, Awake, Oriented x3 - Psychiatric Exam Psychiatric exam: Normal Affect, Normal Mood - Skin Skin Exam: Normal Color, Warm Assessment and Plan - Assessment and Plan (Free Text) Assessment: 41 year old male patient 2 days s/p right foot 1st metatarsal resection Plan: Patient seen and evaluated Discussed with attending, Dr. Kaur Labs and vitals reviewed = afebrile, 10.6 WBC Betadone soaked 4x4 applied to wound and dressed with DSD Awaiting result for bone culture; Preliminary no growth CT Angiography of lowerextremity reveals severe stenosis to bilateral anterior tibial arteries proximal to ankle, as well as Right posterior tibal a. Patient to be non-weight bearing Podiatry will continue to follow in house
[2017-07-25] MEDS: Naproxen 550 mg Tab PO PRN (10:26)
[2017-07-25] MEDS: Pantoprazole 40 mg EC Tab PO SCH (10:27)
[2017-07-25] MEDS: (Novolog Mix 70/30) Insulin Aspart/Insulin Aspar 100 units/ml SC SCH ×2 (10:28→21:44)
--- NOTE | 2017-07-25 12:10 | CP.PCM.PN ---
Subjective - Date & Time of Evaluation Date of Evaluation: 07/25/17 Time of Evaluation: 11:30 - Subjective Subjective: Podiatry: Patient seen along with resident Dr Omar Johnson. Patient seen resting in bed. Right foot redressed. Wound is clean and dry. Drain was removed yesterday. There is no accumulation of fluid noted within the wound. To continue local wound care while patient is hospitalized. Bone biopsy report is not available as of yet. Objective - Vital Signs/Intake and Output Vital Signs (last 24 hours): Temp Pulse Resp BP Pulse Ox 98.4 F 82 20 110/68 97 07/25/17 07:30 07/25/17 10:07 07/25/17 07:30 07/25/17 10:07 07/25/17 10:07 Intake and Output: 07/25/17 07/25/17 06:59 18:59 Intake Total 740 Output Total 2300 Balance -1560 - Medications Medications: Current Medications Escitalopram Oxalate (Lexapro) 10 mg PO HS [facility] Last Admin: 07/24/17 21:30 Dose: 10 mg Gabapentin (Neurontin) 300 mg PO Q8H [facility] Last Admin: 07/25/17 08:41 Dose: 300 mg Heparin Sodium (Porcine) (Heparin) 5,000 units SC Q8 [facility] Last Admin: 07/25/17 06:15 Dose: 5,000 units Piperacillin Sod/Tazobactam (Sod 3.375 gm/ Sodium Chloride) 100 mls @ 200 mls/ hr IVPB Q8H [facility] Last Admin: 07/25/17 11:20 Dose: 200 mls/hr Insulin Aspart (Novolog Mix 70/30 (70/30 Units/Ml)) 35 units SC Q12 [facility] Last Admin: 07/25/17 10:28 Dose: 35 units Insulin Aspart (Novolog) 0 unit SC ACHS [facility] PRN Reason: Protocol Last Admin: 07/25/17 11:51 Dose: 3 unit Lisinopril (Zestril) 10 mg PO DAILY [facility] Last Admin: 07/25/17 10:26 Dose: 10 mg Metformin HCl (Glucophage) 1,000 mg PO BIDCC [facility] Last Admin: 07/25/17 08:41 Dose: 1,000 mg Mupirocin (Bactroban Ointment) 1 gm TOP BID [facility] Last Admin: 07/25/17 10:29 Dose: Not Given Naproxen (Anaprox Ds) 550 mg PO Q12H PRN PRN Reason: Pain, moderate (4-7) Last Admin: 07/25/17 10:26 Dose: 550 mg Pantoprazole Sodium (Protonix Ec Tab) 40 mg PO DAILY [facility] Last Admin: 07/25/17 10:27 Dose: 40 mg Rosuvastatin Calcium (Crestor) 5 mg PO HS [facility] Last Admin: 07/24/17 21:29 Dose: 5 mg - Labs Labs: 07/25/17 08:36 07/25/17 08:36 PT 11.1 SECONDS (9.7-12.2) 07/20/17 11:32 INR 1.0 07/20/17 11:32 APTT 35 SECONDS (21-34) H 07/20/17 11:32
--- NOTE | 2017-07-25 14:23 | VASCLAB ---
STUDY DESCRIPTION: HISTORY: Leg pain PRIORS: None. TECHNIQUE: Pulse volume recording waveforms and segmental pressures of bilateral lower extremities at multiple levels were obtained. Ankle Brachial Indices (ABIs) were calculated. Report prepared by LILLIAN Duke, RVT RIGHT LOWER EXTREMITY: * Brachial artery: Pressure - 121 mmHg. * High thigh: Pressure - mmHg: Ratio - : PVR waveform - Pulsatile * Low thigh: Pressure - 127 mmHg: Ratio - 1.04 PVR waveform: Pulsatile * Calf: Pressure - 79 mmHg: Ratio - 0.65 PVR waveform: Pulsatile * Posterior tibial Artery: Pressure - 111 mmHg: Ratio - 0.91 PVR waveform: Pulsatile * Dorsalis pedis Artery: Pressure - 87 mmHg: Ratio - 0.71 PVR waveform: Pulsatile * Great toe: Pressure - mmHg: Ratio - PVR waveform: Ankle brachial index (MICKIE): 0.91 LEFT LOWER EXTREMITY: * Brachial artery: Pressure - 122 mmHg. * High thigh: Pressure - mmHg: Ratio - : PVR waveform - Pulsatile * Low thigh: Pressure - 147 mmHg: Ratio - 1.20 PVR waveform: Pulsatile * Calf: Pressure - 137 mmHg: Ratio - 1.12 PVR waveform: Pulsatile * Posterior tibial Artery: Pressure - 135 mmHg: Ratio - 1.11 PVR waveform: Pulsatile * Dorsalis pedis Artery: Pressure - 136 mmHg: Ratio - 1.11 PVR waveform: Pulsatile * Great toe: Pressure - mmHg: Ratio - PVR waveform: Ankle brachial index (MICKIE): 1.11 OTHER FINDINGS: Right: Left: IMPRESSION: Right: This exam reveals mildly decreased perfusion of the right lower extremity, noted at the superficial femoral, popliteal and tibial artery levels. Left: There was no evidence of hemodynamically significant arterial insufficiency in the left lower extremity.
[2017-07-25] MEDS ORDERED: Piperacill/Tazo 3.375gm in Dex 3.375 GM/50 ML BAG IVPB SCH (18:45)
--- NOTE | 2017-07-25 19:28 | CP.PCM.PN ---
Subjective - Date & Time of Evaluation Date of Evaluation: 07/25/17 Time of Evaluation: 07:00 - Subjective Subjective: clinically same Objective - Vital Signs/Intake and Output Vital Signs (last 24 hours): Temp Pulse Resp BP Pulse Ox 98.2 F 88 20 119/75 96 07/25/17 15:00 07/25/17 15:00 07/25/17 15:00 07/25/17 15:00 07/25/17 15:00 Intake and Output: 07/25/17 07/26/17 18:59 06:59 Intake Total 400 Balance 400 - Medications Medications: Current Medications Escitalopram Oxalate (Lexapro) 10 mg PO HS [facility] Last Admin: 07/24/17 21:30 Dose: 10 mg Gabapentin (Neurontin) 300 mg PO Q8H [facility] Last Admin: 07/25/17 14:47 Dose: 300 mg Heparin Sodium (Porcine) (Heparin) 5,000 units SC Q8 [facility] Last Admin: 07/25/17 14:41 Dose: 5,000 units Piperacillin Sod/Tazobactam (Sod 3.375 gm/ Sodium Chloride) 100 mls @ 200 mls/ hr IVPB Q8H [facility] Last Admin: 07/25/17 17:46 Dose: 200 mls/hr Piperacillin Sod/Tazobactam Sod (Zosyn 3.375 Gm Iv Premix) 3.375 gm in 50 mls @ 100 mls/hr IVPB Q8H [facility] Insulin Aspart (Novolog Mix 70/30 (70/30 Units/Ml)) 35 units SC Q12 [facility] Last Admin: 07/25/17 10:28 Dose: 35 units Insulin Aspart (Novolog) 0 unit SC ACHS [facility] PRN Reason: Protocol Last Admin: 07/25/17 17:42 Dose: 3 unit Lisinopril (Zestril) 10 mg PO DAILY [facility] Last Admin: 07/25/17 10:26 Dose: 10 mg [facility] Last Admin: 07/25/17 17:41 Dose: 1,000 mg Mupirocin (Bactroban Ointment) 1 gm TOP BID [facility] Last Admin: 07/25/17 19:03 Dose: Not Given Naproxen (Anaprox Ds) 550 mg PO Q12H PRN PRN Reason: Pain, moderate (4-7) Last Admin: 07/25/17 10:26 Dose: 550 mg Pantoprazole Sodium (Protonix Ec Tab) 40 mg PO DAILY [facility] Last Admin: 07/25/17 10:27 Dose: 40 mg Rosuvastatin Calcium (Crestor) 5 mg PO HS [facility] Last Admin: 07/24/17 21:29 Dose: 5 mg - Labs Labs: 07/25/17 08:36 07/25/17 08:36 PT 11.1 SECONDS (9.7-12.2) 07/20/17 11:32 INR 1.0 07/20/17 11:32 APTT 35 SECONDS (21-34) H 07/20/17 11:32
[2017-07-25] MEDS ORDERED: Naproxen 550 mg Tab PO ONE (20:30)
[2017-07-26] MEDS: Piperacill/Tazo 3.375gm in Dex 3.375 GM/50 ML BAG IVPB SCH ×2 (05:46→21:32)
--- NOTE | 2017-07-26 07:00 | CP.PCM.PN ---
Subjective - Date & Time of Evaluation Date of Evaluation: 07/26/17 Time of Evaluation: 08:00 - Subjective Subjective: PGY3 on medicine Dr. Billings service: Pt seen and examined at bedside this morning. Pt reports R>L leg shooting pain that lasted couple of second, pt reports NSAID helps with pain better. Pt denied fever, chills, n/v, chest pain, SOB. Pt NPO for angio today. Objective - Vital Signs/Intake and Output Vital Signs (last 24 hours): Temp Pulse Resp BP Pulse Ox 98.1 F 101 H 20 122/76 97 07/26/17 00:00 07/26/17 00:00 07/26/17 00:00 07/26/17 00:00 07/26/17 00:00 Intake and Output: 07/26/17 07/26/17 06:59 18:59 Intake Total 450 Output Total 800 Balance -350 - Medications Medications: Current Medications Escitalopram Oxalate (Lexapro) 10 mg PO HS [facility] Last Admin: 07/25/17 21:44 Dose: 10 mg Gabapentin (Neurontin) 300 mg PO Q8H [facility] Last Admin: 07/25/17 23:00 Dose: 300 mg Heparin Sodium (Porcine) (Heparin) 5,000 units SC Q8 [facility] Last Admin: 07/25/17 21:44 Dose: 5,000 units Piperacillin Sod/Tazobactam Sod (Zosyn 3.375 Gm Iv Premix) 3.375 gm in 50 mls @ 100 mls/hr IVPB Q8H [facility] Last Admin: 07/26/17 05:46 Dose: 100 mls/hr Insulin Aspart (Novolog Mix 70/30 (70/30 Units/Ml)) 35 units SC Q12 [facility] Last Admin: 07/25/17 21:44 Dose: 35 units Insulin Aspart (Novolog) 0 unit SC ACHS [facility] PRN Reason: Protocol Last Admin: 07/25/17 21:46 Dose: Not Given Lisinopril (Zestril) 10 mg PO DAILY [facility] Last Admin: 07/25/17 10:26 Dose: 10 mg Metformin HCl (Glucophage) 1,000 mg PO BIDCC [facility] Last Admin: 07/25/17 17:41 Dose: 1,000 mg Mupirocin (Bactroban Ointment) 1 gm TOP BID [facility] Last Admin: 07/25/17 19:03 Dose: Not Given Naproxen (Anaprox Ds) 550 mg PO Q12 [facility] Pantoprazole Sodium (Protonix Ec Tab) 40 mg PO DAILY [facility] Last Admin: 07/25/17 10:27 Dose: 40 mg Rosuvastatin Calcium (Crestor) 5 mg PO HS [facility] Last Admin: 07/25/17 21:44 Dose: 5 mg Tramadol HCl (Ultram) 50 mg PO Q6H PRN PRN Reason: PAIN 1-10 - Labs Labs: 07/25/17 08:36 07/25/17 08:36 PT 11.1 SECONDS (9.7-12.2) 07/20/17 11:32 INR 1.0 07/20/17 11:32 APTT 35 SECONDS (21-34) H 07/20/17 11:32 - Constitutional Appears: Non-toxic, No Acute Distress - Head Exam Head Exam: NORMOCEPHALIC - Eye Exam Eye Exam: Normal appearance Pupil Exam: NORMAL ACCOMODATION - ENT Exam ENT Exam: Mucous Membranes Moist - Respiratory Exam Respiratory Exam: Clear to Ausculation Bilateral, NORMAL BREATHING PATTERN. absent: Rhonchi, Wheezes - Cardiovascular Exam Cardiovascular Exam: REGULAR RHYTHM, +S1, +S2. absent: Gallop, Rubs - GI/Abdominal Exam GI & Abdominal Exam: Soft, Normal Bowel Sounds. absent: Tenderness - Extremities Exam Additional comments: Right ankle dressing c/d/i - Neurological Exam Neurological Exam: Alert, Awake, Oriented x3 - Psychiatric Exam Psychiatric exam: Normal Mood - Skin Skin Exam: Intact Assessment and Plan - Assessment and Plan (Free Text) Assessment: Non-healing R foot wound - Dr. Gonzalez, Podiatry attending - POD #3 revisional 1st metatarsal resection -continue w. 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 Reich, ID apartment leasing consultant: help appreciated - Ceftriaxone 2gm Q24H IV (minimum of 7 days post-op, started on 07/24 and stopped 07/25) - Zosyn started today on 07/[address] Reich Toradol 15mg IV q6 PRN for mild pain Toradol 30mg IV q6 PRN for moderate pain Ultram 50mg PO q6 PRN for severe pain per Dr. Billings Type two DM Sugars elevated Metformin 1000mg PO BID [facility] Novolog 70/30 increased to 35 Q12H Zestril 10mg PO Daily Crestor 5mg PO Daily Neur[facility]in 300mg PO increased to q8H for neuropathy HTN Elevated on admission, down-trending Zestril 10mg PO DAily Hyperlipidemia Crestor 5mg PO DAily Prophylaxis Protonix 40mg PO Daily Heparin held for OR, will restart per podiatry recommendation SCDs C/I All medical management per Dr. Billings
[2017-07-26 07:26] LABS: BASO % 0.4 % (0.0-2.0); EOS # 0.2 K/uL (0.0-0.7); EOS % 1.7 % (0.0-4.0); HEMATOCRIT 38.3 % (35.0-51.0); LYMPH # 2.3 K/uL (1.0-4.3); LYMPH % 20.8 % (20.0-40.0); MEAN CELL VOLUME 79.9 fL (80.0-94.0); MEAN CORPUSCULAR HEMOGLOBIN 27.8 pg (27.0-31.0); MEAN CORPUSCULAR HGB CONC 34.8 g/dL (33.0-37.0); MEAN PLATELET VOLUME 8.8 fL (7.2-11.7); MONO # 0.8 K/uL (0.0-0.8); MONO % 7.5 % (0.0-10.0); NRBC % 0.1 % (0.0-2.0); RED CELL DISTRIBUTION WIDTH 14.9 % (11.5-14.5); WHITE BLOOD COUNT 10.8 K/uL (4.8-10.8)
[2017-07-26] MEDS: (Novolog) Insulin Aspart, Recombinant 100 u/ml 10 ml vial SC SCH ×4 (07:53→21:34)
[2017-07-26 07:56] LABS: CHLORIDE 98 mmol/L (98-107)
[2017-07-26 07:57] LABS: SODIUM 134 mmol/L (132-148)
[2017-07-26 07:59] LABS: ALB/GLOB RATIO 1.1 (1.0-2.1); ALKALINE PHOSPHATASE 89 U/L (38-126); AST/SGOT 27 U/L (17-59); BILIRUBIN,TOTAL 0.6 mg/dL (0.2-1.3); CARBON DIOXIDE 28 mmol/L (22-30); GFR AFRICAN-AMERICAN > 60; TOTAL PROTEIN 7.1 g/dL (6.3-8.3)
[2017-07-26 08:00] LABS: ALT/SGPT 37 U/L (21-72); BLOOD UREA NITROGEN 15 mg/dL (9-20); CALCIUM 8.9 mg/dl (8.6-10.4); GLUCOSE,RANDOM 207 mg/dL (75-110)
--- NOTE | 2017-07-26 09:42 | CP.PCM.PN ---
Objective - Vital Signs/Intake and Output Vital Signs (last 24 hours): Temp Pulse Resp BP Pulse Ox 98.0 F 85 20 132/85 98 07/26/17 08:22 07/26/17 08:22 07/26/17 08:22 07/26/17 08:22 07/26/17 08:22 Intake and Output: 07/26/17 07/26/17 06:59 18:59 Intake Total 450 Output Total 800 Balance -350 - Medications Medications: Current Medications Escitalopram Oxalate (Lexapro) 10 mg PO HS [facility] Last Admin: 07/25/17 21:44 Dose: 10 mg Gabapentin (Neurontin) 300 mg PO Q8H [facility] Last Admin: 07/26/17 07:55 Dose: Not Given Heparin Sodium (Porcine) (Heparin) 5,000 units SC Q8 [facility] Last Admin: 07/25/17 21:44 Dose: 5,000 units Piperacillin Sod/Tazobactam Sod (Zosyn 3.375 Gm Iv Premix) 3.375 gm in 50 mls @ 100 mls/hr IVPB Q8H [facility] Last Admin: 07/26/17 05:46 Dose: 100 mls/hr Insulin Aspart (Novolog Mix 70/30 (70/30 Units/Ml)) 35 units SC Q12 [facility] Last Admin: 07/25/17 21:44 Dose: 35 units Insulin Aspart (Novolog) 0 unit SC ACHS [facility] PRN Reason: Protocol Last Admin: 07/26/17 07:53 Dose: Not Given Ketorolac Tromethamine (Toradol) 30 mg IVP Q6 PRN PRN Reason: Pain, moderate (4-7) Last Admin: 07/26/17 08:11 Dose: 30 mg Ketorolac Tromethamine (Toradol) 15 mg IVP Q6 PRN PRN Reason: Pain, Mild (1-3) Lisinopril (Zestril) 10 mg PO DAILY [facility] Last Admin: 07/25/17 10:26 Dose: 10 mg Metformin HCl (Glucophage) 1,000 mg PO BIDCC [facility] Last Admin: 07/26/17 07:55 Dose: Not Given Mupirocin (Bactroban Ointment) 1 gm TOP BID [facility] Last Admin: 07/25/17 19:03 Dose: Not Given Naproxen (Anaprox Ds) 550 mg PO Q12 [facility] Pantoprazole Sodium (Protonix Ec Tab) 40 mg PO DAILY [facility] Last Admin: 07/25/17 10:27 Dose: 40 mg Rosuvastatin Calcium (Crestor) 5 mg PO HS [facility] Last Admin: 07/25/17 21:44 Dose: 5 mg Tramadol HCl (Ultram) 50 mg PO Q6H PRN PRN Reason: Pain, severe (8-10) - Labs Labs: 07/26/17 07:09 07/26/17 07:09 PT 11.1 SECONDS (9.7-12.2) 07/20/17 11:32 INR 1.0 07/20/17 11:32 APTT 35 SECONDS (21-34) H 07/20/17 11:32
[2017-07-26] MEDS: Naproxen 550 mg Tab PO SCH ×3 (09:52→21:31)
[2017-07-26] MEDS: (Novolog Mix 70/30) Insulin Aspart/Insulin Aspar 100 units/ml SC SCH ×2 (09:53→21:31)
[2017-07-26] MEDS: Pantoprazole 40 mg EC Tab PO SCH ×2 (09:53→10:01)
[2017-07-26] MEDS ORDERED: Propofol 10 mg/ml Inj (20 ML) ONE ×3 (12:32→13:23)
[2017-07-26] MEDS ORDERED: Midazolam 2 MG/2 ML VIAL ONE ×3 (12:32→13:22)
[2017-07-26] MEDS ORDERED: Lidocaine 2% Inj (20ml) ONE ×2 (12:39→12:41)
[2017-07-26] MEDS ORDERED: Iodixanol 320 MG/ML 100 ML BOTTLE IV ONE ×2 (12:45→13:20)
[2017-07-26] MEDS ORDERED: Iodixanol 320 MG/ML 200 ML BOTTLE IV ONE (12:45)
[2017-07-26] MEDS ORDERED: Nitroglycerin 50mg in D5W 50 MG/250 ML BOTTLE IV ONE (13:10)
--- NOTE | 2017-07-26 14:13 | PCM.SURG1 ---
Surgeon's Initial Post Op Note - Surgeon's Notes Surgeon: nahomy [employer] Associate: 0 Type of Anesthesia: IV Sedation Anesthesia Administered By: deonte Pre-Operative Diagnosis: pvd \sp toe amputat. Operative Findings: right severe tibial disease. ant tibial occluded. tibial peroneal trunk 99% stenosis. PT major vessel to foot Post-Operative Diagnosis: same Operation Performed: aortofemoral angiogram via left groin. selective catherization right femoral artery. CSI atherectomy of tibial peroneal trunk. balloon angioplasty 3x40 balloon. perclose left Specimen/Specimens Removed: 0 Estimated Blood Loss: EBL {In ML}: 35 Blood Products Given: N/A Post-Op Condition: Good Date of Surgery/Procedure: 07/26/17 Time of Surgery/Procedure: 14:15
--- NOTE | 2017-07-26 17:54 | CP.PCM.PN ---
Subjective - Date & Time of Evaluation Date of Evaluation: 07/26/17 Time of Evaluation: 09:00 - Subjective Subjective: events noted s/p angioplasty right tibial Objective - Vital Signs/Intake and Output Vital Signs (last 24 hours): Temp Pulse Resp BP Pulse Ox 97.3 F L 84 20 113/75 98 07/26/17 15:35 07/26/17 15:35 07/26/17 15:35 07/26/17 15:35 07/26/17 15:35 Intake and Output: 07/26/17 07/26/17 06:59 18:59 Intake Total 450 Output Total 800 Balance -350 - Medications Medications: Current Medications Escitalopram Oxalate (Lexapro) 10 mg PO HS [facility] Last Admin: 07/25/17 21:44 Dose: 10 mg Gabapentin (Neurontin) 300 mg PO Q8H [facility] Last Admin: 07/26/17 17:41 Dose: 300 mg Heparin Sodium (Porcine) (Heparin) 5,000 units SC Q8 [facility] Last Admin: 07/25/17 21:44 Dose: 5,000 units Piperacillin Sod/Tazobactam Sod (Zosyn 3.375 Gm Iv Premix) 3.375 gm in 50 mls @ 100 mls/hr IVPB Q8H [facility] Last Admin: 07/26/17 05:46 Dose: 100 mls/hr Insulin Aspart (Novolog Mix 70/30 (70/30 Units/Ml)) 35 units SC Q12 [facility] Last Admin: 07/26/17 09:53 Dose: Not Given Insulin Aspart (Novolog) 0 unit SC ACHS [facility] PRN Reason: Protocol Last Admin: 07/26/17 17:42 Dose: 3 unit Ketorolac Tromethamine (Toradol) 30 mg IVP Q6 PRN PRN Reason: Pain, moderate (4-7) Last Admin: 07/26/17 08:11 Dose: 30 mg Ketorolac Tromethamine (Toradol) 15 mg IVP Q6 PRN PRN Reason: Pain, Mild (1-3) Lisinopril (Zestril) 10 mg PO DAILY [facility] Last Admin: 07/26/17 10:01 Dose: 10 mg Metformin HCl (Glucophage) 1,000 mg PO BIDCC [facility] Last Admin: 07/26/17 17:41 Dose: 1,000 mg Mupirocin (Bactroban Ointment) 1 gm TOP BID [facility] Last Admin: 07/26/17 09:52 Dose: Not Given Naproxen (Anaprox Ds) 550 mg PO Q12 [facility] Last Admin: 07/26/17 10:03 Dose: 550 mg Pantoprazole Sodium (Protonix Ec Tab) 40 mg PO DAILY [facility] Last Admin: 07/26/17 10:01 Dose: 40 mg Rosuvastatin Calcium (Crestor) 5 mg PO HS [facility] Last Admin: 07/25/17 21:44 Dose: 5 mg Tramadol HCl (Ultram) 50 mg PO Q6H PRN PRN Reason: Pain, severe (8-10) - Labs Labs: 07/26/17 07:09 07/26/17 07:09 PT 11.1 SECONDS (9.7-12.2) 07/20/17 11:32 INR 1.0 07/20/17 11:32 APTT 35 SECONDS (21-34) H 07/20/17 11:32 - Constitutional Appears: Non-toxic - Head Exam Head Exam: NORMAL INSPECTION - Eye Exam Eye Exam: PERRL - ENT Exam ENT Exam: Mucous Membranes Dry - Neck Exam Neck Exam: absent: Lymphadenopathy - Respiratory Exam Respiratory Exam: Clear to Ausculation Bilateral - Cardiovascular Exam Cardiovascular Exam: REGULAR RHYTHM - GI/Abdominal Exam GI & Abdominal Exam: Distended - Rectal Exam Rectal Exam: Deferred - Exam Exam: NORMAL INSPECTION - Extremities Exam Extremities Exam: Pedal Edema, Tenderness. absent: Calf Tenderness - Back Exam Back Exam: absent: CVA tenderness (L), CVA tenderness (R) - Neurological Exam Neurological Exam: Alert, Awake, Oriented x3 - Psychiatric Exam Psychiatric exam: Normal Mood Assessment and Plan (1) Cellulitis Status: Acute (2) Diabetic foot infection Status: Acute (3) Foot pain, right Status: Acute (4) Infected wound Status: Acute (5) Pneumonia Status: Acute (6) PVD (peripheral vascular disease) Status: Acute (7) PVD (peripheral vascular disease) Status: Acute - Assessment and Plan (Free Text) Assessment: right severe tibial disease. ant tibial occluded. tibial peroneal trunk 99% stenosis. s/p aortofemoral angiogram via left groin. selective catherization right femoral artery. CSI atherectomy of tibial peroneal trunk. balloon angioplasty cultures from OR amp site all neg thus far
--- NOTE | 2017-07-26 18:51 | CP.PCM.PN ---
Subjective - Date & Time of Evaluation Date of Evaluation: 07/26/17 Time of Evaluation: 07:00 - Subjective Subjective: clinically same Objective - Vital Signs/Intake and Output Vital Signs (last 24 hours): Temp Pulse Resp BP Pulse Ox 97.3 F L 84 20 113/75 98 07/26/17 15:35 07/26/17 15:35 07/26/17 15:35 07/26/17 15:35 07/26/17 15:35 Intake and Output: 07/26/17 07/26/17 06:59 18:59 Intake Total 450 Output Total 800 Balance -350 - Medications Medications: Current Medications Escitalopram Oxalate (Lexapro) 10 mg PO HS [facility] Last Admin: 07/25/17 21:44 Dose: 10 mg Gabapentin (Neurontin) 300 mg PO Q8H [facility] Last Admin: 07/26/17 17:41 Dose: 300 mg Heparin Sodium (Porcine) (Heparin) 5,000 units SC Q8 [facility] Last Admin: 07/25/17 21:44 Dose: 5,000 units Piperacillin Sod/Tazobactam Sod (Zosyn 3.375 Gm Iv Premix) 3.375 gm in 50 mls @ 100 mls/hr IVPB Q8H [facility] Last Admin: 07/26/17 05:46 Dose: 100 mls/hr Insulin Aspart (Novolog Mix 70/30 (70/30 Units/Ml)) 35 units SC Q12 [facility] Last Admin: 07/26/17 09:53 Dose: Not Given Insulin Aspart (Novolog) 0 unit SC ACHS [facility] PRN Reason: Protocol Last Admin: 07/26/17 17:42 Dose: 3 unit Ketorolac Tromethamine (Toradol) 30 mg IVP Q6 PRN PRN Reason: Pain, moderate (4-7) Last Admin: 07/26/17 08:11 Dose: 30 mg Ketorolac Tromethamine (Toradol) 15 mg IVP Q6 PRN PRN Reason: Pain, Mild (1-3) Lisinopril (Zestril) 10 mg PO DAILY [facility] Last Admin: 07/26/17 10:01 Dose: 10 mg Metformin HCl (Glucophage) 1,000 mg PO BIDCC [facility] Last Admin: 07/26/17 17:41 Dose: 1,000 mg Mupirocin (Bactroban Ointment) 1 gm TOP BID [facility] Last Admin: 07/26/17 09:52 Dose: Not Given Naproxen (Anaprox Ds) 550 mg PO Q12 [facility] Last Admin: 07/26/17 10:03 Dose: 550 mg Pantoprazole Sodium (Protonix Ec Tab) 40 mg PO DAILY [facility] Last Admin: 07/26/17 10:01 Dose: 40 mg Rosuvastatin Calcium (Crestor) 5 mg PO HS [facility] Last Admin: 07/25/17 21:44 Dose: 5 mg Tramadol HCl (Ultram) 50 mg PO Q6H PRN PRN Reason: Pain, severe (8-10) - Labs Labs: 07/26/17 07:09 07/26/17 07:09 PT 11.1 SECONDS (9.7-12.2) 07/20/17 11:32 INR 1.0 07/20/17 11:32 APTT 35 SECONDS (21-34) H 07/20/17 11:32 - Constitutional Appears: Well - Head Exam Head Exam: ATRAUMATIC, NORMAL INSPECTION, NORMOCEPHALIC - Eye Exam Eye Exam: EOMI, Normal appearance, PERRL Pupil Exam: NORMAL ACCOMODATION, PERRL - ENT Exam ENT Exam: Mucous Membranes Moist, Normal Exam - Respiratory Exam Respiratory Exam: Decreased Breath Sounds - Cardiovascular Exam Cardiovascular Exam: REGULAR RHYTHM, +S1, +S2 - GI/Abdominal Exam GI & Abdominal Exam: Soft, Diminished Bowel Sounds - Rectal Exam Rectal Exam: Deferred
--- NOTE | 2017-07-26 21:01 | OP ---
PROCEDURE DATE: 07/26/2017 PREOPERATIVE DIAGNOSES: Status post toe amputation, peripheral vascular disease. PROCEDURES CARRIED OUT: Aortofemoral angiogram with selective catheterization of right femoral artery, CSI atherectomy of the right tibioperoneal trunk, balloon angioplasty using a 3 mm x 40 mm balloon, Perclose closure of left groin. SURGEON: Abdias Larson Jr., MD. ASSISTANTS: None ANESTHESIOLOGIST: Nannette Tuttle CRNA INDICATIONS: The patient is a 41-year-old male, diabetic, with gangrenous changes in his foot, which required amputation, subsequently noninvasive testing suggestive of tibial disease primarily in the anterior tibial artery; however, the actual angiographic findings were different. OPERATIVE FINDINGS: The aorta and renal arteries are free of significant occlusive disease. We did not have good visualization of the renal arteries on the film. Both common internal, common iliac arteries, external iliac artery, and superficial femoral artery, and profunda femoris arteries on both sides were widely patent. On the left side the vessels were patent and in continuity. We did not take detailed pictures below the level of the groin due to the dye washout. On the right side, we took selected pictures coming up and over the aortic bifurcation positioning a cath in the mid portion of the superficial femoral artery. This showed that tibioperoneal trunk had 99% stenosis. The anterior tibial artery was patent at its origin and occluded in multiple segments. Distally, at the foot, the posterior tibial artery was in contact with the pedal wedge and the dorsalis pedis artery reconstituted. The peroneal artery was open all the way down to the foot. There was some irregularity of approximately 30% to 40% stenosis in the mid to distal third of the posterior tibial artery. Subsequent to the performance of the diagnostic arteriogram, a stiff-angled Glidewire was advanced over the aortic bifurcation and a 6-Faroese sheath positioned in the distal portion of the superficial femoral artery. Using road-mapping technique, the lesion was crossed with an 0.014 wire. A CSI atherectomy was carried out. The patient was heparinized and then subsequently a balloon angioplasty using 3 x 40 mm balloon was carried out. Final cosmetic results were excellent. After the catheters removed and pictures were taken to check placement of everything, the procedure was terminated. Pressure was applied to the left groin after Perclose device was deployed. So the operation carried out: 1. Aortofemoral angiogram with selective catheterization of right femoral artery. 2. Balloon angioplasty and CSI atherectomy of the tibioperoneal trunk. 3. Perclose closure of left groin. Abdias Larson Jr., MD
[2017-07-27] MEDS: Piperacill/Tazo 3.375gm in Dex 3.375 GM/50 ML BAG IVPB SCH ×3 (06:07→21:24)
--- NOTE | 2017-07-27 07:12 | CP.PCM.PN ---
<Clive Rucker Y - Last Filed: 07/27/17 07:08> Subjective - Date & Time of Evaluation Date of Evaluation: 07/27/17 Time of Evaluation: 07:08 - Subjective Subjective: Podiatry note for Dr. Hooper 41 y/o male patient seen and evaluated at bedside for follow up on 3 days s/p right foot 1st ray amputation. Patient states that he had some moderate pain experience to the surgical site overnight and was given Tramatol. Patient denies any other pedal problem today. Right foot dressing noted intact, clean and dry. Patient denies any symptoms of N/V/f/SOB/Chest pain today. Objective - Vital Signs/Intake and Output Vital Signs (last 24 hours): Temp Pulse Resp BP Pulse Ox 98.3 F 98 H 20 130/74 97 07/27/17 00:19 07/27/17 00:19 07/27/17 00:19 07/27/17 00:19 07/27/17 00:19 Intake and Output: 07/27/17 07/27/17 06:59 18:59 Intake Total 860 Balance 860 - Medications Medications: Current Medications Escitalopram Oxalate (Lexapro) 10 mg PO HS [facility] Last Admin: 07/26/17 21:30 Dose: 10 mg Gabapentin (Neurontin) 300 mg PO Q8H [facility] Last Admin: 07/26/17 22:47 Dose: 300 mg Heparin Sodium (Porcine) (Heparin) 5,000 units SC Q8 [facility] Last Admin: 07/25/17 21:44 Dose: 5,000 units Piperacillin Sod/Tazobactam Sod (Zosyn 3.375 Gm Iv Premix) 3.375 gm in 50 mls @ 100 mls/hr IVPB Q8H [facility] Last Admin: 07/27/17 06:07 Dose: 100 mls/hr Insulin Aspart (Novolog Mix 70/30 (70/30 Units/Ml)) 35 units SC Q12 [facility] Last Admin: 07/26/17 21:31 Dose: 35 units Insulin Aspart (Novolog) 0 unit SC ACHS [facility] PRN Reason: Protocol Last Admin: 07/26/17 21:34 Dose: Not Given Ketorolac Tromethamine (Toradol) 30 mg IVP Q6 PRN PRN Reason: Pain, moderate (4-7) Last Admin: 07/26/17 08:11 Dose: 30 mg Ketorolac Tromethamine (Toradol) 15 mg IVP Q6 PRN PRN Reason: Pain, Mild (1-3) Lisinopril (Zestril) 10 mg PO DAILY [facility] Last Admin: 07/26/17 10:01 Dose: 10 mg Metformin HCl (Glucophage) 1,000 mg PO BIDCC [facility] Last Admin: 07/26/17 17:41 Dose: 1,000 mg Mupirocin (Bactroban Ointment) 1 gm TOP BID [facility] Last Admin: 07/26/17 18:49 Dose: Not Given Naproxen (Anaprox Ds) 550 mg PO Q12 [facility] Last Admin: 07/26/17 21:31 Dose: 550 mg Pantoprazole Sodium (Protonix Ec Tab) 40 mg PO DAILY [facility] Last Admin: 07/26/17 10:01 Dose: 40 mg Pseudoephedrine HCl (Sudafed Tab) 60 mg PO Q8 [facility] Last Admin: 07/27/17 06:08 Dose: 60 mg Rosuvastatin Calcium (Crestor) 5 mg PO HS [facility] Last Admin: 07/26/17 21:30 Dose: 5 mg Tramadol HCl (Ultram) 50 mg PO Q6H PRN PRN Reason: Pain, severe (8-10) Last Admin: 07/27/17 03:21 Dose: 50 mg - Labs Labs: 07/26/17 07:09 07/26/17 07:09 PT 11.1 SECONDS (9.7-12.2) 07/20/17 11:32 INR 1.0 07/20/17 11:32 APTT 35 SECONDS (21-34) H 07/20/17 11:32 - Constitutional Appears: Well, Non-toxic, No Acute Distress - Extremities Exam Additional comments: Vascular: DP and PT palpable (1/4), CFT is less than 3 seconds, normal skin temp , normal skin color Derm: Surgical site-sutures well coapted and intact, no drainage noted, no signs of infection, no wound dehescence, no active bleeding Ortho: pain with palpation to the surgical site, NWB to the surgical site Neuro: Protective sensation intact, light touch intact - Neurological Exam Neurological Exam: Alert, Awake - Psychiatric Exam Psychiatric exam: Normal Affect, Normal Mood Assessment and Plan - Assessment and Plan (Free Text) Assessment: 41 y/o male patient with 3 days s/p right foot 1st ray amputation Plan: Patient seen and evaluated at bedside All the question and concerns were addressed Right foot was cleansed with saline and redressed with beatdine soaked DSD and RONALD Patient will be on NWB to the RLE continue IV abx treatment Advised to elevate his right lower extremity Discussed with attending Dr. Hooper Podiatry will continue to follow while patient remains in house. <Jovanny Hooper - Last Filed: 07/27/17 11:50> Objective - Vital Signs/Intake and Output Vital Signs (last 24 hours): Temp Pulse Resp BP Pulse Ox 97.5 F L 87 20 130/84 97 07/27/17 08:11 07/27/17 08:11 07/27/17 08:11 07/27/17 08:11 07/27/17 08:11 Intake and Output: 07/27/17 07/27/17 06:59 18:59 Intake Total 860 Balance 860 - Medications Medications: Current Medications Escitalopram Oxalate (Lexapro) 10 mg PO HS [facility] Last Admin: 07/26/17 21:30 Dose: 10 mg Gabapentin (Neurontin) 300 mg PO Q8H [facility] Last Admin: 07/27/17 08:39 Dose: 300 mg Heparin Sodium (Porcine) (Heparin) 5,000 units SC Q8 [facility] Last Admin: 07/25/17 21:44 Dose: 5,000 units Piperacillin Sod/Tazobactam Sod (Zosyn 3.375 Gm Iv Premix) 3.375 gm in 50 mls @ 100 mls/hr IVPB Q8H [facility] Last Admin: 07/27/17 06:07 Dose: 100 mls/hr Insulin Aspart (Novolog Mix 70/30 (70/30 Units/Ml)) 35 units SC Q12 [facility] Last Admin: 07/27/17 10:34 Dose: 35 units Insulin Aspart (Novolog) 0 unit SC ACHS [facility] PRN Reason: Protocol Last Admin: 07/27/17 08:27 Dose: Not Given Ketorolac Tromethamine (Toradol) 30 mg IVP Q6 PRN PRN Reason: Pain, moderate (4-7) Last Admin: 07/26/17 08:11 Dose: 30 mg Ketorolac Tromethamine (Toradol) 15 mg IVP Q6 PRN PRN Reason: Pain, Mild (1-3) Lisinopril (Zestril) 10 mg PO DAILY [facility] Last Admin: 07/27/17 10:35 Dose: 10 mg Metformin HCl (Glucophage) 1,000 mg PO BIDCC [facility] Last Admin: 07/27/17 08:39 Dose: 1,000 mg Mupirocin (Bactroban Ointment) 1 gm TOP BID [facility] Last Admin: 07/27/17 10:36 Dose: Not Given Naproxen (Anaprox Ds) 550 mg PO Q12 [facility] Last Admin: 07/27/17 10:35 Dose: 550 mg Pantoprazole Sodium (Protonix Ec Tab) 40 mg PO DAILY [facility] Last Admin: 07/27/17 10:35 Dose: 40 mg Pseudoephedrine HCl (Sudafed Tab) 60 mg PO Q8 [facility] Last Admin: 07/27/17 06:08 Dose: 60 mg Rosuvastatin Calcium (Crestor) 5 mg PO HS [facility] Last Admin: 07/26/17 21:30 Dose: 5 mg Tramadol HCl (Ultram) 50 mg PO Q6H PRN PRN Reason: Pain, severe (8-10) Last Admin: 07/27/17 03:21 Dose: 50 mg - Labs Labs: 07/27/17 07:41 07/27/17 07:41 PT 11.1 SECONDS (9.7-12.2) 07/20/17 11:32 INR 1.0 07/20/17 11:32 APTT 35 SECONDS (21-34) H 07/20/17 11:32 Attending/Attestation - Attestation I have personally seen and examined this patient.: Yes I have fully participated in the care of the patient.: Yes I have reviewed all pertinent clinical information, including history, physical exam and plan: Yes Notes (Text): 07/27/17 11:48 Pt seen at bedside for f/u right amp. Pt in NAD. Pt is also S/p arthrectomy with Dr. Larson. Pt states he feels better. Wound is clean and dry. Sutures intact with no dehiscence noted. Pt to cont to remain strict non wt bearing on right foot. Cont IV abx as per ID.
--- NOTE | 2017-07-27 07:15 | CP.PCM.PN ---
Subjective - Date & Time of Evaluation Date of Evaluation: 07/27/17 Time of Evaluation: 07:13 - Subjective Subjective: PGY-[address] Billings's Service: Pt seen and examined at bedside. Nursing reports no acute events overnight. POD #1 s/p aortofemoral angiogram. Pt reports occasional pulsating "electrical pain " in right leg, that is better relieved with pain regimen today. He denies fever , chills, chest pain, palpitations, abdominal pain, N/V. Objective - Vital Signs/Intake and Output Vital Signs (last 24 hours): Temp Pulse Resp BP Pulse Ox 98.3 F 98 H 20 130/74 97 07/27/17 00:19 07/27/17 00:19 07/27/17 00:19 07/27/17 00:19 07/27/17 00:19 Intake and Output: 07/27/17 07/27/17 06:59 18:59 Intake Total 860 Balance 860 - Medications Medications: Current Medications Escitalopram Oxalate (Lexapro) 10 mg PO HS [facility] Last Admin: 07/26/17 21:30 Dose: 10 mg Gabapentin (Neurontin) 300 mg PO Q8H [facility] Last Admin: 07/26/17 22:47 Dose: 300 mg Heparin Sodium (Porcine) (Heparin) 5,000 units SC Q8 [facility] Last Admin: 07/25/17 21:44 Dose: 5,000 units Piperacillin Sod/Tazobactam Sod (Zosyn 3.375 Gm Iv Premix) 3.375 gm in 50 mls @ 100 mls/hr IVPB Q8H [facility] Last Admin: 07/27/17 06:07 Dose: 100 mls/hr Insulin Aspart (Novolog Mix 70/30 (70/30 Units/Ml)) 35 units SC Q12 [facility] Last Admin: 07/26/17 21:31 Dose: 35 units Insulin Aspart (Novolog) 0 unit SC ACHS [facility] PRN Reason: Protocol Last Admin: 07/26/17 21:34 Dose: Not Given Ketorolac Tromethamine (Toradol) 30 mg IVP Q6 PRN PRN Reason: Pain, moderate (4-7) Last Admin: 07/26/17 08:11 Dose: 30 mg Ketorolac Tromethamine (Toradol) 15 mg IVP Q6 PRN PRN Reason: Pain, Mild (1-3) Lisinopril (Zestril) 10 mg PO DAILY [facility] Last Admin: 07/26/17 10:01 Dose: 10 mg Metformin HCl (Glucophage) 1,000 mg PO BIDCC [facility] Last Admin: 07/26/17 17:41 Dose: 1,000 mg Mupirocin (Bactroban Ointment) 1 gm TOP BID [facility] Last Admin: 07/26/17 18:49 Dose: Not Given Naproxen (Anaprox Ds) 550 mg PO Q12 [facility] Last Admin: 07/26/17 21:31 Dose: 550 mg Pantoprazole Sodium (Protonix Ec Tab) 40 mg PO DAILY [facility] Last Admin: 07/26/17 10:01 Dose: 40 mg Pseudoephedrine HCl (Sudafed Tab) 60 mg PO Q8 [facility] Last Admin: 07/27/17 06:08 Dose: 60 mg Rosuvastatin Calcium (Crestor) 5 mg PO HS [facility] Last Admin: 07/26/17 21:30 Dose: 5 mg Tramadol HCl (Ultram) 50 mg PO Q6H PRN PRN Reason: Pain, severe (8-10) Last Admin: 07/27/17 03:21 Dose: 50 mg - Labs Labs: 07/26/17 07:09 07/26/17 07:09 PT 11.1 SECONDS (9.7-12.2) 07/20/17 11:32 INR 1.0 07/20/17 11:32 APTT 35 SECONDS (21-34) H 07/20/17 11:32 - Additional Findings Additional findings: - Constitutional Appears: Non-toxic, No Acute Distress - Head Exam Head Exam: NORMOCEPHALIC - Eye Exam Eye Exam: Normal appearance Pupil Exam: NORMAL ACCOMODATION - ENT Exam ENT Exam: Mucous Membranes Moist - Respiratory Exam Respiratory Exam: Clear to Ausculation Bilateral, NORMAL BREATHING PATTERN. absent: Rhonchi, Wheezes - Cardiovascular Exam Cardiovascular Exam: REGULAR RHYTHM, +S1, +S2. absent: Gallop, Rubs - GI/Abdominal Exam GI & Abdominal Exam: Soft, Normal Bowel Sounds. absent: Tenderness - Extremities Exam Additional comments: Right ankle dressing c/d/i - Neurological Exam Neurological Exam: Alert, Awake, Oriented x3 - Psychiatric Exam Psychiatric exam: Normal Mood - Skin Skin Exam: Intact Assessment and Plan - Assessment and Plan (Free Text) Plan: Non-healing R foot wound - Dr. Gonzalez, Podiatry attending - POD #4 revisional 1st metatarsal resection -continue w. 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 Tibial peroneal trunk 99% stenosis. Dr. Reich, ID portrait consultant: help appreciated - Ceftriaxone 2gm Q24H IV (minimum of 7 days post-op, started on 07/24 and stopped 07/25) - Zosyn 3.375gm IV Q8H started today on 07/[address] Reich Wound culture: (07/26/17) No polymorphonuclear WBCs, No organisms seen Toradol 15mg IV q6 PRN for mild pain Toradol 30mg IV q6 PRN for moderate pain Ultram 50mg PO q6 PRN for severe pain per Dr. Billings Type two DM Sugars elevated Metformin 1000mg PO BID [facility] Novolog 70/30 35 units Q12H Zestril 10mg PO Daily Crestor 5mg PO Daily Neurontin 300mg PO increased to q8H for neuropathy HTN Well-controlled Elevated on admission, down-trending Zestril 10mg PO Daily Hyperlipidemia Crestor 5mg PO Daily Anxiety Lexapro 10mg PO HS Prophylaxis Protonix 40mg PO Daily Heparin held for OR, will restart per podiatry recommendation ROSAs C/I Dallin Lechuga PGY-2 All medical management per Dr. Billings
[2017-07-27 07:55] LABS: BASO % 0.4 % (0.0-2.0); EOS # 0.2 K/uL (0.0-0.7); EOS % 2.1 % (0.0-4.0); HEMATOCRIT 36.6 % (35.0-51.0); LYMPH # 2.2 K/uL (1.0-4.3); LYMPH % 22.9 % (20.0-40.0); MEAN CELL VOLUME 79.5 fL (80.0-94.0); MEAN CORPUSCULAR HEMOGLOBIN 27.6 pg (27.0-31.0); MEAN CORPUSCULAR HGB CONC 34.7 g/dL (33.0-37.0); MEAN PLATELET VOLUME 8.4 fL (7.2-11.7); MONO # 0.7 K/uL (0.0-0.8); RED CELL DISTRIBUTION WIDTH 14.5 % (11.5-14.5); WHITE BLOOD COUNT 9.4 K/uL (4.8-10.8)
[2017-07-27 08:05] LABS: CHLORIDE 97 mmol/L (98-107); POTASSIUM 4.3 mmol/L (3.6-5.2); SODIUM 134 mmol/L (132-148)
[2017-07-27 08:07] LABS: AST/SGOT 21 U/L (17-59); BILIRUBIN,TOTAL 0.6 mg/dL (0.2-1.3); CARBON DIOXIDE 30 mmol/L (22-30); GFR AFRICAN-AMERICAN > 60; TOTAL PROTEIN 6.9 g/dL (6.3-8.3)
[2017-07-27 08:08] LABS: ALKALINE PHOSPHATASE 55 U/L (38-126); ALT/SGPT 33 U/L (21-72); BLOOD UREA NITROGEN 12 mg/dL (9-20); CALCIUM 8.5 mg/dl (8.6-10.4); GLUCOSE,RANDOM 118 mg/dL (75-110)
--- NOTE | 2017-07-27 08:19 | CP.PCM.PN ---
Subjective - Date & Time of Evaluation Date of Evaluation: 07/27/17 Time of Evaluation: 07:00 - Subjective Subjective: Surgery Note for Dr. Larson Patient seen and examined and in no acute distress. Patient is POD#1 s/p aortofemoral angiogram via left groin with selective catheterization right femoral artery. CSI atherectomy of tibial peroneal trunk and balloon angioplasty with 3x40 balloon. Patient says his pain was well controlled overnight and he was able to sleep. Patient says his pain is dull today. Patient denies nausea, vomiting, constipation, or diarrhea. Objective - Vital Signs/Intake and Output Vital Signs (last 24 hours): Temp Pulse Resp BP Pulse Ox 97.5 F L 87 20 130/84 97 07/27/17 08:11 07/27/17 08:11 07/27/17 08:11 07/27/17 08:11 07/27/17 08:11 Intake and Output: 07/27/17 07/27/17 06:59 18:59 Intake Total 860 Balance 860 - Medications Medications: Current Medications Escitalopram Oxalate (Lexapro) 10 mg PO HS [facility] Last Admin: 07/26/17 21:30 Dose: 10 mg Gabapentin (Neurontin) 300 mg PO Q8H [facility] Last Admin: 07/26/17 22:47 Dose: 300 mg Heparin Sodium (Porcine) (Heparin) 5,000 units SC Q8 [facility] Last Admin: 07/25/17 21:44 Dose: 5,000 units Piperacillin Sod/Tazobactam Sod (Zosyn 3.375 Gm Iv Premix) 3.375 gm in 50 mls @ 100 mls/hr IVPB Q8H [facility] Last Admin: 07/27/17 06:07 Dose: 100 mls/hr Insulin Aspart (Novolog Mix 70/30 (70/30 Units/Ml)) 35 units SC Q12 [facility] Last Admin: 07/26/17 21:31 Dose: 35 units Insulin Aspart (Novolog) 0 unit SC ACHS [facility] PRN Reason: Protocol Last Admin: 07/26/17 21:34 Dose: Not Given Ketorolac Tromethamine (Toradol) 30 mg IVP Q6 PRN PRN Reason: Pain, moderate (4-7) Last Admin: 07/26/17 08:11 Dose: 30 mg Ketorolac Tromethamine (Toradol) 15 mg IVP Q6 PRN PRN Reason: Pain, Mild (1-3) Lisinopril (Zestril) 10 mg PO DAILY [facility] Last Admin: 07/26/17 10:01 Dose: 10 mg [facility] Last Admin: 07/26/17 17:41 Dose: 1,000 mg Mupirocin (Bactroban Ointment) 1 gm TOP BID [facility] Last Admin: 07/26/17 18:49 Dose: Not Given Naproxen (Anaprox Ds) 550 mg PO Q12 [facility] Last Admin: 07/26/17 21:31 Dose: 550 mg Pantoprazole Sodium (Protonix Ec Tab) 40 mg PO DAILY [facility] Last Admin: 07/26/17 10:01 Dose: 40 mg Pseudoephedrine HCl (Sudafed Tab) 60 mg PO Q8 [facility] Last Admin: 07/27/17 06:08 Dose: 60 mg Rosuvastatin Calcium (Crestor) 5 mg PO HS [facility] Last Admin: 07/26/17 21:30 Dose: 5 mg Tramadol HCl (Ultram) 50 mg PO Q6H PRN PRN Reason: Pain, severe (8-10) Last Admin: 07/27/17 03:21 Dose: 50 mg - Labs Labs: 07/27/17 07:41 07/26/17 07:09 PT 11.1 SECONDS (9.7-12.2) 07/20/17 11:32 INR 1.0 07/20/17 11:32 APTT 35 SECONDS (21-34) H 07/20/17 11:32 - Constitutional Appears: Non-toxic, No Acute Distress - Head Exam Head Exam: ATRAUMATIC, NORMAL INSPECTION, NORMOCEPHALIC - Eye Exam Eye Exam: EOMI, Normal appearance - ENT Exam ENT Exam: Mucous Membranes Moist - Respiratory Exam Respiratory Exam: NORMAL BREATHING PATTERN. absent: Accessory Muscle Use, Respiratory Distress - Cardiovascular Exam Cardiovascular Exam: +S1, +S2 - GI/Abdominal Exam GI & Abdominal Exam: Soft. absent: Tenderness Additional comments: left groin site c/d/i, no hematoma or bleeding - Extremities Exam Additional comments: Right lower extremity dressing D/C/I - Neurological Exam Neurological Exam: Alert, Awake, Oriented x3 - Psychiatric Exam Psychiatric exam: Normal Affect, Normal Mood - Skin Skin Exam: Normal Color, Warm Assessment and Plan - Assessment and Plan (Free Text) Assessment: Patient POD #1 s/p balloon angioplasty of right lower extremity -continue w. abx and local wound care -no further surgical intervention, please re-consult if needed -d/w Dr. Larson
[2017-07-27] MEDS: (Novolog) Insulin Aspart, Recombinant 100 u/ml 10 ml vial SC SCH ×4 (08:27→21:24)
[2017-07-27] MEDS: (Novolog Mix 70/30) Insulin Aspart/Insulin Aspar 100 units/ml SC SCH ×2 (10:34→21:23)
[2017-07-27] MEDS: Naproxen 550 mg Tab PO SCH ×2 (10:35→21:23)
[2017-07-27] MEDS: Pantoprazole 40 mg EC Tab PO SCH (10:35)
--- NOTE | 2017-07-27 19:01 | CP.PCM.PN ---
Subjective - Date & Time of Evaluation Date of Evaluation: 07/27/17 Time of Evaluation: 07:00 - Subjective Subjective: Patient is POD#1 s/p aortofemoral angiogram via left groin with selective catheterization right femoral artery. CSI atherectomy of tibial peroneal trunk and balloon angioplasty with 3x40 balloon. Objective - Vital Signs/Intake and Output Vital Signs (last 24 hours): Temp Pulse Resp BP Pulse Ox 98.8 F 87 20 130/84 97 07/27/17 16:00 07/27/17 16:10 07/27/17 16:00 07/27/17 16:10 07/27/17 16:10 Intake and Output: 07/27/17 07/28/17 18:59 06:59 Intake Total 1250 Balance 1250 - Medications Medications: Current Medications Escitalopram Oxalate (Lexapro) 10 mg PO HS [facility] Last Admin: 07/26/17 21:30 Dose: 10 mg Gabapentin (Neurontin) 300 mg PO Q8H [facility] Last Admin: 07/27/17 16:00 Dose: 300 mg Heparin Sodium (Porcine) (Heparin) 5,000 units SC Q8 [facility] Last Admin: 07/25/17 21:44 Dose: 5,000 units Piperacillin Sod/Tazobactam Sod (Zosyn 3.375 Gm Iv Premix) 3.375 gm in 50 mls @ 100 mls/hr IVPB Q8H [facility] Last Admin: 07/27/17 13:46 Dose: 100 mls/hr Insulin Aspart (Novolog Mix 70/30 (70/30 Units/Ml)) 35 units SC Q12 [facility] Last Admin: 07/27/17 10:34 Dose: 35 units Insulin Aspart (Novolog) 0 unit SC ACHS [facility] PRN Reason: Protocol Last Admin: 07/27/17 17:43 Dose: 2 unit Ketorolac Tromethamine (Toradol) 30 mg IVP Q6 PRN PRN Reason: Pain, moderate (4-7) Last Admin: 07/26/17 08:11 Dose: 30 mg Ketorolac Tromethamine (Toradol) 15 mg IVP Q6 PRN PRN Reason: Pain, Mild (1-3) Lisinopril (Zestril) 10 mg PO DAILY [facility] Last Admin: 07/27/17 10:35 Dose: 10 mg Metformin HCl (Glucophage) 1,000 mg PO BIDCC [facility] Last Admin: 07/27/17 17:42 Dose: 1,000 mg Mupirocin (Bactroban Ointment) 1 gm TOP BID [facility] Last Admin: 07/27/17 10:36 Dose: Not Given Naproxen (Anaprox Ds) 550 mg PO Q12 [facility] Last Admin: 07/27/17 10:35 Dose: 550 mg Pantoprazole Sodium (Protonix Ec Tab) 40 mg PO DAILY [facility] Last Admin: 07/27/17 10:35 Dose: 40 mg Pseudoephedrine HCl (Sudafed Tab) 60 mg PO Q8 [facility] Last Admin: 07/27/17 13:48 Dose: 60 mg Rosuvastatin Calcium (Crestor) 5 mg PO HS [facility] Last Admin: 07/26/17 21:30 Dose: 5 mg Tramadol HCl (Ultram) 50 mg PO Q6H PRN PRN Reason: Pain, severe (8-10) Last Admin: 07/27/17 03:21 Dose: 50 mg - Labs Labs: 07/27/17 07:41 07/27/17 07:41 PT 11.1 SECONDS (9.7-12.2) 07/20/17 11:32 INR 1.0 07/20/17 11:32 APTT 35 SECONDS (21-34) H 07/20/17 11:32 - Constitutional Appears: Non-toxic, Chronically Ill - Head Exam Head Exam: NORMOCEPHALIC - Eye Exam Eye Exam: PERRL - ENT Exam ENT Exam: Mucous Membranes Dry - Respiratory Exam Respiratory Exam: Decreased Breath Sounds - Cardiovascular Exam Cardiovascular Exam: REGULAR RHYTHM, +S1, +S2 - GI/Abdominal Exam GI & Abdominal Exam: Distended, Soft - Rectal Exam Rectal Exam: Deferred - Exam Exam: NORMAL INSPECTION Assessment and Plan (1) Cellulitis Status: Acute (2) Diabetic foot infection Status: Acute (3) Foot pain, right Status: Acute (4) Infected wound Status: Acute (5) Pneumonia Status: Acute (6) PVD (peripheral vascular disease) Status: Acute (7) PVD (peripheral vascular disease) Status: Acute - Assessment and Plan (Free Text) Assessment: discussed on rounds cont rx
--- NOTE | 2017-07-27 23:40 | CP.PCM.PN ---
Subjective - Date & Time of Evaluation Date of Evaluation: 07/27/17 Objective - Vital Signs/Intake and Output Vital Signs (last 24 hours): Temp Pulse Resp BP Pulse Ox 98.8 F 87 20 130/84 97 07/27/17 16:00 07/27/17 16:10 07/27/17 16:00 07/27/17 16:10 07/27/17 16:10 Intake and Output: 07/27/17 07/28/17 18:59 06:59 Intake Total 1250 500 Output Total 950 Balance 1250 -450 - Medications Medications: Current Medications Escitalopram Oxalate (Lexapro) 10 mg PO HS [facility] Last Admin: 07/27/17 21:21 Dose: 10 mg Gabapentin (Neurontin) 300 mg PO Q8H [facility] Last Admin: 07/27/17 22:49 Dose: 300 mg Heparin Sodium (Porcine) (Heparin) 5,000 units SC Q8 [facility] Last Admin: 07/25/17 21:44 Dose: 5,000 units Piperacillin Sod/Tazobactam Sod (Zosyn 3.375 Gm Iv Premix) 3.375 gm in 50 mls @ 100 mls/hr IVPB Q8H [facility] Last Admin: 07/27/17 21:24 Dose: 100 mls/hr Insulin Aspart (Novolog Mix 70/30 (70/30 Units/Ml)) 35 units SC Q12 [facility] Last Admin: 07/27/17 21:23 Dose: 35 units Insulin Aspart (Novolog) 0 unit SC ACHS [facility] PRN Reason: Protocol Last Admin: 07/27/17 21:24 Dose: Not Given Ketorolac Tromethamine (Toradol) 30 mg IVP Q6 PRN PRN Reason: Pain, moderate (4-7) Last Admin: 07/26/17 08:11 Dose: 30 mg Ketorolac Tromethamine (Toradol) 15 mg IVP Q6 PRN PRN Reason: Pain, Mild (1-3) Lisinopril (Zestril) 10 mg PO DAILY [facility] Last Admin: 07/27/17 10:35 Dose: 10 mg Metformin HCl (Glucophage) 1,000 mg PO BIDCC [facility] Last Admin: 07/27/17 17:42 Dose: 1,000 mg Mupirocin (Bactroban Ointment) 1 gm TOP BID [facility] Last Admin: 07/27/17 18:00 Dose: Not Given Naproxen (Anaprox Ds) 550 mg PO Q12 [facility] Last Admin: 07/27/17 21:23 Dose: 550 mg Pantoprazole Sodium (Protonix Ec Tab) 40 mg PO DAILY [facility] Last Admin: 07/27/17 10:35 Dose: 40 mg Pseudoephedrine HCl (Sudafed Tab) 60 mg PO Q8 [facility] Last Admin: 07/27/17 21:21 Dose: 60 mg Rosuvastatin Calcium (Crestor) 5 mg PO HS [facility] Last Admin: 07/27/17 21:22 Dose: 5 mg Tramadol HCl (Ultram) 50 mg PO Q6H PRN PRN Reason: Pain, severe (8-10) Last Admin: 07/27/17 03:21 Dose: 50 mg - Labs Labs: 07/27/17 07:41 07/27/17 07:41 PT 11.1 SECONDS (9.7-12.2) 07/20/17 11:32 INR 1.0 07/20/17 11:32 APTT 35 SECONDS (21-34) H 07/20/17 11:32
[2017-07-28] MEDS: Piperacill/Tazo 3.375gm in Dex 3.375 GM/50 ML BAG IVPB SCH ×3 (05:49→21:49)
[2017-07-28 07:09] LABS: BASO % 0.6 % (0.0-2.0); EOS # 0.2 K/uL (0.0-0.7); EOS % 2.8 % (0.0-4.0); HEMATOCRIT 37.5 % (35.0-51.0); LYMPH # 1.9 K/uL (1.0-4.3); LYMPH % 22.7 % (20.0-40.0); MEAN CELL VOLUME 79.4 fL (80.0-94.0); MEAN CORPUSCULAR HEMOGLOBIN 27.6 pg (27.0-31.0); MEAN CORPUSCULAR HGB CONC 34.7 g/dL (33.0-37.0); MEAN PLATELET VOLUME 8.3 fL (7.2-11.7); MONO # 0.5 K/uL (0.0-0.8); MONO % 6.1 % (0.0-10.0); NRBC % 0.1 % (0.0-2.0); RED CELL DISTRIBUTION WIDTH 14.6 % (11.5-14.5); WHITE BLOOD COUNT 8.3 K/uL (4.8-10.8)
[2017-07-28 07:55] LABS: CHLORIDE 95 mmol/L (98-107); POTASSIUM 4.2 mmol/L (3.6-5.2); SODIUM 133 mmol/L (132-148)
[2017-07-28 07:58] LABS: ALB/GLOB RATIO 1.4 (1.0-2.1); ALKALINE PHOSPHATASE 67 U/L (38-126); ALT/SGPT 36 U/L (21-72); AST/SGOT 21 U/L (17-59); BILIRUBIN,TOTAL 0.6 mg/dL (0.2-1.3); BLOOD UREA NITROGEN 12 mg/dL (9-20); CARBON DIOXIDE 29 mmol/L (22-30); GFR AFRICAN-AMERICAN > 60; GLUCOSE,RANDOM 166 mg/dL (75-110); TOTAL PROTEIN 6.3 g/dL (6.3-8.3)
[2017-07-28 07:59] LABS: CALCIUM 8.9 mg/dl (8.6-10.4)
[2017-07-28] MEDS: (Novolog) Insulin Aspart, Recombinant 100 u/ml 10 ml vial SC SCH ×4 (08:41→21:30)
[2017-07-28] MEDS: Pantoprazole 40 mg EC Tab PO SCH (09:14)
[2017-07-28] MEDS: Naproxen 550 mg Tab PO SCH ×2 (09:14→21:48)
[2017-07-28] MEDS: (Novolog Mix 70/30) Insulin Aspart/Insulin Aspar 100 units/ml SC SCH ×2 (09:19→21:48)
--- NOTE | 2017-07-28 10:14 | CP.PCM.PN ---
Subjective - Date & Time of Evaluation Date of Evaluation: 07/28/17 Time of Evaluation: 11:00 - Subjective Subjective: Podiatry Progress note for Dr. Jovanny Hooper 41 y/o male patient seen and evaluated at bedside 4 days s/p R foot 1st ray amputation. Dressing to R foot is clean, dry and intact at time of visit. Patient states that the Tramadol is managing his pain very well and he is in no discomfort at this time. Pt is in good spirits and cheerful at time of visit. Patient denies any other pedal problem today. Pt admits that he has been disobeying doctor's orders and walking around in his surgical shoe, being sure to bear weight on the outside of the foot away from the surgical site. Patient denies F/C/N/V/CP/SOB at this time. Objective - Vital Signs/Intake and Output Vital Signs (last 24 hours): Temp Pulse Resp BP Pulse Ox 98.2 F 99 H 20 153/83 H 97 07/28/17 08:29 07/28/17 08:29 07/28/17 08:29 07/28/17 08:29 07/28/17 08:29 Intake and Output: 07/28/17 07/28/17 06:59 18:59 Intake Total 910 Output Total 1750 Balance -840 - Medications Medications: Current Medications Escitalopram Oxalate (Lexapro) 10 mg PO HS [facility] Last Admin: 07/27/17 21:21 Dose: 10 mg Gabapentin (Neurontin) 300 mg PO Q8H [facility] Last Admin: 07/28/17 08:42 Dose: 300 mg Heparin Sodium (Porcine) (Heparin) 5,000 units SC Q8 [facility] Last Admin: 07/25/17 21:44 Dose: 5,000 units Piperacillin Sod/Tazobactam Sod (Zosyn 3.375 Gm Iv Premix) 3.375 gm in 50 mls @ 100 mls/hr IVPB Q8H [facility] Last Admin: 07/28/17 05:49 Dose: 100 mls/hr Insulin Aspart (Novolog Mix 70/30 (70/30 Units/Ml)) 35 units SC Q12 [facility] Last Admin: 07/28/17 09:19 Dose: 35 units Insulin Aspart (Novolog) 0 unit SC ACHS [facility] PRN Reason: Protocol Last Admin: 07/28/17 08:41 Dose: 2 unit Lisinopril (Zestril) 10 mg PO DAILY [facility] Last Admin: 07/28/17 09:14 Dose: 10 mg Metformin HCl (Glucophage) 1,000 mg PO BIDCC [facility] Last Admin: 07/28/17 08:42 Dose: 1,000 mg Mupirocin (Bactroban Ointment) 1 gm TOP BID [facility] Last Admin: 07/27/17 18:00 Dose: Not Given Naproxen (Anaprox Ds) 550 mg PO Q12 [facility] Last Admin: 07/28/17 09:14 Dose: 550 mg Pantoprazole Sodium (Protonix Ec Tab) 40 mg PO DAILY [facility] Last Admin: 07/28/17 09:14 Dose: 40 mg Pseudoephedrine HCl (Sudafed Tab) 60 mg PO Q8 [facility] Last Admin: 07/28/17 05:49 Dose: 60 mg Rosuvastatin Calcium (Crestor) 5 mg PO HS [facility] Last Admin: 07/27/17 21:22 Dose: 5 mg Tramadol HCl (Ultram) 50 mg PO Q6H PRN PRN Reason: Pain, severe (8-10) Last Admin: 07/28/17 05:51 Dose: 50 mg - Labs Labs: 07/28/17 07:04 07/28/17 07:04 PT 11.1 SECONDS (9.7-12.2) 07/20/17 11:32 INR 1.0 07/20/17 11:32 APTT 35 SECONDS (21-34) H 07/20/17 11:32 - Constitutional Appears: Well, Non-toxic, No Acute Distress - Extremities Exam Additional comments: Right lower extremity focused examination: Vasc: DP and PT pulses are palpable 1/4, CFT < 3 seconds to all digits, temperature gradient WNL, no pedal edema Derm: Surgical site-sutures are well coapted and intact with no dehiscence noted. No drainage, no malodor, no signs of infection, no active bleeding Ortho: Mild tenderness on palpation of surgical site Neuro: Protective sensation and light touch intact - Neurological Exam Neurological Exam: Alert, Awake, Oriented x3 - Psychiatric Exam Psychiatric exam: Normal Affect, Normal Mood Assessment and Plan - Assessment and Plan (Free Text) Assessment: 41 y/o male patient 4 days s/p right foot 1st ray amputation Plan: Patient seen and evaluated at bedside Discussed with attending Dr. Hooper Chart, labs and vitals reviewed- afebrile, WBC 8.3 Right foot was cleansed with saline and redressed with betadine-soaked DSD and RONALD Patient advised to remain NWB to the RLE at all times Pt to continue IV abx treatment until completed Sunday or Sunday Advised to elevate his right lower extremity on a pillow when he is in bed Podiatry will continue to follow while patient remains in house
--- NOTE | 2017-07-28 14:50 | CP.PCM.PN ---
Subjective - Date & Time of Evaluation Date of Evaluation: 07/28/17 Time of Evaluation: 07:00 - Subjective Subjective: clinically same Objective - Vital Signs/Intake and Output Vital Signs (last 24 hours): Temp Pulse Resp BP Pulse Ox 98.2 F 99 H 20 153/83 H 97 07/28/17 08:29 07/28/17 08:29 07/28/17 08:29 07/28/17 08:29 07/28/17 08:29 Intake and Output: 07/28/17 07/28/17 06:59 18:59 Intake Total 910 Output Total 1750 Balance -840 - Medications Medications: Current Medications Escitalopram Oxalate (Lexapro) 10 mg PO HS [facility] Last Admin: 07/27/17 21:21 Dose: 10 mg Gabapentin (Neurontin) 300 mg PO Q8H [facility] Last Admin: 07/28/17 08:42 Dose: 300 mg Heparin Sodium (Porcine) (Heparin) 5,000 units SC Q8 [facility] Last Admin: 07/25/17 21:44 Dose: 5,000 units Piperacillin Sod/Tazobactam Sod (Zosyn 3.375 Gm Iv Premix) 3.375 gm in 50 mls @ 100 mls/hr IVPB Q8H [facility] Last Admin: 07/28/17 13:52 Dose: 100 mls/hr Insulin Aspart (Novolog Mix 70/30 (70/30 Units/Ml)) 35 units SC Q12 [facility] Last Admin: 07/28/17 09:19 Dose: 35 units Insulin Aspart (Novolog) 0 unit SC ACHS [facility] PRN Reason: Protocol Last Admin: 07/28/17 12:16 Dose: 2 unit Lisinopril (Zestril) 10 mg PO DAILY [facility] Last Admin: 07/28/17 09:14 Dose: 10 mg Metformin HCl (Glucophage) 1,000 mg PO BIDCC [facility] Last Admin: 07/28/17 08:42 Dose: 1,000 mg Mupirocin (Bactroban Ointment) 1 gm TOP BID [facility] Last Admin: 07/28/17 11:58 Dose: Not Given Naproxen (Anaprox Ds) 550 mg PO Q12 [facility] Last Admin: 07/28/17 09:14 Dose: 550 mg Pantoprazole Sodium (Protonix Ec Tab) 40 mg PO DAILY [facility] Last Admin: 07/28/17 09:14 Dose: 40 mg Pseudoephedrine HCl (Sudafed Tab) 60 mg PO Q8 [facility] Last Admin: 07/28/17 13:52 Dose: 60 mg Rosuvastatin Calcium (Crestor) 5 mg PO HS [facility] Last Admin: 07/27/17 21:22 Dose: 5 mg Tramadol HCl (Ultram) 50 mg PO Q6H PRN PRN Reason: Pain, severe (8-10) Last Admin: 07/28/17 05:51 Dose: 50 mg - Labs Labs: 07/28/17 07:04 07/28/17 07:04 PT 11.1 SECONDS (9.7-12.2) 07/20/17 11:32 INR 1.0 07/20/17 11:32 APTT 35 SECONDS (21-34) H 07/20/17 11:32
--- NOTE | 2017-07-28 17:22 | CP.PCM.PN ---
Subjective - Date & Time of Evaluation Date of Evaluation: 07/28/17 Time of Evaluation: 07:00 - Subjective Subjective: clinically same Objective - Vital Signs/Intake and Output Vital Signs (last 24 hours): Temp Pulse Resp BP Pulse Ox 98.4 F 82 20 135/78 98 07/28/17 15:00 07/28/17 15:00 07/28/17 15:00 07/28/17 15:00 07/28/17 15:00 Intake and Output: 07/28/17 07/28/17 06:59 18:59 Intake Total 910 650 Output Total 1750 Balance -840 650 - Medications Medications: Current Medications Escitalopram Oxalate (Lexapro) 10 mg PO HS [facility] Last Admin: 07/27/17 21:21 Dose: 10 mg Gabapentin (Neurontin) 300 mg PO Q8H [facility] Last Admin: 07/28/17 16:59 Dose: 300 mg Heparin Sodium (Porcine) (Heparin) 5,000 units SC Q8 [facility] Last Admin: 07/25/17 21:44 Dose: 5,000 units Piperacillin Sod/Tazobactam Sod (Zosyn 3.375 Gm Iv Premix) 3.375 gm in 50 mls @ 100 mls/hr IVPB Q8H [facility] Last Admin: 07/28/17 13:52 Dose: 100 mls/hr Insulin Aspart (Novolog Mix 70/30 (70/30 Units/Ml)) 35 units SC Q12 [facility] Last Admin: 07/28/17 09:19 Dose: 35 units Insulin Aspart (Novolog) 0 unit SC ACHS [facility] PRN Reason: Protocol Last Admin: 07/28/17 16:59 Dose: 2 unit Lisinopril (Zestril) 10 mg PO DAILY [facility] Last Admin: 07/28/17 09:14 Dose: 10 mg Metformin HCl (Glucophage) 1,000 mg PO BIDCC [facility] Last Admin: 07/28/17 16:59 Dose: 1,000 mg Mupirocin (Bactroban Ointment) 1 gm TOP BID [facility] Last Admin: 07/28/17 16:59 Dose: Not Given Naproxen (Anaprox Ds) 550 mg PO Q12 [facility] Last Admin: 07/28/17 09:14 Dose: 550 mg Pantoprazole Sodium (Protonix Ec Tab) 40 mg PO DAILY [facility] Last Admin: 07/28/17 09:14 Dose: 40 mg Pseudoephedrine HCl (Sudafed Tab) 60 mg PO Q8 [facility] Last Admin: 07/28/17 13:52 Dose: 60 mg Rosuvastatin Calcium (Crestor) 5 mg PO HS [facility] Last Admin: 07/27/17 21:22 Dose: 5 mg Tramadol HCl (Ultram) 50 mg PO Q6H PRN PRN Reason: Pain, severe (8-10) Last Admin: 07/28/17 05:51 Dose: 50 mg - Labs Labs: 07/28/17 07:04 07/28/17 07:04 PT 11.1 SECONDS (9.7-12.2) 07/20/17 11:32 INR 1.0 07/20/17 11:32 APTT 35 SECONDS (21-34) H 07/20/17 11:32
[2017-07-29] MEDS: Piperacill/Tazo 3.375gm in Dex 3.375 GM/50 ML BAG IVPB SCH ×3 (05:47→21:45)
[2017-07-29] MEDS: (Novolog) Insulin Aspart, Recombinant 100 u/ml 10 ml vial SC SCH ×4 (08:17→21:20)
[2017-07-29 09:15] LABS: BASO % 0.4 % (0.0-2.0); EOS # 0.3 K/uL (0.0-0.7); HEMATOCRIT 38.8 % (35.0-51.0); LYMPH % 22.4 % (20.0-40.0); MEAN CELL VOLUME 79.3 fL (80.0-94.0); MEAN CORPUSCULAR HEMOGLOBIN 27.9 pg (27.0-31.0); MEAN CORPUSCULAR HGB CONC 35.2 g/dL (33.0-37.0); MEAN PLATELET VOLUME 8.4 fL (7.2-11.7); MONO # 0.6 K/uL (0.0-0.8); MONO % 6.6 % (0.0-10.0); NRBC % 0.1 % (0.0-2.0); RED CELL DISTRIBUTION WIDTH 14.8 % (11.5-14.5); WHITE BLOOD COUNT 8.9 K/uL (4.8-10.8)
[2017-07-29] MEDS: Pantoprazole 40 mg EC Tab PO SCH (09:20)
[2017-07-29] MEDS: Naproxen 550 mg Tab PO SCH ×2 (09:20→21:45)
[2017-07-29 09:29] LABS: CHLORIDE 96 mmol/L (98-107); POTASSIUM 4.3 mmol/L (3.6-5.2); SODIUM 132 mmol/L (132-148)
[2017-07-29 09:31] LABS: ALB/GLOB RATIO 1.5 (1.0-2.1); AST/SGOT 27 U/L (17-59); BILIRUBIN,TOTAL 0.6 mg/dL (0.2-1.3); BLOOD UREA NITROGEN 14 mg/dL (9-20); CARBON DIOXIDE 25 mmol/L (22-30); GFR AFRICAN-AMERICAN > 60; TOTAL PROTEIN 6.5 g/dL (6.3-8.3)
--- NOTE | 2017-07-29 09:31 | CP.PCM.PN ---
Subjective - Date & Time of Evaluation Date of Evaluation: 07/29/17 Time of Evaluation: 19:08 - Subjective Subjective: Podiatry Progress note for Dr. Jovanny Hooper 41 y/o male patient seen and evaluated at bedside 5 days s/p R foot 1st ray amputation. Dressing to R foot is clean, dry and intact at time of visit. Patient denies any acute events overnight but states he has been having a little trouble sleeping. Pt is experiencing intermittent pain that is managed by Tramadol. Patient denies any other pedal problem today. Pt admits to walking around in his surgical shoe, being sure to bear weight on the outside of the foot away from the surgical site. However, pt states he is trying to respect the doctor;s wishes and is being careful. Patient denies F/C/N/V/CP/SOB at this time. Objective - Vital Signs/Intake and Output Vital Signs (last 24 hours): Temp Pulse Resp BP Pulse Ox 98.1 F 93 H 20 130/80 98 07/29/17 08:58 07/29/17 08:58 07/29/17 08:58 07/29/17 08:58 07/29/17 08:58 Intake and Output: 07/29/17 07/29/17 06:59 18:59 Intake Total 2030 Output Total 2000 Balance 30 - Medications Medications: Current Medications Escitalopram Oxalate (Lexapro) 10 mg PO HS [facility] Last Admin: 07/28/17 21:48 Dose: 10 mg Gabapentin (Neurontin) 300 mg PO Q8H [facility] Last Admin: 07/29/17 08:21 Dose: 300 mg Heparin Sodium (Porcine) (Heparin) 5,000 units SC Q8 [facility] Last Admin: 07/25/17 21:44 Dose: 5,000 units Piperacillin Sod/Tazobactam Sod (Zosyn 3.375 Gm Iv Premix) 3.375 gm in 50 mls @ 100 mls/hr IVPB Q8H [facility] Last Admin: 07/29/17 05:47 Dose: 100 mls/hr Insulin Aspart (Novolog Mix 70/30 (70/30 Units/Ml)) 35 units SC Q12 [facility] Last Admin: 07/28/17 21:48 Dose: 35 units Insulin Aspart (Novolog) 0 unit SC ACHS [facility] PRN Reason: Protocol Last Admin: 07/29/17 08:17 Dose: Not Given Lisinopril (Zestril) 10 mg PO DAILY [facility] Last Admin: 07/29/17 09:20 Dose: 10 mg Metformin HCl (Glucophage) 1,000 mg PO BIDCC [facility] Last Admin: 07/29/17 08:21 Dose: 1,000 mg Mupirocin (Bactroban Ointment) 1 gm TOP BID [facility] Last Admin: 07/29/17 09:21 Dose: Not Given Naproxen (Anaprox Ds) 550 mg PO Q12 [facility] Last Admin: 07/29/17 09:20 Dose: 550 mg Pantoprazole Sodium (Protonix Ec Tab) 40 mg PO DAILY [facility] Last Admin: 07/29/17 09:20 Dose: 40 mg Pseudoephedrine HCl (Sudafed Tab) 60 mg PO Q8 [facility] Last Admin: 07/29/17 05:47 Dose: 60 mg Rosuvastatin Calcium (Crestor) 5 mg PO HS [facility] Last Admin: 07/28/17 21:48 Dose: 5 mg Tramadol HCl (Ultram) 50 mg PO Q6H PRN PRN Reason: Pain, severe (8-10) Last Admin: 07/29/17 02:38 Dose: 50 mg - Labs Labs: 07/29/17 09:08 07/29/17 09:08 PT 11.1 SECONDS (9.7-12.2) 07/20/17 11:32 INR 1.0 07/20/17 11:32 APTT 35 SECONDS (21-34) H 07/20/17 11:32 - Constitutional Appears: Well, Non-toxic, No Acute Distress - Extremities Exam Additional comments: RLE focused examination: Vasc: DP and PT pulses are palpable 1/4, CFT < 3 seconds to all digits, temperature gradient WNL, no pedal edema Derm: Surgical site-sutures are well coapted and intact with no dehiscence noted. No drainage, no malodor, no signs of infection, no active bleeding. No strikethrough noted on bandage. Ortho: Mild tenderness on palpation of surgical site Neuro: Protective sensation and light touch intact - Neurological Exam Neurological Exam: Alert, Awake, Oriented x3 - Psychiatric Exam Psychiatric exam: Normal Affect, Normal Mood Assessment and Plan - Assessment and Plan (Free Text) Assessment: 41 y/o male patient 5 days s/p right foot 1st ray amputation Plan: Patient seen and evaluated at bedside Discussed with attending Dr. Hooper Chart, labs and vitals reviewed- afebrile, WBC 8.9 Right foot was cleansed with saline and dressed with Bactroban, DSD and RONALD bandage Patient advised to remain NWB to the RLE at all times Pt to continue IV abx treatment Advised to elevate his right lower extremity on a pillow when he is in bed Podiatry will continue to follow while patient remains in house
[2017-07-29 09:32] LABS: ALKALINE PHOSPHATASE 70 U/L (38-126); ALT/SGPT 36 U/L (21-72); CALCIUM 9.1 mg/dl (8.6-10.4); GLUCOSE,RANDOM 186 mg/dL (75-110)
[2017-07-29] MEDS: (Novolog Mix 70/30) Insulin Aspart/Insulin Aspar 100 units/ml SC SCH ×2 (09:36→21:46)
--- NOTE | 2017-07-29 15:28 | CP.PCM.PN ---
Subjective - Date & Time of Evaluation Date of Evaluation: 07/29/17 Time of Evaluation: 09:00 - Subjective Subjective: no new positive cultures cont iv rx Objective - Vital Signs/Intake and Output Vital Signs (last 24 hours): Temp Pulse Resp BP Pulse Ox 98.1 F 93 H 20 130/80 98 07/29/17 08:58 07/29/17 08:58 07/29/17 08:58 07/29/17 08:58 07/29/17 08:58 Intake and Output: 07/29/17 07/29/17 06:59 18:59 Intake Total 2030 Output Total 1999 Balance 30 - Medications Medications: Current Medications Escitalopram Oxalate (Lexapro) 10 mg PO HS [facility] Last Admin: 07/28/17 21:48 Dose: 10 mg Gabapentin (Neurontin) 300 mg PO Q8H [facility] Last Admin: 07/29/17 08:21 Dose: 300 mg Heparin Sodium (Porcine) (Heparin) 5,000 units SC Q8 [facility] Last Admin: 07/25/17 21:44 Dose: 5,000 units Piperacillin Sod/Tazobactam Sod (Zosyn 3.375 Gm Iv Premix) 3.375 gm in 50 mls @ 100 mls/hr IVPB Q8H [facility] Last Admin: 07/29/17 14:36 Dose: 100 mls/hr Insulin Aspart (Novolog Mix 70/30 (70/30 Units/Ml)) 35 units SC Q12 [facility] Last Admin: 07/29/17 09:36 Dose: 35 units Insulin Aspart (Novolog) 0 unit SC ACHS [facility] PRN Reason: Protocol Last Admin: 07/29/17 12:18 Dose: 2 unit Lisinopril (Zestril) 10 mg PO DAILY [facility] Last Admin: 07/29/17 09:20 Dose: 10 mg Metformin HCl (Glucophage) 1,000 mg PO BIDCC [facility] Last Admin: 07/29/17 08:21 Dose: 1,000 mg Mupirocin (Bactroban Ointment) 1 gm TOP BID [facility] Last Admin: 07/29/17 09:21 Dose: Not Given Naproxen (Anaprox Ds) 550 mg PO Q12 [facility] Last Admin: 07/29/17 09:20 Dose: 550 mg Pantoprazole Sodium (Protonix Ec Tab) 40 mg PO DAILY [facility] Last Admin: 07/29/17 09:20 Dose: 40 mg Pseudoephedrine HCl (Sudafed Tab) 60 mg PO Q8 [facility] Last Admin: 07/29/17 14:35 Dose: 60 mg Rosuvastatin Calcium (Crestor) 5 mg PO HS [facility] Last Admin: 07/28/17 21:48 Dose: 5 mg Tramadol HCl (Ultram) 50 mg PO Q6H PRN PRN Reason: Pain, severe (8-10) Last Admin: 07/29/17 02:38 Dose: 50 mg - Labs Labs: 07/29/17 09:08 07/29/17 09:08 PT 11.1 SECONDS (9.7-12.2) 07/20/17 11:32 INR 1.0 07/20/17 11:32 APTT 35 SECONDS (21-34) H 07/20/17 11:32 - Constitutional Appears: Non-toxic, Chronically Ill - Head Exam Head Exam: NORMOCEPHALIC - Eye Exam Eye Exam: PERRL - ENT Exam ENT Exam: Mucous Membranes Dry - Neck Exam Neck Exam: absent: Lymphadenopathy - Respiratory Exam Respiratory Exam: Decreased Breath Sounds - Cardiovascular Exam Cardiovascular Exam: REGULAR RHYTHM - GI/Abdominal Exam GI & Abdominal Exam: Distended Assessment and Plan (1) Cellulitis Status: Acute (2) Diabetic foot infection Status: Acute (3) Foot pain, right Status: Acute (4) Infected wound Status: Acute (5) Pneumonia Status: Acute (6) PVD (peripheral vascular disease) Status: Acute (7) PVD (peripheral vascular disease) Status: Acute
--- NOTE | 2017-07-29 17:04 | CP.PCM.PN ---
Subjective - Date & Time of Evaluation Date of Evaluation: 07/29/17 Time of Evaluation: 07:00 - Subjective Subjective: clinically same Objective - Vital Signs/Intake and Output Vital Signs (last 24 hours): Temp Pulse Resp BP Pulse Ox 97.5 F L 89 20 153/79 H 99 07/29/17 15:00 07/29/17 15:00 07/29/17 15:00 07/29/17 15:00 07/29/17 15:00 Intake and Output: 07/29/17 07/29/17 06:59 18:59 Intake Total 2030 650 Output Total 2000 Balance 30 650 - Medications Medications: Current Medications Escitalopram Oxalate (Lexapro) 10 mg PO HS [facility] Last Admin: 07/28/17 21:48 Dose: 10 mg Gabapentin (Neurontin) 300 mg PO Q8H [facility] Last Admin: 07/29/17 16:24 Dose: 300 mg Heparin Sodium (Porcine) (Heparin) 5,000 units SC Q8 [facility] Last Admin: 07/25/17 21:44 Dose: 5,000 units Piperacillin Sod/Tazobactam Sod (Zosyn 3.375 Gm Iv Premix) 3.375 gm in 50 mls @ 100 mls/hr IVPB Q8H [facility] Last Admin: 07/29/17 14:36 Dose: 100 mls/hr Insulin Aspart (Novolog Mix 70/30 (70/30 Units/Ml)) 35 units SC Q12 [facility] Last Admin: 07/29/17 09:36 Dose: 35 units Insulin Aspart (Novolog) 0 unit SC ACHS [facility] PRN Reason: Protocol Last Admin: 07/29/17 16:24 Dose: Not Given Lisinopril (Zestril) 10 mg PO DAILY [facility] Last Admin: 07/29/17 09:20 Dose: 10 mg Metformin HCl (Glucophage) 1,000 mg PO BIDCC [facility] Last Admin: 07/29/17 16:24 Dose: 1,000 mg Mupirocin (Bactroban Ointment) 1 gm TOP BID [facility] Last Admin: 07/29/17 09:21 Dose: Not Given Naproxen (Anaprox Ds) 550 mg PO Q12 [facility] Last Admin: 07/29/17 09:20 Dose: 550 mg Pantoprazole Sodium (Protonix Ec Tab) 40 mg PO DAILY [facility] Last Admin: 07/29/17 09:20 Dose: 40 mg Pseudoephedrine HCl (Sudafed Tab) 60 mg PO Q8 [facility] Last Admin: 07/29/17 14:35 Dose: 60 mg Rosuvastatin Calcium (Crestor) 5 mg PO HS [facility] Last Admin: 07/28/17 21:48 Dose: 5 mg Tramadol HCl (Ultram) 50 mg PO Q6H PRN PRN Reason: Pain, severe (8-10) Last Admin: 07/29/17 02:38 Dose: 50 mg - Labs Labs: 07/29/17 09:08 07/29/17 09:08 PT 11.1 SECONDS (9.7-12.2) 07/20/17 11:32 INR 1.0 07/20/17 11:32 APTT 35 SECONDS (21-34) H 07/20/17 11:32 - Constitutional Appears: Well - Head Exam Head Exam: ATRAUMATIC, NORMAL INSPECTION, NORMOCEPHALIC - Eye Exam Eye Exam: EOMI, Normal appearance, PERRL Pupil Exam: NORMAL ACCOMODATION, PERRL - ENT Exam ENT Exam: Mucous Membranes Moist, Normal Exam - Neck Exam Neck Exam: Full ROM, Normal Inspection. absent: Lymphadenopathy - Respiratory Exam Respiratory Exam: Decreased Breath Sounds - Cardiovascular Exam Cardiovascular Exam: REGULAR RHYTHM, +S1, +S2 - GI/Abdominal Exam GI & Abdominal Exam: Soft, Diminished Bowel Sounds - Rectal Exam Rectal Exam: Deferred
[2017-07-30] MEDS: Piperacill/Tazo 3.375gm in Dex 3.375 GM/50 ML BAG IVPB SCH ×2 (05:15→14:33)
[2017-07-30] MEDS: (Novolog) Insulin Aspart, Recombinant 100 u/ml 10 ml vial SC SCH ×3 (08:27→17:23)
--- NOTE | 2017-07-30 09:24 | CP.PCM.PN ---
<PollyMinal H - Last Filed: 07/30/17 09:21> Subjective - Date & Time of Evaluation Date of Evaluation: 07/30/17 Time of Evaluation: 08:00 - Subjective Subjective: PGY3 Medicine Note - Dr. Luis Felipe Billings's service: Patient seen and examined at bedside this AM. Patient reports no pain in his toe. Patient says he got dizzy last night when his blood pressure was high. Patient denies fever, chills, chest pain, SOB. Objective - Vital Signs/Intake and Output Vital Signs (last 24 hours): Temp Pulse Resp BP Pulse Ox 98.1 F 88 20 140/88 95 07/30/17 08:24 07/30/17 08:24 07/30/17 08:24 07/30/17 08:24 07/30/17 08:24 Intake and Output: 07/30/17 07/30/17 06:59 18:59 Intake Total 1170 Output Total 1200 Balance -30 - Medications Medications: Current Medications Escitalopram Oxalate (Lexapro) 10 mg PO HS [facility] Last Admin: 07/29/17 21:45 Dose: 10 mg Gabapentin (Neurontin) 300 mg PO Q8H [facility] Last Admin: 07/30/17 08:47 Dose: 300 mg Heparin Sodium (Porcine) (Heparin) 5,000 units SC Q8 [facility] Last Admin: 07/25/17 21:44 Dose: 5,000 units Piperacillin Sod/Tazobactam Sod (Zosyn 3.375 Gm Iv Premix) 3.375 gm in 50 mls @ 100 mls/hr IVPB Q8H [facility] Last Admin: 07/30/17 05:15 Dose: 100 mls/hr Insulin Aspart (Novolog Mix 70/30 (70/30 Units/Ml)) 35 units SC Q12 [facility] Last Admin: 07/29/17 21:46 Dose: 35 units Insulin Aspart (Novolog) 0 unit SC ACHS [facility] PRN Reason: Protocol Last Admin: 07/30/17 08:27 Dose: Not Given Lisinopril (Zestril) 20 mg PO DAILY [facility] Metformin HCl (Glucophage) 1,000 mg PO BIDCC [facility] Last Admin: 07/30/17 08:47 Dose: 1,000 mg Mupirocin (Bactroban Ointment) 1 gm TOP BID [facility] Last Admin: 07/29/17 21:20 Dose: Not Given Naproxen (Anaprox Ds) 550 mg PO Q12 [facility] Last Admin: 07/29/17 21:45 Dose: 550 mg Pantoprazole Sodium (Protonix Ec Tab) 40 mg PO DAILY [facility] Last Admin: 07/29/17 09:20 Dose: 40 mg Pseudoephedrine HCl (Sudafed Tab) 60 mg PO Q8 [facility] Last Admin: 07/30/17 05:15 Dose: 60 mg Rosuvastatin Calcium (Crestor) 5 mg PO HS [facility] Last Admin: 07/29/17 21:45 Dose: 5 mg Tramadol HCl (Ultram) 50 mg PO Q6H PRN PRN Reason: Pain, severe (8-10) Last Admin: 07/29/17 02:38 Dose: 50 mg - Labs Labs: 07/29/17 09:08 07/29/17 09:08 PT 11.1 SECONDS (9.7-12.2) 07/20/17 11:32 INR 1.0 07/20/17 11:32 APTT 35 SECONDS (21-34) H 07/20/17 11:32 - Constitutional Appears: Non-toxic, No Acute Distress - Head Exam Head Exam: NORMAL INSPECTION - Eye Exam Eye Exam: EOMI - ENT Exam ENT Exam: Mucous Membranes Moist - Respiratory Exam Respiratory Exam: Clear to Ausculation Bilateral, NORMAL BREATHING PATTERN. absent: Rales, Rhonchi, Wheezes - Cardiovascular Exam Cardiovascular Exam: REGULAR RHYTHM, +S1, +S2. absent: Gallop, Rubs, Murmur - GI/Abdominal Exam GI & Abdominal Exam: Soft, Normal Bowel Sounds. absent: Tenderness - Extremities Exam Extremities Exam: absent: Pedal Edema Additional comments: right hallux amputation, right foot wrapped in bandage, clean and dry - Neurological Exam Neurological Exam: Alert, Awake, Oriented x3 - Psychiatric Exam Psychiatric exam: Normal Affect, Normal Mood - Skin Skin Exam: Normal Color, Warm Assessment and Plan - Assessment and Plan (Free Text) Assessment: Non-healing R foot wound - Dr. Gonzalez, Podiatry attending - POD #7 revisional 1st metatarsal resection -continue w. 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 Tibial peroneal trunk 99% stenosis. Dr. Reich, ID marketing sales consultant: help appreciated - Ceftriaxone 2gm Q24H IV (minimum of 7 days post-op, started on 07/24 and stopped 07/25) - Zosyn 3.375gm IV Q8H started on 07/[address] Reich - Zosyn can be discontinued today, 07/30, per Dr. Reich - patient should be sent home on Keflex 250mg PO Q6H x 7 days Wound culture: (07/26/17) No polymorphonuclear WBCs, No organisms seen Naproxen 550mg PO Q12h Ultram 50mg PO q6 PRN for severe pain per Dr. Billings - patient is using about one per day Type two DM Sugars elevated Metformin 1000mg PO BID [facility] Novolog 70/30 35 units Q12H Zestril 10mg PO Daily Crestor 5mg PO Daily Neurontin 300mg PO increased to q8H for neuropathy HTN Elevated 3 times over weekend Increased Zestril to 20mg PO Daily on 07/30 Hyperlipidemia Crestor 5mg PO Daily Anxiety Lexapro 10mg PO HS Prophylaxis Protonix 40mg PO Daily Heparin held for OR, will restart per podiatry recommendation SCDs C/I All medical management per Dr. Billings <Sherie Billings S - Last Filed: 07/30/17 22:13> Objective - Vital Signs/Intake and Output Vital Signs (last 24 hours): Temp Pulse Resp BP Pulse Ox 98.2 F 110 H 20 132/81 96 07/30/17 16:00 07/30/17 16:00 07/30/17 16:00 07/30/17 16:00 07/30/17 16:00 Intake and Output: 07/30/17 07/31/17 18:59 06:59 Intake Total 770 Balance 770 - Labs Labs: 07/30/17 10:53 07/30/17 13:41 PT 11.1 SECONDS (9.7-12.2) 07/20/17 11:32 INR 1.0 07/20/17 11:32 APTT 35 SECONDS (21-34) H 07/20/17 11:32 Attending/Attestation - Attestation I have personally seen and examined this patient.: Yes I have fully participated in the care of the patient.: Yes I have reviewed all pertinent clinical information, including history, physical exam and plan: Yes Notes (Text): 07/30/17 22:13 case [facility] nd [facility] as ordered
[2017-07-30] MEDS: Naproxen 550 mg Tab PO SCH (09:42)
[2017-07-30] MEDS: Pantoprazole 40 mg EC Tab PO SCH (09:43)
[2017-07-30] MEDS: (Novolog Mix 70/30) Insulin Aspart/Insulin Aspar 100 units/ml SC SCH (09:44)
--- NOTE | 2017-07-30 10:34 | CP.PCM.PN ---
Subjective - Date & Time of Evaluation Date of Evaluation: 07/30/17 Time of Evaluation: 09:14 - Subjective Subjective: Podiatry note for Dr. Hooper 41 y/o male patient seen and evaluated at bedside for follow up on 6 days s/p right foot 1st ray amputation. AAO x3. Patient denies of any pain to the surgical site even when changing dressings. Patient denies any other pedal problem today. Right foot dressing noted intact, clean and dry. Patient denies any symptoms of N/V/f/SOB/Chest pain today. Patient stable to be dc from podiatry standpoint Objective - Vital Signs/Intake and Output Vital Signs (last 24 hours): Temp Pulse Resp BP Pulse Ox 98.1 F 88 20 140/88 95 07/30/17 08:24 07/30/17 08:24 07/30/17 08:24 07/30/17 08:24 07/30/17 08:24 Intake and Output: 07/30/17 07/30/17 06:59 18:59 Intake Total 1170 Output Total 1200 Balance -30 - Medications Medications: Current Medications Escitalopram Oxalate (Lexapro) 10 mg PO HS [facility] Last Admin: 07/29/17 21:45 Dose: 10 mg Gabapentin (Neurontin) 300 mg PO Q8H [facility] Last Admin: 07/30/17 08:47 Dose: 300 mg Heparin Sodium (Porcine) (Heparin) 5,000 units SC Q8 [facility] Last Admin: 07/25/17 21:44 Dose: 5,000 units Piperacillin Sod/Tazobactam Sod (Zosyn 3.375 Gm Iv Premix) 3.375 gm in 50 mls @ 100 mls/hr IVPB Q8H [facility] Last Admin: 07/30/17 05:15 Dose: 100 mls/hr Insulin Aspart (Novolog Mix 70/30 (70/30 Units/Ml)) 35 units SC Q12 [facility] Last Admin: 07/30/17 09:44 Dose: 35 units Insulin Aspart (Novolog) 0 unit SC ACHS [facility] PRN Reason: Protocol Last Admin: 07/30/17 08:27 Dose: Not Given Lisinopril (Zestril) 20 mg PO DAILY [facility] Last Admin: 07/30/17 09:43 Dose: 20 mg Metformin HCl (Glucophage) 1,000 mg PO BIDCC [facility] Last Admin: 07/30/17 08:47 Dose: 1,000 mg Mupirocin (Bactroban Ointment) 1 gm TOP BID [facility] Last Admin: 07/30/17 09:45 Dose: Not Given Naproxen (Anaprox Ds) 550 mg PO Q12 [facility] Last Admin: 07/30/17 09:42 Dose: 550 mg Pantoprazole Sodium (Protonix Ec Tab) 40 mg PO DAILY [facility] Last Admin: 07/30/17 09:43 Dose: 40 mg Pseudoephedrine HCl (Sudafed Tab) 60 mg PO Q8 [facility] Last Admin: 07/30/17 05:15 Dose: 60 mg Rosuvastatin Calcium (Crestor) 5 mg PO HS [facility] Last Admin: 07/29/17 21:45 Dose: 5 mg Tramadol HCl (Ultram) 50 mg PO Q6H PRN PRN Reason: Pain, severe (8-10) Last Admin: 07/29/17 02:38 Dose: 50 mg - Labs Labs: 07/29/17 09:08 07/29/17 09:08 PT 11.1 SECONDS (9.7-12.2) 07/20/17 11:32 INR 1.0 07/20/17 11:32 APTT 35 SECONDS (21-34) H 07/20/17 11:32 - Constitutional Appears: Well, Non-toxic, No Acute Distress - Head Exam Head Exam: ATRAUMATIC - Extremities Exam Additional comments: RLE focused examination: Vasc: DP and PT pulses are palpable 1/4, CFT < 3 seconds to all digits, temperature gradient WNL, no pedal edema Derm: Surgical site-sutures are well coapted and intact with no dehiscence noted. No drainage, no malodor, no signs of infection, no active bleeding. Ortho: Mild tenderness on palpation of surgical site Neuro: Protective sensation and light touch intact - Neurological Exam Neurological Exam: Alert, Awake, Oriented x3 - Psychiatric Exam Psychiatric exam: Normal Affect, Normal Mood - Skin Skin Exam: Normal Color, Warm Assessment and Plan - Assessment and Plan (Free Text) Assessment: 41 y/o male patient with 6 days s/p right foot 1st ray amputation Plan: Patient seen and evaluated at bedside Discussed with attending Dr. Hooper All the question and concerns were addressed Right foot was cleansed with saline and redressed with betadine soaked DSD and RONALD Patient will be on NWB to the RLE continue IV abx treatment Advised to elevate his right lower extremity Patient stable to be discharged from podiatry standpoint Podiatry will continue to follow while patient remains in house.
[2017-07-30 11:03] LABS: BASO % 0.5 % (0.0-2.0); EOS # 0.3 K/uL (0.0-0.7); HEMATOCRIT 39.7 % (35.0-51.0); LYMPH # 2.3 K/uL (1.0-4.3); LYMPH % 22.9 % (20.0-40.0); MEAN CELL VOLUME 79.5 fL (80.0-94.0); MEAN CORPUSCULAR HEMOGLOBIN 27.1 pg (27.0-31.0); MEAN CORPUSCULAR HGB CONC 34.2 g/dL (33.0-37.0); MONO # 0.7 K/uL (0.0-0.8); MONO % 6.8 % (0.0-10.0); NRBC % 0.1 % (0.0-2.0); RED CELL DISTRIBUTION WIDTH 14.8 % (11.5-14.5); WHITE BLOOD COUNT 9.9 K/uL (4.8-10.8)
[2017-07-30 13:59] LABS: CHLORIDE 94 mmol/L (98-107); POTASSIUM 4.3 mmol/L (3.6-5.2); SODIUM 133 mmol/L (132-148)
[2017-07-30 14:01] LABS: ALKALINE PHOSPHATASE 80 U/L (38-126); AST/SGOT 30 U/L (17-59); BILIRUBIN,TOTAL 0.5 mg/dL (0.2-1.3); CARBON DIOXIDE 30 mmol/L (22-30); GFR AFRICAN-AMERICAN > 60; TOTAL PROTEIN 8.5 g/dL (6.3-8.3)
[2017-07-30 14:02] LABS: ALT/SGPT 34 U/L (21-72); BLOOD UREA NITROGEN 16 mg/dL (9-20); CALCIUM 10.1 mg/dl (8.6-10.4); GLUCOSE,RANDOM 199 mg/dL (75-110)
[2017-07-30 16:29] VITALS: BP 132/81; PULSE 110; TEMP 98.2; O2SAT 96
--- NOTE | 2017-07-30 18:48 | CP.PCM.PN ---
Subjective - Date & Time of Evaluation Date of Evaluation: 07/30/17 Time of Evaluation: 07:00 - Subjective Subjective: clinically same Objective - Vital Signs/Intake and Output Vital Signs (last 24 hours): Temp Pulse Resp BP Pulse Ox 98.2 F 110 H 20 132/81 96 07/30/17 16:00 07/30/17 16:00 07/30/17 16:00 07/30/17 16:00 07/30/17 16:00 Intake and Output: 07/30/17 07/30/17 06:59 18:59 Intake Total 1170 770 Output Total 1200 Balance -30 770 - Medications Medications: Current Medications Escitalopram Oxalate (Lexapro) 10 mg PO HS [facility] Last Admin: 07/29/17 21:45 Dose: 10 mg Gabapentin (Neurontin) 300 mg PO Q8H [facility] Last Admin: 07/30/17 17:22 Dose: 300 mg Heparin Sodium (Porcine) (Heparin) 5,000 units SC Q8 [facility] Last Admin: 07/25/17 21:44 Dose: 5,000 units Piperacillin Sod/Tazobactam Sod (Zosyn 3.375 Gm Iv Premix) 3.375 gm in 50 mls @ 100 mls/hr IVPB Q8H [facility] Last Admin: 07/30/17 14:33 Dose: 100 mls/hr Insulin Aspart (Novolog Mix 70/30 (70/30 Units/Ml)) 35 units SC Q12 [facility] Last Admin: 07/30/17 09:44 Dose: 35 units Insulin Aspart (Novolog) 0 unit SC ACHS [facility] PRN Reason: Protocol Last Admin: 07/30/17 17:23 Dose: 3 unit Lisinopril (Zestril) 20 mg PO DAILY [facility] Last Admin: 07/30/17 09:43 Dose: 20 mg Metformin HCl (Glucophage) 1,000 mg PO BIDCC [facility] Last Admin: 07/30/17 17:22 Dose: 1,000 mg Mupirocin (Bactroban Ointment) 1 gm TOP BID [facility] Last Admin: 07/30/17 09:45 Dose: Not Given Naproxen (Anaprox Ds) 550 mg PO Q12 [facility] Last Admin: 07/30/17 09:42 Dose: 550 mg Pantoprazole Sodium (Protonix Ec Tab) 40 mg PO DAILY [facility] Last Admin: 07/30/17 09:43 Dose: 40 mg Pseudoephedrine HCl (Sudafed Tab) 60 mg PO Q8 [facility] Last Admin: 07/30/17 14:33 Dose: 60 mg Rosuvastatin Calcium (Crestor) 5 mg PO HS [facility] Last Admin: 07/29/17 21:45 Dose: 5 mg Tramadol HCl (Ultram) 50 mg PO Q6H PRN PRN Reason: Pain, severe (8-10) Last Admin: 07/29/17 02:38 Dose: 50 mg - Labs Labs: 07/30/17 10:53 07/30/17 13:41 PT 11.1 SECONDS (9.7-12.2) 07/20/17 11:32 INR 1.0 07/20/17 11:32 APTT 35 SECONDS (21-34) H 07/20/17 11:32 - Constitutional Appears: Well - Head Exam Head Exam: ATRAUMATIC, NORMAL INSPECTION, NORMOCEPHALIC - Eye Exam Eye Exam: EOMI, Normal appearance, PERRL Pupil Exam: NORMAL ACCOMODATION, PERRL - ENT Exam ENT Exam: Mucous Membranes Moist, Normal Exam - Neck Exam Neck Exam: Full ROM, Normal Inspection. absent: Lymphadenopathy - Respiratory Exam Respiratory Exam: Decreased Breath Sounds - Cardiovascular Exam Cardiovascular Exam: REGULAR RHYTHM, +S1, +S2 - GI/Abdominal Exam GI & Abdominal Exam: Soft, Diminished Bowel Sounds - Rectal Exam Rectal Exam: Deferred
== END 2017-07-30 20:35 | disposition home or self-care (01) | DRG 565 ==
LOC: C.ER 10:58 → C.9E 11:58 → C.3T 14:55
PROVIDERS: ADMIT Internal Medicine Nephrology; ATTEND Internal Medicine Nephrology
PROC: 0QTN0ZZ Resection of Right Metatarsal, Open Approach (ICD-10-PCS; principal; 2017-07-25)
PROC: 0HBMXZZ Excision of Right Foot Skin, External Approach (ICD-10-PCS; 2017-07-25)
PROC: 0H9MX0Z Drainage of Right Foot Skin with Drainage Device, External Approach (ICD-10-PCS; 2017-07-25)
PROC: 047R3ZZ Dilation of Right Posterior Tibial Artery, Percutaneous Approach (ICD-10-PCS; 2017-07-26)
PROC: 04CR3ZZ Extirpation of Matter from Right Posterior Tibial Artery, Percutaneous Approach (ICD-10-PCS; 2017-07-26)
PROC: B40DYZZ Plain Radiography of Aorta and Bilateral Lower Extremity Arteries using Other Contrast (ICD-10-PCS; 2017-07-26)
DX: E11.69 Type 2 diabetes mellitus with other specified complication (principal); M86.171 Other acute osteomyelitis, right ankle and foot; J18.9 Pneumonia, unspecified organism; E11.621 Type 2 diabetes mellitus with foot ulcer; I70.261 Atherosclerosis of native arteries of extremities with gangrene, right leg; L97.519 Non-pressure chronic ulcer of other part of right foot with unspecified severity; T81.89XA Other complications of procedures, not elsewhere classified, initial encounter; T87.81 Dehiscence of amputation stump; L03.031 Cellulitis of right toe; Z79.4 Long term (current) use of insulin; Y83.5 Amputation of limb(s) as the cause of abnormal reaction of the patient, or of later complication, without mention of misadventure at the time of the procedure; I10 Essential (primary) hypertension; E78.00 Pure hypercholesterolemia, unspecified; Z87.891 Personal history of nicotine dependence

== ENCOUNTER 2018-05-15 13:01 | Inpatient (IN) | payer MEDICAID, OTHER ==
[2018-05-15 13:01] VITALS: BMI 38.2
--- NOTE | 2018-05-15 13:54 | C.PDOC ---
History Of Present Illness 42 y/o male with history of DM, HTN, Afib and Asthma presents to ED with c/o x8 near syncope episodes since this morning associated with palpitations, chest pain and sob. Patient denies abdominal pain, nausea, vomiting, headache, recent head trauma or any other complaints at this time. Patient states that he had similar symptoms in the past when he was diagnosed with atrial fibrillation. He states he takes Warfarin 9mg daily, recently increased from 7.5mg. He is cared for by Dr Susanne Rodriguez in [place] but was unable to reach him today. Time Seen by Provider: 05/15/18 13:46 Chief Complaint (Nursing): Dizziness/Lightheaded History Per: Patient History/Exam Limitations: no limitations Onset/Duration Of Symptoms: Hrs Current Symptoms Are (Timing): Still Present Past Medical History Reviewed: Historical Data, Nursing Documentation, Vital Signs Vital Signs: Last Vital Signs Temp 98.3 F 05/15/18 13:09 Pulse 88 05/15/18 13:38 Resp 20 05/15/18 13:38 BP 116/72 05/15/18 13:38 Pulse Ox 98 05/15/18 16:04 - Medical History PMH: Asthma (last attack 8 years ago), Atrial Fibrillation, Depression, Diabetes , HTN, Hypercholesterolemia, Pneumonia Surgical History: Tonsillectomy (during childhood) - [facility] Procedures DETACHMENT AT RIGHT 1ST TOE, COMPLETE, OPEN APPROACH (05/06/17) DILATION OF RIGHT POSTERIOR TIBIAL ARTERY, PERC APPROACH (07/20/17) DRAINAGE OF LEFT FOOT SKIN, EXTERNAL APPROACH (11/25/16) DRAINAGE OF RIGHT FOOT SKIN WITH DRAIN DEV, CRYPTOLOGIC TECHNICIAN APPROACH (07/20/17) EXCISION OF RIGHT FOOT SKIN, EXTERNAL APPROACH (07/20/17) EXTIRPATION OF MATTER FROM R POST TIB ART, PERC APPROACH (07/20/17) PLAIN RADIOGRAPHY OF AORTA, BI LE ART USING OTH CONTRAST (07/20/17) RESECTION OF RIGHT METATARSAL, OPEN APPROACH (07/20/17) Family History: States: No Known Family Hx - Social History Hx Tobacco Use: No Hx Alcohol Use: No (socially) Hx Substance Use: Yes - Immunization History Hx Tetanus Toxoid Vaccination: No Hx Influenza Vaccination: No Hx Pneumococcal Vaccination: Yes (2014) Review Of Systems Constitutional: Negative for: Fever, Chills Cardiovascular: Positive for: Chest Pain, Palpitations Respiratory: Positive for: Shortness of Breath. Negative for: Cough Gastrointestinal: Negative for: Nausea, Vomiting, Abdominal Pain Skin: Negative for: Rash Physical Exam - Physical Exam Appears: Non-toxic, No Acute Distress Skin: Warm, Dry, No Rash Head: Atraumatic, Normacephalic Eye(s): bilateral: Normal Inspection Oral Mucosa: Moist Neck: Supple Cardiovascular: Rhythm Regular Respiratory: Normal Breath Sounds, No Rales, No Rhonchi, No Wheezing Gastrointestinal/Abdominal: Soft, Tenderness (RUQ), No Guarding, No Rebound, Other (+ wing's sign) Extremity: No Tenderness, Deformity (amputation of 1st right toe), No Swelling Neurological/Psych: Oriented x3, Normal Speech, Normal Cognition, Normal Cranial Nerves, Normal Motor, Normal Sensation ED Course And Treatment - Laboratory Results Result Diagrams: 05/15/18 14:08 05/15/18 14:08 Lab Interpretation: Abnormal (Glucose 518, Na 131, INR 1.1 (subtherapeutic)) ECG: Interpreted By Nd ECG Rhythm: Sinus Rhythm ECG Interpretation: Normal O2 Sat by Pulse Oximetry: 98 (RA) Pulse Ox Interpretation: Normal - Radiology CXR: Interpreted by Nd CXR Interpretation: Yes: No Acute Disease Reevaluation Time: 16:03 Reassessment Condition: Unchanged (No arhythmia noted on monitor in ED. Glucose elevated. Insulin and normal saline ordered.) - Physician Consult Information Time Consulting Physician Contacted: 16:03 Physician Contacted: Mitesh Billings Outcome Of Conversation: Patient to be admitted for observation for paroxsymal afib and management of uncontrolled diabetes. Disposition - Disposition Disposition: HOSPITALIZED Disposition Time: 16:25 Condition: IMPROVED - POA Present On Arrival: None - Clinical Impression Clinical Impression: Uncontrolled diabetes mellitus, Atrial fibrillation - Scribe Statement The provider has reviewed the documentation as recorded by the Kenneth Asencio All medical record entries made by the Kenneth were at my direction and personally dictated by me. I have reviewed the chart and agree that the record accurately reflects my personal performance of the history, physical exam, medical decision making, and the department course for this patient. I have also personally directed, reviewed, and agree with the discharge instructions and disposition.
--- NOTE | 2018-05-15 14:06 | RAD ---
Date of service: 05/15/2018 PROCEDURE: CHEST RADIOGRAPH, 1 VIEW HISTORY: Palpations COMPARISON: 07/20/2017 FINDINGS: LUNGS: Clear. PLEURA: No pneumothorax or pleural fluid seen. CARDIOVASCULAR: Normal. OSSEOUS STRUCTURES: No significant abnormalities. VISUALIZED UPPER ABDOMEN: Normal. OTHER FINDINGS: None. IMPRESSION: No active disease.
[2018-05-15 14:13] LABS: BASO # 0.1 K/uL (0.0-0.2); BASO % 0.5 % (0.0-2.0); EOS # 0.2 K/uL (0.0-0.7); EOS % 1.7 % (0.0-4.0); HEMOGLOBIN 16.7 g/dL (12.0-18.0); LYMPH # 2.6 K/uL (1.0-4.3); LYMPH % 27.7 % (20.0-40.0); MEAN CELL VOLUME 81.1 fL (80.0-94.0); MEAN CORPUSCULAR HEMOGLOBIN 27.8 pg (27.0-31.0); MEAN CORPUSCULAR HGB CONC 34.2 g/dL (33.0-37.0); MEAN PLATELET VOLUME 9.4 fL (7.2-11.7); MONO # 0.4 K/uL (0.0-0.8); MONO % 4.2 % (0.0-10.0); NEUT # 6.3 K/uL (1.8-7.0); NEUT % 65.9 % (50.0-75.0); NRBC % 0.1 % (0.0-2.0); RBC 6.01 Mil/uL (4.40-5.90); RED CELL DISTRIBUTION WIDTH 14.6 % (11.5-14.5); WHITE BLOOD COUNT 9.5 K/uL (4.8-10.8)
[2018-05-15 14:18] LABS: URINE BILIRUBIN NEGATIVE (NEGATIVE); URINE BLOOD NEGATIVE (NEGATIVE); URINE CLARITY Clear (Clear); URINE COLOR Straw (YELLOW); URINE GLUCOSE (UA) 3+ mg/dL (Normal); URINE LEUKOCYTE ESTERASE NEG Leu/uL (Negative); URINE PROTEIN NEGATIVE (NEGATIVE); URINE UROBILINOGEN NORMAL mg/dL (0.2-1.0)
[2018-05-15 14:21] LABS: INR 1.1; PROTHROMBIN TIME 11.5 SECONDS (9.7-12.2)
[2018-05-15 15:29] LABS: BLOOD UREA NITROGEN 19 mg/dL (9-20); GFR AFRICAN-AMERICAN > 60; GFR NON-AFRICAN AMERICAN > 60
[2018-05-15 15:30] LABS: ALB/GLOB RATIO 1.5 (1.0-2.1); ALBUMIN 4.1 g/dL (3.5-5.0); ALT/SGPT 41 U/L (21-72); AST/SGOT 27 U/L (17-59); CALCIUM 9.2 mg/dl (8.6-10.4)
[2018-05-15 15:31] LABS: T3 UPTAKE 31.9 % (23.0-41.0); T4 9.61 ug/dL (5.5-11.0)
[2018-05-15] MEDS ORDERED: (Novolin R) Insulin Human Regular 100 units/ml vial IV ONE (15:54)
[2018-05-15] MEDS ORDERED: Sodium Chloride 0.9% 1,000 ML IV ONE (15:54)
[2018-05-15] MEDS ORDERED: (Novolin R) Insulin Human Regular 100 units/ml vial ONE (16:08)
[2018-05-15] MEDS ORDERED: Sodium Chloride 0.9% 1,000 ML ONE (16:08)
--- NOTE | 2018-05-15 18:41 | CP.PCM.HP ---
<Mary Brito - Last Filed: 05/15/18 19:41> History of Present Illness - History of Present Illness History of Present Illness: 42 yo male w/ a PMHx of A fib, DM2 and diabetic neuropathy, Asthma, HLD, HTN, presents to clinic today with complaints of episodes of palpitations, tachycardia, chest pressure, neck pressure, SOB, and near syncopal "dizziness". These episodes last approximately 10-15s, and are usually associated with more strenuous activity. Patient reports 9 of these episodes over 4 hours this morning, so he decided to come in to get evaluated. He reports he initially had these symptoms in December and was diagnosed at [facility] w/ A Fib. He was started on coumadin, however when he presented to his PMD 5 wks ago, his INR was 1.1, so dosage was raised from 7.5 to 9. He denies any recent travel, nausea, abd pain, radiation of pain, diaphoresis. PMHx: A. 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 absent: Diplopia Nose/Mouth/Throat: absent: Nasal Congestion - Cardiovascular Cardiovascular: Dyspnea, Palpitations, Other (chest and neck pressure). absent : Chest Pain, Chest Pain with Activity, Diaphoresis, Pain Radiating to Arm/Neck/ Jaw - Respiratory Respiratory: absent: Cough, Wheezing, Chest Congestion - Gastrointestinal Gastrointestinal: absent: Abdominal Pain, Constipation, Heartburn, Nausea, Vomiting - Genitourinary Genitourinary: absent: Dysuria - Musculoskeletal Musculoskeletal: Back Pain (chronic lumbar back pain) - Neurological Neurological: Dizziness. absent: Abnormal Gait, Abnormal Speech, Confusion, Frequent Falls, Vertigo - Psychiatric Psychiatric: absent: Anxiety Past Patient History - Past Medical History & Family History Past Medical History?: Yes - Past Social History Smoking Status: Former Smoker - CARDIAC Hx Atrial Fibrillation: Yes Hx Hypercholesterolemia: Yes Hx Hypertension: Yes - PULMONARY Hx Asthma: Yes (last attack 8 years ago) Hx Pneumonia: Yes - NEUROLOGICAL Hx Neurological Disorder: No - HEENT Hx HEENT Problems: No - RENAL Hx Chronic Kidney Disease: No - ENDOCRINE/METABOLIC Hx Hyperthyroidism: No Hx Hypothyroidism: No - HEMATOLOGICAL/ONCOLOGICAL Hx Blood Disorders: No - INTEGUMENTARY Hx Dermatological Problems: No - MUSCULOSKELETAL/RHEUMATOLOGICAL Hx Arthritis: No Hx Fractures: No Hx Osteoporosis: No Hx Rheumatoid Arthritis: No - GASTROINTESTINAL Hx Gastrointestinal Disorders: No - GENITOURINARY/GYNECOLOGICAL Hx Genitourinary Disorders: No - PSYCHIATRIC Hx Depression: Yes Hx Substance Use: Yes - SURGICAL HISTORY Hx Tonsillectomy: Yes (during childhood) - ANESTHESIA Hx Anesthesia: Yes Hx Anesthesia Reactions: No Hx Malignant Hyperthermia: No Meds Allergies/Adverse Reactions: Allergies Allergy/AdvReac Type Severity Reaction Status Date / Time insulin glargine Allergy Mild RASH Verified 05/15/18 13:14 [From Lantus] Physical Exam - Constitutional Appears: Well, Non-toxic, No Acute Distress - Head Exam Head Exam: ATRAUMATIC, NORMAL INSPECTION, NORMOCEPHALIC - Eye Exam Eye Exam: EOMI, Normal appearance - ENT Exam ENT Exam: Mucous Membranes Moist - Neck Exam Neck exam: Positive for: Normal Inspection - Respiratory Exam Respiratory Exam: Clear to Auscultation Bilateral, NORMAL BREATHING PATTERN. absent: Chest Wall Tenderness, Rhonchi, Wheezes - Cardiovascular Exam Cardiovascular Exam: REGULAR RHYTHM, +S1, +S2. absent: Tachycardia, Diastolic murmur, Irregular Rhythm, Systolic Murmur - GI/Abdominal Exam GI & Abdominal Exam: Normal Bowel Sounds, Soft. absent: Tenderness - Extremities Exam Extremities exam: Positive for: normal capillary refill, pedal pulses present. Negative for: calf tenderness, normal inspection (right first toe amputation), tenderness - Back Exam Back exam: NORMAL INSPECTION - Neurological Exam Neurological exam: Alert, Normal Gait, Oriented x3 - Psychiatric Exam Psychiatric exam: Normal Affect, Normal Mood - Skin Skin Exam: Intact, Normal Color, Warm Results - Vital Signs Recent Vital Signs: Last Vital Signs Temp 98.4 F 05/15/18 18:10 Pulse 98 H 05/15/18 18:10 Resp 18 05/15/18 18:10 BP 148/80 05/15/18 18:10 Pulse Ox 98 05/15/18 18:10 - Labs Result Diagrams: 05/15/18 14:08 05/15/18 14:08 Labs: Laboratory Results - last 24 hr 05/15/18 05/15/18 05/15/18 14:08 14:08 14:08 WBC 9.5 RBC 6.01 H Hgb 16.7 D Hct 48.7 MCV 81.1 MCH 27.8 MCHC 34.2 RDW 14.6 H Plt Count 199 MPV 9.4 Neut % (Auto) 65.9 Lymph % (Auto) 27.7 [place] % (Auto) 4.2 Eos % (Auto) 1.7 Baso % (Auto) 0.5 Neut # (Auto) 6.3 Lymph # (Auto) 2.6 [place] # (Auto) 0.4 Eos # (Auto) 0.2 Baso # (Auto) 0.1 PT 11.5 INR 1.1 APTT 40 H Sodium 131 L Potassium 4.3 Chloride 97 L Carbon Dioxide 22 Anion Gap 16 BUN 19 Creatinine 0.7 L Est GFR ( Amer) > 60 Est GFR (Non-Af Amer) > 60 POC Glucose (mg/dL) Random Glucose 518 H* D Calcium 9.2 Total Bilirubin 0.6 AST 27 ALT 41 Alkaline Phosphatase 137 H D Troponin I < 0.0120 Total Protein 6.9 Albumin 4.1 Globulin 2.8 Albumin/Globulin Ratio 1.5 Thyroxine (T4) 9.61 T3 Uptake 31.9 TSH 3rd Generation 1.24 Urine Color Urine Clarity Urine pH Ur Specific Brooks Urine Protein Urine Glucose (UA) Urine Ketones Urine Blood Urine Nitrate Urine Bilirubin Urine Urobilinogen Ur Leukocyte Esterase Urine WBC (Auto) Urine RBC (Auto) 05/15/18 05/15/18 14:08 16:50 WBC RBC Hgb Hct MCV MCH MCHC RDW Plt Count MPV Neut % (Auto) Lymph % (Auto) [place] % (Auto) Eos % (Auto) Baso % (Auto) Neut # (Auto) Lymph # (Auto) [place] # (Auto) Eos # (Auto) Baso # (Auto) PT INR APTT Sodium Potassium Chloride Carbon Dioxide Anion Gap BUN Creatinine Est GFR ( Amer) Est GFR (Non-Af Amer) POC Glucose (mg/dL) 221 H Random Glucose Calcium Total Bilirubin AST ALT Alkaline Phosphatase Troponin I Total Protein Albumin Globulin Albumin/Globulin Ratio Thyroxine (T4) T3 Uptake TSH 3rd Generation Urine Color Straw Urine Clarity Clear Urine pH 6.0 Ur Specific Brooks 1.028 Urine Protein Negative Urine Glucose (UA) 3+ H Urine Ketones Trace Urine Blood Negative Urine Nitrate Negative Urine Bilirubin Negative Urine Urobilinogen Normal Ur Leukocyte Esterase Neg Urine WBC (Auto) < 1 Urine RBC (Auto) < 1 Assessment & Plan - Assessment and Plan (Free Text) Assessment: 42 yo M w/ PMHx of A fib, DM2, diabetic neuropathy, HLD, asthma Near syncope/palpitation/chest pressure/SOB -head CT to rule out any pathology -EKG, NSR -f/u echo -trop 1 neg, f/u on subsequent trops -am EKG -d-dimer -BNP -carotid doppler A Fib -lovenox 100mg BID while starting warfarin -warfarin 7.5 -f/u am INR DM -ISS -metformin 1000 BID HTN -lisinopril 20 mg -cardizem 30 BID Diabetic Neuropathy -Gabapentin 300 TID HLD -crestor CAD -ASA 81mg -crestor Asthma -stable -continue to monitor Ppx -protonix 40sc -lovenox 100mg BID Decision To Admit - Pt Status Changed To: Hospital Disposition Of: Observation - . Bed Request Type: Telemetry <Bryant García H - Last Filed: 05/16/18 07:34> Results - Vital Signs Recent Vital Signs: Last Vital Signs Temp 97.4 F L 05/16/18 04:00 Pulse 69 05/16/18 04:00 Resp 20 05/16/18 04:00 BP 150/84 05/16/18 04:00 Pulse Ox 96 05/16/18 04:00 - Labs Result Diagrams: 05/16/18 06:29 05/15/18 14:08 Labs: Laboratory Results - last 24 hr 05/15/18 05/15/18 05/15/18 14:08 14:08 14:08 WBC 9.5 RBC 6.01 H Hgb 16.7 D Hct 48.7 MCV 81.1 MCH 27.8 MCHC 34.2 RDW 14.6 H Plt Count 199 MPV 9.4 Neut % (Auto) 65.9 Lymph % (Auto) 27.7 [place] % (Auto) 4.2 Eos % (Auto) 1.7 Baso % (Auto) 0.5 Neut # (Auto) 6.3 Lymph # (Auto) 2.6 [place] # (Auto) 0.4 Eos # (Auto) 0.2 Baso # (Auto) 0.1 PT 11.5 INR 1.1 APTT 40 H D-Dimer, Quantitative Sodium 131 L Potassium 4.3 Chloride 97 L Carbon Dioxide 22 Anion Gap 16 BUN 19 Creatinine 0.7 L Est GFR ( Amer) > 60 Est GFR (Non-Af Amer) > 60 POC Glucose (mg/dL) Random Glucose 518 H* D Calcium 9.2 Total Bilirubin 0.6 AST 27 ALT 41 Alkaline Phosphatase 137 H D Total Creatine Kinase CK-MB (Mass) Troponin I < 0.0120 Total Protein 6.9 Albumin 4.1 Globulin 2.8 Albumin/Globulin Ratio 1.5 Thyroxine (T4) 9.61 T3 Uptake 31.9 TSH 3rd Generation 1.24 Urine Color Urine Clarity Urine pH Ur Specific Brooks Urine Protein Urine Glucose (UA) Urine Ketones Urine Blood Urine Nitrate Urine Bilirubin Urine Urobilinogen Ur Leukocyte Esterase Urine WBC (Auto) Urine RBC (Auto) 05/15/18 05/15/18 05/15/18 14:08 16:50 19:50 WBC RBC Hgb Hct MCV MCH MCHC RDW Plt Count MPV Neut % (Auto) Lymph % (Auto) [place] % (Auto) Eos % (Auto) Baso % (Auto) Neut # (Auto) Lymph # (Auto) [place] # (Auto) Eos # (Auto) Baso # (Auto) PT INR APTT D-Dimer, Quantitative Sodium Potassium Chloride Carbon Dioxide Anion Gap BUN Creatinine Est GFR ( Amer) Est GFR (Non-Af Amer) POC Glucose (mg/dL) 221 H Random Glucose Calcium Total Bilirubin AST ALT Alkaline Phosphatase Total Creatine Kinase CK-MB (Mass) Troponin I < 0.0120 Total Protein Albumin Globulin Albumin/Globulin Ratio Thyroxine (T4) T3 Uptake TSH 3rd Generation Urine Color Straw Urine Clarity Clear Urine pH 6.0 Ur Specific Brooks 1.028 Urine Protein Negative Urine Glucose (UA) 3+ H Urine Ketones Trace Urine Blood Negative Urine Nitrate Negative Urine Bilirubin Negative Urine Urobilinogen Normal Ur Leukocyte Esterase Neg Urine WBC (Auto) < 1 Urine RBC (Auto) < 1 05/15/18 05/15/18 05/16/18 19:50 21:08 02:18 WBC RBC Hgb Hct MCV MCH MCHC RDW Plt Count MPV Neut % (Auto) Lymph % (Auto) [place] % (Auto) Eos % (Auto) Baso % (Auto) Neut # (Auto) Lymph # (Auto) [place] # (Auto) Eos # (Auto) Baso # (Auto) PT INR APTT D-Dimer, Quantitative < 200 Sodium Potassium Chloride Carbon Dioxide Anion Gap BUN Creatinine Est GFR ( Amer) Est GFR (Non-Af Amer) POC Glucose (mg/dL) 323 H 245 H Random Glucose Calcium Total Bilirubin AST ALT Alkaline Phosphatase Total Creatine Kinase CK-MB (Mass) Troponin I Total Protein Albumin Globulin Albumin/Globulin Ratio Thyroxine (T4) T3 Uptake TSH 3rd Generation Urine Color Urine Clarity Urine pH Ur Specific Brooks Urine Protein Urine Glucose (UA) Urine Ketones Urine Blood Urine Nitrate Urine Bilirubin Urine Urobilinogen Ur Leukocyte Esterase Urine WBC (Auto) Urine RBC (Auto) 05/16/18 05/16/18 05/16/18 04:39 06:04 06:29 WBC 8.6 RBC 5.38 Hgb 15.0 Hct 43.7 MCV 81.2 MCH 27.9 MCHC 34.4 RDW 14.5 Plt Count 176 MPV 8.8 Neut % (Auto) 49.8 L Lymph % (Auto) 40.5 H [place] % (Auto) 6.2 Eos % (Auto) 3.0 Baso % (Auto) 0.5 Neut # (Auto) 4.3 Lymph # (Auto) 3.5 [place] # (Auto) 0.5 Eos # (Auto) 0.3 Baso # (Auto) 0.0 PT INR APTT D-Dimer, Quantitative Sodium Potassium Chloride Carbon Dioxide Anion Gap BUN Creatinine Est GFR ( Amer) Est GFR (Non-Af Amer) POC Glucose (mg/dL) 287 H Random Glucose Calcium Total Bilirubin AST ALT Alkaline Phosphatase Total Creatine Kinase 238 H CK-MB (Mass) 5.31 H Troponin I 0.0130 Total Protein Albumin Globulin Albumin/Globulin Ratio Thyroxine (T4) T3 Uptake TSH 3rd Generation Urine Color Urine Clarity Urine pH Ur Specific Brooks Urine Protein Urine Glucose (UA) Urine Ketones Urine Blood Urine Nitrate Urine Bilirubin Urine Urobilinogen Ur Leukocyte Esterase Urine WBC (Auto) Urine RBC (Auto) 05/16/18 06:29 WBC RBC Hgb Hct MCV MCH MCHC RDW Plt Count MPV Neut % (Auto) Lymph % (Auto) [place] % (Auto) Eos % (Auto) Baso % (Auto) Neut # (Auto) Lymph # (Auto) [place] # (Auto) Eos # (Auto) Baso # (Auto) PT 11.7 INR 1.1 APTT 39 H D-Dimer, Quantitative Sodium Potassium Chloride Carbon Dioxide Anion Gap BUN Creatinine Est GFR ( Amer) Est GFR (Non-Af Amer) POC Glucose (mg/dL) Random Glucose Calcium Total Bilirubin AST ALT Alkaline Phosphatase Total Creatine Kinase CK-MB (Mass) Troponin I Total Protein Albumin Globulin Albumin/Globulin Ratio Thyroxine (T4) T3 Uptake TSH 3rd Generation Urine Color Urine Clarity Urine pH Ur Specific Brooks Urine Protein Urine Glucose (UA) Urine Ketones Urine Blood Urine Nitrate Urine Bilirubin Urine Urobilinogen Ur Leukocyte Esterase Urine WBC (Auto) Urine RBC (Auto) Attending/Attestation - Attestation I have personally seen and examined this patient.: Yes I have fully participated in the care of the patient.: Yes I have reviewed all pertinent clinical information: Yes Notes (Text): 05/16/18 07:24 Medical attending: Patient was seen and examined by me. Agree with the above note by the resident The patient was not in any acute distress when I came and saw the patient with the medical records assistant The patient reported he has had atrial fibrillation since December of this year 2018 and that he is supposed to be on coumadin 9 mg once a day. This being said the INR was subtheraputic when it was checked by ER He reported to have a lot of chest pressure earlier in the day. He also had a 12 lead EKG and it looked NSR. We will repeat the 12 lead again tommorow moniotr overnight for paroxymal atrial fibrillation and also check echo and TSH and UDS Patient has been to [facility] before and previous EKGs did not show atrial fibrillation Bryant García
[2018-05-15] MEDS: (Novolog Mix 70/30) Insulin Aspart/Insulin Aspar 100 units/ml SC SCH (21:31)
[2018-05-15] MEDS: Enoxaparin 100 mg Syringe SC SCH (21:32)
[2018-05-15] MEDS: (Novolin R) Insulin Human Regular 100 units/ml vial SC SCH (22:21)
[2018-05-16 05:08] LABS: CK-MB 5.31 ng/mL (0.0-3.38)
[2018-05-16 05:11] LABS: TROPONIN I 0.013 ng/mL (0.00-0.120)
[2018-05-16 06:36] LABS: BASO % 0.5 % (0.0-2.0); EOS # 0.3 K/uL (0.0-0.7); LYMPH # 3.5 K/uL (1.0-4.3); LYMPH % 40.5 % (20.0-40.0); MEAN CELL VOLUME 81.2 fL (80.0-94.0); MEAN CORPUSCULAR HEMOGLOBIN 27.9 pg (27.0-31.0); MEAN CORPUSCULAR HGB CONC 34.4 g/dL (33.0-37.0); MEAN PLATELET VOLUME 8.8 fL (7.2-11.7); MONO # 0.5 K/uL (0.0-0.8); MONO % 6.2 % (0.0-10.0); NEUT # 4.3 K/uL (1.8-7.0); NEUT % 49.8 % (50.0-75.0); RBC 5.38 Mil/uL (4.40-5.90); RED CELL DISTRIBUTION WIDTH 14.5 % (11.5-14.5); WHITE BLOOD COUNT 8.6 K/uL (4.8-10.8)
[2018-05-16 06:57] LABS: INR 1.1; PROTHROMBIN TIME 11.7 SECONDS (9.7-12.2)
[2018-05-16 07:15] LABS: ALB/GLOB RATIO 1.5 (1.0-2.1); ALBUMIN 3.6 g/dL (3.5-5.0); ALT/SGPT 39 U/L (21-72); AST/SGOT 38 U/L (17-59); BLOOD UREA NITROGEN 16 mg/dL (9-20); CALCIUM 8.7 mg/dl (8.6-10.4); GFR AFRICAN-AMERICAN > 60; GFR NON-AFRICAN AMERICAN > 60
--- NOTE | 2018-05-16 07:33 | CP.PCM.PN ---
<Mary Brito - Last Filed: 05/16/18 14:39> Subjective - Date & Time of Evaluation Date of Evaluation: 05/16/18 Time of Evaluation: 10:20 - Subjective Subjective: Patient examined at bedside. No acute events overnight. Pt in no distress. Patient reeports he is feeling well and denies any further episodes of palpitations, chest pressure, SOB since admission. Objective - Vital Signs/Intake and Output Vital Signs (last 24 hours): Temp Pulse Resp BP Pulse Ox 97.4 F L 69 20 150/84 96 05/16/18 04:00 05/16/18 04:00 05/16/18 04:00 05/16/18 04:00 05/16/18 04:00 - Medications Medications: Current Medications Acetaminophen (Tylenol 325mg Tab) 650 mg PO Q6 PRN PRN Reason: Pain, Mild (1-3) Aspirin (Aspirin Chewable) 81 mg PO DAILY [facility] Diltiazem HCl (Cardizem) 30 mg PO BID [facility] Enoxaparin Sodium (Lovenox) 100 mg SC Q12 [facility] Last Admin: 05/15/18 21:32 Dose: 100 mg Gabapentin (Neurontin) 300 mg PO Q8H [facility] Last Admin: 05/16/18 04:08 Dose: 300 mg Ibuprofen (Motrin Tab) 600 mg PO TID PRN PRN Reason: Pain, moderate (4-7) Last Admin: 05/15/18 23:49 Dose: 600 mg Insulin Aspart (Novolog Mix 70/30 (70/30 Units/Ml)) 35 units SC Q12 [facility] Last Admin: 05/15/18 21:31 Dose: 35 units Insulin Human Regular (Novolin R) 0 unit SC ACHS [facility] PRN Reason: Protocol Last Admin: 05/15/18 22:21 Dose: Not Given Lisinopril (Zestril) 20 mg PO DAILY [facility] Metformin HCl (Glucophage) 1,000 mg PO BIDCC [facility] Pantoprazole Sodium (Protonix Ec Tab) 40 mg PO DAILY [facility] Rosuvastatin Calcium (Crestor) 5 mg PO HS [facility] Last Admin: 05/15/18 21:33 Dose: 5 mg Warfarin Sodium (Coumadin) 7.5 mg PO 1800 [facility] Stop: 05/16/18 18:01 - Labs Labs: 05/16/18 06:29 05/16/18 06:29 PT 11.7 SECONDS (9.7-12.2) 05/16/18 06:29 INR 1.1 05/16/18 06:29 APTT 39 SECONDS (21-34) H 05/16/18 06:29 - Constitutional Appears: Well, Non-toxic, No Acute Distress - Head Exam Head Exam: ATRAUMATIC, NORMAL INSPECTION, NORMOCEPHALIC - Eye Exam Eye Exam: EOMI, Normal appearance - ENT Exam ENT Exam: Mucous Membranes Moist - Neck Exam Neck Exam: Normal Inspection - Respiratory Exam Respiratory Exam: Clear to Ausculation Bilateral, NORMAL BREATHING PATTERN. absent: Accessory Muscle Use, Wheezes, Respiratory Distress - Cardiovascular Exam Cardiovascular Exam: REGULAR RHYTHM, +S1, +S2. absent: Bradycardia, Tachycardia , Murmur - GI/Abdominal Exam GI & Abdominal Exam: Soft, Normal Bowel Sounds. absent: Distended, Tenderness - Extremities Exam Extremities Exam: Normal Capillary Refill, Normal Inspection. absent: Calf Tenderness, Pedal Edema - Neurological Exam Neurological Exam: Alert, Awake, Oriented x3 - Psychiatric Exam Psychiatric exam: Normal Affect, Normal Mood - Skin Skin Exam: Intact, Normal Color, Warm Assessment and Plan - Assessment and Plan (Free Text) Assessment: 42 yo M w/ PMHx of A fib, DM2, diabetic neuropathy, HLD, asthma Near syncope/palpitation/chest pressure/SOB -head CT negative for acute pathology -EKG, NSR -f/u echo -trop x3 negative -am EKG NSR -d-dimer<200 -BNP -carotid doppler negative -f/u UDS A Fib -lovenox 100mg BID while starting warfarin -warfarin 7.5 -f/u INR to monitor therapeutic efficacy. 1.1 today DM -ISS -metformin 1000 BID HTN -lisinopril 20 mg -cardizem 30 BID Diabetic Neuropathy -Gabapentin 300 TID HLD -crestor CAD -ASA 81mg -crestor Asthma -stable -continue to monitor Ppx -protonix 40sc -lovenox 100mg BID <Bryant Gacría H - Last Filed: 05/16/18 14:51> Objective - Vital Signs/Intake and Output Vital Signs (last 24 hours): Temp Pulse Resp BP Pulse Ox 98.0 F 69 18 152/81 H 98 05/16/18 07:20 05/16/18 08:23 05/16/18 07:20 05/16/18 07:20 05/16/18 08:55 - Medications Medications: Current Medications Acetaminophen (Tylenol 325mg Tab) 650 mg PO Q6 PRN PRN Reason: Pain, Mild (1-3) Aspirin (Aspirin Chewable) 81 mg PO DAILY [facility] Last Admin: 05/16/18 11:22 Dose: 81 mg Diltiazem HCl (Cardizem) 30 mg PO BID [facility] Last Admin: 05/16/18 11:22 Dose: 30 mg Enoxaparin Sodium (Lovenox) 100 mg SC Q12 [facility] Last Admin: 05/16/18 11:21 Dose: 100 mg Gabapentin (Neurontin) 300 mg PO Q8H [facility] Last Admin: 05/16/18 11:22 Dose: 300 mg Ibuprofen (Motrin Tab) 600 mg PO TID PRN PRN Reason: Pain, moderate (4-7) Last Admin: 05/15/18 23:49 Dose: 600 mg Insulin Aspart (Novolog Mix 70/30 (70/30 Units/Ml)) 35 units SC Q12 [facility] Last Admin: 05/16/18 11:23 Dose: 35 units Insulin Human Regular (Novolin R) 0 unit SC ACHS [facility] PRN Reason: Protocol Last Admin: 05/16/18 12:11 Dose: 10 u Lisinopril (Zestril) 20 mg PO DAILY [facility] Last Admin: 05/16/18 11:22 Dose: 20 mg Metformin HCl (Glucophage) 1,000 mg PO BIDCC [facility] Last Admin: 05/16/18 08:41 Dose: 1,000 mg Pantoprazole Sodium (Protonix Ec Tab) 40 mg PO DAILY [facility] Last Admin: 05/16/18 11:22 Dose: 40 mg Rosuvastatin Calcium (Crestor) 5 mg PO HS [facility] Last Admin: 05/15/18 21:33 Dose: 5 mg Warfarin Sodium (Coumadin) 7.5 mg PO 1800 [facility] Stop: 05/22/18 18:01 - Labs Labs: 05/16/18 06:29 05/16/18 06:29 PT 11.7 SECONDS (9.7-12.2) 05/16/18 06:29 INR 1.1 05/16/18 06:29 APTT 39 SECONDS (21-34) H 05/16/18 06:29 Attending/Attestation - Attestation I have personally seen and examined this patient.: Yes I have fully participated in the care of the patient.: Yes I have reviewed all pertinent clinical information, including history, physical exam and plan: Yes Notes (Text): Medical attending: Patient was seen and examined by me. Agree with the above note by the resident The patient was not in any acute distress when we came and saw him together. The patient on the telemetry overnight had a very very brief episode that intially looked irregular but it did have P waves. He was NSR this morning and also remained NSR when we asked him to walk also on exam. The patient is pending echo results and also the CT head reutrned and was ok For tonight will again give another coumdain 7,5 and then check INR again Bryant García
--- NOTE | 2018-05-16 08:09 | CT ---
Date of service: 05/15/2018 PROCEDURE: CT HEAD WITHOUT CONTRAST. HISTORY: near syncope COMPARISON: None available. TECHNIQUE: Axial computed tomography images were obtained through the head/brain without intravenous contrast. Radiation dose: Total exam DLP = 955 mGy-cm. This CT exam was performed using one or more of the following dose reduction techniques: Automated exposure control, adjustment of the mA and/or kV according to patient size, and/or use of iterative reconstruction technique. FINDINGS: HEMORRHAGE: No intracranial hemorrhage. BRAIN: No mass effect or edema. No atrophy or chronic microvascular ischemic changes. VENTRICLES: Unremarkable. No hydrocephalus. CALVARIUM: Unremarkable. PARANASAL SINUSES: Unremarkable as visualized. No significant inflammatory changes. MASTOID AIR CELLS: Unremarkable as visualized. No inflammatory changes. OTHER FINDINGS: Intracranial arterial atherosclerosis. IMPRESSION: No acute intracranial abnormality. If symptoms persist, consider correlation with MRI. These findings were preliminarily reported at 7:11 a.m. on 05/15/[address] Mame Silvestre from [facility].
[2018-05-16] MEDS: (Novolin R) Insulin Human Regular 100 units/ml vial SC SCH ×4 (08:47→21:27)
[2018-05-16] MEDS: Enoxaparin 100 mg Syringe SC SCH ×2 (11:21→21:36)
[2018-05-16] MEDS: Pantoprazole 40 mg EC Tab PO SCH (11:22)
[2018-05-16] MEDS: (Novolog Mix 70/30) Insulin Aspart/Insulin Aspar 100 units/ml SC SCH ×2 (11:23→21:36)
--- NOTE | 2018-05-17 06:54 | CP.PCM.PN ---
<Mary Brito - Last Filed: 05/17/18 18:54> Subjective - Date & Time of Evaluation Date of Evaluation: 05/17/18 Time of Evaluation: 09:35 - Subjective Subjective: Patient examined at bedside, no acute overnight events. Patient states he feels well and denies chest pain/pressure, SOB, nausea, abdominal pain, diarrhea. Patient reports he has not had a BM in 2 days Objective - Vital Signs/Intake and Output Vital Signs (last 24 hours): Temp Pulse Resp BP Pulse Ox 97.7 F 71 20 137/87 98 05/16/18 23:15 05/17/18 03:53 05/16/18 23:15 05/16/18 23:15 05/17/18 00:00 Intake and Output: 05/16/18 05/17/18 18:59 06:59 Intake Total 400 Balance 400 - Medications Medications: Current Medications Acetaminophen (Tylenol 325mg Tab) 650 mg PO Q6 PRN PRN Reason: Pain, Mild (1-3) Aspirin (Aspirin Chewable) [address] [facility] Last Admin: 05/16/18 11:22 Dose: 81 mg Diltiazem HCl (Cardizem) [address] [facility] Last Admin: 05/16/18 17:16 Dose: 30 mg Enoxaparin Sodium (Lovenox) [address] [facility] Last Admin: 05/16/18 21:36 Dose: 100 mg Gabapentin (Neurontin) [address] [facility] Last Admin: 05/17/18 02:22 Dose: 300 mg Ibuprofen (Motrin Tab) 600 mg PO TID PRN PRN Reason: Pain, moderate (4-7) Last Admin: 05/16/18 21:35 Dose: 600 mg Insulin Aspart (Novolog Mix 70/30 (70/30 Units/Ml)) [address] [facility] Last Admin: 05/16/18 21:36 Dose: 35 units Insulin Human Regular (Novolin R) [address] [facility] PRN Reason: Protocol Last Admin: 05/16/18 21:27 Dose: Not Given Lisinopril (Zestril) [address] [facility] Last Admin: 05/16/18 11:22 Dose: 20 mg [facility] Admin: 05/16/18 17:16 Dose: 1,000 mg Pantoprazole Sodium (Protonix Ec Tab) [address] [facility] Last Admin: 05/16/18 11:22 Dose: 40 mg Rosuvastatin Calcium (Crestor) [address] [facility] Last Admin: 05/16/18 21:35 Dose: 5 mg Warfarin Sodium (Coumadin) 7.[address] [facility] Stop: 05/22/18 18:01 Last Admin: 05/16/18 17:16 Dose: 7.5 mg - Labs Labs: 05/16/18 06:29 05/16/18 06:29 PT 11.7 SECONDS (9.7-12.2) 05/16/18 06:29 INR 1.1 05/16/18 06:29 APTT 39 SECONDS (21-34) H 05/16/18 06:29 - Constitutional Appears: Non-toxic, No Acute Distress - Head Exam Head Exam: ATRAUMATIC, NORMAL INSPECTION, NORMOCEPHALIC - Eye Exam Eye Exam: EOMI, Normal appearance Pupil Exam: NORMAL ACCOMODATION - ENT Exam ENT Exam: Mucous Membranes Moist - Neck Exam Neck Exam: Normal Inspection - Respiratory Exam Respiratory Exam: Clear to Ausculation Bilateral, NORMAL BREATHING PATTERN. absent: Rales, Rhonchi, Wheezes - GI/Abdominal Exam GI & Abdominal Exam: Soft, Normal Bowel Sounds. absent: Distended, Tenderness - Extremities Exam Extremities Exam: Normal Capillary Refill, Normal Inspection. absent: Calf Tenderness, Pedal Edema - Neurological Exam Neurological Exam: Alert, Awake, Normal Gait, Oriented x3 - Psychiatric Exam Psychiatric exam: Normal Affect, Normal Mood - Skin Skin Exam: Intact, Normal Color, Warm Assessment and Plan - Assessment and Plan (Free Text) Assessment: 42 yo M w/ PMHx of A fib, DM2, diabetic neuropathy, HLD, asthma Near syncope/palpitation/chest pressure/SOB -head CT negative for acute pathology -EKG, NSR -f/u echo -trop x3 negative -am EKG NSR -d-dimer<200 -BNP -carotid doppler negative -f/u UDS A Fib -lovenox 100mg BID while starting warfarin -warfarin increased to 10 -f/u INR to monitor therapeutic efficacy. 1.1 today DM -ISS -metformin 1000 BID HTN -lisinopril 20 mg -cardizem 30 BID Diabetic Neuropathy -Gabapentin 300 TID HLD -crestor CAD -ASA 81mg -crestor Asthma -stable -continue to monitor Constipation -pt reports 2 days no BM -lactulose 30mg PO x1 Ppx -protonix 40sc -lovenox 100mg BID <Bryant García H - Last Filed: 05/17/18 19:20> Objective - Vital Signs/Intake and Output Vital Signs (last 24 hours): Temp Pulse Resp BP Pulse Ox 98.1 F 78 20 146/85 97 05/17/18 15:00 05/17/18 15:00 05/17/18 15:00 05/17/18 15:00 05/17/18 15:00 Intake and Output: 05/17/18 05/18/18 18:59 06:59 Intake Total 400 Balance 400 - Medications Medications: Current Medications Acetaminophen (Tylenol 325mg Tab) 650 mg PO Q6 PRN PRN Reason: Pain, Mild (1-3) Aspirin (Aspirin Chewable) [address] [facility] Last Admin: 05/17/18 10:02 Dose: 81 mg Diltiazem HCl (Cardizem) [address] [facility] Last Admin: 05/17/18 17:46 Dose: 30 mg Enoxaparin Sodium (Lovenox) [address] [facility] Last Admin: 05/17/18 10:03 Dose: 100 mg Gabapentin (Neurontin) [address] [facility] Last Admin: 05/17/18 17:47 Dose: 300 mg Ibuprofen (Motrin Tab) 600 mg PO TID PRN PRN Reason: Pain, moderate (4-7) Last Admin: 05/16/18 21:35 Dose: 600 mg Insulin Aspart (Novolog Mix 70/30 (70/30 Units/Ml)) [address] [facility] Last Admin: 05/17/18 10:02 Dose: 35 units Insulin Human Regular (Novolin R) [address] [facility] PRN Reason: Protocol Last Admin: 05/17/18 17:10 Dose: Not Given Lisinopril (Zestril) [address] [facility] Last Admin: 05/17/18 10:02 Dose: 20 mg [facility] Last Admin: 05/17/18 17:46 Dose: 1,000 mg Pantoprazole Sodium (Protonix Ec Tab) [address] [facility] Last Admin: 05/17/18 10:01 Dose: 40 mg Rosuvastatin Calcium (Crestor) [address] [facility] Last Admin: 05/16/18 21:35 Dose: 5 mg Warfarin Sodium (Coumadin) [address] [facility] Stop: 05/22/18 18:01 Last Admin: 05/17/18 17:47 Dose: 10 mg - Labs Labs: 05/17/18 06:54 05/17/18 06:54 PT 11.6 SECONDS (9.7-12.2) 05/17/18 06:54 INR 1.1 05/17/18 06:54 APTT 39 SECONDS (21-34) H 05/16/18 06:29 Attending/Attestation - Attestation I have personally seen and examined this patient.: Yes I have fully participated in the care of the patient.: Yes I have reviewed all pertinent clinical information, including history, physical exam and plan: Yes Notes (Text): 05/17/18 19:13 Medical attending: Patient was seen and examined by me with the medical assistant ob gyn. Reviewed the above notes by the resident and agree with the above by the note by the resident The INR is still on the low side. Granted he is a larger patient and so may need a higher dose. We will try 10 coumadin tonight. He remains on the SC Lovenox BID Also we discussed with the patient that should we conitnue to have problems with coumadin then maybe we will need to consider a NOAC agent. However he does not have insurance and this is why his PMD placed him on coumadin and not on a NOAC. Review of telemetry did not show episodes of irregularity overnight. Bryant García
[2018-05-17 07:06] LABS: INR 1.1; PROTHROMBIN TIME 11.6 SECONDS (9.7-12.2)
[2018-05-17 07:11] LABS: BASO % 0.5 % (0.0-2.0); EOS # 0.3 K/uL (0.0-0.7); EOS % 3.2 % (0.0-4.0); HEMOGLOBIN 15.7 g/dL (12.0-18.0); LYMPH # 3.2 K/uL (1.0-4.3); LYMPH % 32.6 % (20.0-40.0); MEAN CELL VOLUME 81.5 fL (80.0-94.0); MEAN CORPUSCULAR HEMOGLOBIN 28.2 pg (27.0-31.0); MEAN CORPUSCULAR HGB CONC 34.6 g/dL (33.0-37.0); MEAN PLATELET VOLUME 8.8 fL (7.2-11.7); MONO # 0.5 K/uL (0.0-0.8); MONO % 5.1 % (0.0-10.0); NEUT # 5.8 K/uL (1.8-7.0); NEUT % 58.6 % (50.0-75.0); NRBC % 0.1 % (0.0-2.0); RBC 5.56 Mil/uL (4.40-5.90); RED CELL DISTRIBUTION WIDTH 14.6 % (11.5-14.5); WHITE BLOOD COUNT 9.9 K/uL (4.8-10.8)
[2018-05-17 07:21] LABS: ALB/GLOB RATIO 1.5 (1.0-2.1); ALBUMIN 3.7 g/dL (3.5-5.0); ALT/SGPT 43 U/L (21-72); AST/SGOT 33 U/L (17-59); BLOOD UREA NITROGEN 12 mg/dL (9-20); CALCIUM 9.3 mg/dl (8.6-10.4); GFR AFRICAN-AMERICAN > 60; GFR NON-AFRICAN AMERICAN > 60
[2018-05-17] MEDS: (Novolin R) Insulin Human Regular 100 units/ml vial SC SCH ×4 (07:44→21:46)
[2018-05-17] MEDS ORDERED: Pneumococcal 23-Valent Vaccine IM ONE (10:00)
[2018-05-17] MEDS: Pantoprazole 40 mg EC Tab PO SCH (10:01)
[2018-05-17] MEDS: (Novolog Mix 70/30) Insulin Aspart/Insulin Aspar 100 units/ml SC SCH ×2 (10:02→21:56)
[2018-05-17] MEDS: Enoxaparin 100 mg Syringe SC SCH ×2 (10:03→21:55)
--- NOTE | 2018-05-17 10:36 | VASCLAB ---
Date of service: 05/16/2018 PROCEDURE: HISTORY: near syncope COMPARISON: None available. TECHNIQUE: Grayscale and duplex Doppler evaluation of the cervical carotid and vertebral arteries were performed. The common carotid, carotid bifurcations and cervical Internal Carotid Artery (ICA) and proximal External Carotid Artery (ECA) were evaluated. The vertebral arteries were evaluated for gross patency and flow direction. Report prepared by Mark Arias, BS, RVT FINDINGS: RIGHT CAROTID ARTERIES: 1. Common Carotid Artery: No significant focal plaque formation of the right common carotid artery. Maximum Peak Systolic velocity: 96 cm/sec: End-diastolic velocity 15 cm/sec. 2. Carotid Bifurcation: plaque formation. Maximum Peak Systolic velocity: 88 cm/sec: End-diastolic velocity 15 cm/sec. 3. Internal Carotid Artery: Plaque description: 3.1. Proximal Segment: Peak systolic velocity 71 cm/sec: End-diastolic velocity 19 cm/sec - % stenosis 0-15% 3.2. Middle Segment: Peak systolic velocity 76 cm/sec: End-diastolic velocity 28 cm/sec - % stenosis 0-15% 3.3. Distal Segment: Peak systolic velocity 87 cm/sec: End-diastolic velocity 28 cm/sec - % stenosis 0-15% 4. External Carotid Artery: No significant focal plaque formation. Peak systolic velocity 119 cm/sec 5. ICA/CCA Ratio: 0.9 LEFT CAROTID ARTERIES: 1. Common Carotid Artery: No significant focal plaque formation of the left common carotid artery. Maximum Peak Systolic velocity: 95 cm/sec: End-diastolic velocity 22 cm/sec. 2. Carotid Bifurcation: plaque formation. Maximum Peak Systolic velocity: 85 cm/sec: End-diastolic velocity 18 cm/sec. 3. Internal Carotid Artery: Plaque description: 3.1. Proximal Segment: Peak systolic velocity 79 cm/sec: End-diastolic velocity 23 cm/sec - % stenosis 0-15% 3.2. Middle Segment: Peak systolic velocity 72 cm/sec: End-diastolic velocity 30 cm/sec - % stenosis 0-15% 3.3. Distal Segment: Peak systolic velocity 62 cm/sec: End-diastolic velocity 25 cm/sec - % stenosis 0-15% 4. External Carotid Artery: No significant focal plaque formation. Peak systolic velocity 108 cm/sec 5. ICA/CCA Ratio: 0.9 VERTEBRAL ARTERIES: 1. Right Vertebral Artery: The right vertebral artery flow direction is antegrade. 2. Left Vertebral Artery: The left vertebral artery flow direction is antegrade. OTHER FINDINGS: 1. Right Brachial Blood pressure: 154 mmHg. 2. Left Brachial Blood pressure: 142 mmHg. IMPRESSION: RIGHT: Duplex scan does not suggest hemodynamically significant stenosis of the right extracranial carotid arteries. LEFT: Duplex scan does not suggest hemodynamically significant stenosis of the left extracranial carotid arteries.
[2018-05-18] MEDS: (Novolin R) Insulin Human Regular 100 units/ml vial SC SCH ×4 (07:44→21:25)
[2018-05-18 08:07] LABS: BASO % 0.4 % (0.0-2.0); EOS # 0.2 K/uL (0.0-0.7); EOS % 2.6 % (0.0-4.0); LYMPH # 2.6 K/uL (1.0-4.3); MEAN CELL VOLUME 81.8 fL (80.0-94.0); MEAN CORPUSCULAR HEMOGLOBIN 28.5 pg (27.0-31.0); MEAN CORPUSCULAR HGB CONC 34.9 g/dL (33.0-37.0); MEAN PLATELET VOLUME 8.9 fL (7.2-11.7); MONO # 0.4 K/uL (0.0-0.8); MONO % 4.8 % (0.0-10.0); NEUT # 5.8 K/uL (1.8-7.0); NEUT % 63.2 % (50.0-75.0); NRBC % 0.1 % (0.0-2.0); RBC 5.61 Mil/uL (4.40-5.90); RED CELL DISTRIBUTION WIDTH 14.4 % (11.5-14.5); WHITE BLOOD COUNT 9.1 K/uL (4.8-10.8)
[2018-05-18 08:19] LABS: INR 1.1; PROTHROMBIN TIME 11.7 SECONDS (9.7-12.2)
[2018-05-18 08:25] LABS: ALB/GLOB RATIO 1.5 (1.0-2.1); ALT/SGPT 48 U/L (21-72); AST/SGOT 33 U/L (17-59); BLOOD UREA NITROGEN 12 mg/dL (9-20); CALCIUM 9.5 mg/dl (8.6-10.4); GFR AFRICAN-AMERICAN > 60; GFR NON-AFRICAN AMERICAN > 60
--- NOTE | 2018-05-18 08:28 | CP.PCM.PN ---
Subjective - Date & Time of Evaluation Date of Evaluation: 05/18/18 Time of Evaluation: 08:26 - Subjective Subjective: Pt seen and examined at bedside. Pt complains of headache, watery diarhea last night and gassy feeling. Pt denies chest pain, SOB, n/v, f/c Objective - Vital Signs/Intake and Output Vital Signs (last 24 hours): Temp Pulse Resp BP Pulse Ox 99.1 F 96 H 20 132/85 97 05/17/18 23:20 05/18/18 01:23 05/17/18 23:20 05/17/18 23:20 05/18/18 05:04 - Medications Medications: Current Medications Acetaminophen (Tylenol 325mg Tab) 650 mg PO Q6 PRN PRN Reason: Pain, Mild (1-3) Last Admin: 05/18/18 05:29 Dose: 650 mg Aspirin (Aspirin Chewable) 81 mg PO DAILY [facility] Last Admin: 05/17/18 10:02 Dose: 81 mg Diltiazem HCl (Cardizem) 30 mg PO BID [facility] Last Admin: 05/17/18 17:46 Dose: 30 mg Enoxaparin Sodium (Lovenox) 100 mg SC Q12 [facility] Last Admin: 05/17/18 21:55 Dose: 100 mg Gabapentin (Neurontin) 300 mg PO Q8 [facility] Last Admin: 05/18/18 05:27 Dose: 300 mg Ibuprofen (Motrin Tab) 600 mg PO TID PRN PRN Reason: Pain, moderate (4-7) Last Admin: 05/16/18 21:35 Dose: 600 mg Insulin Aspart (Novolog Mix 70/30 (70/30 Units/Ml)) 35 units SC Q12 [facility] Last Admin: 05/17/18 21:56 Dose: 35 units Insulin Human Regular (Novolin R) 0 unit SC ACHS [facility] PRN Reason: Protocol Last Admin: 05/18/18 07:44 Dose: 4 u Lisinopril (Zestril) 20 mg PO DAILY [facility] Last Admin: 05/17/18 10:02 Dose: 20 mg Metformin HCl (Glucophage) 1,000 mg PO BIDCC [facility] Last Admin: 05/17/18 17:46 Dose: 1,000 mg Pantoprazole Sodium (Protonix Ec Tab) 40 mg PO DAILY [facility] Last Admin: 05/17/18 10:01 Dose: 40 mg Rosuvastatin Calcium (Crestor) 5 mg PO HS [facility] Last Admin: 05/17/18 21:55 Dose: 5 mg Warfarin Sodium (Coumadin) 10 mg PO 1800 [facility] Stop: 05/22/18 18:01 Last Admin: 05/17/18 17:47 Dose: 10 mg - Labs Labs: 05/18/18 07:46 05/18/18 07:46 PT 11.7 SECONDS (9.7-12.2) 05/18/18 07:46 INR 1.1 05/18/18 07:46 APTT 39 SECONDS (21-34) H 05/16/18 06:29 Assessment and Plan - Assessment and Plan (Free Text) Assessment: Constitutional Appears: Non-toxic, No Acute Distress - Head Exam Head Exam: ATRAUMATIC, NORMAL INSPECTION, NORMOCEPHALIC - Eye Exam Eye Exam: EOMI, Normal appearance Pupil Exam: NORMAL ACCOMODATION - ENT Exam ENT Exam: Mucous Membranes Moist - Neck Exam Neck Exam: Normal Inspection - Respiratory Exam Respiratory Exam: Clear to Ausculation Bilateral, NORMAL BREATHING PATTERN. absent: Rales, Rhonchi, Wheezes - GI/Abdominal Exam GI & Abdominal Exam: Soft, Normal Bowel Sounds. absent: Distended, Tenderness - Extremities Exam Extremities Exam: Normal Capillary Refill, Normal Inspection. absent: Calf Tenderness, Pedal Edema - Neurological Exam Neurological Exam: Alert, Awake, Normal Gait, Oriented x3 - Psychiatric Exam Psychiatric exam: Normal Affect, Normal Mood - Skin Skin Exam: Intact, Normal Color, Warm Assessment and Plan - Assessment and Plan (Free Text) Assessment: 42 yo M w/ PMHx of A fib, DM2, diabetic neuropathy, HLD, asthma Near syncope/palpitation/chest pressure/SOB -head CT negative for acute pathology -EKG, NSR -f/u echo -trop x3 negative -am EKG NSR -d-dimer<200 -BNP -carotid doppler negative -f/u UDS A Fib -lovenox 100mg BID while starting warfarin -warfarin increased to 10 -f/u INR to monitor therapeutic efficacy. 1.1 today DM -ISS -metformin 1000 BID HTN -lisinopril 20 mg -cardizem 30 BID Diabetic Neuropathy -Gabapentin 300 TID HLD -crestor CAD -ASA 81mg -crestor Asthma -stable -continue to monitor Constipation -pt reports 2 days no BM -lactulose 30mg PO x1 Ppx -protonix 40sc -lovenox 100mg BID
[2018-05-18] MEDS: diltiaZEM 120 mg/24 Hours CD Cap PO SCH (10:03)
[2018-05-18] MEDS: Pantoprazole 40 mg EC Tab PO SCH (10:03)
[2018-05-18] MEDS: (Novolog Mix 70/30) Insulin Aspart/Insulin Aspar 100 units/ml SC SCH ×2 (10:03→21:24)
[2018-05-18] MEDS: Enoxaparin 100 mg Syringe SC SCH ×2 (12:02→21:22)
[2018-05-19] MEDS: (Novolin R) Insulin Human Regular 100 units/ml vial SC SCH ×4 (07:56→21:08)
[2018-05-19 07:58] LABS: BASO % 0.4 % (0.0-2.0); EOS # 0.3 K/uL (0.0-0.7); EOS % 2.8 % (0.0-4.0); HEMOGLOBIN 15.2 g/dL (12.0-18.0); LYMPH # 2.8 K/uL (1.0-4.3); LYMPH % 31.5 % (20.0-40.0); MEAN CELL VOLUME 82.1 fL (80.0-94.0); MEAN CORPUSCULAR HEMOGLOBIN 28.3 pg (27.0-31.0); MEAN CORPUSCULAR HGB CONC 34.5 g/dL (33.0-37.0); MEAN PLATELET VOLUME 9.3 fL (7.2-11.7); MONO # 0.5 K/uL (0.0-0.8); MONO % 5.4 % (0.0-10.0); NEUT # 5.4 K/uL (1.8-7.0); NEUT % 59.9 % (50.0-75.0); NRBC % 0.1 % (0.0-2.0); RBC 5.36 Mil/uL (4.40-5.90); RED CELL DISTRIBUTION WIDTH 14.6 % (11.5-14.5)
[2018-05-19 08:04] LABS: INR 1.2; PROTHROMBIN TIME 13.4 SECONDS (9.7-12.2)
[2018-05-19 08:15] LABS: ALB/GLOB RATIO 1.4 (1.0-2.1); ALBUMIN 3.7 g/dL (3.5-5.0); ALT/SGPT 56 U/L (21-72); AST/SGOT 48 U/L (17-59); BLOOD UREA NITROGEN 18 mg/dL (9-20); CALCIUM 9.3 mg/dl (8.6-10.4); GFR AFRICAN-AMERICAN > 60; GFR NON-AFRICAN AMERICAN > 60
--- NOTE | 2018-05-19 08:22 | CP.PCM.PN ---
Subjective - Date & Time of Evaluation Date of Evaluation: 05/19/18 Time of Evaluation: 08:20 - Subjective Subjective: Pt seen and examined at bedside. Pt no longer has watery diarrhe, pt reports last stool was soft brown. Pt denies chest pain, SOB, n/v, f/c Objective - Vital Signs/Intake and Output Vital Signs (last 24 hours): Temp Pulse Resp BP Pulse Ox 98.1 F 78 20 135/84 97 05/18/18 23:10 05/19/18 04:00 05/18/18 23:10 05/18/18 23:10 05/18/18 23:10 - Medications Medications: Current Medications Acetaminophen (Tylenol 325mg Tab) 650 mg PO Q6 PRN PRN Reason: Pain, Mild (1-3) Last Admin: 05/18/18 05:29 Dose: 650 mg Aspirin (Aspirin Chewable) 81 mg PO DAILY [facility] Last Admin: 05/18/18 10:03 Dose: 81 mg Diltiazem HCl (Cardizem Cd) 120 mg PO DAILY [facility] Last Admin: 05/18/18 10:03 Dose: 120 mg Gabapentin (Neurontin) 300 mg PO Q8 [facility] Last Admin: 05/19/18 05:35 Dose: 300 mg Ibuprofen (Motrin Tab) 600 mg PO TID PRN PRN Reason: Pain, moderate (4-7) Last Admin: 05/16/18 21:35 Dose: 600 mg Insulin Aspart (Novolog Mix 70/30 (70/30 Units/Ml)) 35 units SC Q12 [facility] Last Admin: 05/18/18 21:24 Dose: 35 units Insulin Human Regular (Novolin R) 0 unit SC ACHS [facility] PRN Reason: Protocol Last Admin: 05/19/18 07:56 Dose: 6 u Lisinopril (Zestril) 20 mg PO DAILY [facility] Last Admin: 05/18/18 10:02 Dose: 20 mg Metformin HCl (Glucophage) 1,000 mg PO BIDCC [facility] Last Admin: 05/18/18 17:41 Dose: 1,000 mg Pantoprazole Sodium (Protonix Ec Tab) 40 mg PO DAILY [facility] Last Admin: 05/18/18 10:03 Dose: 40 mg Rosuvastatin Calcium (Crestor) 5 mg PO HS [facility] Last Admin: 05/18/18 21:22 Dose: 5 mg Warfarin Sodium (Coumadin) 10 mg PO 1800 [facility] Stop: 05/22/18 18:01 Last Admin: 05/18/18 17:40 Dose: 10 mg - Labs Labs: 05/19/18 07:43 05/19/18 07:43 PT 13.4 SECONDS (9.7-12.2) H 05/19/18 07:43 INR 1.2 05/19/18 07:43 APTT 39 SECONDS (21-34) H 05/16/18 06:29 Assessment and Plan - Assessment and Plan (Free Text) Assessment: Constitutional Appears: Non-toxic, No Acute Distress - Head Exam Head Exam: ATRAUMATIC, NORMAL INSPECTION, NORMOCEPHALIC - Eye Exam Eye Exam: EOMI, Normal appearance Pupil Exam: NORMAL ACCOMODATION - ENT Exam ENT Exam: Mucous Membranes Moist - Neck Exam Neck Exam: Normal Inspection - Respiratory Exam Respiratory Exam: Clear to Ausculation Bilateral, NORMAL BREATHING PATTERN. absent: Rales, Rhonchi, Wheezes - GI/Abdominal Exam GI & Abdominal Exam: Soft, Normal Bowel Sounds. absent: Distended, Tenderness - Extremities Exam Extremities Exam: Normal Capillary Refill, Normal Inspection. absent: Calf Tenderness, Pedal Edema - Neurological Exam Neurological Exam: Alert, Awake, Normal Gait, Oriented x3 - Psychiatric Exam Psychiatric exam: Normal Affect, Normal Mood - Skin Skin Exam: Intact, Normal Color, Warm Assessment and Plan 42 yo M w/ PMHx of A fib, DM2, diabetic neuropathy, HLD, asthma Near syncope/palpitation/chest pressure/SOB -head CT negative for acute pathology -EKG, NSR -f/u echo -trop x3 negative -am EKG NSR -d-dimer<200 -BNP -carotid doppler negative -f/u UDS A Fib -lovenox 100mg BID while starting warfarin -warfarin increased to 10 -f/u INR to monitor therapeutic efficacy. 1.1 today DM -ISS -metformin 1000 BID HTN -lisinopril 20 mg -cardizem 30 BID Diabetic Neuropathy -Gabapentin 300 TID HLD -crestor CAD -ASA 81mg -crestor Asthma -stable -continue to monitor Constipation -pt reports 2 days no BM -lactulose 30mg PO x1 Ppx -protonix 40sc -lovenox 100mg BID
[2018-05-19] MEDS: Pantoprazole 40 mg EC Tab PO SCH (10:28)
[2018-05-19] MEDS: diltiaZEM 120 mg/24 Hours CD Cap PO SCH (10:29)
[2018-05-19] MEDS: (Novolog Mix 70/30) Insulin Aspart/Insulin Aspar 100 units/ml SC SCH ×2 (10:30→21:56)
[2018-05-19] MEDS: Enoxaparin 100 mg Syringe SC SCH ×2 (11:02→21:55)
--- NOTE | 2018-05-19 22:11 | CARD ---
APPROVED REPORT Date of service: 05/15/2018 EKG Measurement Heart [id number] <Conclusion> Normal sinus rhythm Normal ECG
--- NOTE | 2018-05-19 22:28 | CARD ---
APPROVED REPORT Date of service: 05/16/2018 EXAM: Two-dimensional and M-mode echocardiogram with Doppler and color Doppler. Other Information Quality : Rhythm : Atrial Fibrillation INDICATION Syncope Palpitations RISK FACTORS Obesity 2D DIMENSIONS IVSd0.9 (0.7-1.1cm)Aortic Root (2D)3.5 (2.0-3.7cm) LVDd4.9 (3.9-5.9cm)PWd0.8 (0.7-1.1cm) LVDs3.0 (2.5-4.0cm)FS (%) 40.3 % LVEF (%)70.8 (>50%) M-Mode DIMENSIONS RVDd1.88 (2.1-3.2cm)Left Atrium (MM)3.58 (2.5-4.0cm) IVSd0.89 (0.7-1.1cm)Aortic Root3.05 (2.2-3.7cm) LVDd5.31 (4.0-5.6cm)Aortic Cusp Exc.2.07 (1.5-2.0cm) PWd1.11 (0.7-1.1cm)FS (%) 47 % LVDs2.80 (2.0-3.8cm)LVEF (%)75 (>50%) Mitral Valve MV E Djxbptqq82.8cm/sMV A Hqpvvtpc44.5cm/sE/A ratio1.4 TDI E/Lateral E'0.0E/Medial E'0.0 Tricuspid Valve TR Peak [id number]/sTR Peak [id number] <Conclusion> Left ventricle: thickness: normal; size: normal; overall ejection fraction: 65%: diastolic filling pressures: normal Mitral valve: annulus: normal: leaflets: normal: excursion: normal; no significant trans-mitral gradient: no significant incompetence: left atrium: normal Aortic valve: leaflets: normal: excursion: normal; no significant trans-aortic gradient: No significant incompetence: aortic root: normal Right sided Structures: Pulmonary valve: normal; no significant incompetence; Tricuspid valve: normal; no significant incompetence: Intra-cardiac hemodynamics: pulmonary systolic pressures: normal; central venous pressures: normal No pericardial effusion
--- NOTE | 2018-05-20 00:03 | CARD ---
APPROVED REPORT Date of service: 05/15/2018 EKG Measurement Heart [id number] <Conclusion> Normal sinus rhythm Normal ECG
[2018-05-20 06:14] LABS: BASO # 0.1 K/uL (0.0-0.2); BASO % 0.5 % (0.0-2.0); EOS # 0.2 K/uL (0.0-0.7); EOS % 2.5 % (0.0-4.0); HEMOGLOBIN 15.7 g/dL (12.0-18.0); LYMPH # 3.2 K/uL (1.0-4.3); LYMPH % 32.7 % (20.0-40.0); MEAN CELL VOLUME 81.8 fL (80.0-94.0); MEAN CORPUSCULAR HEMOGLOBIN 28.5 pg (27.0-31.0); MEAN CORPUSCULAR HGB CONC 34.8 g/dL (33.0-37.0); MEAN PLATELET VOLUME 8.9 fL (7.2-11.7); MONO # 0.4 K/uL (0.0-0.8); MONO % 4.5 % (0.0-10.0); NEUT # 5.9 K/uL (1.8-7.0); NEUT % 59.8 % (50.0-75.0); RBC 5.51 Mil/uL (4.40-5.90); RED CELL DISTRIBUTION WIDTH 14.7 % (11.5-14.5); WHITE BLOOD COUNT 9.9 K/uL (4.8-10.8)
[2018-05-20 06:46] LABS: INR 1.2; PROTHROMBIN TIME 13.3 SECONDS (9.7-12.2)
[2018-05-20 06:50] LABS: ALB/GLOB RATIO 1.7 (1.0-2.1); ALBUMIN 4.1 g/dL (3.5-5.0); ALT/SGPT 71 U/L (21-72); AST/SGOT 55 U/L (17-59); BLOOD UREA NITROGEN 17 mg/dL (9-20); CALCIUM 9.7 mg/dl (8.6-10.4); GFR AFRICAN-AMERICAN > 60; GFR NON-AFRICAN AMERICAN > 60
[2018-05-20] MEDS: (Novolin R) Insulin Human Regular 100 units/ml vial SC SCH ×4 (08:54→22:36)
[2018-05-20] MEDS: (Novolog Mix 70/30) Insulin Aspart/Insulin Aspar 100 units/ml SC SCH ×2 (09:01→21:21)
[2018-05-20] MEDS: Enoxaparin 100 mg Syringe SC SCH ×2 (10:30→21:20)
[2018-05-20] MEDS: Pantoprazole 40 mg EC Tab PO SCH (10:34)
[2018-05-20] MEDS: diltiaZEM 120 mg/24 Hours CD Cap PO SCH (11:00)
--- NOTE | 2018-05-20 14:21 | CP.PCM.PN ---
Subjective - Date & Time of Evaluation Date of Evaluation: 05/20/18 Time of Evaluation: 14:18 - Subjective Subjective: Pt seen and examined at bedside. Pt complains of constipation. Pt reports lactulose worked well for him last time on 05/17. Pt has no other overnight complaints. Pt denies cp, sob, f/c n/v, swelling, palpitations, loss of vision Objective - Vital Signs/Intake and Output Vital Signs (last 24 hours): Temp Pulse Resp BP Pulse Ox 98.1 F 81 18 147/81 99 05/20/18 07:25 05/20/18 07:45 05/20/18 07:25 05/20/18 07:25 05/20/18 07:25 Intake and Output: 05/20/18 05/20/18 06:59 18:59 Intake Total 110 Balance 110 - Medications Medications: Current Medications Acetaminophen (Tylenol 325mg Tab) 650 mg PO Q6 PRN PRN Reason: Pain, Mild (1-3) Last Admin: 05/18/18 05:29 Dose: 650 mg Aspirin (Aspirin Chewable) 81 mg PO DAILY [facility] Last Admin: 05/20/18 11:00 Dose: 81 mg Diltiazem HCl (Cardizem Cd) 120 mg PO DAILY [facility] Last Admin: 05/20/18 11:00 Dose: 120 mg Enoxaparin Sodium (Lovenox) 100 mg SC Q12 [facility] Last Admin: 05/20/18 10:30 Dose: 100 mg Gabapentin (Neurontin) 300 mg PO Q8 [facility] Last Admin: 05/20/18 05:27 Dose: 300 mg Ibuprofen (Motrin Tab) 600 mg PO TID PRN PRN Reason: Pain, moderate (4-7) Last Admin: 05/16/18 21:35 Dose: 600 mg Insulin Aspart (Novolog Mix 70/30 (70/30 Units/Ml)) 35 units SC Q12 [facility] Last Admin: 05/20/18 09:01 Dose: 35 units Insulin Human Regular (Novolin R) 0 unit SC ACHS [facility] PRN Reason: Protocol Last Admin: 05/20/18 13:05 Dose: 4 u Lisinopril (Zestril) 20 mg PO DAILY [facility] Last Admin: 05/20/18 10:35 Dose: 20 mg Metformin HCl (Glucophage) 1,000 mg PO BIDCC [facility] Last Admin: 05/20/18 08:54 Dose: 1,000 mg Pantoprazole Sodium (Protonix Ec Tab) 40 mg PO DAILY [facility] Last Admin: 05/20/18 10:34 Dose: 40 mg Rosuvastatin Calcium (Crestor) 5 mg PO HS [facility] Last Admin: 05/19/18 21:55 Dose: 5 mg Warfarin Sodium (Coumadin) 12.5 mg PO 1800 [facility] Stop: 05/22/18 18:01 - Labs Labs: 05/20/18 06:05 05/20/18 06:05 PT 13.3 SECONDS (9.7-12.2) H 05/20/18 06:05 INR 1.2 05/20/18 06:05 APTT 39 SECONDS (21-34) H 05/16/18 06:29 - Additional Findings Additional findings: Constitutional Appears: Non-toxic, No Acute Distress - Head Exam Head Exam: ATRAUMATIC, NORMAL INSPECTION, NORMOCEPHALIC - Eye Exam Eye Exam: EOMI, Normal appearance Pupil Exam: NORMAL ACCOMODATION - ENT Exam ENT Exam: Mucous Membranes Moist - Neck Exam Neck Exam: Normal Inspection - Respiratory Exam Respiratory Exam: Clear to Ausculation Bilateral, NORMAL BREATHING PATTERN. absent: Rales, Rhonchi, Wheezes - GI/Abdominal Exam GI & Abdominal Exam: Soft, Normal Bowel Sounds. absent: Distended, Tenderness - Extremities Exam Extremities Exam: Normal Capillary Refill, Normal Inspection. absent: Calf Tenderness, Pedal Edema - Neurological Exam Neurological Exam: Alert, Awake, Normal Gait, Oriented x3 - Psychiatric Exam Psychiatric exam: Normal Affect, Normal Mood - Skin Skin Exam: Intact, Normal Color, Warm Assessment and Plan - Assessment and Plan (Free Text) Assessment: Assessment and Plan 42 yo M w/ PMHx of A fib, DM2, diabetic neuropathy, HLD, asthma Near syncope/palpitation/chest pressure/SOB -head CT negative for acute pathology -EKG, NSR -echo: a-fib, EF 65% -trop x3 negative -am EKG NSR -d-dimer<200 -carotid doppler negative A Fib -lovenox 100mg BID while starting warfarin -warfarin increased to 10 -f/u INR to monitor therapeutic efficacy. 1.1 today DM -ISS -metformin 1000 BID HTN -lisinopril 20 mg -cardizem 30 BID Diabetic Neuropathy -Gabapentin 300 TID HLD -crestor CAD -ASA 81mg -crestor Asthma -stable -continue to monitor Constipation -pt reports 2 days no BM -lactulose 30mg PO x1 Ppx -protonix 40sc -lovenox 100mg BID
[2018-05-21 07:24] LABS: INR 1.6; PROTHROMBIN TIME 17.6 SECONDS (9.7-12.2)
[2018-05-21 07:33] LABS: BASO % 0.5 % (0.0-2.0); EOS # 0.2 K/uL (0.0-0.7); EOS % 2.5 % (0.0-4.0); HEMOGLOBIN 14.5 g/dL (12.0-18.0); LYMPH # 2.5 K/uL (1.0-4.3); LYMPH % 27.7 % (20.0-40.0); MEAN CELL VOLUME 81.1 fL (80.0-94.0); MEAN CORPUSCULAR HEMOGLOBIN 28.2 pg (27.0-31.0); MEAN CORPUSCULAR HGB CONC 34.8 g/dL (33.0-37.0); MONO # 0.5 K/uL (0.0-0.8); NEUT # 5.7 K/uL (1.8-7.0); NEUT % 63.3 % (50.0-75.0); NRBC % 0.1 % (0.0-2.0); RBC 5.14 Mil/uL (4.40-5.90); RED CELL DISTRIBUTION WIDTH 14.5 % (11.5-14.5)
[2018-05-21 07:43] LABS: ALB/GLOB RATIO 1.6 (1.0-2.1); ALBUMIN 3.6 g/dL (3.5-5.0); ALT/SGPT 63 U/L (21-72); AST/SGOT 42 U/L (17-59); BLOOD UREA NITROGEN 17 mg/dL (9-20); CALCIUM 9.6 mg/dl (8.6-10.4); GFR AFRICAN-AMERICAN > 60; GFR NON-AFRICAN AMERICAN > 60
[2018-05-21] MEDS: (Novolin R) Insulin Human Regular 100 units/ml vial SC SCH ×4 (08:30→21:58)
[2018-05-21] MEDS: Enoxaparin 100 mg Syringe SC SCH ×2 (10:23→21:51)
[2018-05-21] MEDS: diltiaZEM 120 mg/24 Hours CD Cap PO SCH (10:23)
[2018-05-21] MEDS: Pantoprazole 40 mg EC Tab PO SCH (10:23)
[2018-05-21] MEDS: (Novolog Mix 70/30) Insulin Aspart/Insulin Aspar 100 units/ml SC SCH ×2 (10:23→21:51)
--- NOTE | 2018-05-21 16:23 | CP.PCM.PN ---
Subjective - Date & Time of Evaluation Date of Evaluation: 05/21/18 Time of Evaluation: 10:25 - Subjective Subjective: Patient examined at bedside. No acute events. Patient has no complaints of chest pain, SOB, abd pain, nausea, vomiting. Patient was wondering about eating greens and how that would interfere with his coumadin/INR Objective - Vital Signs/Intake and Output Vital Signs (last 24 hours): Temp Pulse Resp BP Pulse Ox 98.6 F 80 20 173/73 H 97 05/21/18 16:00 05/21/18 16:00 05/21/18 16:00 05/21/18 16:00 05/21/18 16:00 Intake and Output: 05/21/18 05/21/18 06:59 18:59 Intake Total 480 Balance 480 - Medications Medications: Current Medications Acetaminophen (Tylenol 325mg Tab) 650 mg PO Q6 PRN PRN Reason: Pain, Mild (1-3) Last Admin: 05/18/18 05:29 Dose: 650 mg Aspirin (Aspirin Chewable) 81 mg PO DAILY [facility] Last Admin: 05/21/18 10:23 Dose: 81 mg Diltiazem HCl (Cardizem Cd) 120 mg PO DAILY [facility] Last Admin: 05/21/18 10:23 Dose: 120 mg Enoxaparin Sodium (Lovenox) 100 mg SC Q12 [facility] Last Admin: 05/21/18 10:23 Dose: 100 mg Gabapentin (Neurontin) 300 mg PO Q8 [facility] Last Admin: 05/21/18 15:13 Dose: 300 mg Ibuprofen (Motrin Tab) 600 mg PO TID PRN PRN Reason: Pain, moderate (4-7) Last Admin: 05/21/18 05:29 Dose: 600 mg Insulin Aspart (Novolog Mix 70/30 (70/30 Units/Ml)) 35 units SC Q12 [facility] Last Admin: 05/21/18 10:23 Dose: 35 units Insulin Human Regular (Novolin R) 0 unit SC ACHS [facility] PRN Reason: Protocol Last Admin: 05/21/18 12:15 Dose: 4 u Lisinopril (Zestril) 20 mg PO DAILY [facility] Last Admin: 05/21/18 10:22 Dose: 20 mg Metformin HCl (Glucophage) 1,000 mg PO BIDCC [facility] Last Admin: 05/21/18 08:44 Dose: 1,000 mg Pantoprazole Sodium (Protonix Ec Tab) 40 mg PO DAILY [facility] Last Admin: 05/21/18 10:23 Dose: 40 mg Rosuvastatin Calcium (Crestor) 5 mg PO HS [facility] Last Admin: 05/20/18 21:20 Dose: 5 mg Warfarin Sodium (Coumadin) 15 mg PO ONCE ONE Stop: 05/21/18 21:01 - Labs Labs: 05/21/18 07:13 05/21/18 07:13 PT 17.6 SECONDS (9.7-12.2) H 05/21/18 07:13 INR 1.6 05/21/18 07:13 APTT 39 SECONDS (21-34) H 05/16/18 06:29 - Constitutional Appears: Non-toxic, No Acute Distress - Head Exam Head Exam: ATRAUMATIC, NORMAL INSPECTION, NORMOCEPHALIC - Eye Exam Eye Exam: EOMI, Normal appearance - ENT Exam ENT Exam: Mucous Membranes Moist, Normal Exam - Neck Exam Neck Exam: Full ROM, Normal Inspection - Respiratory Exam Respiratory Exam: Clear to Ausculation Bilateral, NORMAL BREATHING PATTERN. absent: Rhonchi, Wheezes - Cardiovascular Exam Cardiovascular Exam: REGULAR RHYTHM, RRR, +S1, +S2. absent: Tachycardia, Murmur - GI/Abdominal Exam GI & Abdominal Exam: Soft, Normal Bowel Sounds. absent: Distended, Tenderness, Rebound - Extremities Exam Extremities Exam: Normal Capillary Refill, Normal Inspection. absent: Calf Tenderness, Pedal Edema - Neurological Exam Neurological Exam: Alert, Awake, Normal Gait, Oriented x3 - Psychiatric Exam Psychiatric exam: Normal Affect, Normal Mood - Skin Skin Exam: Intact, Normal Color, Warm Assessment and Plan - Assessment and Plan (Free Text) Assessment: 42 yo M w/ PMHx of A fib, DM2, diabetic neuropathy, HLD, asthma Near syncope/palpitation/chest pressure/SOB -head CT negative for acute pathology -EKG, NSR -echo WNL, EF~65%, no acute pathology -trop x3 negative -am EKG NSR -d-dimer<200 -BNP -carotid doppler negative -f/u UDS A Fib -lovenox 100mg BID while starting warfarin -warfarin increased to 15 -f/u INR to monitor therapeutic efficacy. 1.6 today DM -ISS -metformin 1000 BID HTN -lisinopril 20 mg -cardizem 30 BID Diabetic Neuropathy -Gabapentin 300 TID HLD -crestor CAD -ASA 81mg -crestor Asthma -stable -continue to monitor Ppx -protonix 40sc -lovenox 100mg BID
[2018-05-22 07:58] LABS: INR 1.9; PROTHROMBIN TIME 20.5 SECONDS (9.7-12.2)
[2018-05-22 08:00] LABS: BASO % 0.4 % (0.0-2.0); EOS # 0.2 K/uL (0.0-0.7); EOS % 1.9 % (0.0-4.0); HEMOGLOBIN 15.2 g/dL (12.0-18.0); LYMPH # 2.4 K/uL (1.0-4.3); LYMPH % 21.4 % (20.0-40.0); MEAN CELL VOLUME 82.4 fL (80.0-94.0); MONO # 0.6 K/uL (0.0-0.8); MONO % 5.4 % (0.0-10.0); NEUT % 70.9 % (50.0-75.0); NRBC % 0.1 % (0.0-2.0); RBC 5.44 Mil/uL (4.40-5.90); RED CELL DISTRIBUTION WIDTH 14.6 % (11.5-14.5); WHITE BLOOD COUNT 11.3 K/uL (4.8-10.8)
[2018-05-22] MEDS: (Novolin R) Insulin Human Regular 100 units/ml vial SC SCH ×4 (08:04→23:00)
[2018-05-22 08:13] LABS: ALB/GLOB RATIO 1.4 (1.0-2.1); ALBUMIN 3.9 g/dL (3.5-5.0); ALT/SGPT 65 U/L (21-72); AST/SGOT 49 U/L (17-59); BLOOD UREA NITROGEN 19 mg/dL (9-20); CALCIUM 10.2 mg/dl (8.6-10.4); GFR AFRICAN-AMERICAN > 60; GFR NON-AFRICAN AMERICAN > 60
[2018-05-22] MEDS: Pantoprazole 40 mg EC Tab PO SCH (09:53)
[2018-05-22] MEDS: diltiaZEM 120 mg/24 Hours CD Cap PO SCH (09:53)
[2018-05-22] MEDS: (Novolog Mix 70/30) Insulin Aspart/Insulin Aspar 100 units/ml SC SCH ×2 (09:53→22:57)
[2018-05-22] MEDS: Enoxaparin 100 mg Syringe SC SCH ×2 (09:57→22:56)
--- NOTE | 2018-05-22 11:09 | CP.PCM.PN ---
Subjective - Date & Time of Evaluation Date of Evaluation: 05/22/18 Time of Evaluation: 09:05 - Subjective Subjective: Patient examined at bedside. No acute events overnight. Patient reports he is eating greens again, as he has been withholding due to the interaction with coumadin. Patient reports he is doing well, no episodes of cardiac abnormalities, no chest pain, palpitations, SOB, abdominal pain, nausea, vomiting. Patient reports normal BMs with formed stool. He has expressed he is eager to be discharged. Objective - Vital Signs/Intake and Output Vital Signs (last 24 hours): Temp Pulse Resp BP Pulse Ox 97.7 F 84 18 144/84 97 05/22/18 07:00 05/22/18 07:00 05/22/18 07:00 05/22/18 07:00 05/22/18 07:00 Intake and Output: 05/22/18 05/22/18 06:59 18:59 Intake Total 600 Balance 600 - Medications Medications: Current Medications Acetaminophen (Tylenol 325mg Tab) 650 mg PO Q6 PRN PRN Reason: Pain, Mild (1-3) Last Admin: 05/18/18 05:29 Dose: 650 mg Aspirin (Aspirin Chewable) 81 mg PO DAILY [facility] Last Admin: 05/22/18 09:53 Dose: 81 mg Diltiazem HCl (Cardizem Cd) 120 mg PO DAILY [facility] Last Admin: 05/22/18 09:53 Dose: 120 mg Enoxaparin Sodium (Lovenox) 100 mg SC Q12 [facility] Last Admin: 05/22/18 09:57 Dose: 100 mg Gabapentin (Neurontin) 300 mg PO Q8 [facility] Last Admin: 05/22/18 05:14 Dose: 300 mg Ibuprofen (Motrin Tab) 600 mg PO TID PRN PRN Reason: Pain, moderate (4-7) Last Admin: 05/22/18 05:19 Dose: 600 mg Insulin Aspart (Novolog Mix 70/30 (70/30 Units/Ml)) 35 units SC Q12 [facility] Last Admin: 05/22/18 09:53 Dose: 35 units Insulin Human Regular (Novolin R) 0 unit SC ACHS [facility] PRN Reason: Protocol Last Admin: 05/22/18 08:04 Dose: 4 units Lisinopril (Zestril) 20 mg PO DAILY [facility] Last Admin: 05/22/18 09:52 Dose: 20 mg Metformin HCl (Glucophage) 1,000 mg PO BIDCC [facility] Last Admin: 05/22/18 08:14 Dose: 1,000 mg Pantoprazole Sodium (Protonix Ec Tab) 40 mg PO DAILY [facility] Last Admin: 05/22/18 09:53 Dose: 40 mg Rosuvastatin Calcium (Crestor) 5 mg PO HS [facility] Last Admin: 05/21/18 21:51 Dose: 5 mg Warfarin Sodium (Coumadin) 15 mg PO 1800 ONE Stop: 05/22/18 18:01 - Labs Labs: 05/22/18 07:47 05/22/18 07:47 PT 20.5 SECONDS (9.7-12.2) H 05/22/18 07:47 INR 1.9 05/22/18 07:47 APTT 39 SECONDS (21-34) H 05/16/18 06:29 - Constitutional Appears: Non-toxic, No Acute Distress - Head Exam Head Exam: ATRAUMATIC, NORMAL INSPECTION, NORMOCEPHALIC - Eye Exam Eye Exam: EOMI, Normal appearance - ENT Exam ENT Exam: Mucous Membranes Moist, Normal Exam - Neck Exam Neck Exam: Full ROM, Normal Inspection. absent: Tenderness - Respiratory Exam Respiratory Exam: Clear to Ausculation Bilateral, NORMAL BREATHING PATTERN. absent: Accessory Muscle Use, Chest Wall Tenderness, Rhonchi, Wheezes - Cardiovascular Exam Cardiovascular Exam: REGULAR RHYTHM, +S1, +S2. absent: Tachycardia, Murmur - GI/Abdominal Exam GI & Abdominal Exam: Soft, Normal Bowel Sounds. absent: Distended, Firm, Tenderness - Extremities Exam Extremities Exam: Full ROM, Normal Capillary Refill, Normal Inspection. absent : Calf Tenderness, Joint Swelling, Pedal Edema - Neurological Exam Neurological Exam: Alert, Awake, Normal Gait, Oriented x3 - Psychiatric Exam Psychiatric exam: Normal Affect, Normal Mood - Skin Skin Exam: Intact, Normal Color, Warm Assessment and Plan - Assessment and Plan (Free Text) Assessment: 42 yo M w/ PMHx of A fib, DM2, diabetic neuropathy, HLD, asthma Near syncope/palpitation/chest pressure/SOB -head CT negative for acute pathology -EKG, NSR -echo WNL, EF~65%, no acute pathology -trop x3 negative -am EKG NSR -d-dimer<200 -BNP -carotid doppler negative -f/u UDS A Fib -lovenox 100mg BID bridge at therapeutic coumadin INR -warfarin maintained at 15mg -f/u INR to monitor therapeutic efficacy. 1.9 today DM -ISS -metformin 1000 BID HTN -lisinopril 20 mg -cardizem 30 BID Diabetic Neuropathy -Gabapentin 300 TID HLD -crestor CAD -ASA 81mg -crestor Asthma -stable -continue to monitor Ppx -protonix 40sc -lovenox 100mg BID
--- NOTE | 2018-05-22 13:38 | CARD ---
APPROVED REPORT Date of service: 05/16/2018 EKG Measurement Heart [id number] <Conclusion> Normal sinus rhythm Normal ECG
[2018-05-22 16:24] VITALS: RESP 20
[2018-05-22] MEDS: Hydrocortisone 2.5% Rectal Cream(30 gm) PR SCH (17:35)
[2018-05-23 01:12] VITALS: O2SAT 99
[2018-05-23 06:39] LABS: BASO % 0.4 % (0.0-2.0); EOS # 0.2 K/uL (0.0-0.7); EOS % 2.9 % (0.0-4.0); HEMOGLOBIN 14.3 g/dL (12.0-18.0); LYMPH # 2.3 K/uL (1.0-4.3); LYMPH % 29.6 % (20.0-40.0); MEAN CELL VOLUME 81.8 fL (80.0-94.0); MEAN CORPUSCULAR HEMOGLOBIN 28.3 pg (27.0-31.0); MEAN CORPUSCULAR HGB CONC 34.6 g/dL (33.0-37.0); MONO # 0.5 K/uL (0.0-0.8); MONO % 6.1 % (0.0-10.0); NEUT # 4.8 K/uL (1.8-7.0); RBC 5.05 Mil/uL (4.40-5.90); RED CELL DISTRIBUTION WIDTH 14.4 % (11.5-14.5); WHITE BLOOD COUNT 7.9 K/uL (4.8-10.8)
[2018-05-23 06:42] LABS: INR 2.6; PROTHROMBIN TIME 28.2 SECONDS (9.7-12.2)
[2018-05-23 07:31] LABS: BLOOD UREA NITROGEN 19 mg/dL (9-20); GFR AFRICAN-AMERICAN > 60; GFR NON-AFRICAN AMERICAN > 60
[2018-05-23 07:32] LABS: ALB/GLOB RATIO 1.4 (1.0-2.1); ALBUMIN 3.7 g/dL (3.5-5.0); ALT/SGPT 59 U/L (21-72); AST/SGOT 37 U/L (17-59); CALCIUM 9.8 mg/dl (8.6-10.4)
[2018-05-23] MEDS: (Novolin R) Insulin Human Regular 100 units/ml vial SC SCH ×3 (08:06→17:29)
[2018-05-23 08:28] VITALS: BP 138/78; TEMP 97.9
[2018-05-23] MEDS: Pantoprazole 40 mg EC Tab PO SCH (10:15)
[2018-05-23] MEDS: Enoxaparin 100 mg Syringe SC SCH (10:15)
[2018-05-23] MEDS: Hydrocortisone 2.5% Rectal Cream(30 gm) PR SCH ×2 (10:16→17:36)
[2018-05-23] MEDS: diltiaZEM 120 mg/24 Hours CD Cap PO SCH (10:17)
[2018-05-23] MEDS: (Novolog Mix 70/30) Insulin Aspart/Insulin Aspar 100 units/ml SC SCH (10:31)
[2018-05-23 11:42] VITALS: PULSE 93
--- NOTE | 2018-05-24 06:16 | CP.PCM.DIS ---
Provider - Provider Date of Admission: 05/19/18 08:16 Attending physician: Timbo Carr MD Time Spent in preparation of Discharge (in minutes): 29 Hospital Course - Lab Results Lab Results: Most Recent Lab Values WBC 7.9 K/uL (4.8-10.8) 05/23/18 06:32 RBC 5.05 Mil/uL (4.40-5.90) 05/23/18 06:32 Hgb 14.3 g/dL (12.0-18.0) 05/23/18 06:32 Hct 41.3 % (35.0-51.0) 05/23/18 06:32 MCV 81.8 fL (80.0-94.0) 05/23/18 06:32 MCH 28.3 pg (27.0-31.0) 05/23/18 06:32 MCHC 34.6 g/dL (33.0-37.0) 05/23/18 06:32 RDW 14.4 % (11.5-14.5) 05/23/18 06:32 Plt Count 179 K/uL (130-400) 05/23/18 06:32 MPV 9.0 fL (7.2-11.7) 05/23/18 06:32 Neut % (Auto) 61.0 % (50.0-75.0) 05/23/18 06:32 Lymph % (Auto) 29.6 % (20.0-40.0) 05/23/18 06:32 [place] % (Auto) 6.1 % (0.0-10.0) 05/23/18 06:32 Eos % (Auto) 2.9 % (0.0-4.0) 05/23/18 06:32 Baso % (Auto) 0.4 % (0.0-2.0) 05/23/18 06:32 Neut # (Auto) 4.8 K/uL (1.8-7.0) 05/23/18 06:32 Lymph # (Auto) 2.3 K/uL (1.0-4.3) 05/23/18 06:32 [place] # (Auto) 0.5 K/uL (0.0-0.8) 05/23/18 06:32 Eos # (Auto) 0.2 K/uL (0.0-0.7) 05/23/18 06:32 Baso # (Auto) 0.0 K/uL (0.0-0.2) 05/23/18 06:32 PT 28.2 SECONDS (9.7-12.2) H D 05/23/18 06:32 INR 2.6 D 05/23/18 06:32 APTT 39 SECONDS (21-34) H 05/16/18 06:29 D-Dimer, Quantitative < 200 ng/mlDDU (0-243) 05/15/18 19:50 Sodium 137 mmol/L (132-148) 05/23/18 06:32 Potassium 4.8 mmol/L (3.6-5.2) 05/23/18 06:32 Chloride 99 mmol/L (98-107) 05/23/18 06:32 Carbon Dioxide 29 mmol/L (22-30) 05/23/18 06:32 Anion Gap 13 (10-20) 05/23/18 06:32 BUN 19 mg/dL (9-20) 05/23/18 06:32 Creatinine 0.8 mg/dL (0.8-1.5) 05/23/18 06:32 Est GFR ( Amer) > 60 05/23/18 06:32 Est GFR (Non-Af Amer) > 60 05/23/18 06:32 POC Glucose (mg/dL) 160 mg/dL (65-110) H 05/23/18 16:42 Random Glucose 240 mg/dL (75-110) H 05/23/18 06:32 Calcium 9.8 mg/dl (8.6-10.4) 05/23/18 06:32 Phosphorus 5.1 mg/dL (2.5-4.5) H 05/23/18 06:32 Magnesium 1.5 mg/dL (1.6-2.3) L 05/23/18 06:32 Total Bilirubin 0.4 mg/dL (0.2-1.3) 05/23/18 06:32 AST 37 U/L (17-59) 05/23/18 06:32 ALT 59 U/L (21-72) 05/23/18 06:32 Alkaline Phosphatase 65 U/L (38-126) 05/23/18 06:32 Total Creatine Kinase 238 U/L (55-170) H 05/16/18 04:39 CK-MB (Mass) 5.31 ng/mL (0.0-3.38) H 05/16/18 04:39 Troponin I 0.0130 ng/mL (0.00-0.120) 05/16/18 04:39 Total Protein 6.2 g/dL (6.3-8.3) L 05/23/18 06:32 Albumin 3.7 g/dL (3.5-5.0) 05/23/18 06:32 Globulin 2.6 gm/dL (2.2-3.9) 05/23/18 06:32 Albumin/Globulin Ratio 1.4 (1.0-2.1) 05/23/18 06:32 Thyroxine (T4) 9.61 ug/dL (5.5-11.0) 05/15/18 14:08 T3 Uptake 31.9 % (23.0-41.0) 05/15/18 14:08 TSH 3rd Generation 1.24 mIU/L (0.46-4.68) 05/15/18 14:08 Urine Color Straw (YELLOW) 05/15/18 14:08 Urine Clarity Clear (Clear) 05/15/18 14:08 Urine pH 6.0 (5.0-8.0) 05/15/18 14:08 Ur Specific [place] 1.028 (1.003-1.030) 05/15/18 14:08 Urine Protein Negative mg/dL (NEGATIVE) 05/15/18 14:08 Urine Glucose (UA) 3+ mg/dL (Normal) H 05/15/18 14:08 Urine Ketones Trace mg/dL (NEGATIVE) 05/15/18 14:08 Urine Blood Negative (NEGATIVE) 05/15/18 14:08 Urine Nitrate Negative (NEGATIVE) 05/15/18 14:08 Urine Bilirubin Negative (NEGATIVE) 05/15/18 14:08 Urine Urobilinogen Normal mg/dL (0.2-1.0) 05/15/18 14:08 Ur Leukocyte Esterase Neg [place]/uL (Negative) 05/15/18 14:08 Urine WBC (Auto) < 1 /hpf (0-5) 05/15/18 14:08 Urine RBC (Auto) < 1 /hpf (0-3) 05/15/18 14:08 Discharge Exam - Head Exam Head Exam: ATRAUMATIC, NORMAL INSPECTION, NORMOCEPHALIC Discharge Plan - Discharge Medications Prescriptions: diltiaZEM CD [Cardizem CD] 120 mg PO DAILY 14 Days #14 cap Gabapentin [Neurontin] 300 mg PO Q8 14 Days #42 cap Insulin Aspart/Insulin Aspar [Novolog Mix 70/30 (70/30 units/ml)] 35 units SC Q12 #1 vial Lisinopril [Zestril] 20 mg PO DAILY 14 Days #28 tab metFORMIN [glucOPHAGE] 1,000 mg PO BIDCC 14 Days #56 tab Rosuvastatin Calcium [Crestor] 5 mg PO HS 14 Days #14 tab Warfarin [Coumadin] 10 mg PO 1800 14 Days tab - Follow Up Plan Condition: IMPROVED Disposition: HOME/ ROUTINE Instructions: Syncope (Fainting), Heart Healthy Diet, Diabetes Exchange Diet, Carbohydrate Counting Diet, Diabetes Diet , Palpitations (DC), Hypertension (DC) Additional Instructions: Patient is stable for discharge home. Patient is to resume medications as prescribed. Patient is to take Warfarin 10mg nightly and follow up with PMD within 1 week for INR check. Patient is to continue antihypertensive medications and diabetes medications as prescribed. Discharge plan was discussed and agreed upon with patient. Patient is advised to return to the ED with any worsening of symptoms.
== END 2018-05-23 18:45 | disposition home or self-care (01) | DRG 18 ==
LOC: C.ER 13:01 → C.9E 16:34 → C.6T 18:33 → OBSVTOIN 05-19 08:16
PROVIDERS: ADMIT Internal Medicine; ATTEND Internal Medicine
DX: E11.65 Type 2 diabetes mellitus with hyperglycemia (principal); I65.23 Occlusion and stenosis of bilateral carotid arteries; E11.40 Type 2 diabetes mellitus with diabetic neuropathy, unspecified; I48.91 Unspecified atrial fibrillation; E78.5 Hyperlipidemia, unspecified; I10 Essential (primary) hypertension; I25.10 Atherosclerotic heart disease of native coronary artery without angina pectoris; J45.909 Unspecified asthma, uncomplicated; K59.00 Constipation, unspecified; Z87.891 Personal history of nicotine dependence; Z89.411 Acquired absence of right great toe; F12.10 Cannabis abuse, uncomplicated; Z68.38 Body mass index [BMI] 38.0-38.9, adult